=== PATIENT | male | born 1955 | race American Indian/Alaskan Native ===

== ENCOUNTER 2016-12-27 23:17 | Inpatient (IN) | payer MEDICARE, MEDICAID ==
[2016-12-27] MEDS ORDERED: Dextrose 50% SYRINGE Inj (50 ml) ONE (23:41)
[2016-12-27] MEDS ORDERED: Dextrose 50% SYRINGE Inj (50 ml) IV STA (23:47)
[2016-12-27] MEDS ORDERED: Sodium Chloride 0.9% 1,000 ML IV ONE (23:47)
[2016-12-27 23:53] LABS: BASO # 0.1 K/uL (0.0-0.2); BASO % 1.2 % (0.0-2.0); LYMPH # 0.5 K/uL (1.0-4.3); LYMPH % 5.4 % (20.0-40.0); MEAN CELL VOLUME 78.1 fL (80.0-94.0); MEAN PLATELET VOLUME 7.3 fL (7.2-11.7); MONO # 1.2 K/uL (0.0-0.8); MONO % 13.1 % (0.0-10.0); NRBC % 0.3 % (0.0-2.0); PLATELET COUNT 375 K/uL (130-400); RED CELL DISTRIBUTION WIDTH 25.1 % (11.5-14.5); WHITE BLOOD COUNT 9.4 K/uL (4.8-10.8)
[2016-12-28 00:02] LABS: POTASSIUM 5.9 mmol/L (3.6-5.2)
[2016-12-28] MEDS ORDERED: Sodium Chloride 0.9% 1,000 ML ONE (00:02)
[2016-12-28 00:04] LABS: BILIRUBIN,TOTAL 3.8 mg/dL (0.2-1.3); CALCIUM 9.9 mg/dl (8.6-10.4); TOTAL PROTEIN 8.3 g/dL (6.3-8.3)
--- NOTE | 2016-12-28 00:56 | C.PDOC ---
History Of Present Illness 61 year old male was brought to the ED by EMS after syncopal episode. Patient's blood sugar is slow and denies fever, chills, nausea, or vomiting. Chief Complaint (Nursing): Syncope History Per: Patient History/Exam Limitations: no limitations Onset/Duration Of Symptoms: Hrs Current Symptoms Are (Timing): Better Seizure Or Post-ictal Symptoms: None Fall Associated With With Symptoms: No Recent travel outside of the [place]: No Additional History Per: EMS Past Medical History Reviewed: Historical Data, Nursing Documentation, Vital Signs Vital Signs: Last Vital Signs Temp 97.6 F 12/28/16 00:40 Pulse 96 H 12/28/16 01:01 Resp 21 12/28/16 01:01 BP 156/99 H 12/28/16 01:01 Pulse Ox 97 12/28/16 02:31 - Medical History PMH: HTN, Hypercholesterolemia Family History: States: Unknown Family Hx - Social History Hx Alcohol Use: Yes Hx Substance Use: Yes - Immunization History Hx Tetanus Toxoid Vaccination: No Hx Influenza Vaccination: No Hx Pneumococcal Vaccination: No Review Of Systems Constitutional: Positive for: Other (syncopal episode ). Negative for: Fever, Chills Cardiovascular: Negative for: Chest Pain, Palpitations Respiratory: Negative for: Cough, Shortness of Breath Gastrointestinal: Negative for: Nausea, Vomiting, Abdominal Pain, Diarrhea Physical Exam - Physical Exam Appears: Non-toxic, No Acute Distress Skin: Warm, Dry Head: Atraumatic, Normacephalic Eye(s): bilateral: Normal Inspection, PERRL, EOMI Oral Mucosa: Dry Neck: Supple Chest: Symmetrical, No Deformity Cardiovascular: Rhythm Regular, No Murmur Respiratory: Normal Breath Sounds, No Rales, No Rhonchi, No Wheezing Gastrointestinal/Abdominal: Soft, No Tenderness, No Distention, No Guarding, No Rebound Extremity: Normal ROM, No Tenderness Neurological/Psych: Oriented x3 Gait: Steady ED Course And Treatment - Laboratory Results Result Diagrams: 12/27/16 23:50 12/28/16 02:04 ECG: Interpreted By Me, Viewed By Me ECG Rhythm: AV Paced ECG Interpretation: Abnormal Interpretation Of ECG: Paced rhythm with ventricular capture, abnormal tracings Rate From EC O2 Sat by Pulse Oximetry: 97 (RA) Pulse Ox Interpretation: Normal - CT Scan/US Head CT W/O Contrast Other Rad Studies (CT/US): Read By Radiologist, Radiology Report Reviewed CT/US Interpretation: Addendum created by Stas Clayton MD on 12/28/2016 1:32 AM Eastern Time ([place]). Brain: Mild atrophy. No intracranial hemorrhage. No mass. Apparent ill-defined decreased. attenuation within LEFT temporal region with apparent loss of keen-white matter differentiation versus. volume averaging. Chronic lacunar infarct within RIGHT thalamus. Addendum created by Stas Clayton MD on 12/28/2016 1:06 AM Eastern Time ([place]). THIS REPORT CONTAINS FINDINGS THAT MAY BE CRITICAL TO PATIENT CARE. The. findings were verbally communicated via telephone conference with Yusuf Conway at 1:06. AM EDT on 12/28/2016. The findings were acknowledged and understood. Initial Report created on 12/28/2016 1:00 AM Eastern Time ([place]). EXAM: CT Head Without Intravenous Contrast. CLINICAL HISTORY: 61 years old, male; Pain; Headache; Additional info: Headache. Syncope episode. TECHNIQUE: Axial computed tomography images of the head/brain without intravenous contrast. All CT scans at. this facility use one or more dose reduction techniques, viz.: automated exposure control; ma/kV. adjustment per patient size (including targeted exams where dose is matched to indication; i.e. head);. or iterative reconstruction technique. COMPARISON: No relevant prior studies available. FINDINGS: Brain: Mild atrophy. No intracranial hemorrhage. No mass. Apparent ill-defined decreased. attenuation within LEFT temporal region with apparent loss of keen-white matter differentiation versus. volume averaging. Ventricles : No hydrocephalus. Bones/joints: No acute fracture. Soft tissues: Unremarkable. Vasculature: Mild atherosclerotic disease of intracranial arteries. Sinuses: No acute sinusitis. Mastoid air cells: No mastoid effusion. Orbits: Unremarkable as visualized. IMPRESSION: 1. Apparent ill- defined decreased attenuation within LEFT temporal region. Acute infarction not. excluded. Recommend MRI. 2. Incidental/non-acute findings are described above. Progress Note: Head CT, EKG, labs, and blood work were ordered. Patient was given Dextrose 50% and IV fluids. Disposition Discussed With DrForeign: Erika Vanegas Doctor Will See Patient In The: Hospital Counseled Patient/Family Regarding: Diagnosis - Disposition Referrals: Narendra Winter MD [Staff Provider] - Disposition: HOSPITALIZED Disposition Time: 02:29 Condition: STABLE Forms: [facility] ([place]), Accompanied To ED By: - POA Present On Arrival: None - Clinical Impression Clinical Impression: Syncope, Renal insufficiency, CAD (coronary artery disease) - Scribe Statement The provider has reviewed the documentation as recorded by the Scribe Connie Garcia All medical record entries made by the Scribe were at my direction and personally dictated by me. I have reviewed the chart and agree that the record accurately reflects my personal performance of the history, physical exam, medical decision making, and the department course for this patient. I have also personally directed, reviewed, and agree with the discharge instructions and disposition.
--- NOTE | 2016-12-28 01:00 | CT ---
EXAM: CT Head Without Intravenous Contrast CLINICAL HISTORY: 61 years old, male; Pain; Headache; Additional info: Headache. Syncope episode TECHNIQUE: Axial computed tomography images of the head/brain without intravenous contrast. All CT scans at this facility use one or more dose reduction techniques, viz.: automated exposure control; ma/kV adjustment per patient size (including targeted exams where dose is matched to indication; i.e. head); or iterative reconstruction technique. COMPARISON: No relevant prior studies available. FINDINGS: Brain: Mild atrophy. No intracranial hemorrhage. No mass. Apparent ill-defined decreased attenuation within LEFT temporal region with apparent loss of keen-white matter differentiation versus volume averaging. Ventricles: No hydrocephalus. Bones/joints: No acute fracture. Soft tissues: Unremarkable. Vasculature: Mild atherosclerotic disease of intracranial arteries. Sinuses: No acute sinusitis. Mastoid air cells: No mastoid effusion. Orbits: Unremarkable as visualized. IMPRESSION: 1. Apparent ill-defined decreased attenuation within LEFT temporal region. Acute infarction not excluded. Recommend MRI. 2. Incidental/non-acute findings are described above.
[2016-12-28 01:42] LABS: NEUTROPHIL 85 % (50-75); TOTAL CELLS COUNTED 100
[2016-12-28 01:43] LABS: LARGE PLATELETS PRESENT
[2016-12-28 02:32] LABS: POTASSIUM 5.7 mmol/L (3.6-5.2)
[2016-12-28 02:35] LABS: CALCIUM 9.4 mg/dl (8.6-10.4)
[2016-12-28 02:37] LABS: TROPONIN I 0.134 ng/mL (0.00-0.120)
[2016-12-28] MEDS ORDERED: Sod Polystyrene Sulf 15 gm/60 ml Susp PO ONE (03:12)
[2016-12-28 05:17] LABS: GRANULAR CAST 8 /lpf (0-1); RBC URINE < 1 /hpf (0-3); URINE BACTERIA RARE (<OCC); URINE BILIRUBIN NEGATIVE (NEGATIVE); URINE BLOOD NEGATIVE (NEGATIVE); URINE COLOR Amber (YELLOW); URINE GLUCOSE (UA) 1+ mg/dL (Normal); URINE KETONE NEGATIVE (NEGATIVE); URINE LEUKOCYTE ESTERASE NEG Leu/uL (Negative); URINE PROTEIN 2+ mg/dL (NEGATIVE); WBC URINE 4 /hpf (0-5)
[2016-12-28] MEDS: Pantoprazole 40 mg EC Tab PO SCH (10:26)
[2016-12-28] MEDS: Enoxaparin 40 mg Syringe SC SCH (10:30)
--- NOTE | 2016-12-28 12:54 | CP.PCM.CON ---
History of Present Illness - History of Present Illness History of Present Illness: Consultation for evaluation of syncope and +ve TnI HPI: Past Patient History - Infectious Disease Hx of Infectious Diseases: None - Past Medical History & Family History Past Medical History?: Yes - Past Social History Smoking Status: Never Smoked - CARDIAC Hx Cardiac Disorders: Yes Hx Hypercholesterolemia: Yes Hx Hypertension: Yes - PULMONARY Hx Respiratory Disorders: No - NEUROLOGICAL Hx Neurological Disorder: No - HEENT Hx HEENT Problems: No - RENAL Hx Chronic Kidney Disease: No - ENDOCRINE/METABOLIC Hx Endocrine Disorders: No - HEMATOLOGICAL/ONCOLOGICAL Hx Blood Disorders: No - INTEGUMENTARY Hx Dermatological Problems: No - MUSCULOSKELETAL/RHEUMATOLOGICAL Hx Falls: No - GASTROINTESTINAL Hx Gastrointestinal Disorders: No - GENITOURINARY/GYNECOLOGICAL Hx Genitourinary Disorders: No - PSYCHIATRIC Hx Psychophysiologic Disorder: No Hx Substance Use: Yes - SURGICAL HISTORY Hx Surgeries: Yes Other/Comment: "defib place to L chest wall 2011" - ANESTHESIA Hx Anesthesia: Yes Hx Anesthesia Reactions: No Hx Malignant Hyperthermia: No Has any member of the family had a problem w/ anesthesia?: No Meds Allergies/Adverse Reactions: Allergies Allergy/AdvReac Type Severity Reaction Status Date / Time No Known Allergies Allergy Verified 12/27/16 23:43 - Medications Medications: Current Medications Aspirin (Aspirin) 325 mg PO DAILY [facility] Last Admin: 12/28/16 10:26 Dose: 325 mg Carvedilol (Coreg) 12.5 mg PO BID [facility] Last Admin: 12/28/16 10:26 Dose: 12.5 mg Enoxaparin Sodium (Lovenox) 40 mg SC DAILY [facility] Last Admin: 12/28/16 10:30 Dose: 40 mg Pantoprazole Sodium (Protonix Ec Tab) 40 mg PO DAILY [facility] Last Admin: 12/28/16 10:26 Dose: 40 mg Pneumococcal Polyvalent Vaccine (Pneumovax 23 Vaccine) 0.5 ml IM .ONCE ONE Stop: 12/30/16 10:01 Ticagrelor (Brilinta) 90 mg PO BID [facility] Last Admin: 12/28/16 10:26 Dose: 90 mg Results - Vital Signs Recent Vital Signs: Last Vital Signs Temp 97.7 F 12/28/16 08:14 Pulse 95 H 12/28/16 08:14 Resp 20 12/28/16 08:14 BP 112/71 12/28/16 10:26 Pulse Ox 98 12/28/16 08:14 - Labs Result Diagrams: 12/27/16 23:50 12/28/16 02:04 Labs: Laboratory Results - last 24 hr 12/27/16 12/27/16 12/28/16 23:50 23:50 00:05 WBC 9.4 RBC 5.25 Hgb 13.1 Hct 41.0 MCV 78.1 L MCH 25.0 L MCHC 32.0 L RDW 25.1 H Plt Count 375 MPV 7.3 Neut % (Auto) 80.3 H Lymph % (Auto) 5.4 L [place] % (Auto) 13.1 H Eos % (Auto) 0.0 Baso % (Auto) 1.2 Neut # 7.5 H Lymph # 0.5 L [place] # 1.2 H Eos # 0.0 Baso # 0.1 Neutrophils % (Manual) 85 H Lymphocytes % (Manual) 4 L Monocytes % (Manual) 11 H Platelet Estimate Normal Large Platelets Present Polychromasia Slight Anisocytosis (manual) Moderate Microcytosis (manual) Slight Macrocytosis (manual) Slight Tear Drop Cells Slight Ovalocytes Slight Sodium 139 Potassium 5.9 H Chloride 100 Carbon Dioxide 20 L Anion Gap 25 H BUN 25 H Creatinine 1.7 H Est GFR ( Amer) 50 Est GFR (Non-Af Amer) 41 POC Glucose (mg/dL) 124 H Random Glucose 56 L Calcium 9.9 Total Bilirubin 3.8 H AST 54 ALT 60 Alkaline Phosphatase 132 H Total Creatine Kinase CK-MB (Mass) Troponin I Troponin I, Quant Total Protein 8.3 Albumin 4.0 Globulin 4.2 H Albumin/Globulin Ratio 1.0 Urine Color Urine Clarity Urine pH Ur Specific [place] Urine Protein Urine Glucose (UA) Urine Ketones Urine Blood Urine Nitrate Urine Bilirubin Urine Urobilinogen Ur Leukocyte Esterase Urine WBC (Auto) Urine RBC (Auto) Ur Squamous Epith Cells Amorphous Sediment Urine Bacteria Hyaline Casts Granular Casts (Auto) Broad Casts 12/28/16 12/28/16 12/28/16 01:00 02:04 04:56 WBC RBC Hgb Hct MCV MCH MCHC RDW Plt Count MPV Neut % (Auto) Lymph % (Auto) [place] % (Auto) Eos % (Auto) Baso % (Auto) Neut # Lymph # [place] # Eos # Baso # Neutrophils % (Manual) Lymphocytes % (Manual) Monocytes % (Manual) Platelet Estimate Large Platelets Polychromasia Anisocytosis (manual) Microcytosis (manual) Macrocytosis (manual) Tear Drop Cells Ovalocytes Sodium 141 Potassium 5.7 H Chloride 100 Carbon Dioxide 20 L Anion Gap 27 H BUN 28 H Creatinine 1.7 H Est GFR ( Amer) 50 Est GFR (Non-Af Amer) 41 POC Glucose (mg/dL) 96 Random Glucose 111 H Calcium 9.4 Total Bilirubin AST ALT Alkaline Phosphatase Total Creatine Kinase CK-MB (Mass) Troponin I 0.1340 H* Troponin I, Quant Total Protein Albumin Globulin Albumin/Globulin Ratio Urine Color [place] Urine Clarity Hazy Urine pH 5.0 Ur Specific [place] 1.016 Urine Protein 2+ H Urine Glucose (UA) 1+ H Urine Ketones Negative Urine Blood Negative Urine Nitrate Negative Urine Bilirubin Negative Urine Urobilinogen 2.0 Ur Leukocyte Esterase Neg Urine WBC (Auto) 4 Urine RBC (Auto) < 1 Ur Squamous Epith Cells 1 Amorphous Sediment Rare H Urine Bacteria Rare Hyaline Casts 6-10 H Granular Casts (Auto) 8 Broad Casts 19 12/28/16 12/28/16 12/28/16 06:46 11:55 12:00 WBC RBC Hgb Hct MCV MCH MCHC RDW Plt Count MPV Neut % (Auto) Lymph % (Auto) [place] % (Auto) Eos % (Auto) Baso % (Auto) Neut # Lymph # [place] # Eos # Baso # Neutrophils % (Manual) Lymphocytes % (Manual) Monocytes % (Manual) Platelet Estimate Large Platelets Polychromasia Anisocytosis (manual) Microcytosis (manual) Macrocytosis (manual) Tear Drop Cells Ovalocytes Sodium Potassium Chloride Carbon Dioxide Anion Gap BUN Creatinine Est GFR ( Amer) Est GFR (Non-Af Amer) POC Glucose (mg/dL) 94 87 Random Glucose Calcium Total Bilirubin AST ALT Alkaline Phosphatase Total Creatine Kinase 553 H CK-MB (Mass) 8.39 H Troponin I Troponin I, Quant 0.1110 Total Protein Albumin Globulin Albumin/Globulin Ratio Urine Color Urine Clarity Urine pH Ur Specific [place] Urine Protein Urine Glucose (UA) Urine Ketones Urine Blood Urine Nitrate Urine Bilirubin Urine Urobilinogen Ur Leukocyte Esterase Urine WBC (Auto) Urine RBC (Auto) Ur Squamous Epith Cells Amorphous Sediment Urine Bacteria Hyaline Casts Granular Casts (Auto) Broad Casts Assessment & Plan (1) Troponin level elevated Status: Acute (2) Syncope Status: Acute (3) CAD (coronary artery disease) Status: Acute (4) Renal insufficiency Status: Acute (5) HTN (hypertension) Status: Acute
--- NOTE | 2016-12-28 14:30 | CP.PCM.HP ---
Past Patient History - Infectious Disease Hx of Infectious Diseases: None - Past Medical History & Family History Past Medical History?: Yes - Past Social History Smoking Status: Never Smoked - CARDIAC Hx Cardiac Disorders: Yes Hx Hypercholesterolemia: Yes Hx Hypertension: Yes - PULMONARY Hx Respiratory Disorders: No - NEUROLOGICAL Hx Neurological Disorder: No - HEENT Hx HEENT Problems: No - RENAL Hx Chronic Kidney Disease: No - ENDOCRINE/METABOLIC Hx Endocrine Disorders: No - HEMATOLOGICAL/ONCOLOGICAL Hx Blood Disorders: No - INTEGUMENTARY Hx Dermatological Problems: No - MUSCULOSKELETAL/RHEUMATOLOGICAL Hx Falls: No - GASTROINTESTINAL Hx Gastrointestinal Disorders: No - GENITOURINARY/GYNECOLOGICAL Hx Genitourinary Disorders: No - PSYCHIATRIC Hx Psychophysiologic Disorder: No Hx Substance Use: Yes - SURGICAL HISTORY Hx Surgeries: Yes Other/Comment: "defib place to L chest wall 2011" - ANESTHESIA Hx Anesthesia: Yes Hx Anesthesia Reactions: No Hx Malignant Hyperthermia: No Has any member of the family had a problem w/ anesthesia?: No Meds Allergies/Adverse Reactions: Allergies Allergy/AdvReac Type Severity Reaction Status Date / Time No Known Allergies Allergy Verified 12/27/16 23:43 Physical Exam - Constitutional Appears: Well - Head Exam Head Exam: ATRAUMATIC, NORMAL INSPECTION, NORMOCEPHALIC - Eye Exam Eye Exam: EOMI, Normal appearance, PERRL Pupil Exam: NORMAL ACCOMODATION, PERRL - ENT Exam ENT Exam: Mucous Membranes Moist, Normal Exam - Neck Exam Neck exam: Positive for: Normal Inspection - Respiratory Exam Respiratory Exam: Decreased Breath Sounds - Cardiovascular Exam Cardiovascular Exam: REGULAR RHYTHM, +S1, +S2 - GI/Abdominal Exam GI & Abdominal Exam: Diminished Bowel Sounds, Soft - Rectal Exam Rectal Exam: Deferred Results - Vital Signs Recent Vital Signs: Last Vital Signs Temp 97.7 F 12/28/16 08:14 Pulse 95 H 12/28/16 08:14 Resp 20 12/28/16 08:14 BP 112/71 12/28/16 10:26 Pulse Ox 98 12/28/16 08:14 - Labs Result Diagrams: 12/27/16 23:50 12/28/16 02:04 Labs: Laboratory Results - last 24 hr 12/27/16 12/27/16 12/28/16 23:50 23:50 00:05 WBC 9.4 RBC 5.25 Hgb 13.1 Hct 41.0 MCV 78.1 L MCH 25.0 L MCHC 32.0 L RDW 25.1 H Plt Count 375 MPV 7.3 Neut % (Auto) 80.3 H Lymph % (Auto) 5.4 L [place] % (Auto) 13.1 H Eos % (Auto) 0.0 Baso % (Auto) 1.2 Neut # 7.5 H Lymph # 0.5 L [place] # 1.2 H Eos # 0.0 Baso # 0.1 Neutrophils % (Manual) 85 H Lymphocytes % (Manual) 4 L Monocytes % (Manual) 11 H Platelet Estimate Normal Large Platelets Present Polychromasia Slight Anisocytosis (manual) Moderate Microcytosis (manual) Slight Macrocytosis (manual) Slight Tear Drop Cells Slight Ovalocytes Slight Sodium 139 Potassium 5.9 H Chloride 100 Carbon Dioxide 20 L Anion Gap 25 H BUN 25 H Creatinine 1.7 H Est GFR ( Amer) 50 Est GFR (Non-Af Amer) 41 POC Glucose (mg/dL) 124 H Random Glucose 56 L Calcium 9.9 Total Bilirubin 3.8 H AST 54 ALT 60 Alkaline Phosphatase 132 H Total Creatine Kinase CK-MB (Mass) Troponin I Troponin I, Quant Total Protein 8.3 Albumin 4.0 Globulin 4.2 H Albumin/Globulin Ratio 1.0 Urine Color Urine Clarity Urine pH Ur Specific [place] Urine Protein Urine Glucose (UA) Urine Ketones Urine Blood Urine Nitrate Urine Bilirubin Urine Urobilinogen Ur Leukocyte Esterase Urine WBC (Auto) Urine RBC (Auto) Ur Squamous Epith Cells Amorphous Sediment Urine Bacteria Hyaline Casts Granular Casts (Auto) Broad Casts 12/28/16 12/28/16 12/28/16 01:00 02:04 04:56 WBC RBC Hgb Hct MCV MCH MCHC RDW Plt Count MPV Neut % (Auto) Lymph % (Auto) [place] % (Auto) Eos % (Auto) Baso % (Auto) Neut # Lymph # [place] # Eos # Baso # Neutrophils % (Manual) Lymphocytes % (Manual) Monocytes % (Manual) Platelet Estimate Large Platelets Polychromasia Anisocytosis (manual) Microcytosis (manual) Macrocytosis (manual) Tear Drop Cells Ovalocytes Sodium 141 Potassium 5.7 H Chloride 100 Carbon Dioxide 20 L Anion Gap 27 H BUN 28 H Creatinine 1.7 H Est GFR ( Amer) 50 Est GFR (Non-Af Amer) 41 POC Glucose (mg/dL) 96 Random Glucose 111 H Calcium 9.4 Total Bilirubin AST ALT Alkaline Phosphatase Total Creatine Kinase CK-MB (Mass) Troponin I 0.1340 H* Troponin I, Quant Total Protein Albumin Globulin Albumin/Globulin Ratio Urine Color Windy Urine Clarity Hazy Urine pH 5.0 Ur Specific [place] 1.016 Urine Protein 2+ H Urine Glucose (UA) 1+ H Urine Ketones Negative Urine Blood Negative Urine Nitrate Negative Urine Bilirubin Negative Urine Urobilinogen 2.0 Ur Leukocyte Esterase Neg Urine WBC (Auto) 4 Urine RBC (Auto) < 1 Ur Squamous Epith Cells 1 Amorphous Sediment Rare H Urine Bacteria Rare Hyaline Casts 6-10 H Granular Casts (Auto) 8 Broad Casts 19 12/28/16 12/28/16 12/28/16 06:46 11:55 12:00 WBC RBC Hgb Hct MCV MCH MCHC RDW Plt Count MPV Neut % (Auto) Lymph % (Auto) [place] % (Auto) Eos % (Auto) Baso % (Auto) Neut # Lymph # [place] # Eos # Baso # Neutrophils % (Manual) Lymphocytes % (Manual) Monocytes % (Manual) Platelet Estimate Large Platelets Polychromasia Anisocytosis (manual) Microcytosis (manual) Macrocytosis (manual) Tear Drop Cells Ovalocytes Sodium Potassium Chloride Carbon Dioxide Anion Gap BUN Creatinine Est GFR ( Amer) Est GFR (Non-Af Amer) POC Glucose (mg/dL) 94 87 Random Glucose Calcium Total Bilirubin AST ALT Alkaline Phosphatase Total Creatine Kinase 553 H CK-MB (Mass) 8.39 H Troponin I Troponin I, Quant 0.1110 Total Protein Albumin Globulin Albumin/Globulin Ratio Urine Color Urine Clarity Urine pH Ur Specific [place] Urine Protein Urine Glucose (UA) Urine Ketones Urine Blood Urine Nitrate Urine Bilirubin Urine Urobilinogen Ur Leukocyte Esterase Urine WBC (Auto) Urine RBC (Auto) Ur Squamous Epith Cells Amorphous Sediment Urine Bacteria Hyaline Casts Granular Casts (Auto) Broad Casts
--- NOTE | 2016-12-28 14:35 | RAD ---
HISTORY: sob COMPARISON: Comparison chest 06/04/2016 FINDINGS: LUNGS: Vague hazy opacity seen in the right mid to lower lung zone which could represent some combination of atelectasis/ infiltrate and effusion. PLEURA: No significant pleural effusion identified, no pneumothorax apparent. CARDIOVASCULAR: No change multi lead pacemaker/defibrillator Heart remains enlarged. OSSEOUS STRUCTURES: No significant abnormalities. VISUALIZED UPPER ABDOMEN: Normal. OTHER FINDINGS: None. IMPRESSION: No marked cardiomegaly. Hazy opacity in the right mid-lower lung field could represent some combination of atelectasis/ infiltrate and effusion.
--- NOTE | 2016-12-28 20:57 | NM ---
EXAM: NM Lung Perfusion and Ventilation Scan CLINICAL HISTORY: 61 years old, male; Signs and symptoms; Shortness of breath; Patient HX: History and physical examination information sent. Chest x-ray image(s) and report sent as well. ; Additional info: D dimer high TECHNIQUE: Nuclear Medicine ventilation and perfusion images of the lungs were obtained in multiple projections following inhalation of 16.8 mCi of Xenon-133 gas and injection of 3.9 mCi of Tc99m MAA. COMPARISON: DX - CHEST PORTABLE 12/28/2016 1:54:04 PM FINDINGS: Ventilation: No moderate or large ventilation defects. Perfusion: No moderate or large perfusion defects. IMPRESSION: Low probability for pulmonary embolism.
[2016-12-29 08:51] LABS: POTASSIUM 5.2 mmol/L (3.6-5.2)
[2016-12-29 08:54] LABS: CALCIUM 9.1 mg/dl (8.6-10.4)
[2016-12-29] MEDS: Pantoprazole 40 mg EC Tab PO SCH (10:21)
[2016-12-29] MEDS: Enoxaparin 40 mg Syringe SC SCH (10:22)
--- NOTE | 2016-12-29 20:32 | CP.PCM.PN ---
Subjective - Date & Time of Evaluation Date of Evaluation: 12/29/16 Time of Evaluation: 11:20 - Subjective Subjective: clinically same Objective - Vital Signs/Intake and Output Vital Signs (last 24 hours): Temp Pulse Resp BP Pulse Ox 97.6 F 68 20 118/70 100 12/29/16 15:00 12/29/16 15:00 12/29/16 15:00 12/29/16 17:34 12/29/16 15:00 - Medications Medications: Current Medications Aspirin (Aspirin) 325 mg PO DAILY [facility] Last Admin: 12/29/16 10:21 Dose: 325 mg Carvedilol (Coreg) 12.5 mg PO BID [facility] Last Admin: 12/29/16 17:34 Dose: 12.5 mg Enoxaparin Sodium (Lovenox) 40 mg SC DAILY [facility] Last Admin: 12/29/16 10:22 Dose: 40 mg Morphine Sulfate (Morphine) 2 mg IVP Q4 PRN PRN Reason: pain Last Admin: 12/29/16 05:21 Dose: 2 mg Pantoprazole Sodium (Protonix Ec Tab) 40 mg PO DAILY [facility] Last Admin: 12/29/16 10:21 Dose: 40 mg Pneumococcal Polyvalent Vaccine (Pneumovax 23 Vaccine) 0.5 ml IM .ONCE ONE Stop: 12/30/16 10:01 Ticagrelor (Brilinta) 90 mg PO BID [facility] Last Admin: 12/29/16 17:35 Dose: 90 mg - Labs Labs: 12/27/16 23:50 12/29/16 08:27 - Constitutional Appears: Well - Head Exam Head Exam: ATRAUMATIC, NORMAL INSPECTION, NORMOCEPHALIC - Eye Exam Eye Exam: EOMI, Normal appearance, PERRL Pupil Exam: NORMAL ACCOMODATION, PERRL - ENT Exam ENT Exam: Mucous Membranes Moist, Normal Exam - Neck Exam Neck Exam: Full ROM, Normal Inspection. absent: Lymphadenopathy - Respiratory Exam Respiratory Exam: Decreased Breath Sounds - Cardiovascular Exam Cardiovascular Exam: REGULAR RHYTHM, +S1, +S2 - GI/Abdominal Exam GI & Abdominal Exam: Soft, Diminished Bowel Sounds - Rectal Exam Rectal Exam: Deferred
--- NOTE | 2016-12-29 22:47 | CP.PCM.PN ---
Subjective - Date & Time of Evaluation Date of Evaluation: 12/29/16 Time of Evaluation: 22:47 Objective - Vital Signs/Intake and Output Vital Signs (last 24 hours): Temp Pulse Resp BP Pulse Ox 97.6 F 68 20 118/70 100 12/29/16 15:00 12/29/16 15:00 12/29/16 15:00 12/29/16 17:34 12/29/16 15:00 Intake and Output: 12/29/16 12/30/16 18:59 06:59 Output Total 200 Balance -200 - Medications Medications: Current Medications Aspirin (Aspirin) 325 mg PO DAILY [facility] Last Admin: 12/29/16 10:21 Dose: 325 mg Carvedilol (Coreg) 12.5 mg PO BID [facility] Last Admin: 12/29/16 17:34 Dose: 12.5 mg Enoxaparin Sodium (Lovenox) 40 mg SC DAILY [facility] Last Admin: 12/29/16 10:22 Dose: 40 mg Morphine Sulfate (Morphine) 2 mg IVP Q4 PRN PRN Reason: pain Last Admin: 12/29/16 05:21 Dose: 2 mg Pantoprazole Sodium (Protonix Ec Tab) 40 mg PO DAILY [facility] Last Admin: 12/29/16 10:21 Dose: 40 mg Pneumococcal Polyvalent Vaccine (Pneumovax 23 Vaccine) 0.5 ml IM .ONCE ONE Stop: 12/30/16 10:01 Ticagrelor (Brilinta) 90 mg PO BID [facility] Last Admin: 12/29/16 17:35 Dose: 90 mg - Labs Labs: 12/27/16 23:50 12/29/16 08:27 Assessment and Plan (1) Troponin level elevated Status: Acute (2) Syncope Status: Acute (3) CAD (coronary artery disease) Status: Acute (4) Renal insufficiency Status: Acute (5) HTN (hypertension) Status: Acute
[2016-12-30] MEDS ORDERED: Influenza Virus Vaccine 45 mcg/0.5 ml Syr (36 months - 7 yrs) IM ONE (10:00)
[2016-12-30] MEDS ORDERED: Influenza Vaccine 60 mcg/0.5 mL SYR (4YR UP) IM ONE (10:00)
[2016-12-30] MEDS ORDERED: Pneumococcal 23-Valent Vaccine IM ONE (10:00)
[2016-12-30] MEDS: Pantoprazole 40 mg EC Tab PO SCH (10:28)
[2016-12-30] MEDS: Enoxaparin 40 mg Syringe SC SCH (10:28)
--- NOTE | 2016-12-30 10:45 | CP.PCM.PN ---
Subjective - Date & Time of Evaluation Date of Evaluation: 12/30/16 Time of Evaluation: 13:53 - Subjective Subjective: Patient seen and examined at bedside this AM; denies any complaints; states he feels slightly weak but better than before. Objective - Vital Signs/Intake and Output Vital Signs (last 24 hours): Temp Pulse Resp BP Pulse Ox 98.2 F 71 18 101/59 L 97 12/30/16 07:00 12/30/16 07:00 12/30/16 07:00 12/30/16 10:22 12/30/16 07:00 Intake and Output: 12/30/16 12/30/16 06:59 18:59 Intake Total 240 Output Total 200 200 Balance 40 -200 - Medications Medications: Current Medications Aspirin (Aspirin) 325 mg PO DAILY [facility] Last Admin: 12/30/16 10:21 Dose: 325 mg Carvedilol (Coreg) 12.5 mg PO BID [facility] Last Admin: 12/30/16 10:22 Dose: 12.5 mg Enoxaparin Sodium (Lovenox) 40 mg SC DAILY [facility] Last Admin: 12/30/16 10:28 Dose: 40 mg Morphine Sulfate (Morphine) 2 mg IVP Q4 PRN PRN Reason: pain Last Admin: 12/29/16 05:21 Dose: 2 mg Pantoprazole Sodium (Protonix Ec Tab) 40 mg PO DAILY [facility] Last Admin: 12/29/16 10:21 Dose: 40 mg Ticagrelor (Brilinta) 90 mg PO BID [facility] Last Admin: 12/30/16 10:24 Dose: 90 mg - Labs Labs: 12/27/16 23:50 12/29/16 08:27 - Constitutional Appears: Non-toxic - Head Exam Head Exam: ATRAUMATIC - Eye Exam Eye Exam: EOMI Pupil Exam: PERRL - ENT Exam ENT Exam: Mucous Membranes Moist - Neck Exam Neck Exam: Full ROM. absent: Lymphadenopathy - Respiratory Exam Respiratory Exam: Clear to Ausculation Bilateral - Cardiovascular Exam Cardiovascular Exam: REGULAR RHYTHM, Murmur - GI/Abdominal Exam GI & Abdominal Exam: Soft, Normal Bowel Sounds - Extremities Exam Extremities Exam: Pedal Edema (edema 4+ up to knees). absent: Calf Tenderness - Back Exam Back Exam: absent: CVA tenderness (L), CVA tenderness (R) - Neurological Exam Neurological Exam: Alert, Awake, Oriented x3 - Psychiatric Exam Psychiatric exam: Depressed - Skin Skin Exam: Warm Assessment and Plan - Assessment and Plan (Free Text) Assessment: (Troponin level elevated -D-DImer also markedly elevated; no subjective shortness of breath or chest pain -VQ Scan was low probability for PE; CT PE protocol unable to be ordered 2/2 to NAVEEN -Cardiology on board; Dr. Winter, appreciate recs -pending echo today; f/u results; f/u BNP ordered -patient already has pacemaker; will likely need to interrogate ICD clinically looks like CHF exacerbation Syncope; resolved Patient had low blood sugar prior to admission; was corrected and has not occurred again CAD; chronic -c/w current medical management NAVEEN; unknown if chronic or not -monitoring -making adequate urine; not retaining HTN (hypertension); chronic -c/w current medical management Polysubstance Abuse TCH and Opiods positive; patient denies drug abuse Prophylaxis Pepcid Lovenox Heart healthy diet PT/OT eval and treat All management as per Dr. Kelly Ozuna PGY2
[2016-12-30] MEDS ORDERED: Perflutren Lipid Microsphere 1.5 ML SUS IV ONE (11:45)
--- NOTE | 2016-12-30 13:37 | CP.PCM.PN ---
Subjective - Date & Time of Evaluation Date of Evaluation: 12/30/16 Time of Evaluation: 09:20 - Subjective Subjective: Benny Plummer DO PGY1 - Cardiology Progress Note for Dr. Winter Patient seen and examined at bedside. No events overnight. Patient was found seated at the side of the bed, but slumped over to the side. Appears to be tired , lethargic, but answers questions appropriately, obeys complex commands, and is oriented x3. Patient does remember coming to the hospital, but does not remember exact circumstances. He now denies any CP, SOB, F/C, N/V/D/C, abdominal pain, leg pain. Does report some leg swelling, but says that he has it all the time. Patient is complaining of low back pain, which is worse when he lies flat. He also now admits to noncompliance with his medications at home, only occasionally taking them as prescribed. Objective - Vital Signs/Intake and Output Vital Signs (last 24 hours): Temp Pulse Resp BP Pulse Ox 98.2 F 73 18 101/59 L 97 12/30/16 07:00 12/30/16 07:47 12/30/16 07:00 12/30/16 10:22 12/30/16 07:00 Intake and Output: 12/30/16 12/30/16 06:59 18:59 Intake Total 240 Output Total 200 200 Balance 40 -200 - Medications Medications: Current Medications Aspirin (Aspirin) 325 mg PO DAILY [facility] Last Admin: 12/30/16 10:21 Dose: 325 mg Carvedilol (Coreg) 12.5 mg PO BID [facility] Last Admin: 12/30/16 10:22 Dose: 12.5 mg Enoxaparin Sodium (Lovenox) 40 mg SC DAILY [facility] Last Admin: 12/30/16 10:28 Dose: 40 mg Famotidine (Pepcid) 20 mg PO DAILY [facility] Last Admin: 12/30/16 12:28 Dose: 20 mg Morphine Sulfate (Morphine) 2 mg IVP Q4 PRN PRN Reason: pain Last Admin: 12/29/16 05:21 Dose: 2 mg Pantoprazole Sodium (Protonix Ec Tab) 40 mg PO DAILY [facility] Last Admin: 12/30/16 10:28 Dose: 40 mg Ticagrelor (Brilinta) 90 mg PO BID [facility] Last Admin: 12/30/16 10:24 Dose: 90 mg - Labs Labs: 12/27/16 23:50 12/29/16 08:27 - Constitutional Appears: Non-toxic, No Acute Distress, Unkempt, Older Than Stated Age, Confused , Chronically Ill - Head Exam Head Exam: ATRAUMATIC, NORMOCEPHALIC - Eye Exam Eye Exam: EOMI, Normal appearance - ENT Exam ENT Exam: Mucous Membranes Moist, Normal Exam - Neck Exam Neck Exam: Full ROM, Normal Inspection - Respiratory Exam Respiratory Exam: Clear to Ausculation Bilateral, NORMAL BREATHING PATTERN - Cardiovascular Exam Cardiovascular Exam: RRR, +S1, +S2 - GI/Abdominal Exam GI & Abdominal Exam: Soft. absent: Tenderness - Extremities Exam Extremities Exam: Pedal Edema (4+ to mid thigh) - Neurological Exam Neurological Exam: Alert, Awake, Oriented x3 - Psychiatric Exam Psychiatric exam: Depressed, Flat Affect - Skin Skin Exam: Dry, Intact Assessment and Plan - Assessment and Plan (Free Text) Assessment: 61 yo M with known history of dilated cardiomyopathy and heart failure presented with syncope Plan: 1. Heart failure - Patient has known history of heart failure (LVEF in 05/2016 11%), dilated cardiomyopathy - Patient reportedly had cardiac catheterization with Dr. Bourgeois 4 years ago; per patient, no stents were placed, but he is reportedly supposed to be taking ASA and plavix, among other cardioprotective medications - Patient has AICD/PPM in place; will require interrogation - Echo complete, shows same severe dilation in LA and LV, with severely reduced LVEF (10-15%), now with LV thrombus - Patient is clinically fluid overloaded; Start lasix 40mg IV Q8 - Patient counselled on smoking cessation, alcohol abstinence, and medication compliance - Continue BB, Entresto 2. Left ventricle thrombus - Noted on echo, as above - Likely the cause of the elevated D-dimer - Stop ticagrelor, ASA - Start Heparin drip, Warfarin 5mg daily, plavix (start tomorrow) - Daily PT/PTT/INR - Repeat echo in 3-4 months to reassess 3. Syncope - Patient presented with syncopal/presyncopal episode - Noted to be hypoglycemic in ER, and symptoms improved after correction with D50 - Patient also had elevated D-dimer, and positive troponins - V/Q scan low probability for PE - Patient complaining of palpitations, but no chest pain and no dyspnea; with known history of severe dilated cardiomyopathy, troponin elevation may be 2/2 CHF exacerbation causing demand ischemia rather than NSTEMI - Head CT done, shows no intracranial hemorrhage; ill defined decreased attenuation in left temporal region; acute infarct vs volume averaging. 4. h/o HTN - On chart review, patient noted to have HTN, though patient currently denies such history - Patient initially presented hypertensive, which is now stable since admission - Continue Lili PRABHAKAR Patient seen, discussed, and reviewed with attending
[2016-12-30] MEDS ORDERED: Heparin25000 units/250ml 1/2NS 25,000 UNITS/250 ML BAG IV PRN ×2 (14:00→19:45)
[2016-12-30] MEDS: Sacubitril/Valsartan 24-26mg Tab PO SCH (17:46)
[2016-12-30 17:49] LABS: INR 1.3
--- NOTE | 2016-12-30 19:39 | CP.PCM.PN ---
Subjective - Date & Time of Evaluation Date of Evaluation: 12/30/16 Time of Evaluation: 11:20 - Subjective Subjective: clinically same Objective - Vital Signs/Intake and Output Vital Signs (last 24 hours): Temp Pulse Resp BP Pulse Ox 97.6 F 80 20 124/85 100 12/30/16 15:00 12/30/16 17:27 12/30/16 17:27 12/30/16 17:47 12/30/16 15:00 Intake and Output: 12/30/16 12/31/16 18:59 06:59 Intake Total 360 Output Total 500 Balance -140 - Medications Medications: Current Medications Carvedilol (Coreg) 12.5 mg PO BID [facility] Last Admin: 12/30/16 17:46 Dose: 12.5 mg Clopidogrel Bisulfate (Plavix) 75 mg PO DAILY [facility] Famotidine (Pepcid) 20 mg PO DAILY [facility] Last Admin: 12/30/16 12:28 Dose: 20 mg Furosemide (Lasix) 40 mg IVP Q8 [facility] Last Admin: 12/30/16 17:47 Dose: 40 mg Heparin Sodium/Sodium Chloride (Heparin 36228 Units/250ml 1/2 Normal Saline) 25 ,000 units in 250 mls @ 8.437 mls/hr IV .Q24H PRN; Protocol; 12 UNITS/KG/HR PRN Reason: PROTOCOL Last Admin: 12/30/16 17:48 Dose: 12 units/kg/hr, 8.437 mls/hr Morphine Sulfate (Morphine) 2 mg IVP Q4 PRN PRN Reason: pain Last Admin: 12/29/16 05:21 Dose: 2 mg Sacubitril/Valsartan (Entresto 24 Mg-26 Mg) 1 tab PO BID [facility] Last Admin: 12/30/16 17:46 Dose: 1 tab Warfarin Sodium (Coumadin) 5 mg PO 1800 [facility] Stop: 12/30/16 19:46 - Labs Labs: 12/27/16 23:50 12/29/16 08:27 PT 14.1 SECONDS (9.7-12.2) H 12/30/16 16:44 INR 1.3 12/30/16 16:44 APTT 34 SECONDS (21-34) 12/30/16 16:44 - Constitutional Appears: Well - Head Exam Head Exam: ATRAUMATIC, NORMAL INSPECTION, NORMOCEPHALIC - Eye Exam Eye Exam: EOMI, Normal appearance, PERRL Pupil Exam: NORMAL ACCOMODATION, PERRL - ENT Exam ENT Exam: Mucous Membranes Moist, Normal Exam - Neck Exam Neck Exam: Full ROM, Normal Inspection. absent: Lymphadenopathy - Respiratory Exam Respiratory Exam: Decreased Breath Sounds - Cardiovascular Exam Cardiovascular Exam: REGULAR RHYTHM, +S1, +S2 - GI/Abdominal Exam GI & Abdominal Exam: Soft, Diminished Bowel Sounds - Rectal Exam Rectal Exam: Deferred
[2016-12-31 07:27] LABS: INR 1.3
[2016-12-31 07:31] LABS: BASO % 0.5 % (0.0-2.0); EOS % 0.6 % (0.0-4.0); HEMATOCRIT 33.7 % (35.0-51.0); LYMPH % 15.3 % (20.0-40.0); MEAN CELL VOLUME 76.7 fL (80.0-94.0); MEAN CORPUSCULAR HEMOGLOBIN 25.4 pg (27.0-31.0); MEAN CORPUSCULAR HGB CONC 33.2 g/dL (33.0-37.0); MEAN PLATELET VOLUME 7.7 fL (7.2-11.7); MONO # 1.1 K/uL (0.0-0.8); MONO % 16.7 % (0.0-10.0); NRBC % 0.4 % (0.0-2.0); RED CELL DISTRIBUTION WIDTH 24.3 % (11.5-14.5); WHITE BLOOD COUNT 6.7 K/uL (4.8-10.8)
[2016-12-31 07:54] LABS: CHLORIDE 98 mmol/L (98-107)
[2016-12-31 07:55] LABS: POTASSIUM 3.9 mmol/L (3.6-5.2); SODIUM 138 mmol/L (132-148)
[2016-12-31 07:57] LABS: ALB/GLOB RATIO 0.8 (1.0-2.1); AST/SGOT 40 U/L (17-59); BILIRUBIN,TOTAL 1.3 mg/dL (0.2-1.3); BLOOD UREA NITROGEN 37 mg/dL (9-20); CARBON DIOXIDE 29 mmol/L (22-30); GFR AFRICAN-AMERICAN > 60; TOTAL PROTEIN 6.1 g/dL (6.3-8.3)
[2016-12-31 07:58] LABS: ALKALINE PHOSPHATASE 119 U/L (38-126); ALT/SGPT 54 U/L (21-72); CALCIUM 8.6 mg/dl (8.6-10.4); GLUCOSE,RANDOM 71 mg/dL (75-110)
[2016-12-31] MEDS: Sacubitril/Valsartan 24-26mg Tab PO SCH ×2 (09:48→21:59)
--- NOTE | 2016-12-31 13:31 | CP.PCM.PN ---
Subjective - Date & Time of Evaluation Date of Evaluation: 12/31/16 Time of Evaluation: 07:30 - Subjective Subjective: Benny Plummer DO PGY1 - Cardiology Progress Note for Dr. Winter Patient seen and examined at bedside. No events overnight. Patient reports significant improvement in shortness of breath and orthopnea. Appears much more awake and alert today. He denies any chest pain, SOB, F/C, N/V/D/C, abdominal pain, leg pain. Continues to have some leg swelling, but improved since yesterday. No longer complaining of low back pain. Again discusse and stressed compliance with medications Objective - Vital Signs/Intake and Output Vital Signs (last 24 hours): Temp Pulse Resp BP Pulse Ox 97.4 F L 75 20 102/61 100 12/31/16 07:00 12/31/16 07:00 12/31/16 07:00 12/31/16 09:48 12/31/16 07:00 Intake and Output: 12/31/16 12/31/16 06:59 18:59 Intake Total 392 Output Total 3050 Balance -2658 - Medications Medications: Current Medications Carvedilol (Coreg) 12.5 mg PO BID [facility] Last Admin: 12/31/16 09:48 Dose: 12.5 mg Clopidogrel Bisulfate (Plavix) 75 mg PO DAILY [facility] Last Admin: 12/31/16 09:48 Dose: 75 mg Famotidine (Pepcid) 20 mg PO DAILY [facility] Last Admin: 12/31/16 09:48 Dose: 20 mg Furosemide (Lasix) 40 mg IVP Q8 [facility] Last Admin: 12/31/16 06:43 Dose: 40 mg Heparin Sodium/Sodium Chloride (Heparin 75935 Units/250ml 1/2 Normal Saline) 25 ,000 units in 250 mls @ 8.437 mls/hr IV .Q24H PRN; Protocol; 12 UNITS/KG/HR PRN Reason: PROTOCOL Morphine Sulfate (Morphine) 2 mg IVP Q4 PRN PRN Reason: pain Last Admin: 12/29/16 05:21 Dose: 2 mg Sacubitril/Valsartan (Entresto 24 Mg-26 Mg) 1 tab PO BID [facility] Last Admin: 12/31/16 09:48 Dose: 1 tab - Labs Labs: 12/31/16 07:11 12/31/16 07:11 PT 14.5 SECONDS (9.7-12.2) H 12/31/16 07:11 INR 1.3 12/31/16 07:11 APTT 50 SECONDS (21-34) H 12/31/16 07:11 - Constitutional Appears: Non-toxic, No Acute Distress, Chronically Ill - Head Exam Head Exam: ATRAUMATIC, NORMOCEPHALIC - Eye Exam Eye Exam: EOMI, Normal appearance - ENT Exam ENT Exam: Mucous Membranes Moist - Neck Exam Neck Exam: Full ROM, Normal Inspection - Respiratory Exam Respiratory Exam: Rales (bilateral lower and middle lung looney). absent: Rhonchi, Wheezes Additional comments: Poor effort and air exchange - Cardiovascular Exam Cardiovascular Exam: RRR, +S1, +S2 - GI/Abdominal Exam GI & Abdominal Exam: Soft. absent: Tenderness - Extremities Exam Extremities Exam: absent: Calf Tenderness Additional comments: 4+ pitting edema to knees - Neurological Exam Neurological Exam: Alert, Awake, Oriented x3 - Psychiatric Exam Psychiatric exam: Normal Affect, Normal Mood - Skin Skin Exam: Dry, Intact Assessment and Plan - Assessment and Plan (Free Text) Assessment: 61 yo M with known history of dilated cardiomyopathy and heart failure presented with questionable syncope Plan: 1. Heart failure - Patient has known history of heart failure (LVEF in 05/2016 11%), dilated cardiomyopathy - Patient reportedly had cardiac catheterization with Dr. Bourgeois 4 years ago; per patient, no stents were placed, but he is supposed to be taking ASA and plavix, among other cardioprotective medications; no documentation of such was found in EMR - Patient has AICD/PPM in place; will require interrogation, patient unsure of service associate - Echo complete, shows same severe dilation in LA and LV, with severely reduced LVEF (10-15%), now with LV thrombus - Initial BNP 7220; repeat BNP today 7100 (BNP in 05/2016 was 329, when was when he had his last echo done, as above) - Patient remains clinically fluid overloaded, though significantly improved symptomatically - Continue lasix 40mg IV Q8 - Patient again counselled on smoking cessation, alcohol abstinence, and medication compliance - Continue BB, Entresto 2. Left ventricle thrombus - Noted on echo, as above - Likely the cause of the elevated D-dimer - Continue Heparin drip for bridging; Warfarin 5mg daily, plavix - Daily PT/PTT/INR - Will require repeat echo in 3-4 months to reassess 3. Syncope - Patient presented with syncopal/presyncopal episode - Noted to be hypoglycemic in ER, and symptoms improved after correction with D50 - Patient also had elevated D-dimer, and positive troponins - V/Q scan low probability for PE - Patient complaining of palpitations, but no chest pain and no dyspnea; with known history of severe dilated cardiomyopathy, troponin elevation may be 2/2 CHF exacerbation causing demand ischemia rather than NSTEMI - Head CT done, shows no intracranial hemorrhage; ill defined decreased attenuation in left temporal region; acute infarct vs volume averaging. 4. h/o HTN - On chart review, patient noted to have HTN, though patient currently denies such history - Patient initially presented hypertensive, which is now stable since admission - Continue BBIlansto 5. NAVEEN on CKD - Patient initially presented with Cr 1.7 (from baseline 1.4 on prior admission) - Now improved to 1.2 after improvement of fluid status and cardiac output - Continue to monitor with daily labs Patient seen, discussed, and reviewed with attending
[2016-12-31 15:20] LABS: MAGNESIUM 1.7 mg/dL (1.6-2.3); PHOSPHOROUS 2.4 mg/dL (2.5-4.5)
--- NOTE | 2016-12-31 16:58 | CP.PCM.PN ---
Subjective - Date & Time of Evaluation Date of Evaluation: 12/31/16 Time of Evaluation: 16:52 - Subjective Subjective: PGY-[address] Vanegas's service: Patient seen and examined at bedside. Nursing reports no acute events overnight. He is found lying comfortably in bed, alert but somnolent. He denies any chest pain, SOB, and states he can lie flat without difficulty breathing. He feels his leg swelling has improved "but his toes hurt him." He reports increased voiding overnight due to new lasix regimen, and feels less swollen. Objective - Vital Signs/Intake and Output Vital Signs (last 24 hours): Temp Pulse Resp BP Pulse Ox 97.4 F L 75 20 112/75 100 12/31/16 07:00 12/31/16 07:00 12/31/16 07:00 12/31/16 14:11 12/31/16 07:00 Intake and Output: 12/31/16 12/31/16 06:59 18:59 Intake Total 392 667.2 Output Total 3050 1999 Balance -2658 -1332.8 - Medications Medications: Current Medications Carvedilol (Coreg) 12.5 mg PO BID [facility] Last Admin: 12/31/16 09:48 Dose: 12.5 mg Clopidogrel Bisulfate (Plavix) 75 mg PO DAILY [facility] Last Admin: 12/31/16 09:48 Dose: 75 mg Famotidine (Pepcid) 20 mg PO DAILY [facility] Last Admin: 12/31/16 09:48 Dose: 20 mg Furosemide (Lasix) 40 mg IVP Q8 [facility] Last Admin: 12/31/16 14:11 Dose: 40 mg Heparin Sodium/Sodium Chloride (Heparin 52873 Units/250ml 1/2 Normal Saline) 25 ,000 units in 250 mls @ 8.437 mls/hr IV .Q24H PRN; Protocol; 12 UNITS/KG/HR PRN Reason: PROTOCOL Morphine Sulfate (Morphine) 2 mg IVP Q4 PRN PRN Reason: pain Last Admin: 12/29/16 05:21 Dose: 2 mg Sacubitril/Valsartan (Entresto 24 Mg-26 Mg) 1 tab PO BID [facility] Last Admin: 12/31/16 09:48 Dose: 1 tab Warfarin Sodium (Coumadin) 5 mg PO 1800 [facility] Stop: 12/31/16 18:01 Warfarin Sodium (Coumadin) 5 mg PO 1800 [facility] Stop: 01/01/17 18:01 - Labs Labs: 12/31/16 07:11 12/31/16 07:11 PT 14.5 SECONDS (9.7-12.2) H 12/31/16 07:11 INR 1.3 12/31/16 07:11 APTT 50 SECONDS (21-34) H 12/31/16 07:11 - Constitutional Appears: Non-toxic, No Acute Distress, Older Than Stated Age, Chronically Ill - Head Exam Head Exam: ATRAUMATIC, NORMAL INSPECTION - Eye Exam Eye Exam: EOMI. absent: Scleral icterus Pupil Exam: PERRL - ENT Exam ENT Exam: Mucous Membranes Moist - Neck Exam Neck Exam: Normal Inspection Additional comments: no jvd - Respiratory Exam Respiratory Exam: Rales, NORMAL BREATHING PATTERN. absent: Accessory Muscle Use , Clear to Ausculation Bilateral - Cardiovascular Exam Cardiovascular Exam: REGULAR RHYTHM, +S1, +S2 - GI/Abdominal Exam GI & Abdominal Exam: Soft, Normal Bowel Sounds. absent: Tenderness - Extremities Exam Extremities Exam: Pedal Edema, Tenderness. absent: Calf Tenderness, Normal Inspection Additional comments: Long toe nails; causing bleeding of other toes with growth - Neurological Exam Neurological Exam: Alert (somnolent), Awake, Oriented x3 - Psychiatric Exam Psychiatric exam: Normal Affect, Normal Mood - Skin Skin Exam: Dry, Warm Assessment and Plan - Assessment and Plan (Free Text) Plan: CHF, systolic Hx of dilated cardiomyopathy Dr. Winter, cardiology consult: ECHO (12/31/16): LVEF 10%; LV moderately dilated; systolic fxn severely impaired ; significant regional wall motion abnormalities; septal hypokinesia; apical thrombus; severe ischemic cardiomyopathy BNP admission: 7220 Lasix 40mg IV Q8H Entresto 24/26mg PO BID Coreg 12.5mg PO BID ASA 81mg PO daily Plavix 75mg PO daily Thrombus, left ventricle Heparin drip, Bridge to warfarin Daily PT/INR; INR 1.3 today - Repeat ECHO 3-4 months per cardiology to reassess - believed cause of elevated d-dimer -patient already has pacemaker; will likely need to interrogate ICD clinically looks like CHF exacerbation Syncope; resolved Patient had low blood sugar prior to admission; was corrected and has not occurred again CT head at admission CAD; chronic -c/w current medical management f/u A1C, Lipid panel NAVEEN; unknown if chronic or not -improving Cr -making adequate urine; not retaining Onchomycosis/Foot ulcer Toe nails long, dig into other toes causing bleeding Dr. Nunn, podiatry consult: help appreciated - f/u reccs HTN (hypertension); chronic Well controlled -c/w current medical management Polysubstance Abuse THC and Opiods positive; patient denies drug abuse Prophylaxis Pepcid Lovenox Heart healthy diet PT/OT eval and treat Cristopher Ferro PGY-2 All management as per Dr. Kelly Vanegas
--- NOTE | 2016-12-31 18:05 | CP.PCM.PN ---
Subjective - Date & Time of Evaluation Date of Evaluation: 12/31/16 Time of Evaluation: 12:40 - Subjective Subjective: clinically same Objective - Vital Signs/Intake and Output Vital Signs (last 24 hours): Temp Pulse Resp BP Pulse Ox 97.5 F L 70 20 109/63 100 12/31/16 16:00 12/31/16 16:00 12/31/16 16:00 12/31/16 16:00 12/31/16 07:00 Intake and Output: 12/31/16 12/31/16 06:59 18:59 Intake Total 392 667.2 Output Total 3050 1999 Balance -2868 -5592.8 - Medications Medications: Current Medications Carvedilol (Coreg) 12.5 mg PO BID [facility] Last Admin: 12/31/16 09:48 Dose: 12.5 mg Clopidogrel Bisulfate (Plavix) 75 mg PO DAILY [facility] Last Admin: 12/31/16 09:48 Dose: 75 mg Famotidine (Pepcid) 20 mg PO DAILY [facility] Last Admin: 12/31/16 09:48 Dose: 20 mg Furosemide (Lasix) 40 mg IVP Q8 [facility] Last Admin: 12/31/16 14:11 Dose: 40 mg Heparin Sodium/Sodium Chloride (Heparin 06139 Units/250ml 1/2 Normal Saline) 25 ,000 units in 250 mls @ 8.437 mls/hr IV .Q24H PRN; Protocol; 12 UNITS/KG/HR PRN Reason: PROTOCOL Morphine Sulfate (Morphine) 2 mg IVP Q4 PRN PRN Reason: pain Last Admin: 12/29/16 05:21 Dose: 2 mg Sacubitril/Valsartan (Entresto 24 Mg-26 Mg) 1 tab PO BID [facility] Last Admin: 12/31/16 09:48 Dose: 1 tab Warfarin Sodium (Coumadin) 5 mg PO 1800 [facility] Stop: 01/01/17 18:01 - Labs Labs: 12/31/16 07:11 12/31/16 07:11 PT 14.5 SECONDS (9.7-12.2) H 12/31/16 07:11 INR 1.3 12/31/16 07:11 APTT 50 SECONDS (21-34) H 12/31/16 07:11 - Constitutional Appears: Well - Head Exam Head Exam: ATRAUMATIC, NORMAL INSPECTION, NORMOCEPHALIC - Eye Exam Eye Exam: EOMI, Normal appearance, PERRL Pupil Exam: NORMAL ACCOMODATION, PERRL - ENT Exam ENT Exam: Mucous Membranes Moist, Normal Exam - Neck Exam Neck Exam: Full ROM, Normal Inspection. absent: Lymphadenopathy - Respiratory Exam Respiratory Exam: Decreased Breath Sounds - Cardiovascular Exam Cardiovascular Exam: REGULAR RHYTHM, +S1, +S2 - GI/Abdominal Exam GI & Abdominal Exam: Soft, Diminished Bowel Sounds - Rectal Exam Rectal Exam: Deferred
--- NOTE | 2016-12-31 18:42 | CARD ---
APPROVED REPORT EXAM: Two-dimensional and M-mode echocardiogram with Doppler, color Doppler with contrast. Other Information Quality : GoodRhythm : NSR INDICATION Cardiac Disease: CAD Cardiomyopathy Syncope RISK FACTORS Hypertension 2D DIMENSIONS IVSd1.0 (0.7-1.1cm)LVDd7.1 (3.9-5.9cm) PWd1.0 (0.7-1.1cm)LVDs6.7 (2.5-4.0cm) FS (%) 5.9 %LVEF (%)12.7 (>50%) M-Mode DIMENSIONS Left Atrium (MM)4.46 (2.5-4.0cm)Aortic Root3.21 (2.2-3.7cm) Aortic Cusp Exc.2.15 (1.5-2.0cm) Aortic Valve AI P 1/2 [id number] Mitral Valve MV E Knadxclc29.7cm/sMV A Vjktesnw00.4cm/sE/A ratio1.1 TDI E/Lateral E'0.0E/Medial E'0.0 Tricuspid Valve TR Peak Ddbivrbb500tt/sTR Peak Gr.[id number] LEFT VENTRICLE The Left Ventricle is moderately dilated. There is normal left ventricular wall thickness. The systolic function is severely impaired. The ejection fraction is severely impaired. Significant regional wall motion abnormalities noted. septal hypokinesia present. The left ventricular diastolic function is normal. The apical thrombus is medium. There is no ventricular septal defect visualized. RIGHT VENTRICLE The right ventricle is normal size. There is normal right ventricular wall thickness. ATRIA The left atrium is moderately dilated. The right atrium size is normal. A catheter is seen in the right atrium consistent with history. AORTIC VALVE The aortic valve is normal in structure. There is mild to moderate aortic regurgitation. There is no aortic valvular stenosis. There is no aortic valvular vegetation. MITRAL VALVE The mitral valve is normal in structure. Mitral regurgitation is moderate. TRICUSPID VALVE The tricuspid valve is normal in structure. There is mild tricuspid regurgitation. PULMONIC VALVE The pulmonary valve is normal in structure. There is mild pulmonic valvular regurgitation. GREAT VESSELS The aortic root is normal in size. The ascending aorta is normal in size. The pulmonary artery is normal. The IVC is normal in size and collapses >50% with inspiration. <Conclusion> The Left Ventricle is moderately dilated. The systolic function is severely impaired. The ejection fraction is severely impaired. Significant regional wall motion abnormalities noted. septal hypokinesia present. The apical thrombus is medium. The left atrium is moderately dilated. There is mild to moderate aortic regurgitation. Mitral regurgitation is moderate. There is mild pulmonic valvular regurgitation. lvef is 10%. severe ischemic cardiomyopathy.
--- NOTE | 2016-12-31 22:20 | CARD ---
APPROVED REPORT EKG Measurement Heart [id number] <Conclusion> Atrial-sensed ventricular-paced rhythm with occasional premature ventricular complexes Abnormal ECG
[2017-01-01] MEDS: Heparin25000 units/250ml 1/2NS 25,000 UNITS/250 ML BAG IV PRN (02:43)
--- NOTE | 2017-01-01 07:08 | CP.PCM.PN ---
Subjective - Date & Time of Evaluation Date of Evaluation: 01/01/17 Objective - Vital Signs/Intake and Output Vital Signs (last 24 hours): Temp Pulse Resp BP Pulse Ox 97.2 F L 75 20 126/74 100 01/01/17 04:32 01/01/17 04:32 01/01/17 04:32 01/01/17 06:02 01/01/17 00:32 Intake and Output: 01/01/17 01/01/17 06:59 18:59 Intake Total 547.2 Output Total 1999 Balance -1452.8 - Medications Medications: Current Medications Carvedilol (Coreg) 12.5 mg PO BID [facility] Last Admin: 12/31/16 18:39 Dose: 12.5 mg Clopidogrel Bisulfate (Plavix) 75 mg PO DAILY [facility] Last Admin: 12/31/16 09:48 Dose: 75 mg Famotidine (Pepcid) 20 mg PO DAILY [facility] Last Admin: 12/31/16 09:48 Dose: 20 mg Furosemide (Lasix) 40 mg IVP Q8 [facility] Last Admin: 01/01/17 06:02 Dose: 40 mg Heparin Sodium/Sodium Chloride (Heparin 72085 Units/250ml 1/2 Normal Saline) 25 ,000 units in 250 mls @ 8.437 mls/hr IV .Q24H PRN; Protocol; 12 UNITS/KG/HR PRN Reason: PROTOCOL Last Admin: 01/01/17 02:43 Dose: 12 units/kg/hr, 8.437 mls/hr Morphine Sulfate (Morphine) 2 mg IVP Q4 PRN PRN Reason: pain Last Admin: 12/29/16 05:21 Dose: 2 mg Sacubitril/Valsartan (Entresto 24 Mg-26 Mg) 1 tab PO BID [facility] Last Admin: 12/31/16 21:59 Dose: Not Given Warfarin Sodium (Coumadin) 5 mg PO 1800 [facility] Stop: 01/01/17 18:01 - Labs Labs: 12/31/16 07:11 12/31/16 07:11 PT 14.5 SECONDS (9.7-12.2) H 12/31/16 07:11 INR 1.3 12/31/16 07:11 APTT 50 SECONDS (21-34) H 12/31/16 07:11 Assessment and Plan - Assessment and Plan (Free Text) Assessment: 61 year old male with Plan: Pt evaluated and treated. Chart, labs, and vitals reviewed. Discussed with attending, Dr. Nunn in detail.
[2017-01-01 08:25] LABS: HEMATOCRIT 38.8 % (35.0-51.0); MEAN CELL VOLUME 76.8 fL (80.0-94.0); MEAN CORPUSCULAR HEMOGLOBIN 24.6 pg (27.0-31.0); MEAN CORPUSCULAR HGB CONC 32.1 g/dL (33.0-37.0); MEAN PLATELET VOLUME 7.5 fL (7.2-11.7); RED CELL DISTRIBUTION WIDTH 24.5 % (11.5-14.5); WHITE BLOOD COUNT 5.2 K/uL (4.8-10.8)
[2017-01-01 08:28] LABS: INR 1.3
[2017-01-01 08:42] LABS: CHLORIDE 96 mmol/L (98-107); POTASSIUM 3.7 mmol/L (3.6-5.2); SODIUM 141 mmol/L (132-148)
[2017-01-01 08:44] LABS: ALB/GLOB RATIO 0.8 (1.0-2.1); AST/SGOT 42 U/L (17-59); BILIRUBIN,TOTAL 1.1 mg/dL (0.2-1.3); CARBON DIOXIDE 36 mmol/L (22-30); CHOLESTEROL 113 mg/dL (0-199); GFR AFRICAN-AMERICAN > 60; TOTAL PROTEIN 7.8 g/dL (6.3-8.3)
[2017-01-01 08:45] LABS: ALKALINE PHOSPHATASE 117 U/L (38-126); ALT/SGPT 59 U/L (21-72); BLOOD UREA NITROGEN 33 mg/dL (9-20); CALCIUM 9.4 mg/dl (8.6-10.4); GLUCOSE,RANDOM 64 mg/dL (75-110); MAGNESIUM 1.7 mg/dL (1.6-2.3); PHOSPHOROUS 1.9 mg/dL (2.5-4.5)
[2017-01-01] MEDS: Sacubitril/Valsartan 24-26mg Tab PO SCH ×2 (09:42→18:27)
[2017-01-01 09:44] LABS: EOS # 0.1 K/uL (0.0-0.7); LYMPH # 0.9 K/uL (1.0-4.3); MONO # 0.3 K/uL (0.0-0.8)
--- NOTE | 2017-01-01 11:34 | CP.PCM.CON ---
History of Present Illness - History of Present Illness History of Present Illness: Pt seen at bedside for mycotic nails. Treatment was rendered by the resident. Pt educated on palliative care. Pt to f/u as outpatient - reconsult as needed. Thanks Past Patient History - Infectious Disease Hx of Infectious Diseases: None - Past Medical History & Family History Past Medical History?: Yes - Past Social History Smoking Status: Never Smoked - CARDIAC Hx Hypercholesterolemia: Yes Hx Hypertension: Yes - PULMONARY Hx Respiratory Disorders: No - NEUROLOGICAL Hx Neurological Disorder: No - HEENT Hx HEENT Problems: No - RENAL Hx Chronic Kidney Disease: No - ENDOCRINE/METABOLIC Hx Endocrine Disorders: No - HEMATOLOGICAL/ONCOLOGICAL Hx Blood Disorders: No - INTEGUMENTARY Hx Dermatological Problems: No - MUSCULOSKELETAL/RHEUMATOLOGICAL Hx Falls: No - GASTROINTESTINAL Hx Gastrointestinal Disorders: No - GENITOURINARY/GYNECOLOGICAL Hx Genitourinary Disorders: No - PSYCHIATRIC Hx Psychophysiologic Disorder: No Hx Substance Use: Yes - SURGICAL HISTORY Hx Surgeries: Yes Other/Comment: "defib place to chest wall 2011" - ANESTHESIA Hx Anesthesia: Yes Hx Anesthesia Reactions: No Hx Malignant Hyperthermia: No Has any member of the family had a problem w/ anesthesia?: No Meds Allergies/Adverse Reactions: Allergies Allergy/AdvReac Type Severity Reaction Status Date / Time No Known Allergies Allergy Verified 12/27/16 23:43 - Medications Medications: Current Medications Carvedilol (Coreg) 12.5 mg PO BID [facility] Last Admin: 01/01/17 09:44 Dose: 12.5 mg Clopidogrel Bisulfate (Plavix) 75 mg PO DAILY [facility] Last Admin: 01/01/17 09:42 Dose: 75 mg Famotidine (Pepcid) 20 mg PO DAILY [facility] Last Admin: 01/01/17 09:42 Dose: 20 mg Furosemide (Lasix) 40 mg IVP Q8 [facility] Last Admin: 01/01/17 06:02 Dose: 40 mg Heparin Sodium/Sodium Chloride (Heparin 41612 Units/250ml 1/2 Normal Saline) 25 ,000 units in 250 mls @ 8.437 mls/hr IV .Q24H PRN; Protocol; 12 UNITS/KG/HR PRN Reason: PROTOCOL Last Admin: 01/01/17 02:43 Dose: 12 units/kg/hr, 8.437 mls/hr Morphine Sulfate (Morphine) 2 mg IVP Q4 PRN PRN Reason: pain Last Admin: 12/29/16 05:21 Dose: 2 mg Sacubitril/Valsartan (Entresto 24 Mg-26 Mg) 1 tab PO BID [facility] Last Admin: 01/01/17 09:42 Dose: 1 tab Warfarin Sodium (Coumadin) 5 mg PO 1800 [facility] Stop: 01/01/17 18:01 Results - Vital Signs Recent Vital Signs: Last Vital Signs Temp 98.2 F 01/01/17 07:52 Pulse 65 01/01/17 07:52 Resp 21 01/01/17 07:52 BP 120/65 01/01/17 09:44 Pulse Ox 97 01/01/17 07:52 - Labs Result Diagrams: 01/01/17 08:16 01/01/17 08:16 Labs: Laboratory Results - last 24 hr 12/31/16 12/31/16 12/31/16 07:11 11:36 15:04 WBC RBC Hgb Hct MCV MCH MCHC RDW Plt Count MPV Neut % (Auto) Lymph % (Auto) Esmeralda % (Auto) Eos % (Auto) Baso % (Auto) Neut # Lymph # Esmeralda # Eos # Baso # PT INR APTT Sodium 138 Potassium 3.9 Chloride 98 Carbon Dioxide 29 Anion Gap 15 BUN 37 H Creatinine 1.2 Est GFR ( Amer) > 60 Est GFR (Non-Af Amer) > 60 POC Glucose (mg/dL) 116 H Random Glucose 71 L Hemoglobin A1c Calcium 8.6 Phosphorus 2.4 L Magnesium 1.7 Total Bilirubin 1.3 AST 40 ALT 54 Alkaline Phosphatase 119 NT-Pro-B Natriuret Pep 7100 H Total Protein 6.1 L Albumin 2.7 L D Globulin 3.3 Albumin/Globulin Ratio 0.8 L Triglycerides Cholesterol LDL Cholesterol Direct HDL Cholesterol 12/31/16 12/31/16 01/01/17 16:32 21:12 06:14 WBC RBC Hgb Hct MCV MCH MCHC RDW Plt Count MPV Neut % (Auto) Lymph % (Auto) Esmeralda % (Auto) Eos % (Auto) Baso % (Auto) Neut # Lymph # Esmeralda # Eos # Baso # PT INR APTT Sodium Potassium Chloride Carbon Dioxide Anion Gap BUN Creatinine Est GFR ( Amer) Est GFR (Non-Af Amer) POC Glucose (mg/dL) 114 H 98 94 Random Glucose Hemoglobin A1c Calcium Phosphorus Magnesium Total Bilirubin AST ALT Alkaline Phosphatase NT-Pro-B Natriuret Pep Total Protein Albumin Globulin Albumin/Globulin Ratio Triglycerides Cholesterol LDL Cholesterol Direct HDL Cholesterol 01/01/17 01/01/17 01/01/17 08:16 08:16 08:16 WBC 5.2 RBC 5.05 Hgb 12.4 Hct 38.8 MCV 76.8 L MCH 24.6 L MCHC 32.1 L RDW 24.5 H Plt Count 379 MPV 7.5 Neut % (Auto) 77.0 H Lymph % (Auto) 17.0 L Esmeralda % (Auto) 5.0 Eos % (Auto) 1.0 Baso % (Auto) 0.0 Neut # 4.0 Lymph # 0.9 L Esmeralda # 0.3 Eos # 0.1 Baso # 0.0 PT 14.1 H INR 1.3 APTT 53 H Sodium 141 Potassium 3.7 Chloride 96 L Carbon Dioxide 36 H Anion Gap 13 BUN 33 H Creatinine 1.2 Est GFR ( Amer) > 60 Est GFR (Non-Af Amer) > 60 POC Glucose (mg/dL) Random Glucose 64 L Hemoglobin A1c Calcium 9.4 Phosphorus 1.9 L Magnesium 1.7 Total Bilirubin 1.1 AST 42 ALT 59 Alkaline Phosphatase 117 NT-Pro-B Natriuret Pep Total Protein 7.8 Albumin 3.4 L D Globulin 4.4 H Albumin/Globulin Ratio 0.8 L Triglycerides 70 Cholesterol 113 LDL Cholesterol Direct 68 HDL Cholesterol 39 01/01/17 08:16 WBC RBC Hgb Hct MCV MCH MCHC RDW Plt Count MPV Neut % (Auto) Lymph % (Auto) Esmeralda % (Auto) Eos % (Auto) Baso % (Auto) Neut # Lymph # Esmeralda # Eos # Baso # PT INR APTT Sodium Potassium Chloride Carbon Dioxide Anion Gap BUN Creatinine Est GFR ( Amer) Est GFR (Non-Af Amer) POC Glucose (mg/dL) Random Glucose Hemoglobin A1c 6.2 Calcium Phosphorus Magnesium Total Bilirubin AST ALT Alkaline Phosphatase NT-Pro-B Natriuret Pep Total Protein Albumin Globulin Albumin/Globulin Ratio Triglycerides Cholesterol LDL Cholesterol Direct HDL Cholesterol
[2017-01-01 16:37] VITALS: RESP 20
[2017-01-01] MEDS: metOLazone 5 MG TAB PO SCH (18:28)
--- NOTE | 2017-01-01 18:32 | CP.PCM.PN ---
Subjective - Date & Time of Evaluation Date of Evaluation: 01/01/17 Time of Evaluation: 10:00 - Subjective Subjective: PGY3 on medicine Dr. Vanegas service: Pt seen and examined this morning. No acute events overnight. No complaints at the time. Pt said his legs continue to improve. Objective - Vital Signs/Intake and Output Vital Signs (last 24 hours): Temp Pulse Resp BP Pulse Ox 98.1 F 78 20 114/76 97 01/01/17 15:36 01/01/17 15:36 01/01/17 15:36 01/01/17 18:28 01/01/17 15:36 Intake and Output: 01/01/17 01/01/17 06:59 18:59 Intake Total 547.2 307.2 Output Total 1999 2400 Balance -1452.8 -2092.8 - Medications Medications: Current Medications Carvedilol (Coreg) 12.5 mg PO BID [facility] Last Admin: 01/01/17 18:28 Dose: 12.5 mg Clopidogrel Bisulfate (Plavix) 75 mg PO DAILY [facility] Last Admin: 01/01/17 09:42 Dose: 75 mg Famotidine (Pepcid) 20 mg PO DAILY [facility] Last Admin: 01/01/17 09:42 Dose: 20 mg Furosemide (Lasix) 40 mg IVP Q8 [facility] Last Admin: 01/01/17 13:28 Dose: 40 mg Heparin Sodium/Sodium Chloride (Heparin 16380 Units/250ml 1/2 Normal Saline) 25 ,000 units in 250 mls @ 8.437 mls/hr IV .Q24H PRN; Protocol; 12 UNITS/KG/HR PRN Reason: PROTOCOL Last Admin: 01/01/17 02:43 Dose: 12 units/kg/hr, 8.437 mls/hr Metolazone (Zaroxolyn) 5 mg PO DAILY [facility] Last Admin: 01/01/17 18:28 Dose: 5 mg Morphine Sulfate (Morphine) 2 mg IVP Q4 PRN PRN Reason: pain Last Admin: 12/29/16 05:21 Dose: 2 mg Sacubitril/Valsartan (Entresto 24 Mg-26 Mg) 1 tab PO BID [facility] Last Admin: 01/01/17 18:27 Dose: 1 tab - Labs Labs: 01/01/17 08:16 01/01/17 08:16 PT 14.1 SECONDS (9.7-12.2) H 01/01/17 08:16 INR 1.3 01/01/17 08:16 APTT 53 SECONDS (21-34) H 01/01/17 08:16 - Constitutional Appears: Non-toxic, No Acute Distress, Chronically Ill - Head Exam Head Exam: NORMOCEPHALIC - Eye Exam Eye Exam: Normal appearance Pupil Exam: NORMAL ACCOMODATION - ENT Exam ENT Exam: Mucous Membranes Moist - Respiratory Exam Respiratory Exam: Clear to Ausculation Bilateral, NORMAL BREATHING PATTERN. absent: Wheezes - Cardiovascular Exam Cardiovascular Exam: REGULAR RHYTHM, +S1, +S2. absent: Gallop, Rubs - GI/Abdominal Exam GI & Abdominal Exam: Normal Bowel Sounds - Neurological Exam Neurological Exam: Alert, Awake, Oriented x3 - Psychiatric Exam Psychiatric exam: Normal Mood - Skin Skin Exam: Intact Assessment and Plan - Assessment and Plan (Free Text) Assessment: CHF, systolic Hx of dilated cardiomyopathy Dr. Winter, cardiology consult: ECHO (12/31/16): LVEF 10%; LV moderately dilated; systolic fxn severely impaired ; significant regional wall motion abnormalities; septal hypokinesia; apical thrombus; severe ischemic cardiomyopathy BNP admission: 7220 Lasix 40mg IV Q8H Entresto 24/26mg PO BID Coreg 12.5mg PO BID ASA 81mg PO daily Plavix 75mg PO daily Thrombus, left ventricle Heparin drip, Bridge to warfarin Daily PT/INR; INR 1.3 today - Repeat ECHO 3-4 months per cardiology to reassess - believed cause of elevated d-dimer -patient already has pacemaker; will likely need to interrogate ICD clinically looks like CHF exacerbation Syncope; resolved Patient had low blood sugar prior to admission; was corrected and has not occurred again CT head at admission CAD; chronic -c/w current medical management A1C 6.2, Lipid panel WNL NAVEEN; unknown if chronic or not -improving Cr -making adequate urine; not retaining Onchomycosis/Foot ulcer Toe nails long, dig into other toes causing bleeding Dr. Nunn, podiatry consult: help appreciated - Outpatient follow up HTN (hypertension); chronic Well controlled -c/w current medical management Polysubstance Abuse THC and Opiods positive; patient denies drug abuse Prophylaxis Pepcid Lovenox Heart healthy diet PT/OT eval and treat All management as per Dr. Kelly Vanegas
--- NOTE | 2017-01-01 18:49 | CP.PCM.PN ---
Subjective - Date & Time of Evaluation Date of Evaluation: 01/01/17 Time of Evaluation: 12:00 - Subjective Subjective: Benny Plummer DO PGY1 - Cardiology Progress Note for Dr. Winter Patient seen and examined at bedside. No events overnight. Patient reports significant improvement in shortness of breath and orthopnea, as well as leg swelling. Patient inquiring about when he will be discharged. He denies any chest pain, SOB, F/C, N/V/D/C, abdominal pain, leg pain. Continues to have some leg swelling, but improved since yesterday. Objective - Vital Signs/Intake and Output Vital Signs (last 24 hours): Temp Pulse Resp BP Pulse Ox 98.1 F 78 20 114/76 97 01/01/17 15:36 01/01/17 15:36 01/01/17 15:36 01/01/17 18:28 01/01/17 15:36 Intake and Output: 01/01/17 01/01/17 06:59 18:59 Intake Total 547.2 307.2 Output Total 2000 2400 Balance -1452.8 -2092.8 - Medications Medications: Current Medications Carvedilol (Coreg) 12.5 mg PO BID [facility] Last Admin: 01/01/17 18:28 Dose: 12.5 mg Clopidogrel Bisulfate (Plavix) 75 mg PO DAILY [facility] Last Admin: 01/01/17 09:42 Dose: 75 mg Famotidine (Pepcid) 20 mg PO DAILY [facility] Last Admin: 01/01/17 09:42 Dose: 20 mg Furosemide (Lasix) 40 mg IVP Q8 [facility] Last Admin: 01/01/17 13:28 Dose: 40 mg Heparin Sodium/Sodium Chloride (Heparin 80289 Units/250ml 1/2 Normal Saline) 25 ,000 units in 250 mls @ 8.437 mls/hr IV .Q24H PRN; Protocol; 12 UNITS/KG/HR PRN Reason: PROTOCOL Last Admin: 01/01/17 02:43 Dose: 12 units/kg/hr, 8.437 mls/hr Metolazone (Zaroxolyn) 5 mg PO DAILY [facility] Last Admin: 01/01/17 18:28 Dose: 5 mg Morphine Sulfate (Morphine) 2 mg IVP Q4 PRN PRN Reason: pain Last Admin: 12/29/16 05:21 Dose: 2 mg Sacubitril/Valsartan (Entresto 24 Mg-26 Mg) 1 tab PO BID [facility] Last Admin: 01/01/17 18:27 Dose: 1 tab - Labs Labs: 01/01/17 08:16 01/01/17 08:16 PT 14.1 SECONDS (9.7-12.2) H 01/01/17 08:16 INR 1.3 01/01/17 08:16 APTT 53 SECONDS (21-34) H 01/01/17 08:16 - Constitutional Appears: Non-toxic, No Acute Distress, Chronically Ill - Head Exam Head Exam: ATRAUMATIC, NORMOCEPHALIC - Eye Exam Eye Exam: EOMI, Normal appearance - ENT Exam ENT Exam: Mucous Membranes Moist - Neck Exam Neck Exam: Full ROM, Normal Inspection - Respiratory Exam Respiratory Exam: Rales, NORMAL BREATHING PATTERN - Cardiovascular Exam Cardiovascular Exam: RRR, +S1, +S2 - GI/Abdominal Exam GI & Abdominal Exam: Soft. absent: Tenderness - Extremities Exam Additional comments: 2+ pitting edema to knees b/l - Neurological Exam Neurological Exam: Alert, Awake, Oriented x3 - Psychiatric Exam Psychiatric exam: Normal Affect, Normal Mood - Skin Skin Exam: Dry, Intact Assessment and Plan - Assessment and Plan (Free Text) Assessment: 61 yo M with known history of dilated cardiomyopathy and heart failure presented with questionable syncope Plan: 1. Heart failure - Patient has known history of heart failure (LVEF in 05/2016 11%), dilated cardiomyopathy - Patient reportedly had cardiac catheterization with Dr. Bourgeois 4 years ago; per patient, no stents were placed, but he is supposed to be taking ASA and plavix, among other cardioprotective medications; no documentation of such was found in EMR - Patient has AICD/PPM in place; will require interrogation, patient unsure of studio hand; did not bring card with him - Echo complete, shows same severe dilation in LA and LV, with severely reduced LVEF (10-15%), now with LV thrombus - Initial BNP 7220; repeat BNP yesterday 7100 (BNP in 05/2016 was 329, when was when he had his last echo done, as above) - Patient remains clinically fluid overloaded, though significantly improved symptomatically - Continue lasix 40mg IV Q8 - Added Zaroxalyn 5mg PO daily - Patient again counselled on smoking cessation, alcohol abstinence, and medication compliance - Continue BB, Entresto 2. Left ventricle thrombus - Noted on echo, as above - Likely the cause of the elevated D-dimer - Continue Heparin drip for bridging; Warfarin 5mg daily, plavix - Daily PT/PTT/INR - Will require repeat echo in 3-4 months to reassess 3. Syncope - Patient presented with syncopal/presyncopal episode - Noted to be hypoglycemic in ER, and symptoms improved after correction with D50 - Patient also had elevated D-dimer, and positive troponins - V/Q scan low probability for PE - Patient was initially complaining of palpitations, but no chest pain and no dyspnea; with known history of severe dilated cardiomyopathy, troponin elevation may be 2/2 CHF exacerbation causing demand ischemia rather than NSTEMI ; no longer complaining of palpitations - Head CT done, shows no intracranial hemorrhage; ill defined decreased attenuation in left temporal region; acute infarct vs volume averaging. 4. h/o HTN - On chart review, patient noted to have h/o HTN, though patient currently denies such history - Patient initially presented hypertensive, which is now stable since admission - Continue BB, Entresto 5. NAVEEN on CKD - resolved - Patient initially presented with Cr 1.7 (from baseline 1.4 on prior admission) - Now improved to 1.2 after improvement of fluid status and cardiac output - Continue to monitor with daily labs Patient seen, discussed, and reviewed with attending
--- NOTE | 2017-01-01 19:59 | CP.PCM.PN ---
Subjective - Date & Time of Evaluation Date of Evaluation: 01/01/17 Time of Evaluation: 11:40 - Subjective Subjective: clinically same Objective - Vital Signs/Intake and Output Vital Signs (last 24 hours): Temp Pulse Resp BP Pulse Ox 98.1 F 78 20 114/76 97 01/01/17 15:36 01/01/17 15:36 01/01/17 15:36 01/01/17 18:28 01/01/17 15:36 Intake and Output: 01/01/17 01/02/17 18:59 06:59 Intake Total 307.2 Output Total 2400 Balance -2092.8 - Medications Medications: Current Medications Carvedilol (Coreg) 12.5 mg PO BID [facility] Last Admin: 01/01/17 18:28 Dose: 12.5 mg Clopidogrel Bisulfate (Plavix) 75 mg PO DAILY [facility] Last Admin: 01/01/17 09:42 Dose: 75 mg Famotidine (Pepcid) 20 mg PO DAILY [facility] Last Admin: 01/01/17 09:42 Dose: 20 mg Furosemide (Lasix) 40 mg IVP Q8 [facility] Last Admin: 01/01/17 13:28 Dose: 40 mg Heparin Sodium/Sodium Chloride (Heparin 70752 Units/250ml 1/2 Normal Saline) 25 ,000 units in 250 mls @ 8.437 mls/hr IV .Q24H PRN; Protocol; 12 UNITS/KG/HR PRN Reason: PROTOCOL Last Admin: 01/01/17 02:43 Dose: 12 units/kg/hr, 8.437 mls/hr Metolazone (Zaroxolyn) 5 mg PO DAILY [facility] Last Admin: 01/01/17 18:28 Dose: 5 mg Morphine Sulfate (Morphine) 2 mg IVP Q4 PRN PRN Reason: pain Last Admin: 12/29/16 05:21 Dose: 2 mg Sacubitril/Valsartan (Entresto 24 Mg-26 Mg) 1 tab PO BID [facility] Last Admin: 01/01/17 18:27 Dose: 1 tab - Labs Labs: 01/01/17 08:16 01/01/17 08:16 PT 14.1 SECONDS (9.7-12.2) H 01/01/17 08:16 INR 1.3 01/01/17 08:16 APTT 53 SECONDS (21-34) H 01/01/17 08:16 - Constitutional Appears: Well - Head Exam Head Exam: ATRAUMATIC, NORMAL INSPECTION, NORMOCEPHALIC - Eye Exam Eye Exam: EOMI, Normal appearance, PERRL Pupil Exam: NORMAL ACCOMODATION, PERRL - ENT Exam ENT Exam: Mucous Membranes Moist, Normal Exam - Neck Exam Neck Exam: Full ROM, Normal Inspection. absent: Lymphadenopathy - Respiratory Exam Respiratory Exam: Decreased Breath Sounds - Cardiovascular Exam Cardiovascular Exam: REGULAR RHYTHM, +S1, +S2 - GI/Abdominal Exam GI & Abdominal Exam: Soft, Diminished Bowel Sounds - Rectal Exam Rectal Exam: Deferred
[2017-01-02 07:37] LABS: HEMATOCRIT 39.4 % (35.0-51.0); MEAN CELL VOLUME 76.3 fL (80.0-94.0); MEAN CORPUSCULAR HGB CONC 32.8 g/dL (33.0-37.0); MEAN PLATELET VOLUME 7.9 fL (7.2-11.7); RED CELL DISTRIBUTION WIDTH 24.1 % (11.5-14.5)
[2017-01-02 07:45] LABS: INR 1.6
[2017-01-02 08:26] LABS: CHLORIDE 92 mmol/L (98-107)
[2017-01-02 08:27] LABS: POTASSIUM 4.1 mmol/L (3.6-5.2); SODIUM 135 mmol/L (132-148)
[2017-01-02 08:30] LABS: ALB/GLOB RATIO 0.8 (1.0-2.1); ALKALINE PHOSPHATASE 121 U/L (38-126); ALT/SGPT 54 U/L (21-72); AST/SGOT 42 U/L (17-59); BLOOD UREA NITROGEN 30 mg/dL (9-20); CALCIUM 9.3 mg/dl (8.6-10.4); CARBON DIOXIDE 36 mmol/L (22-30); GFR AFRICAN-AMERICAN > 60; GLUCOSE,RANDOM 77 mg/dL (75-110); TOTAL PROTEIN 7.4 g/dL (6.3-8.3)
[2017-01-02 09:03] LABS: BASO # 0.1 K/uL (0.0-0.2); BASO % 1.3 % (0.0-2.0); EOS # 0.1 K/uL (0.0-0.7); EOS % 2.8 % (0.0-4.0); LYMPH # 1.8 K/uL (1.0-4.3); LYMPH % 36.1 % (20.0-40.0); MONO # 0.5 K/uL (0.0-0.8); MONO % 9.5 % (0.0-10.0); NRBC % 0.4 % (0.0-2.0)
[2017-01-02] MEDS: metOLazone 5 MG TAB PO SCH (09:38)
[2017-01-02] MEDS: Sacubitril/Valsartan 24-26mg Tab PO SCH ×2 (09:38→18:38)
--- NOTE | 2017-01-02 09:45 | CP.PCM.PN ---
Subjective - Date & Time of Evaluation Date of Evaluation: 01/02/17 Time of Evaluation: 11:40 - Subjective Subjective: clinically same Objective - Vital Signs/Intake and Output Vital Signs (last 24 hours): Temp Pulse Resp BP Pulse Ox 97.3 F L 72 20 103/54 L 98 01/02/17 08:23 01/02/17 08:23 01/02/17 08:23 01/02/17 09:38 01/02/17 08:23 Intake and Output: 01/02/17 01/02/17 06:59 18:59 Output Total 1400 Balance -1400 - Medications Medications: Current Medications Carvedilol (Coreg) 12.5 mg PO BID [facility] Last Admin: 01/02/17 09:38 Dose: 12.5 mg Clopidogrel Bisulfate (Plavix) 75 mg PO DAILY [facility] Last Admin: 01/02/17 09:38 Dose: 75 mg Famotidine (Pepcid) 20 mg PO DAILY [facility] Last Admin: 01/02/17 09:38 Dose: 20 mg Furosemide (Lasix) 40 mg IVP Q8 [facility] Last Admin: 01/02/17 06:35 Dose: 40 mg Heparin Sodium/Sodium Chloride (Heparin 69472 Units/250ml 1/2 Normal Saline) 25 ,000 units in 250 mls @ 8.437 mls/hr IV .Q24H PRN; Protocol; 12 UNITS/KG/HR PRN Reason: PROTOCOL Last Admin: 01/01/17 02:43 Dose: 12 units/kg/hr, 8.437 mls/hr Metolazone (Zaroxolyn) 5 mg PO DAILY [facility] Last Admin: 01/02/17 09:38 Dose: 5 mg Sacubitril/Valsartan (Entresto 24 Mg-26 Mg) 1 tab PO BID [facility] Last Admin: 01/02/17 09:38 Dose: 1 tab Warfarin Sodium (Coumadin) 7 mg PO 1800 [facility] Stop: 01/02/17 18:01 - Labs Labs: 01/02/17 07:25 01/02/17 07:25 PT 18.8 SECONDS (9.7-12.2) H 01/02/17 07:25 INR 1.6 01/02/17 07:25 APTT 51 SECONDS (21-34) H 01/02/17 07:25 - Constitutional Appears: Well - Head Exam Head Exam: ATRAUMATIC, NORMAL INSPECTION, NORMOCEPHALIC - Eye Exam Eye Exam: EOMI, Normal appearance, PERRL Pupil Exam: NORMAL ACCOMODATION, PERRL - ENT Exam ENT Exam: Mucous Membranes Moist, Normal Exam - Neck Exam Neck Exam: Full ROM, Normal Inspection. absent: Lymphadenopathy - Respiratory Exam Respiratory Exam: Decreased Breath Sounds - Cardiovascular Exam Cardiovascular Exam: REGULAR RHYTHM, +S1, +S2 - GI/Abdominal Exam GI & Abdominal Exam: Soft, Diminished Bowel Sounds - Rectal Exam Rectal Exam: Deferred
--- NOTE | 2017-01-02 10:26 | CP.PCM.PN ---
Subjective - Date & Time of Evaluation Date of Evaluation: 01/02/17 Time of Evaluation: 06:30 - Subjective Subjective: Benny Plummer DO PGY1 - Cardiology Progress Note for Dr. Winter Patient seen and examined at bedside. No events overnight. Today, patient reports improved shortness of breath, denies orthopnea. Reports improvement in swelling in legs, but still has some heaviness, denies pain. He denies any CP, palpitations, dizziness, headaches. Objective - Vital Signs/Intake and Output Vital Signs (last 24 hours): Temp Pulse Resp BP Pulse Ox 97.3 F L 72 20 103/54 L 98 01/02/17 08:23 01/02/17 08:23 01/02/17 08:23 01/02/17 09:38 01/02/17 08:23 Intake and Output: 01/02/17 01/02/17 06:59 18:59 Output Total 1400 Balance -1400 - Medications Medications: Current Medications Carvedilol (Coreg) 12.5 mg PO BID [facility] Last Admin: 01/02/17 09:38 Dose: 12.5 mg Clopidogrel Bisulfate (Plavix) 75 mg PO DAILY [facility] Last Admin: 01/02/17 09:38 Dose: 75 mg Famotidine (Pepcid) 20 mg PO DAILY [facility] Last Admin: 01/02/17 09:38 Dose: 20 mg Furosemide (Lasix) 40 mg IVP Q8 [facility] Last Admin: 01/02/17 06:35 Dose: 40 mg Heparin Sodium/Sodium Chloride (Heparin 22685 Units/250ml 1/2 Normal Saline) 25 ,000 units in 250 mls @ 8.437 mls/hr IV .Q24H PRN; Protocol; 12 UNITS/KG/HR PRN Reason: PROTOCOL Last Admin: 01/01/17 02:43 Dose: 12 units/kg/hr, 8.437 mls/hr Metolazone (Zaroxolyn) 5 mg PO DAILY [facility] Last Admin: 01/02/17 09:38 Dose: 5 mg Sacubitril/Valsartan (Entresto 24 Mg-26 Mg) 1 tab PO BID [facility] Last Admin: 01/02/17 09:38 Dose: 1 tab Warfarin Sodium (Coumadin) 7.5 mg PO DAILY@1800 ONE Stop: 01/02/17 18:01 - Labs Labs: 01/02/17 07:25 10/05/17 07:25 PT 18.8 SECONDS (9.7-12.2) H 01/02/17 07:25 INR 1.6 01/02/17 07:25 APTT 51 SECONDS (21-34) H 01/02/17 07:25 - Constitutional Appears: Non-toxic, No Acute Distress, Chronically Ill - Head Exam Head Exam: ATRAUMATIC, NORMOCEPHALIC - Eye Exam Eye Exam: EOMI, Normal appearance - ENT Exam ENT Exam: Mucous Membranes Moist - Neck Exam Neck Exam: Full ROM, Normal Inspection - Respiratory Exam Respiratory Exam: Clear to Ausculation Bilateral, NORMAL BREATHING PATTERN - Cardiovascular Exam Cardiovascular Exam: RRR, +S1, +S2 - GI/Abdominal Exam GI & Abdominal Exam: Soft. absent: Tenderness - Extremities Exam Extremities Exam: Pedal Edema. absent: Calf Tenderness Additional comments: 3+ to knees - Neurological Exam Neurological Exam: Alert, Awake, Oriented x3 - Psychiatric Exam Psychiatric exam: Normal Affect, Normal Mood - Skin Skin Exam: Dry, Intact Assessment and Plan - Assessment and Plan (Free Text) Assessment: 61 yo M with known history of dilated cardiomyopathy and heart failure presented with questionable syncope Plan: 1. Heart failure - Patient has known history of heart failure (LVEF in 05/2016 11%), dilated cardiomyopathy - Patient reportedly had cardiac catheterization with Dr. 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 Left ventricle thrombus - Noted on echo, as above - Likely the cause of the elevated D-dimer - Continue Heparin drip for bridging; Warfarin 5mg daily, plavix - Daily PT/PTT/INR; INR not yet therapeutic range; goal INR 2-3 - Will require repeat echo in 3-4 months to reassess 3. Syncope - Patient presented with syncopal/presyncopal episode; likely 2/2 CHF exacerbation 2/2 noncompliance vs hypoglycemia - Noted to be hypoglycemic in ER, and symptoms improved after correction with D50 - Patient also had elevated D-dimer, and positive troponins - V/Q scan low probability for PE - Patient was initially complaining of palpitations, but no chest pain and no dyspnea; with known history of severe dilated cardiomyopathy, troponin elevation may be 2/2 CHF exacerbation causing demand ischemia rather than NSTEMI ; no longer complaining of palpitations - Head CT done, shows no intracranial hemorrhage; ill defined decreased attenuation in left temporal region; acute infarct vs volume averaging. 4. h/o HTN - On chart review, patient noted to have h/o HTN, though patient currently denies such history - Patient initially presented hypertensive, which is now stable since admission - Continue BB, Entresto 5. NAVEEN on CKD - resolved - Patient initially presented with Cr 1.7 (from baseline 1.4 on prior admission) - Now improved to 1.2 after improvement of fluid status and cardiac output - Continue to monitor with daily labs Patient seen, discussed, and reviewed with attending
--- NOTE | 2017-01-02 10:29 | CP.PCM.PN ---
Subjective - Date & Time of Evaluation Date of Evaluation: 01/02/17 Time of Evaluation: 10:29 - Subjective Subjective: Patient seen and examined at bedside this AM; denies any overnight events or acute complaints; denies headaches, fevers/chills, CP, SOB, abdominal pain, N/V/ d, dysuria/freq/urg or lower extremity pain. Objective - Vital Signs/Intake and Output Vital Signs (last 24 hours): Temp Pulse Resp BP Pulse Ox 97.3 F L 72 20 103/54 L 98 01/02/17 08:23 01/02/17 08:23 01/02/17 08:23 01/02/17 09:38 01/02/17 08:23 Intake and Output: 01/02/17 01/02/17 06:59 18:59 Output Total 1400 Balance -1400 - Medications Medications: Current Medications Carvedilol (Coreg) 12.5 mg PO BID [facility] Last Admin: 01/02/17 09:38 Dose: 12.5 mg Clopidogrel Bisulfate (Plavix) 75 mg PO DAILY [facility] Last Admin: 01/02/17 09:38 Dose: 75 mg Famotidine (Pepcid) 20 mg PO DAILY [facility] Last Admin: 01/02/17 09:38 Dose: 20 mg Furosemide (Lasix) 40 mg IVP Q8 [facility] Last Admin: 01/02/17 06:35 Dose: 40 mg Heparin Sodium/Sodium Chloride (Heparin 73731 Units/250ml 1/2 Normal Saline) 25 ,000 units in 250 mls @ 8.437 mls/hr IV .Q24H PRN; Protocol; 12 UNITS/KG/HR PRN Reason: PROTOCOL Last Admin: 01/01/17 02:43 Dose: 12 units/kg/hr, 8.437 mls/hr Metolazone (Zaroxolyn) 5 mg PO DAILY [facility] Last Admin: 01/02/17 09:38 Dose: 5 mg Sacubitril/Valsartan (Entresto 24 Mg-26 Mg) 1 tab PO BID [facility] Last Admin: 01/02/17 09:38 Dose: 1 tab Warfarin Sodium (Coumadin) 7.5 mg PO DAILY@1800 ONE Stop: 01/02/17 18:01 - Labs Labs: 01/02/17 07:25 01/02/17 07:25 PT 18.8 SECONDS (9.7-12.2) H 01/02/17 07:25 INR 1.6 01/02/17 07:25 APTT 51 SECONDS (21-34) H 01/02/17 07:25 - Constitutional Appears: Well, Non-toxic - Head Exam Head Exam: ATRAUMATIC - Eye Exam Eye Exam: EOMI - ENT Exam ENT Exam: Mucous Membranes Moist - Neck Exam Neck Exam: Full ROM - Respiratory Exam Respiratory Exam: Clear to Ausculation Bilateral, NORMAL BREATHING PATTERN. absent: Rales, Rhonchi, Wheezes - Cardiovascular Exam Cardiovascular Exam: REGULAR RHYTHM, +S1, +S2 Assessment and Plan - Assessment and Plan (Free Text) Assessment: CHF, systolic; chronic with very low EF Hx of dilated cardiomyopathy Dr. Winter, cardiology consult: ECHO (12/31/16): LVEF 10%; LV moderately dilated; systolic fxn severely impaired ; significant regional wall motion abnormalities; septal hypokinesia; apical thrombus; severe ischemic cardiomyopathy BNP admission: 7220 Lasix 40mg IV Q8H Entresto 24/26mg PO BID Coreg 12.5mg PO BID ASA 81mg PO daily Plavix 75mg PO daily Thrombus, left ventricle Heparin drip, Bridge to warfarin; 7.5mg ordered for 01/02 Daily PT/INR; INR 1.6 today; goal 2-3 - Repeat ECHO 3-4 months per cardiology to reassess - believed cause of elevated d-dimer -patient already has pacemaker; will likely need to interrogate ICD -will check blood cultures to r/o possible endocarditis; patient is positive for opiates Syncope; resolved Patient had low blood sugar prior to admission; was corrected and has not occurred again CT head at admission CAD; chronic -c/w current medical management A1C 6.2, Lipid panel WNL NAVEEN; unknown if chronic or not -improving Cr -making adequate urine; not retaining Onchomycosis/Foot ulcer Toe nails long, dig into other toes causing bleeding Dr. Nunn, podiatry consult: help appreciated - Outpatient follow up HTN (hypertension); chronic Well controlled -c/w current medical management Polysubstance Abuse THC and Opiods positive; patient denies drug abuse Prophylaxis Pepcid Lovenox Heart healthy diet PT/OT eval and treat All management as per Dr. Kelly Vanegas
[2017-01-02] MEDS: Heparin25000 units/250ml 1/2NS 25,000 UNITS/250 ML BAG IV PRN (11:54)
[2017-01-02] MEDS ORDERED: Heparin25000 units/250ml 1/2NS 25,000 UNITS/250 ML BAG IV PRN (23:52)
[2017-01-03 06:23] VITALS: O2SAT 100
[2017-01-03 07:32] LABS: HEMATOCRIT 37.8 % (35.0-51.0); MEAN CELL VOLUME 76.2 fL (80.0-94.0); MEAN CORPUSCULAR HEMOGLOBIN 24.8 pg (27.0-31.0); MEAN CORPUSCULAR HGB CONC 32.6 g/dL (33.0-37.0); MEAN PLATELET VOLUME 7.7 fL (7.2-11.7); PLATELET COUNT 383 K/uL (130-400); RED CELL DISTRIBUTION WIDTH 24.4 % (11.5-14.5); WHITE BLOOD COUNT 4.6 K/uL (4.8-10.8)
[2017-01-03 07:40] LABS: CHLORIDE 91 mmol/L (98-107); POTASSIUM 3.7 mmol/L (3.6-5.2); SODIUM 133 mmol/L (132-148)
[2017-01-03 07:42] LABS: AST/SGOT 43 U/L (17-59); BILIRUBIN,TOTAL 0.7 mg/dL (0.2-1.3); CARBON DIOXIDE 36 mmol/L (22-30); GFR AFRICAN-AMERICAN > 60
[2017-01-03 07:43] LABS: ALB/GLOB RATIO 0.8 (1.0-2.1); ALKALINE PHOSPHATASE 110 U/L (38-126); ALT/SGPT 55 U/L (21-72); BLOOD UREA NITROGEN 25 mg/dL (9-20); CALCIUM 9.3 mg/dl (8.6-10.4); GLUCOSE,RANDOM 71 mg/dL (75-110); TOTAL PROTEIN 6.9 g/dL (6.3-8.3)
[2017-01-03 07:47] LABS: INR 2.7
[2017-01-03 08:21] VITALS: TEMP 97.7
--- NOTE | 2017-01-03 09:44 | CP.PCM.PN ---
Subjective - Date & Time of Evaluation Date of Evaluation: 01/03/17 Time of Evaluation: 09:44 - Subjective Subjective: The patient was examined in his room; walking around without problem or SOB; patient states he really wants to get out of the hospital. the patient is stable for d/c as per Dr. Kelly Vanegas. He has no complaints today. Objective - Vital Signs/Intake and Output Vital Signs (last 24 hours): Temp Pulse Resp BP Pulse Ox 97.7 F 98 H 20 113/73 100 01/03/17 08:20 01/03/17 08:20 01/03/17 08:20 01/03/17 08:20 01/03/17 08:20 Intake and Output: 01/03/17 01/03/17 06:59 18:59 Intake Total 387.2 Output Total 2600 Balance -2212.8 - Medications Medications: Current Medications Carvedilol (Coreg) 12.5 mg PO BID [facility] Last Admin: 01/02/17 18:38 Dose: Not Given Clopidogrel Bisulfate (Plavix) 75 mg PO DAILY [facility] Last Admin: 01/02/17 09:38 Dose: 75 mg Famotidine (Pepcid) 20 mg PO DAILY [facility] Last Admin: 01/02/17 09:38 Dose: 20 mg Furosemide (Lasix) 40 mg IVP Q8 [facility] Last Admin: 01/03/17 06:23 Dose: 40 mg Heparin Sodium/Sodium Chloride (Heparin 84886 Units/250ml 1/2 Normal Saline) 25 ,000 units in 250 mls @ 8.165 mls/hr IV .Q24H PRN; Protocol; 12 UNITS/KG/HR PRN Reason: PROTOCOL Last Admin: 01/03/17 00:21 Dose: 12 units/kg/hr, 8.165 mls/hr Metolazone (Zaroxolyn) 5 mg PO DAILY [facility] Last Admin: 01/02/17 09:38 Dose: 5 mg Sacubitril/Valsartan (Entresto 24 Mg-26 Mg) 1 tab PO BID [facility] Last Admin: 01/02/17 18:38 Dose: Not Given - Labs Labs: 01/03/17 07:20 01/03/17 07:20 PT 32.5 SECONDS (9.7-12.2) H* D 01/03/17 07:20 INR 2.7 D 01/03/17 07:20 APTT 84 SECONDS (21-34) H D 01/03/17 07:20 - Constitutional Appears: Well, Non-toxic - Head Exam Head Exam: ATRAUMATIC - Eye Exam Eye Exam: EOMI Pupil Exam: PERRL - ENT Exam ENT Exam: Mucous Membranes Moist - Neck Exam Neck Exam: Full ROM - Respiratory Exam Respiratory Exam: Clear to Ausculation Bilateral - Cardiovascular Exam Cardiovascular Exam: REGULAR RHYTHM - GI/Abdominal Exam GI & Abdominal Exam: Soft, Normal Bowel Sounds - Extremities Exam Extremities Exam: absent: Calf Tenderness - Back Exam Back Exam: NORMAL INSPECTION. absent: CVA tenderness (L), CVA tenderness (R) - Neurological Exam Neurological Exam: Alert, Awake, Normal Gait, Oriented x3 - Psychiatric Exam Psychiatric exam: Normal Affect, Normal Mood - Skin Skin Exam: Warm Assessment and Plan - Assessment and Plan (Free Text) Assessment: CHF, systolic; chronic with very low EF Hx of dilated cardiomyopathy Dr. Winter, cardiology consult: ECHO (12/31/16): LVEF 10%; LV moderately dilated; systolic fxn severely impaired ; significant regional wall motion abnormalities; septal hypokinesia; apical thrombus; severe ischemic cardiomyopathy BNP admission: 7220 As Outpatient: Lasix 40mg IV Q8H Entresto 24/26mg PO BID Coreg 12.5mg PO BID ASA 81mg PO daily Plavix 75mg PO daily Thrombus, left ventricle Heparin drip, Bridge to warfarin; 10mg ordered for 10/5 Daily PT/INR; INR 1.6 today; goal 2-3 - Repeat ECHO 3-4 months per cardiology to reassess - believed cause of elevated d-dimer -patient already has pacemaker; will likely need to interrogate ICD -will check blood cultures to r/o possible endocarditis; patient is positive for opiates Patient will be d/c on 5mg daily of warfarin; will need INR checks Syncope; resolved Patient had low blood sugar prior to admission; was corrected and has not occurred again CT head at admission CAD; chronic -c/w current medical management A1C 6.2, Lipid panel WNL NAVEEN; unknown if chronic or not -improving Cr -making adequate urine; not retaining Onchomycosis/Foot ulcer Toe nails long, dig into other toes causing bleeding Dr. Nunn, podiatry consult: help appreciated - Outpatient follow up HTN (hypertension); chronic Well controlled -c/w current medical management Polysubstance Abuse THC and Opiods positive; patient denies drug abuse Prophylaxis while in hospital Pepcid Lovenox Heart healthy diet PT/OT eval and treat All management as per Dr. Kelly Vanegas The patient is stable for discharge. All prescriptions are in patients chart.
[2017-01-03] MEDS: Sacubitril/Valsartan 24-26mg Tab PO SCH (09:45)
[2017-01-03] MEDS: metOLazone 5 MG TAB PO SCH (09:45)
[2017-01-03 10:16] LABS: BASO # 0.1 K/uL (0.0-0.2); EOS # 0.3 K/uL (0.0-0.7); MONO # 0.6 K/uL (0.0-0.8)
[2017-01-03] MEDS ORDERED: Influenza Vaccine 60 mcg/0.5 mL SYR (4YR UP) IM ONE (12:30)
--- NOTE | 2017-01-03 15:41 | CP.PCM.PN ---
Subjective - Date & Time of Evaluation Date of Evaluation: 01/03/17 Time of Evaluation: 07:30 - Subjective Subjective: Benny Plummer DO PGY1 - Cardiology Progress Note for Dr. Winter Patient seen and examined at bedside. Borderline hypotensive yesterday, nurses held doses of antihypertensives. Today, patient reports further improved shortness of breath, denies orthopnea. Reports improvement in swelling in legs, but still has some heaviness, denies pain. He denies any CP or palpitations. Objective - Vital Signs/Intake and Output Vital Signs (last 24 hours): Temp Pulse Resp BP Pulse Ox 97.7 F 98 H 20 105/67 100 01/03/17 08:20 01/03/17 08:20 01/03/17 08:20 01/03/17 13:23 01/03/17 08:20 Intake and Output: 01/03/17 01/03/17 06:59 18:59 Intake Total 387.2 Output Total 2600 Balance -2212.8 - Medications Medications: Current Medications Carvedilol (Coreg) 12.5 mg PO BID [facility] Last Admin: 01/03/17 09:45 Dose: 12.5 mg Clopidogrel Bisulfate (Plavix) 75 mg PO DAILY [facility] Last Admin: 01/03/17 09:45 Dose: 75 mg Famotidine (Pepcid) 20 mg PO DAILY [facility] Last Admin: 01/03/17 09:45 Dose: 20 mg Furosemide (Lasix) 40 mg IVP Q8 [facility] Last Admin: 01/03/17 13:23 Dose: 40 mg Metolazone (Zaroxolyn) 5 mg PO DAILY [facility] Last Admin: 01/03/17 09:45 Dose: 5 mg Sacubitril/Valsartan (Entresto 24 Mg-26 Mg) 1 tab PO BID [facility] Last Admin: 01/03/17 09:45 Dose: 1 tab - Labs Labs: 01/03/17 07:20 01/03/17 07:20 PT 32.5 SECONDS (9.7-12.2) H* D 01/03/17 07:20 INR 2.7 D 01/03/17 07:20 APTT 84 SECONDS (21-34) H D 01/03/17 07:20 - Constitutional Appears: Non-toxic, No Acute Distress - Head Exam Head Exam: ATRAUMATIC, NORMOCEPHALIC - Eye Exam Eye Exam: EOMI, Normal appearance - ENT Exam ENT Exam: Mucous Membranes Moist - Neck Exam Neck Exam: Normal Inspection - Respiratory Exam Respiratory Exam: Clear to Ausculation Bilateral, NORMAL BREATHING PATTERN - Cardiovascular Exam Cardiovascular Exam: RRR, +S1, +S2 - GI/Abdominal Exam GI & Abdominal Exam: Soft. absent: Tenderness - Extremities Exam Extremities Exam: Pedal Edema. absent: Calf Tenderness - Neurological Exam Neurological Exam: Alert, Awake, Oriented x3 - Psychiatric Exam Psychiatric exam: Normal Affect, Normal Mood - Skin Skin Exam: Dry, Intact Assessment and Plan - Assessment and Plan (Free Text) Assessment: 61 yo M with known history of dilated cardiomyopathy and heart failure presented with questionable syncope Plan: 1. Heart failure - Patient has known history of heart failure (LVEF in 05/2016 11%), dilated cardiomyopathy - Patient reportedly had cardiac catheterization with Dr. 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; again orgot to tell sister to bring card - Echo complete, shows same severe dilation in LA and LV, with severely reduced LVEF (10-15%), now with LV thrombus - Initial BNP 7220; repeat BNP 12/31/16 7100 (BNP in 05/2016 was 329, when was when he had his last echo done, as above) - Patient remains somewhat clinically fluid overloaded, though significantly improved symptomatically - Continue lasix 40mg PO BID, will require this outpatient - Continue Zaroxalyn 5mg PO daily, does not require this outpatient - Patient again counselled on smoking cessation, alcohol abstinence, and medication compliance - Continue BB, Entresto 2. Left ventricle thrombus - Noted on echo, as above - Likely the cause of the elevated D-dimer - Daily PT/PTT/INR; Patient now therapeutic on coumadin; goal INR 2-3 - Continue coumadin 5mg PO daily, will require this outpatient - Discontinue heparin drip - Continue Plavix 75mg PO daily, will require this outpatient - Will require repeat echo in 3-4 months to reassess 3. Syncope - Patient presented with syncopal/presyncopal episode; likely 2/2 CHF exacerbation 2/2 noncompliance vs hypoglycemia - Noted to be hypoglycemic in ER, and symptoms improved after correction with D50 - Patient also had elevated D-dimer, and positive troponins - V/Q scan low probability for PE - Patient was initially complaining of palpitations, but no chest pain and no dyspnea; with known history of severe dilated cardiomyopathy, troponin elevation may be 2/2 CHF exacerbation causing demand ischemia rather than NSTEMI ; no longer complaining of palpitations - Head CT done, shows no intracranial hemorrhage; ill defined decreased attenuation in left temporal region; acute infarct vs volume averaging. 4. h/o HTN - On chart review, patient noted to have h/o HTN, though patient currently denies such history - Patient initially presented hypertensive, which is now stable since admission - Borderline hypotensive yesterday - Patient should be discharged on Toprol XL 25mg PO daily, instead of coreg; add Aldactone 25mg PO daily; add Lasix 40mg PO daily - Continue BB, Entresto 5. NAVEEN on CKD - resolved - Patient initially presented with Cr 1.7 (from baseline 1.4 on prior admission) - Now improved to 1.2 after improvement of fluid status and cardiac output - Continue to monitor with daily labs Patient seen, discussed, and reviewed with attending
[2017-01-03 16:46] VITALS: BP 90/64; PULSE 80
== END 2017-01-03 15:50 | disposition home or self-care (01) | DRG 280 ==
LOC: C.ER 23:17 → C.6T 12-28 03:35
PROVIDERS: ADMIT Internal Medicine Nephrology; ATTEND Internal Medicine Nephrology
DX: I13.0 Hypertensive heart and chronic kidney disease with heart failure and stage 1 through stage 4 chronic kidney disease, or unspecified chronic kidney disease (principal); I50.23 Acute on chronic systolic (congestive) heart failure; I21.9 Acute myocardial infarction, unspecified; N17.9 Acute kidney failure, unspecified; L97.509 Non-pressure chronic ulcer of other part of unspecified foot with unspecified severity; B35.1 Tinea unguium; F11.10 Opioid abuse, uncomplicated; R55 Syncope and collapse; I25.10 Atherosclerotic heart disease of native coronary artery without angina pectoris; E78.00 Pure hypercholesterolemia, unspecified; Z95.0 Presence of cardiac pacemaker; F12.10 Cannabis abuse, uncomplicated; F17.210 Nicotine dependence, cigarettes, uncomplicated; N18.9 Chronic kidney disease, unspecified; E16.2 Hypoglycemia, unspecified; Z91.14 Patient's other noncompliance with medication regimen; I25.5 Ischemic cardiomyopathy

== ENCOUNTER 2017-03-16 14:08 | Inpatient (IN) | payer MEDICARE, MEDICAID ==
[2017-03-16 15:08] LABS: BASO # 0.1 K/uL (0.0-0.2); BASO % 1.5 % (0.0-2.0); EOS # 0.1 K/uL (0.0-0.7); EOS % 0.8 % (0.0-4.0); HEMATOCRIT 32.6 % (35.0-51.0); LYMPH # 2.3 K/uL (1.0-4.3); LYMPH % 31.9 % (20.0-40.0); MEAN CORPUSCULAR HEMOGLOBIN 24.4 pg (27.0-31.0); MEAN CORPUSCULAR HGB CONC 31.3 g/dL (33.0-37.0); MEAN PLATELET VOLUME 7.8 fL (7.2-11.7); MONO % 14.8 % (0.0-10.0); NRBC % 1.3 % (0.0-2.0); RED CELL DISTRIBUTION WIDTH 21.9 % (11.5-14.5); WHITE BLOOD COUNT 7.1 K/uL (4.8-10.8)
[2017-03-16 15:16] LABS: INR 1.3
[2017-03-16 15:18] LABS: ALKALINE PHOSPHATASE 146 U/L (38-126); ALT/SGPT 48 U/L (21-72); AST/SGOT 33 U/L (17-59); BILIRUBIN,TOTAL 0.9 mg/dL (0.2-1.3); BLOOD UREA NITROGEN 29 mg/dL (9-20); CALCIUM 8.6 mg/dl (8.6-10.4); CARBON DIOXIDE 28 mmol/L (22-30); CHLORIDE 105 mmol/L (98-107); GFR AFRICAN-AMERICAN > 60; GLUCOSE,RANDOM 78 mg/dL (75-110); POTASSIUM 5.2 mmol/L (3.6-5.2); SODIUM 138 mmol/L (132-148); TOTAL PROTEIN 8.7 g/dL (6.3-8.3)
--- NOTE | 2017-03-16 15:19 | RAD ---
Chest x-ray single frontal view History: Shortness of breath. Comparison: 12/28/2016 Findings: Moderate venous congestion. Worsening bibasilar airspace opacities and effusions. Cardiomegaly. Left-sided pacemaker. Degenerative changes in the spine and shoulders. Impression: Worsening venous congestion, bibasilar airspace opacities, and effusions.
[2017-03-16 15:21] LABS: ALB/GLOB RATIO 0.7 (1.0-2.1)
--- NOTE | 2017-03-16 16:43 | C.PDOC ---
History Of Present Illness 61-year-old male BIBA for evaluation of shortness of breath for the last 2-3 days with worsening leg swelling. Patient admits to a non-productive cough, but denies fever, abdominal pain, nausea/vomiting, or diarrhea. All other Hx limited because patient is a poor historian. Time Seen by Provider: 03/16/17 14:25 Chief Complaint (Nursing): Lower Extremity Problem/Injury History Per: Patient, EMS History/Exam Limitations: other (poor historian) Current Symptoms Are (Timing): Still Present Severity: Moderate Past Medical History Reviewed: Historical Data, Nursing Documentation, Vital Signs Vital Signs: Last Vital Signs Temp 98.2 F 03/19/17 07:00 Pulse 80 03/19/17 12:01 Resp 20 03/19/17 07:00 BP 97/67 L 03/19/17 10:33 Pulse Ox 100 03/19/17 09:36 - Medical History PMH: CHF, HTN, Hypercholesterolemia Surgical History: Pacemaker Family History: States: No Known Family Hx - Social History Hx Alcohol Use: No Hx Substance Use: No - Immunization History Hx Tetanus Toxoid Vaccination: Yes Hx Influenza Vaccination: Yes Hx Pneumococcal Vaccination: Yes Review Of Systems Except As Marked, All Systems Reviewed And Found Negative. Constitutional: Negative for: Fever, Chills Cardiovascular: Negative for: Chest Pain, Palpitations Respiratory: Positive for: Cough, Shortness of Breath. Negative for: Sputum Gastrointestinal: Negative for: Nausea, Vomiting, Abdominal Pain, Diarrhea Genitourinary: Negative for: Dysuria, Hematuria Skin: Negative for: Rash Physical Exam - Physical Exam Appears: Well, Non-toxic, No Acute Distress, Other (conversational dyspnea) Skin: Warm, Dry, No Rash Head: Normacephalic Eye(s): bilateral: Normal Inspection Nose: Normal Oral Mucosa: Moist Lips: Normal Appearing Throat: Normal, No Erythema, No Exudate Neck: Normal, Supple Chest: Symmetrical, Other (pacemaker left upper chest) Cardiovascular: Rhythm Regular Respiratory: Accessory Muscle Use (Mild), Rales (B/L bases), No Rhonchi, No Wheezing Gastrointestinal/Abdominal: Normal Exam, Bowel Sounds, Soft, No Tenderness Extremity: Pedal Edema (+3 pitting of LE with chronic skin changes, dry scaly skin.) Pulses: Left Dorsalis Pedis: Normal, Right Dorsalis Pedis: Normal Neurological/Psych: Oriented x3 ED Course And Treatment - Laboratory Results Result Diagrams: 03/19/17 07:44 03/19/17 07:44 ECG: Interpreted By Me, Viewed By Me ECG Rhythm: Sinus Rhythm, V Paced ECG Interpretation: No Changes From Prior, Abnormal Interpretation Of ECG: T wave inversions II-III and AVF, V1-V6. Unchanged from EKG on 12/27/16 Rate From EC O2 Sat by Pulse Oximetry: 100 (on RA) Pulse Ox Interpretation: Normal - Radiology CXR: Interpreted by Me, Viewed By Me ((+) pulmonary vascular congestion., no infiltrates) Progress Note: Bloodwork, EKG and CXR ordered reviewed. Patient treated with IV Lasix. Reevaluation Time: 16:00 Reassessment Condition: Improved (Patient resting more comfortably, no current accessory muscle use, vitals improved.) - Physician Consult Information Physician Contacted: Erika Vanegas Outcome Of Conversation: Discussed patient with Dr. Kelly Vanegas, agrees with admission for CHF, fluid overload, dyspnea. Disposition - Disposition Disposition: HOSPITALIZED Disposition Time: 16:20 Condition: STABLE - Clinical Impression Clinical Impression: CHF exacerbation, Fluid overload, Dyspnea - Scribe Statement The provider has reviewed the documentation as recorded by the Scribe (Chasity Hernandez) All medical record entries made by the Scribe were at my direction and personally dictated by me. I have reviewed the chart and agree that the record accurately reflects my personal performance of the history, physical exam, medical decision making, and the department course for this patient. I have also personally directed, reviewed, and agree with the discharge instructions and disposition. Decision To Admit - Pt Status Changed To: Hospital Disposition Of: Inpatient - Admit Certification Admit to Inpatient:: After my assessment, the patient will require hospitalization for at least two midnights. This is because of the severity of symptoms shown, intensity of services needed, and/or the medical risk in this patient being treated as an outpatient. - InPatient: Physician Admission Certification: I certify that this patient requires 2 or more midnights of care for the following reason:: see notes - . Bed Request Type: Telemetry Admitting Physician: Erika Vanegas Patient Diagnosis: CHF exacerbation, Dyspnea, Fluid overload
[2017-03-16] MEDS: Albuterol-Ipratrop 3 mg / 0.5 (3 ml) UD INH SCH (21:29)
[2017-03-17 01:18] VITALS: RESP 20
[2017-03-17] MEDS: Albuterol-Ipratrop 3 mg / 0.5 (3 ml) UD INH SCH ×4 (01:44→20:00)
[2017-03-17 07:01] LABS: INR 1.4
[2017-03-17 08:37] LABS: HEMATOCRIT 34.4 % (35.0-51.0); MEAN CELL VOLUME 77.3 fL (80.0-94.0); MEAN CORPUSCULAR HEMOGLOBIN 24.5 pg (27.0-31.0); MEAN CORPUSCULAR HGB CONC 31.7 g/dL (33.0-37.0); MEAN PLATELET VOLUME 7.6 fL (7.2-11.7); RED CELL DISTRIBUTION WIDTH 21.4 % (11.5-14.5); WHITE BLOOD COUNT 6.4 K/uL (4.8-10.8)
[2017-03-17 08:58] LABS: ALB/GLOB RATIO 0.8 (1.0-2.1); ALKALINE PHOSPHATASE 158 U/L (38-126); ALT/SGPT 50 U/L (21-72); AST/SGOT 35 U/L (17-59); BILIRUBIN,TOTAL 1.6 mg/dL (0.2-1.3); BLOOD UREA NITROGEN 31 mg/dL (9-20); CALCIUM 8.7 mg/dl (8.6-10.4); CARBON DIOXIDE 31 mmol/L (22-30); CHLORIDE 103 mmol/L (98-107); CHOLESTEROL 108 mg/dL (0-199); GFR AFRICAN-AMERICAN > 60; GLUCOSE,RANDOM 78 mg/dL (75-110); POTASSIUM 5.6 mmol/L (3.6-5.2); SODIUM 139 mmol/L (132-148)
[2017-03-17] MEDS: Sacubitril/Valsartan 24-26mg Tab PO SCH ×2 (09:29→17:59)
[2017-03-17] MEDS: metOLazone 5 MG TAB PO SCH (09:30)
[2017-03-17] MEDS: Pantoprazole 40 mg EC Tab PO SCH (09:30)
[2017-03-17 09:48] LABS: MONO # 0.5 K/uL (0.0-0.8)
[2017-03-17] MEDS: Enoxaparin 40 mg Syringe SC SCH (09:54)
--- NOTE | 2017-03-17 11:12 | CP.PCM.CON ---
<Bonita Diop - Last Filed: 03/17/17 11:20> History of Present Illness - History of Present Illness History of Present Illness: PGY2 consult note for cardiology, Dr. Winter 61 year old male with past medical history of CHF with EF of 12.7% noted on echo from 12/28/16, CAD started on dual anti-platelet therapy, HTN, HLD and with cardiac pacemaker was admitted to hospital for CHF exacerbation. Patient initially presented to hospital yesterday after experiencing LE swelling and shortness of breath for about 3 days. In the ED patient [place] [address] (previous on 12/31/16 was 7,100). Patient states that he has not been taking any of his medications for about 10 days because he ran out. After reviewing the chart it is noted that patient had cardiac cath procedure about 4 years ago without any stent placements. He was started on DAPT though which he is not complaint with. Patient also had AICD device placed which he has not had interrogated per the patient's sister. Patient does not know the name of the device. Patient is seen by blueprint tracer, Dr. Bourgeois outpatient but has not followed up with him since May 2016. On last echo done on 12/28/16, patient is noted to have Ef of 12.7% with severe ischemic cardiomyopathy and an apical thrombus. Patient was started on coumadin for the thrombus but is non- compliant with his medication. Currently, patient complains of slight shortness of breath and LE swelling. Denies having any CP, abd pain, N/V/D/C. 12 point ROS are negative except for the above mentioned. PMHx: stated above Sx: AICD device placement Allergies: NKDA Social: lives with sister who is specialized language instructor Meds: See MAR Cardiology: Dr. Bourgeois Review of Systems - Constitutional Constitutional: absent: Chills, Fever - EENT Eyes: absent: Blurred Vision, Change in Vision Nose/Mouth/Throat: absent: Nasal Congestion, Nasal Discharge - Cardiovascular Cardiovascular: Dyspnea, Pedal Edema. absent: Chest Pain, Irregular Heart Rhythm - Respiratory Respiratory: Dyspnea, Dyspnea on Exertion. absent: Cough, Wheezing - Gastrointestinal Gastrointestinal: absent: Abdominal Pain, Constipation, Diarrhea, Nausea, Vomiting - Genitourinary Genitourinary: absent: Dysuria, Urinary Frequency - Musculoskeletal Musculoskeletal: absent: Atrophy, Muscle Cramps, Muscle Weakness, Myalgias - Integumentary Integumentary: absent: Rash, Skin Pain - Neurological Neurological: absent: Abnormal Gait, Headaches - Psychiatric Psychiatric: absent: Anxiety, Confusion, Depression Past Patient History - Infectious Disease Hx of Infectious Diseases: None - Past Medical History & Family History Past Medical History?: Yes - Past Social History Smoking Status: Light Smoker < 10 Cigarettes Daily Home Situation {Lives}: With Family - CARDIAC Hx Congestive Heart Failure: Yes Hx Hypercholesterolemia: Yes Hx Hypertension: Yes Hx Pacemaker: Yes - PULMONARY Hx Respiratory Disorders: No - NEUROLOGICAL Hx Neurological Disorder: No - HEENT Hx HEENT Problems: No - RENAL Hx Chronic Kidney Disease: No - ENDOCRINE/METABOLIC Hx Endocrine Disorders: Yes Hx Diabetes Mellitus Type 2: Yes - HEMATOLOGICAL/ONCOLOGICAL Hx Blood Disorders: No - INTEGUMENTARY Hx Dermatological Problems: No - MUSCULOSKELETAL/RHEUMATOLOGICAL Hx Musculoskeletal Disorders: No Hx Falls: No - GASTROINTESTINAL Hx Gastrointestinal Disorders: No - GENITOURINARY/GYNECOLOGICAL Hx Genitourinary Disorders: No - PSYCHIATRIC Hx Substance Use: No - SURGICAL HISTORY Hx Surgeries: Yes Other/Comment: "defib place to L chest wall 2011" - ANESTHESIA Hx Anesthesia: Yes Hx Anesthesia Reactions: No Hx Malignant Hyperthermia: No Meds Allergies/Adverse Reactions: Allergies Allergy/AdvReac Type Severity Reaction Status Date / Time No Known Allergies Allergy Verified 03/16/17 14:28 - Medications Medications: Current Medications Albuterol/Ipratropium (Duoneb 3 Mg/0.5 Mg (3 Ml) Ud) [address] [facility] Last Admin: 03/17/17 07:46 Dose: Not Given Aspirin (Aspirin) [address] [facility] Last Admin: 03/17/17 09:30 Dose: 325 mg Carvedilol (Coreg) 12.[address] [facility] Last Admin: 03/17/17 09:30 Dose: 12.5 mg Clopidogrel Bisulfate (Plavix) [address] [facility] Last Admin: 03/17/17 09:29 Dose: 75 mg Enoxaparin Sodium (Lovenox) [address] [facility] Last Admin: 03/17/17 09:54 Dose: 40 mg Furosemide (Lasix) [address] [facility] Last Admin: 03/17/17 09:30 Dose: 40 mg Metolazone (Zaroxolyn) [address] [facility] Last Admin: 03/17/17 09:30 Dose: 5 mg Pantoprazole Sodium (Protonix Ec Tab) [address] [facility] Last Admin: 03/17/17 09:30 Dose: 40 mg Sacubitril/Valsartan (Entresto 24 Mg-26 Mg) [address] [facility] Last Admin: 03/17/17 09:29 Dose: 1 tab Warfarin Sodium (Coumadin) [address] [facility] Stop: 03/17/17 18:01 Physical Exam - Constitutional Appears: Non-toxic, No Acute Distress - Head Exam Head Exam: ATRAUMATIC - ENT Exam ENT Exam: Mucous Membranes Moist - Respiratory Exam Respiratory Exam: Accessory Muscle Use, Rales. absent: Rhonchi, Wheezes, Respiratory Distress - Cardiovascular Exam Cardiovascular Exam: REGULAR RHYTHM, +S1, +S2. absent: Diastolic murmur, Systolic Murmur - GI/Abdominal Exam GI & Abdominal Exam: Normal Bowel Sounds, Soft. absent: Distended, Firm, Guarding, Rigid, Tenderness - Extremities Exam Extremities exam: Positive for: pedal edema - Neurological Exam Neurological exam: Alert, Oriented x3 - Psychiatric Exam Psychiatric exam: Normal Affect, Normal Mood - Skin Skin Exam: Dry, Intact, Normal Color, Warm Results - Vital Signs Recent Vital Signs: Last Vital Signs Temp 97.4 F L 03/17/17 07:45 Pulse 82 03/17/17 07:45 Resp 20 03/17/17 07:45 BP 141/83 03/17/17 09:30 Pulse Ox 100 03/17/17 07:45 - Labs Result Diagrams: 03/17/17 08:34 03/17/17 08:34 Labs: Laboratory Results - last 24 hr 03/16/17 03/16/17 03/16/17 14:22 15:02 15:02 WBC 7.1 D RBC 4.17 L Hgb 10.2 L D Hct 32.6 L MCV 78.0 L MCH 24.4 L MCHC 31.3 L RDW 21.9 H Plt Count 415 H MPV 7.8 Neut % (Auto) 51.0 Lymph % (Auto) 31.9 [place] % (Auto) 14.8 H Eos % (Auto) 0.8 Baso % (Auto) 1.5 Neut # 3.6 Lymph # 2.3 Brewster # 1.0 H Eos # 0.1 Baso # 0.1 PT INR APTT Sodium 138 Potassium 5.2 Chloride 105 Carbon Dioxide 28 Anion Gap 10 BUN 29 H Creatinine 1.1 Est GFR ( Amer) > 60 Est GFR (Non-Af Amer) > 60 POC Glucose (mg/dL) 81 Random Glucose 78 Calcium 8.6 Total Bilirubin 0.9 AST 33 ALT 48 Alkaline Phosphatase 146 H D Total Creatine Kinase 110 CK-MB (Mass) 3.39 H Troponin I 0.0270 NT-Pro-B Natriuret Pep 78048 H Total Protein 8.7 H Albumin 3.5 Globulin 5.2 H Albumin/Globulin Ratio 0.7 L Triglycerides Cholesterol LDL Cholesterol Direct HDL Cholesterol 03/16/17 03/16/17 03/16/17 15:02 15:18 21:35 WBC RBC Hgb Hct MCV MCH MCHC RDW Plt Count MPV Neut % (Auto) Lymph % (Auto) [place] % (Auto) Eos % (Auto) Baso % (Auto) Neut # Lymph # Brewster # Eos # Baso # PT 14.3 H INR 1.3 APTT 32 Sodium Potassium Chloride Carbon Dioxide Anion Gap BUN Creatinine Est GFR ( Amer) Est GFR (Non-Af Amer) POC Glucose (mg/dL) 76 97 Random Glucose Calcium Total Bilirubin AST ALT Alkaline Phosphatase Total Creatine Kinase CK-MB (Mass) Troponin I NT-Pro-B Natriuret Pep Total Protein Albumin Globulin Albumin/Globulin Ratio Triglycerides Cholesterol LDL Cholesterol Direct HDL Cholesterol 03/17/17 03/17/17 03/17/17 06:46 08:34 08:34 WBC 6.4 RBC 4.46 Hgb 10.9 L Hct 34.4 L MCV 77.3 L MCH 24.5 L MCHC 31.7 L RDW 21.4 H Plt Count 463 H MPV 7.6 Neut % (Auto) 62.0 Lymph % (Auto) 31.0 [place] % (Auto) 7.0 Eos % (Auto) 0.0 Baso % (Auto) 0.0 Neut # 4.0 Lymph # 2.0 Brewster # 0.5 Eos # 0.0 Baso # 0.0 PT 15.3 H INR 1.4 APTT Sodium 139 Potassium 5.6 H Chloride 103 Carbon Dioxide 31 H Anion Gap 11 BUN 31 H Creatinine 1.2 Est GFR ( Amer) > 60 Est GFR (Non-Af Amer) > 60 POC Glucose (mg/dL) Random Glucose 78 Calcium 8.7 Total Bilirubin 1.6 H AST 35 ALT 50 Alkaline Phosphatase 158 H Total Creatine Kinase CK-MB (Mass) Troponin I 0.0400 NT-Pro-B Natriuret Pep Total Protein 8.0 Albumin 3.6 Globulin 4.4 H Albumin/Globulin Ratio 0.8 L Triglycerides 79 Cholesterol 108 LDL Cholesterol Direct 47 HDL Cholesterol 36 Assessment & Plan - Assessment and Plan (Free Text) Assessment: 61 year old male with past medical history of CHF exacerbation s/p pacemaker placement, CAD, HTN, HLD is being seen by cardiology for CHF excerbation. 1. CHF exacerbation [place] [address] - Previous Echo from 12/28 showed EF of 12.7%, LV mod dilated, septal hypokenesis , apical thrombus, severe ischemic cardiomyopathy, LA mod dilated , mild AR, MR and SC. - Continue Lasixs 40 mg IV BID and Mitolazone 5 mg po qd. - Continue Entresto, and Coreg - measure daily Is and Os and daily weights - Have reached out to patient's blueprint tracer, Dr. Bourgeois for more cardiac history. Waiting to hear back. - Patient's sister is asked to bring in more info about patient's pacemaker today 2. CAD - Continue DAPT with Aspirin and Plavix - Reached out to Dr. Bourgeois for patient's cardiac cath report - Patient is stared on Crestor 2.5 mg po HS 3. Left ventricular thrombus - Will continue coumadin 5 mg - Will monitor daily PT and INR. Currently noted to be subtherapeutic 4. HTN - Will continue to monitor VS 5. Hyperkalemia - Likely 2/2 to diuresis - will continue to monitor - Consider nephrology consult if worsening All recs and orders per Dr. Winter - Date & Time Date: 03/17/17 Time: 11:16 <Narendra Winter - Last Filed: 03/17/17 15:46> Meds - Medications Medications: Current Medications Albuterol/Ipratropium (Duoneb 3 Mg/0.5 Mg (3 Ml) Ud) [address] [facility] Last Admin: 03/17/17 13:39 Dose: Not Given Aspirin (Aspirin) [address] [facility] Last Admin: 03/17/17 09:30 Dose: 325 mg Carvedilol (Coreg) 12.[address] [facility] Last Admin: 03/17/17 09:30 Dose: 12.5 mg Clopidogrel Bisulfate (Plavix) [address] [facility] Last Admin: 03/17/17 09:29 Dose: 75 mg Enoxaparin Sodium (Lovenox) [address] [facility] Last Admin: 03/17/17 09:54 Dose: 40 mg Furosemide (Lasix) [address] [facility] Last Admin: 03/17/17 09:30 Dose: 40 mg Metolazone (Zaroxolyn) [address] [facility] Last Admin: 03/17/17 09:30 Dose: 5 mg Pantoprazole Sodium (Protonix Ec Tab) [address] [facility] Last Admin: 03/17/17 09:30 Dose: 40 mg Rosuvastatin Calcium (Crestor) 2.5 mg PO [facility] Sacubitril/Valsartan (Entresto 24 Mg-26 Mg) [address] [facility] Last Admin: 03/17/17 09:29 Dose: 1 tab Warfarin Sodium (Coumadin) [address] [facility] Stop: 03/17/17 18:01 Results - Vital Signs Recent Vital Signs: Last Vital Signs Temp 97.4 F L 03/17/17 07:45 Pulse 68 03/17/17 11:44 Resp 20 03/17/17 07:45 BP 141/83 03/17/17 09:30 Pulse Ox 100 03/17/17 07:45 - Labs Result Diagrams: 03/17/17 08:34 03/17/17 08:34 Labs: Laboratory Results - last 24 hr 03/16/17 03/16/17 03/17/17 15:02 21:35 06:46 WBC RBC Hgb Hct MCV MCH MCHC RDW Plt Count MPV Neut % (Auto) Lymph % (Auto) [place] % (Auto) Eos % (Auto) Baso % (Auto) Neut # Lymph # [place] # Eos # Baso # PT 15.3 H INR 1.4 Sodium Potassium Chloride Carbon Dioxide Anion Gap BUN Creatinine Est GFR ( Amer) Est GFR (Non-Af Amer) POC Glucose (mg/dL) 97 Random Glucose Calcium Total Bilirubin AST ALT Alkaline Phosphatase Troponin I NT-Pro-B Natriuret Pep 91724 H Total Protein Albumin Globulin Albumin/Globulin Ratio Triglycerides Cholesterol LDL Cholesterol Direct HDL Cholesterol 03/17/17 03/17/17 08:34 08:34 WBC 6.4 RBC 4.46 Hgb 10.9 L Hct 34.4 L MCV 77.3 L MCH 24.5 L MCHC 31.7 L RDW 21.4 H Plt Count 463 H MPV 7.6 Neut % (Auto) 62.0 Lymph % (Auto) 31.0 [place] % (Auto) 7.0 Eos % (Auto) 0.0 Baso % (Auto) 0.0 Neut # 4.0 Lymph # 2.0 Brewster # 0.5 Eos # 0.0 Baso # 0.0 PT INR Sodium 139 Potassium 5.6 H Chloride 103 Carbon Dioxide 31 H Anion Gap 11 BUN 31 H Creatinine 1.2 Est GFR ( Amer) > 60 Est GFR (Non-Af Amer) > 60 POC Glucose (mg/dL) Random Glucose 78 Calcium 8.7 Total Bilirubin 1.6 H AST 35 ALT 50 Alkaline Phosphatase 158 H Troponin I 0.0400 NT-Pro-B Natriuret Pep Total Protein 8.0 Albumin 3.6 Globulin 4.4 H Albumin/Globulin Ratio 0.8 L Triglycerides 79 Cholesterol 108 LDL Cholesterol Direct 47 HDL Cholesterol 36 Attending/Attestation - Attestation I have personally seen and examined this patient.: Yes I have fully participated in the care of the patient.: Yes I have reviewed all pertinent clinical information: Yes Notes (Text): 03/17/17 15:45 CHF exaceration 2' to non-compliance cont GDMT for CAD etiology unclear cath done 4 years ago - results being obtained device interrogation
[2017-03-17] MEDS ORDERED: Sod Polystyrene Sulf 15 gm/60 ml Susp PO ONE (11:45)
--- NOTE | 2017-03-17 12:11 | CP.PCM.PN ---
Subjective - Date & Time of Evaluation Date of Evaluation: 03/17/17 Time of Evaluation: 11:55 - Subjective Subjective: Progress note for Dr. Vanegas's Service 61 y/o M w/ pmhx of CHF (EF noted at 12.7% from Echo in november 2016), CAD, HTN, HLD, CKD and with cardiac pacemaker. Patient was admitted to hospital for CHF exacerbation with dyspnea and pedal edema being the predominant complaints. He presented to the ED 03/16/17 experiencing LE swelling and shortness of breath for about 3 days. He admitted to non-compliance with his medications for the previous 1-2 [place] [address] noted in the ED. Although stents were never placed, he did have a cardiac cath done 4 years ago and he was supposed to be on dual anti-platelet therapy which he was not taking. He was also unable to provide details about his AICD device and had not seen his data analytics analyst, Dr Bourgeois since May of this year. His last echo was done on 12/28/16: Ef of 12.7% with severe ischemic cardiomyopathy and an apical thrombus. Patient was started on coumadin for the thrombus but reports non-compliance. Today the patient states that his shortness of breath has improve to some degree. He does have pedal swelling and explains that they have been this way for several weeks. He denies having any F/C/N/V/CP/abd pain/D/C. PMHx: CHF, CAD, HTN, CKD, HLD Sx: cardiac cath and AICD device placement Allergies: NKDA Social: lives with sister who is air antisubmarine officer Meds: See MAR Cardiology: Dr. Bourgeois Objective - Vital Signs/Intake and Output Vital Signs (last 24 hours): Temp Pulse Resp BP Pulse Ox 97.4 F L 68 20 141/83 100 03/17/17 07:45 03/17/17 11:44 03/17/17 07:45 03/17/17 09:30 03/17/17 07:45 - Medications Medications: Current Medications Albuterol/Ipratropium (Duoneb 3 Mg/0.5 Mg (3 Ml) Ud) 3 ml INH RQ6 [facility] Last Admin: 03/17/17 07:46 Dose: Not Given Aspirin (Aspirin) 325 mg PO DAILY [facility] Last Admin: 03/17/17 09:30 Dose: 325 mg Carvedilol (Coreg) 12.5 mg PO BID [facility] Last Admin: 03/17/17 09:30 Dose: 12.5 mg Clopidogrel Bisulfate (Plavix) 75 mg PO DAILY [facility] Last Admin: 03/17/17 09:29 Dose: 75 mg Enoxaparin Sodium (Lovenox) 40 mg SC DAILY [facility] Last Admin: 03/17/17 09:54 Dose: 40 mg Furosemide (Lasix) 40 mg IVP BID [facility] Last Admin: 03/17/17 09:30 Dose: 40 mg Metolazone (Zaroxolyn) 5 mg PO DAILY [facility] Last Admin: 03/17/17 09:30 Dose: 5 mg Pantoprazole Sodium (Protonix Ec Tab) 40 mg PO DAILY [facility] Last Admin: 03/17/17 09:30 Dose: 40 mg Rosuvastatin Calcium (Crestor) 2.5 mg PO HS [facility] Sacubitril/Valsartan (Entresto 24 Mg-26 Mg) 1 tab PO BID [facility] Last Admin: 03/17/17 09:29 Dose: 1 tab Warfarin Sodium (Coumadin) 5 mg PO 1800 [facility] Stop: 03/17/17 18:01 - Labs Labs: 03/17/17 08:34 03/17/17 08:34 PT 15.3 SECONDS (9.7-12.2) H 03/17/17 06:46 INR 1.4 03/17/17 06:46 APTT 32 SECONDS (21-34) 03/16/17 15:02 - Constitutional Appears: No Acute Distress - Head Exam Head Exam: ATRAUMATIC, NORMAL INSPECTION - Eye Exam Eye Exam: EOMI - ENT Exam ENT Exam: Mucous Membranes Moist - Respiratory Exam Respiratory Exam: Clear to Ausculation Bilateral. absent: Rales, Rhonchi, Wheezes, Respiratory Distress - Cardiovascular Exam Cardiovascular Exam: REGULAR RHYTHM, +S1, +S2 - GI/Abdominal Exam GI & Abdominal Exam: Soft. absent: Tenderness - Neurological Exam Neurological Exam: Alert, Awake, Oriented x3 - Skin Skin Exam: Dry, Intact Assessment and Plan - Assessment and Plan (Free Text) Plan: 1. CHF exacerbation - ProBNP 22499 on admission - Previous Echo from 12/28 showed EF of 12.7%, LV mod dilated, septal hypokenesis , apical thrombus, severe ischemic cardiomyopathy, LA mod dilated , mild AR, MR and RI. - Cardiology consulted- Dr. Winter- recommendations appreciated - Lasix 40 mg IV BID - Mitolazone 5 mg po qd. - Entresto 24mg PO daily - Coreg 12.5mg PO BID - measure daily Is and Os and daily weights - Have reached out to patient's data analytics analyst, Dr. Bourgeois for more cardiac history. Waiting to hear back. - Patient's sister is asked to bring in more info about patient's pacemaker today CAD - Aspirin 325mg PO daily - Plavix 75mg PO daily - Dr. Bourgeois contacted by cardiology team for cardiac cath report - Start Crestor 2.5 mg po qHS Left ventricular thrombus - Coumadin 5 mg - Daily PT and INR HTN - controlled - continue to monitor - Coreg 12.5mg PO BID - Lasix 40mg PO daily - Metolzone 5mg PO daily Hyperkalemia - Likely 2/2 to diuresis - Kayexelate 30mg PO once today - follow up AM labs for resolution Anemia - hgb 10.9- similar to previous admissions - monitor daily cbc CKD - stable- bun/cr 29/.1 - monitor bun/cr HLD - started on crestor 2.5 PO qhs Prophylaxis - Lovenox 40mg SC daily - Protonix 40mg PO daily Case discussed with Dr. Vanegas All management as per Dr. Vanegas
--- NOTE | 2017-03-17 19:15 | CP.PCM.CON ---
Past Patient History - Infectious Disease Hx of Infectious Diseases: None - Past Medical History & Family History Past Medical History?: Yes - Past Social History Smoking Status: Light Smoker < 10 Cigarettes Daily Home Situation {Lives}: With Family - CARDIAC Hx Congestive Heart Failure: Yes Hx Hypercholesterolemia: Yes Hx Hypertension: Yes Hx Pacemaker: Yes - PULMONARY Hx Respiratory Disorders: No - NEUROLOGICAL Hx Neurological Disorder: No - HEENT Hx HEENT Problems: No - RENAL Hx Chronic Kidney Disease: No - ENDOCRINE/METABOLIC Hx Endocrine Disorders: Yes Hx Diabetes Mellitus Type 2: Yes - HEMATOLOGICAL/ONCOLOGICAL Hx Blood Disorders: No - INTEGUMENTARY Hx Dermatological Problems: No - MUSCULOSKELETAL/RHEUMATOLOGICAL Hx Musculoskeletal Disorders: No Hx Falls: No - GASTROINTESTINAL Hx Gastrointestinal Disorders: No - GENITOURINARY/GYNECOLOGICAL Hx Genitourinary Disorders: No - PSYCHIATRIC Hx Substance Use: No - SURGICAL HISTORY Hx Surgeries: Yes Other/Comment: "defib place to L chest wall 2011" - ANESTHESIA Hx Anesthesia: Yes Hx Anesthesia Reactions: No Hx Malignant Hyperthermia: No Meds Allergies/Adverse Reactions: Allergies Allergy/AdvReac Type Severity Reaction Status Date / Time No Known Allergies Allergy Verified 03/16/17 14:28 - Medications Medications: Current Medications Albuterol/Ipratropium (Duoneb 3 Mg/0.5 Mg (3 Ml) Ud) 3 ml INH RQ6 [facility] Last Admin: 03/17/17 13:39 Dose: Not Given Aspirin (Aspirin) 325 mg PO DAILY [facility] Last Admin: 03/17/17 09:30 Dose: 325 mg Carvedilol (Coreg) 12.5 mg PO BID [facility] Last Admin: 03/17/17 17:58 Dose: 12.5 mg Clopidogrel Bisulfate (Plavix) 75 mg PO DAILY [facility] Last Admin: 03/17/17 09:29 Dose: 75 mg Enoxaparin Sodium (Lovenox) 40 mg SC DAILY [facility] Last Admin: 03/17/17 09:54 Dose: 40 mg Furosemide (Lasix) 40 mg IVP BID [facility] Last Admin: 03/17/17 17:59 Dose: 40 mg Metolazone (Zaroxolyn) 5 mg PO DAILY [facility] Last Admin: 03/17/17 09:30 Dose: 5 mg Pantoprazole Sodium (Protonix Ec Tab) 40 mg PO DAILY [facility] Last Admin: 03/17/17 09:30 Dose: 40 mg Rosuvastatin Calcium (Crestor) 2.5 mg PO HS [facility] Sacubitril/Valsartan (Entresto 24 Mg-26 Mg) 1 tab PO BID [facility] Last Admin: 03/17/17 17:59 Dose: 1 tab Results - Vital Signs Recent Vital Signs: Last Vital Signs Temp 98.2 F 03/17/17 15:00 Pulse 71 03/17/17 16:00 Resp 20 03/17/17 15:00 BP 127/74 03/17/17 17:59 Pulse Ox 100 03/17/17 15:00 - Labs Result Diagrams: 03/17/17 08:34 03/17/17 08:34 Labs: Laboratory Results - last 24 hr 03/16/17 03/17/17 03/17/17 21:35 06:46 08:34 WBC RBC Hgb Hct MCV MCH MCHC RDW Plt Count MPV Neut % (Auto) Lymph % (Auto) [place] % (Auto) Eos % (Auto) Baso % (Auto) Neut # Lymph # [place] # Eos # Baso # PT 15.3 H INR 1.4 Sodium 139 Potassium 5.6 H Chloride 103 Carbon Dioxide 31 H Anion Gap 11 BUN 31 H Creatinine 1.2 Est GFR ( Amer) > 60 Est GFR (Non-Af Amer) > 60 POC Glucose (mg/dL) 97 Random Glucose 78 Calcium 8.7 Total Bilirubin 1.6 H AST 35 ALT 50 Alkaline Phosphatase 158 H Troponin I 0.0400 Total Protein 8.0 Albumin 3.6 Globulin 4.4 H Albumin/Globulin Ratio 0.8 L Triglycerides 79 Cholesterol 108 LDL Cholesterol Direct 47 HDL Cholesterol 36 03/17/17 03/17/17 08:34 17:26 WBC 6.4 RBC 4.46 Hgb 10.9 L Hct 34.4 L MCV 77.3 L MCH 24.5 L MCHC 31.7 L RDW 21.4 H Plt Count 463 H MPV 7.6 Neut % (Auto) 62.0 Lymph % (Auto) 31.0 [place] % (Auto) 7.0 Eos % (Auto) 0.0 Baso % (Auto) 0.0 Neut # 4.0 Lymph # 2.0 [place] # 0.5 Eos # 0.0 Baso # 0.0 PT INR Sodium Potassium Chloride Carbon Dioxide Anion Gap BUN Creatinine Est GFR ( Amer) Est GFR (Non-Af Amer) POC Glucose (mg/dL) Random Glucose Calcium Total Bilirubin AST ALT Alkaline Phosphatase Troponin I 0.0370 Total Protein Albumin Globulin Albumin/Globulin Ratio Triglycerides Cholesterol LDL Cholesterol Direct HDL Cholesterol
--- NOTE | 2017-03-17 19:24 | CP.PCM.HP ---
Past Patient History - Infectious Disease Hx of Infectious Diseases: None - Past Medical History & Family History Past Medical History?: Yes - Past Social History Smoking Status: Light Smoker < 10 Cigarettes Daily Home Situation {Lives}: With Family - CARDIAC Hx Congestive Heart Failure: Yes Hx Hypercholesterolemia: Yes Hx Hypertension: Yes Hx Pacemaker: Yes - PULMONARY Hx Respiratory Disorders: No - NEUROLOGICAL Hx Neurological Disorder: No - HEENT Hx HEENT Problems: No - RENAL Hx Chronic Kidney Disease: No - ENDOCRINE/METABOLIC Hx Endocrine Disorders: Yes Hx Diabetes Mellitus Type 2: Yes - HEMATOLOGICAL/ONCOLOGICAL Hx Blood Disorders: No - INTEGUMENTARY Hx Dermatological Problems: No - MUSCULOSKELETAL/RHEUMATOLOGICAL Hx Musculoskeletal Disorders: No Hx Falls: No - GASTROINTESTINAL Hx Gastrointestinal Disorders: No - GENITOURINARY/GYNECOLOGICAL Hx Genitourinary Disorders: No - PSYCHIATRIC Hx Substance Use: No - SURGICAL HISTORY Hx Surgeries: Yes Other/Comment: "defib place to L chest wall 2011" - ANESTHESIA Hx Anesthesia: Yes Hx Anesthesia Reactions: No Hx Malignant Hyperthermia: No Meds Allergies/Adverse Reactions: Allergies Allergy/AdvReac Type Severity Reaction Status Date / Time No Known Allergies Allergy Verified 03/16/17 14:28 Physical Exam - Constitutional Appears: Well - Head Exam Head Exam: ATRAUMATIC, NORMAL INSPECTION, NORMOCEPHALIC - Eye Exam Eye Exam: EOMI, Normal appearance, PERRL Pupil Exam: NORMAL ACCOMODATION, PERRL - ENT Exam ENT Exam: Mucous Membranes Moist, Normal Exam - Neck Exam Neck exam: Positive for: Normal Inspection - Respiratory Exam Respiratory Exam: Decreased Breath Sounds - Cardiovascular Exam Cardiovascular Exam: REGULAR RHYTHM, +S1, +S2 - GI/Abdominal Exam GI & Abdominal Exam: Diminished Bowel Sounds, Soft - Rectal Exam Rectal Exam: Deferred Results - Vital Signs Recent Vital Signs: Last Vital Signs Temp 98.2 F 03/17/17 15:00 Pulse 71 03/17/17 16:00 Resp 20 03/17/17 15:00 BP 127/74 03/17/17 17:59 Pulse Ox 100 03/17/17 15:00 - Labs Result Diagrams: 03/17/17 08:34 03/17/17 08:34 Labs: Laboratory Results - last 24 hr 03/16/17 03/17/17 03/17/17 21:35 06:46 08:34 WBC RBC Hgb Hct MCV MCH MCHC RDW Plt Count MPV Neut % (Auto) Lymph % (Auto) Mitchell % (Auto) Eos % (Auto) Baso % (Auto) Neut # Lymph # Mitchell # Eos # Baso # PT 15.3 H INR 1.4 Sodium 139 Potassium 5.6 H Chloride 103 Carbon Dioxide 31 H Anion Gap 11 BUN 31 H Creatinine 1.2 Est GFR ( Amer) > 60 Est GFR (Non-Af Amer) > 60 POC Glucose (mg/dL) 97 Random Glucose 78 Calcium 8.7 Total Bilirubin 1.6 H AST 35 ALT 50 Alkaline Phosphatase 158 H Troponin I 0.0400 Total Protein 8.0 Albumin 3.6 Globulin 4.4 H Albumin/Globulin Ratio 0.8 L Triglycerides 79 Cholesterol 108 LDL Cholesterol Direct 47 HDL Cholesterol 36 03/17/17 03/17/17 08:34 17:26 WBC 6.4 RBC 4.46 Hgb 10.9 L Hct 34.4 L MCV 77.3 L MCH 24.5 L MCHC 31.7 L RDW 21.4 H Plt Count 463 H MPV 7.6 Neut % (Auto) 62.0 Lymph % (Auto) 31.0 Mitchell % (Auto) 7.0 Eos % (Auto) 0.0 Baso % (Auto) 0.0 Neut # 4.0 Lymph # 2.0 Mitchell # 0.5 Eos # 0.0 Baso # 0.0 PT INR Sodium Potassium Chloride Carbon Dioxide Anion Gap BUN Creatinine Est GFR ( Amer) Est GFR (Non-Af Amer) POC Glucose (mg/dL) Random Glucose Calcium Total Bilirubin AST ALT Alkaline Phosphatase Troponin I 0.0370 Total Protein Albumin Globulin Albumin/Globulin Ratio Triglycerides Cholesterol LDL Cholesterol Direct HDL Cholesterol
[2017-03-17] MEDS ORDERED: Rosuvastatin Calcium 2.5 mg Tab PO SCH (22:00)
--- NOTE | 2017-03-17 22:16 | CARD ---
APPROVED REPORT EKG Measurement Heart [id number] [place] [id number] [id number] <Conclusion> Atrial-sensed ventricular-paced rhythm Abnormal ECG
[2017-03-18] MEDS: Albuterol-Ipratrop 3 mg / 0.5 (3 ml) UD INH SCH ×4 (01:54→22:01)
--- NOTE | 2017-03-18 07:00 | CP.PCM.PN ---
Subjective - Date & Time of Evaluation Date of Evaluation: 03/18/17 Time of Evaluation: 06:53 - Subjective Subjective: PGY2 progress note for cardiology, Dr. Bourgeois (patient's O/P credit control manager) Pt is seen and examined at bedside. No acute events overnight. Pt states SOB has improved. Pt denies having any CP, abd pain, N/V/D/c, LE pain. 12 point ROS are negative except for the above mentioned. Objective - Vital Signs/Intake and Output Vital Signs (last 24 hours): Temp Pulse Resp BP Pulse Ox 98.1 F 61 20 101/60 98 03/18/17 04:32 03/18/17 04:32 03/18/17 04:32 03/18/17 04:32 03/18/17 04:32 Intake and Output: 03/17/17 03/18/17 18:59 06:59 Intake Total 604 Output Total 500 1100 Balance 104 -1100 - Medications Medications: Current Medications Albuterol/Ipratropium (Duoneb 3 Mg/0.5 Mg (3 Ml) Ud) 3 ml INH RQ6 [facility] Last Admin: 03/18/17 01:54 Dose: Not Given Aspirin (Aspirin) 325 mg PO DAILY [facility] Last Admin: 03/17/17 09:30 Dose: 325 mg Carvedilol (Coreg) 12.5 mg PO BID [facility] Last Admin: 03/17/17 17:58 Dose: 12.5 mg Clopidogrel Bisulfate (Plavix) 75 mg PO DAILY [facility] Last Admin: 03/17/17 09:29 Dose: 75 mg Enoxaparin Sodium (Lovenox) 40 mg SC DAILY [facility] Last Admin: 03/17/17 09:54 Dose: 40 mg Furosemide (Lasix) 40 mg IVP BID [facility] Last Admin: 03/17/17 17:59 Dose: 40 mg Metolazone (Zaroxolyn) 5 mg PO DAILY [facility] Last Admin: 03/17/17 09:30 Dose: 5 mg Pantoprazole Sodium (Protonix Ec Tab) 40 mg PO DAILY [facility] Last Admin: 03/17/17 09:30 Dose: 40 mg Rosuvastatin Calcium (Crestor) 2.5 mg PO [facility] Sacubitril/Valsartan (Entresto 24 Mg-26 Mg) 1 tab PO BID [facility] Last Admin: 03/17/17 17:59 Dose: 1 tab - Labs Labs: 03/17/17 08:34 03/17/17 08:34 PT 15.3 SECONDS (9.7-12.2) H 03/17/17 06:46 INR 1.4 03/17/17 06:46 APTT 32 SECONDS (21-34) 03/16/17 15:02 - Constitutional Appears: Non-toxic, No Acute Distress - Head Exam Head Exam: ATRAUMATIC - Eye Exam Eye Exam: EOMI - ENT Exam ENT Exam: Mucous Membranes Moist - Respiratory Exam Respiratory Exam: Rales, NORMAL BREATHING PATTERN. absent: Accessory Muscle Use , Rhonchi, Wheezes, Respiratory Distress - Cardiovascular Exam Cardiovascular Exam: REGULAR RHYTHM, +S1, +S2 - Extremities Exam Extremities Exam: Pedal Edema (trace pitting edema) - Neurological Exam Neurological Exam: Alert, Awake, Oriented x3 - Psychiatric Exam Psychiatric exam: Normal Affect, Normal Mood - Skin Skin Exam: Dry, Intact, Normal Color, Warm Assessment and Plan - Assessment and Plan (Free Text) Assessment: 61 year old male with past medical history of CHF exacerbation s/p pacemaker placement, CAD, HTN, HLD is being seen by cardiology for CHF excerbation. 1. CHF exacerbation [place] [address] - Previous Echo from 12/28 showed EF of 12.7%, LV mod dilated, septal hypokenesis , apical thrombus, severe ischemic cardiomyopathy, LA mod dilated , mild AR, MR and UT. - Continue Lasixs 40 mg IV BID and Mitolazone 5 mg po qd. - Continue Entresto, and Coreg - measure daily Is and Os and daily weights - Have reached out to patient's credit control manager, Dr. Bourgeois for more cardiac history. Waiting to hear back. - Patient's pacemaker device information obtained: Device is [employer]. 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 Implant DT: Feb 07, 2010 - Patient will need device interrogated 2. CAD - Continue DAPT with Aspirin and Plavix - Reached out to Dr. Bourgeois for patient's cardiac cath report - Patient is stared on Crestor 2.5 mg po HS 3. Left ventricular thrombus - Will continue coumadin 5 mg - Will monitor daily PT and INR. Currently noted to be subtherapeutic 4. HTN - Will continue to monitor VS 5. Hyperkalemia - Pending labs today - Likely 2/2 to diuresis. Will continue diruesising cautiously. - will continue to monitor - Consider nephrology consult if worsening
--- NOTE | 2017-03-18 07:21 | CP.PCM.PCO ---
Physician Communication Note - Physician Communication Note Physician Communication Note: Patient followed by as outpt, he will assume care of the pt Assessment/Plan - Assessment and Plan (Free Text) Assessment: Care of patient to be assumed by who was following patient as outpt Discussed patient with him this am.
[2017-03-18 08:31] LABS: BASO # 0.1 K/uL (0.0-0.2); BASO % 0.8 % (0.0-2.0); EOS # 0.1 K/uL (0.0-0.7); EOS % 1.3 % (0.0-4.0); HEMATOCRIT 30.2 % (35.0-51.0); LYMPH # 1.2 K/uL (1.0-4.3); LYMPH % 19.2 % (20.0-40.0); MEAN CELL VOLUME 77.5 fL (80.0-94.0); MEAN CORPUSCULAR HEMOGLOBIN 24.8 pg (27.0-31.0); MEAN PLATELET VOLUME 7.4 fL (7.2-11.7); MONO # 0.8 K/uL (0.0-0.8); MONO % 12.5 % (0.0-10.0); NRBC % 0.7 % (0.0-2.0); RED CELL DISTRIBUTION WIDTH 21.1 % (11.5-14.5); WHITE BLOOD COUNT 6.3 K/uL (4.8-10.8)
[2017-03-18 08:35] LABS: INR 1.4
[2017-03-18 09:04] LABS: ALB/GLOB RATIO 0.6 (1.0-2.1); ALKALINE PHOSPHATASE 110 U/L (38-126); ALT/SGPT 41 U/L (21-72); AST/SGOT 23 U/L (17-59); BILIRUBIN,TOTAL 0.6 mg/dL (0.2-1.3); BLOOD UREA NITROGEN 27 mg/dL (9-20); CALCIUM 7.8 mg/dl (8.6-10.4); CARBON DIOXIDE 31 mmol/L (22-30); CHLORIDE 99 mmol/L (98-107); GFR AFRICAN-AMERICAN > 60; GLUCOSE,RANDOM 77 mg/dL (75-110); SODIUM 133 mmol/L (132-148); TOTAL PROTEIN 6.9 g/dL (6.3-8.3)
[2017-03-18] MEDS: metOLazone 5 MG TAB PO SCH (10:29)
[2017-03-18] MEDS: Sacubitril/Valsartan 24-26mg Tab PO SCH ×2 (10:34→18:17)
[2017-03-18] MEDS: Enoxaparin 40 mg Syringe SC SCH (10:48)
[2017-03-18] MEDS: Pantoprazole 40 mg EC Tab PO SCH (10:48)
--- NOTE | 2017-03-18 14:41 | CP.PCM.PN ---
Subjective - Date & Time of Evaluation Date of Evaluation: 03/18/17 Time of Evaluation: 14:39 - Subjective Subjective: Progress Note for Dr. Vanegas's Service Pt seen and examined at bedside. He denies any chest discomfort. He states that his shortness of breath have significantly improved and is only mild today. No acute events overnight. He reports his pedal edema is also improving. No F/C/N/V /D/C/CP. Objective - Vital Signs/Intake and Output Vital Signs (last 24 hours): Temp Pulse Resp BP Pulse Ox 97.9 F 72 20 99/60 L 97 03/18/17 07:00 03/18/17 11:44 03/18/17 07:00 03/18/17 10:29 03/18/17 07:00 Intake and Output: 03/18/17 03/18/17 06:59 18:59 Output Total 1100 Balance -1100 - Medications Medications: Current Medications Albuterol/Ipratropium (Duoneb 3 Mg/0.5 Mg (3 Ml) Ud) 3 ml INH RQ6 [facility] Last Admin: 03/18/17 13:21 Dose: Not Given Aspirin (Aspirin) 325 mg PO DAILY [facility] Last Admin: 03/18/17 10:48 Dose: 325 mg Carvedilol (Coreg) 12.5 mg PO BID [facility] Last Admin: 03/18/17 10:34 Dose: Not Given Clopidogrel Bisulfate (Plavix) 75 mg PO DAILY [facility] Last Admin: 03/18/17 10:48 Dose: 75 mg Enoxaparin Sodium (Lovenox) 40 mg SC DAILY [facility] Last Admin: 03/18/17 10:48 Dose: 40 mg Furosemide (Lasix) 40 mg IVP BID [facility] Last Admin: 03/18/17 10:29 Dose: Not Given Metolazone (Zaroxolyn) 5 mg PO DAILY [facility] Last Admin: 03/18/17 10:29 Dose: Not Given Pantoprazole Sodium (Protonix Ec Tab) 40 mg PO DAILY [facility] Last Admin: 03/18/17 10:48 Dose: 40 mg Rosuvastatin Calcium (Crestor) 2.5 mg PO [facility] Sacubitril/Valsartan (Entresto 24 Mg-26 Mg) 1 tab PO BID [facility] Last Admin: 03/18/17 10:34 Dose: Not Given - Labs Labs: 03/18/17 08:17 03/18/17 08:17 PT 15.6 SECONDS (9.7-12.2) H 03/18/17 08:17 INR 1.4 03/18/17 08:17 APTT 32 SECONDS (21-34) 03/18/17 08:17 - Constitutional Appears: No Acute Distress - Head Exam Head Exam: ATRAUMATIC, NORMAL INSPECTION - Eye Exam Eye Exam: EOMI - ENT Exam ENT Exam: Mucous Membranes Moist - Respiratory Exam Respiratory Exam: Clear to Ausculation Bilateral, NORMAL BREATHING PATTERN. absent: Rales, Rhonchi, Wheezes - Cardiovascular Exam Cardiovascular Exam: REGULAR RHYTHM - GI/Abdominal Exam GI & Abdominal Exam: Soft. absent: Distended, Tenderness - Neurological Exam Neurological Exam: Alert, Awake, Oriented x3 - Psychiatric Exam Psychiatric exam: Normal Affect, Normal Mood - Skin Skin Exam: Dry, Intact Assessment and Plan - Assessment and Plan (Free Text) Plan: 1. CHF exacerbation - ProBNP 86069 on admission - Previous Echo from 12/28 showed EF of 12.7%, LV mod dilated, septal hypokenesis , apical thrombus, severe ischemic cardiomyopathy, LA mod dilated , mild AR, MR and [place]. - Cardiology consulted- Dr. Winter- recommendations appreciated - Lasix 40 mg IV BID - Mitolazone 5 mg po qd. - Entresto 24mg PO daily - Coreg 12.5mg PO BID - measure daily Is and Os and daily weights - Cardio team has reached out to patient's office sweeper, Dr. Bourgeois for more cardiac history- Waiting to hear back. - Pacemaker model has been identified- patient will need device interrogated - started on crestor 2.5 PO qhs - Lipid Profile: Total cholesterol 108; HDL 36; LDL 47; Triglycerides 79 CAD - Aspirin 325mg PO daily - Plavix 75mg PO daily - Dr. Bourgeois contacted by cardiology team for cardiac cath report - Started on Crestor 2.5 mg po qHS Left ventricular thrombus - Coumadin 5 mg - Daily PT and INR- currently sub therapeutic HTN - controlled - continue to monitor - Coreg 12.5mg PO BID - Lasix 40mg PO daily - Metolzone 5mg PO daily Hyperkalemia- resolved - Likely 2/2 to diuresis - Kayexelate 30mg PO once given 03/17 - K=4.0 03/18/17 Anemia - hgb 10.9->9.7- similar to previous admissions - monitor daily cbc CKD - stable- bun/cr 28/04.1-> 26/04.3 - monitor bun/cr Prophylaxis - Lovenox 40mg SC daily - Protonix 40mg PO daily Case discussed with Dr. Vanegas All management as per Dr. Vanegas
--- NOTE | 2017-03-18 15:54 | CP.PCM.PN ---
Subjective - Date & Time of Evaluation Date of Evaluation: 03/18/17 Time of Evaluation: 15:54 Objective - Vital Signs/Intake and Output Vital Signs (last 24 hours): Temp Pulse Resp BP Pulse Ox 98.1 F 70 20 102/61 100 03/18/17 15:10 03/18/17 15:10 03/18/17 15:10 03/18/17 15:10 03/18/17 15:10 Intake and Output: 03/18/17 03/18/17 06:59 18:59 Output Total 1100 Balance -1100 - Medications Medications: Current Medications Albuterol/Ipratropium (Duoneb 3 Mg/0.5 Mg (3 Ml) Ud) 3 ml INH RQ6 [facility] Last Admin: 03/18/17 13:21 Dose: Not Given Aspirin (Aspirin) 325 mg PO DAILY [facility] Last Admin: 03/18/17 10:48 Dose: 325 mg Carvedilol (Coreg) 12.5 mg PO BID [facility] Last Admin: 03/18/17 10:34 Dose: Not Given Clopidogrel Bisulfate (Plavix) 75 mg PO DAILY [facility] Last Admin: 03/18/17 10:48 Dose: 75 mg Enoxaparin Sodium (Lovenox) 40 mg SC DAILY [facility] Last Admin: 03/18/17 10:48 Dose: 40 mg Furosemide (Lasix) 40 mg IVP BID [facility] Last Admin: 03/18/17 10:29 Dose: Not Given Metolazone (Zaroxolyn) 5 mg PO DAILY [facility] Last Admin: 03/18/17 10:29 Dose: Not Given Pantoprazole Sodium (Protonix Ec Tab) 40 mg PO DAILY [facility] Last Admin: 03/18/17 10:48 Dose: 40 mg Rosuvastatin Calcium (Crestor) 2.5 mg PO HS [facility] Sacubitril/Valsartan (Entresto 24 Mg-26 Mg) 1 tab PO BID [facility] Last Admin: 03/18/17 10:34 Dose: Not Given Warfarin Sodium (Coumadin) 5 mg PO 1800 [facility] Stop: 03/18/17 18:01 - Labs Labs: 03/18/17 08:17 03/18/17 08:17 PT 15.6 SECONDS (9.7-12.2) H 03/18/17 08:17 INR 1.4 03/18/17 08:17 APTT 32 SECONDS (21-34) 12/19/17 08:17
--- NOTE | 2017-03-18 18:33 | CARD ---
APPROVED REPORT EKG Measurement Heart [id number] [place] 126P86 [id number] <Conclusion> Atrial-sensed ventricular-paced rhythm Abnormal ECG
--- NOTE | 2017-03-18 19:20 | CP.PCM.PN ---
Subjective - Date & Time of Evaluation Date of Evaluation: 03/18/17 Time of Evaluation: 11:20 - Subjective Subjective: clinically same Objective - Vital Signs/Intake and Output Vital Signs (last 24 hours): Temp Pulse Resp BP Pulse Ox 98.1 F 70 20 119/65 100 03/18/17 15:10 03/18/17 15:10 03/18/17 15:10 03/18/17 18:18 03/18/17 15:10 - Medications Medications: Current Medications Albuterol/Ipratropium (Duoneb 3 Mg/0.5 Mg (3 Ml) Ud) 3 ml INH RQ6 [facility] Last Admin: 03/18/17 13:21 Dose: Not Given Aspirin (Aspirin) 325 mg PO DAILY [facility] Last Admin: 03/18/17 10:48 Dose: 325 mg Carvedilol (Coreg) 12.5 mg PO BID [facility] Last Admin: 03/18/17 10:34 Dose: Not Given Clopidogrel Bisulfate (Plavix) 75 mg PO DAILY [facility] Last Admin: 03/18/17 10:48 Dose: 75 mg Enoxaparin Sodium (Lovenox) 40 mg SC DAILY [facility] Last Admin: 03/18/17 10:48 Dose: 40 mg Furosemide (Lasix) 40 mg IVP BID [facility] Last Admin: 03/18/17 18:18 Dose: 40 mg Metolazone (Zaroxolyn) 5 mg PO DAILY [facility] Last Admin: 03/18/17 10:29 Dose: Not Given Pantoprazole Sodium (Protonix Ec Tab) 40 mg PO DAILY [facility] Last Admin: 03/18/17 10:48 Dose: 40 mg Rosuvastatin Calcium (Crestor) 2.5 mg PO [facility] Sacubitril/Valsartan (Entresto 24 Mg-26 Mg) 1 tab PO BID [facility] Last Admin: 03/18/17 18:17 Dose: 1 tab - Labs Labs: 03/18/17 08:17 03/18/17 08:17 PT 15.6 SECONDS (9.7-12.2) H 03/18/17 08:17 INR 1.4 03/18/17 08:17 APTT 32 SECONDS (21-34) 03/18/17 08:17 - Constitutional Appears: Well - Head Exam Head Exam: ATRAUMATIC, NORMAL INSPECTION, NORMOCEPHALIC - Eye Exam Eye Exam: EOMI, Normal appearance, PERRL Pupil Exam: NORMAL ACCOMODATION, PERRL - ENT Exam ENT Exam: Mucous Membranes Moist, Normal Exam - Neck Exam Neck Exam: Full ROM, Normal Inspection. absent: Lymphadenopathy - Respiratory Exam Respiratory Exam: Decreased Breath Sounds - Cardiovascular Exam Cardiovascular Exam: REGULAR RHYTHM, +S1, +S2 - GI/Abdominal Exam GI & Abdominal Exam: Soft, Diminished Bowel Sounds - Rectal Exam Rectal Exam: Deferred
[2017-03-19] MEDS: Albuterol-Ipratrop 3 mg / 0.5 (3 ml) UD INH SCH ×3 (02:54→13:10)
[2017-03-19 04:46] VITALS: TEMP 98.2
[2017-03-19 07:57] LABS: BASO % 0.7 % (0.0-2.0); EOS # 0.1 K/uL (0.0-0.7); EOS % 1.3 % (0.0-4.0); HEMATOCRIT 30.2 % (35.0-51.0); LYMPH # 1.5 K/uL (1.0-4.3); LYMPH % 24.3 % (20.0-40.0); MEAN CELL VOLUME 75.8 fL (80.0-94.0); MEAN PLATELET VOLUME 7.5 fL (7.2-11.7); MONO # 0.8 K/uL (0.0-0.8); MONO % 13.6 % (0.0-10.0); NRBC % 0.4 % (0.0-2.0); RED CELL DISTRIBUTION WIDTH 21.2 % (11.5-14.5)
[2017-03-19 07:59] LABS: INR 1.5
[2017-03-19 08:06] LABS: ALB/GLOB RATIO 0.8 (1.0-2.1); ALKALINE PHOSPHATASE 100 U/L (38-126); ALT/SGPT 22 U/L (21-72); AST/SGOT 20 U/L (17-59); BLOOD UREA NITROGEN 24 mg/dL (9-20); CALCIUM 8.1 mg/dl (8.6-10.4); CARBON DIOXIDE 36 mmol/L (22-30); CHLORIDE 96 mmol/L (98-107); GFR AFRICAN-AMERICAN > 60; GLUCOSE,RANDOM 68 mg/dL (75-110); SODIUM 132 mmol/L (132-148); TOTAL PROTEIN 5.7 g/dL (6.3-8.3)
[2017-03-19] MEDS: Enoxaparin 40 mg Syringe SC SCH (09:28)
[2017-03-19] MEDS: Pantoprazole 40 mg EC Tab PO SCH (09:28)
[2017-03-19 09:37] VITALS: PULSE 80; O2SAT 100
[2017-03-19] MEDS: metOLazone 5 MG TAB PO SCH (10:32)
[2017-03-19 10:33] VITALS: BP 97/67
[2017-03-19] MEDS: Sacubitril/Valsartan 24-26mg Tab PO SCH (10:33)
--- NOTE | 2017-03-19 12:45 | CP.PCM.PN ---
Subjective - Date & Time of Evaluation Date of Evaluation: 03/19/17 Time of Evaluation: 09:00 - Subjective Subjective: Progress Note for Dr. Vanegas's Service Pt seen and examined at bedside. He denies any chest discomfort. He states that his shortness of breath have significantly improved and is only mild today. No acute events overnight. He reports his pedal edema is also improving. No F/C/N/V /D/C/CP. Per ID will need 10 more days of ABX at rehab. Objective - Vital Signs/Intake and Output Vital Signs (last 24 hours): Temp Pulse Resp BP Pulse Ox 98.2 F 80 20 97/67 L 100 03/19/17 07:00 03/19/17 09:36 03/19/17 07:00 03/19/17 10:33 03/19/17 09:36 Intake and Output: 03/19/17 03/19/17 06:59 18:59 Output Total 400 Balance -400 - Medications Medications: Current Medications Albuterol/Ipratropium (Duoneb 3 Mg/0.5 Mg (3 Ml) Ud) 3 ml INH RQ6 [facility] Last Admin: 03/19/17 07:22 Dose: Not Given Aspirin (Aspirin) 325 mg PO DAILY [facility] Last Admin: 03/19/17 09:28 Dose: 325 mg Carvedilol (Coreg) 12.5 mg PO BID [facility] Last Admin: 03/19/17 10:33 Dose: Not Given Clopidogrel Bisulfate (Plavix) 75 mg PO DAILY [facility] Last Admin: 03/19/17 09:28 Dose: 75 mg Enoxaparin Sodium (Lovenox) 40 mg SC DAILY [facility] Last Admin: 03/19/17 09:28 Dose: 40 mg Furosemide (Lasix) 40 mg IVP BID [facility] Last Admin: 03/19/17 10:32 Dose: Not Given Metolazone (Zaroxolyn) 5 mg PO DAILY [facility] Last Admin: 03/19/17 10:32 Dose: Not Given Pantoprazole Sodium (Protonix Ec Tab) 40 mg PO DAILY [facility] Last Admin: 03/19/17 09:28 Dose: 40 mg Rosuvastatin Calcium (Crestor) 2.5 mg PO HS [facility] Last Admin: 03/18/17 21:09 Dose: 2.5 mg Sacubitril/Valsartan (Entresto 24 Mg-26 Mg) 1 tab PO BID [facility] Last Admin: 03/19/17 10:33 Dose: Not Given - Labs Labs: 03/19/17 07:44 03/19/17 07:44 PT 16.7 SECONDS (9.7-12.2) H 03/19/17 07:44 INR 1.5 03/19/17 07:44 APTT 33 SECONDS (21-34) 03/19/17 07:44 - Constitutional Appears: No Acute Distress - Head Exam Head Exam: ATRAUMATIC, NORMAL INSPECTION - Eye Exam Eye Exam: Normal appearance - ENT Exam ENT Exam: Mucous Membranes Moist - Respiratory Exam Respiratory Exam: Clear to Ausculation Bilateral, NORMAL BREATHING PATTERN. absent: Respiratory Distress - Cardiovascular Exam Cardiovascular Exam: REGULAR RHYTHM, +S1, +S2 - GI/Abdominal Exam GI & Abdominal Exam: Soft, Normal Bowel Sounds. absent: Distended, Firm, Tenderness - Extremities Exam Extremities Exam: Normal Inspection - Back Exam Back Exam: NORMAL INSPECTION - Neurological Exam Neurological Exam: Alert, Awake, Oriented x3 - Psychiatric Exam Psychiatric exam: Normal Affect, Normal Mood Assessment and Plan - Assessment and Plan (Free Text) Assessment: Patient is stable for DC home today with home care services for CHF managment and home PT services by [facility] home PT. 1. CHF (systolic dysfunction) exacerbation - ProBNP 07001 on admission - Previous Echo from 12/28 showed EF of 12.7%, LV mod dilated, septal hypokenesis , apical thrombus, severe ischemic cardiomyopathy, LA mod dilated , mild AR, MR and [place]. - Cardiology consulted- Dr. Winter- recommendations appreciated - Lasix 40 mg IV BID - Mitolazone 5 mg po qd. - Entresto 24mg PO daily - Coreg 12.5mg PO BID - measure daily Is and Os and daily weights - Cardio team has reached out to patient's night clerk auditor, Dr. Bourgeois for more cardiac history- Waiting to hear back. - Pacemaker model has been identified- patient will need device interrogated - started on crestor 2.5 PO qhs - Lipid Profile: Total cholesterol 108; HDL 36; LDL 47; Triglycerides 79 CAD - Aspirin 325mg PO daily - Plavix 75mg PO daily - Dr. Bourgeois contacted by cardiology team for cardiac cath report - Started on Crestor 2.5 mg po qHS Left ventricular thrombus - Coumadin 5 mg - Daily PT and INR- currently sub therapeutic HTN - controlled - continue to monitor - Coreg 12.5mg PO BID - Lasix 40mg PO daily - Metolzone 5mg PO daily Hyperkalemia- resolved - Likely 2/2 to diuresis - Kayexelate 30mg PO once given 03/17 - K=4.0 03/18/17 Anemia - hgb 10.9->9.7- similar to previous admissions - monitor daily cbc CKD - stable- bun/cr 29/1.1-> 27/1.3 - monitor bun/cr Prophylaxis - Lovenox 40mg SC daily - Protonix 40mg PO daily Case discussed with Dr. Vanegas All management as per Dr. Vanegas
--- NOTE | 2017-03-19 15:13 | CP.PCM.PN ---
Subjective - Date & Time of Evaluation Date of Evaluation: 03/19/17 Time of Evaluation: 15:13 Objective - Vital Signs/Intake and Output Vital Signs (last 24 hours): Temp Pulse Resp BP Pulse Ox 98.2 F 80 20 97/67 L 100 03/19/17 07:00 03/19/17 12:01 03/19/17 07:00 03/19/17 10:33 03/19/17 09:36 Intake and Output: 03/19/17 03/19/17 06:59 18:59 Intake Total 600 Output Total 400 Balance -400 600 - Medications Medications: Current Medications Albuterol/Ipratropium (Duoneb 3 Mg/0.5 Mg (3 Ml) Ud) 3 ml INH RQ6 [facility] Last Admin: 03/19/17 13:10 Dose: Not Given Aspirin (Aspirin) 325 mg PO DAILY [facility] Last Admin: 03/19/17 09:28 Dose: 325 mg Carvedilol (Coreg) 12.5 mg PO BID [facility] Last Admin: 03/19/17 10:33 Dose: Not Given Clopidogrel Bisulfate (Plavix) 75 mg PO DAILY [facility] Last Admin: 03/19/17 09:28 Dose: 75 mg Enoxaparin Sodium (Lovenox) 40 mg SC DAILY [facility] Last Admin: 03/19/17 09:28 Dose: 40 mg Furosemide (Lasix) 40 mg IVP BID [facility] Last Admin: 03/19/17 10:32 Dose: Not Given Metolazone (Zaroxolyn) 5 mg PO DAILY [facility] Last Admin: 03/19/17 10:32 Dose: Not Given Pantoprazole Sodium (Protonix Ec Tab) 40 mg PO DAILY [facility] Last Admin: 03/19/17 09:28 Dose: 40 mg Rosuvastatin Calcium (Crestor) 2.5 mg PO HS [facility] Last Admin: 03/18/17 21:09 Dose: 2.5 mg Sacubitril/Valsartan (Entresto 24 Mg-26 Mg) 1 tab PO BID [facility] Last Admin: 03/19/17 10:33 Dose: Not Given - Labs Labs: 03/19/17 07:44 03/19/17 07:44 PT 16.7 SECONDS (9.7-12.2) H 03/19/17 07:44 INR 1.5 03/19/17 07:44 APTT 33 SECONDS (21-34) 03/19/17 07:44
--- NOTE | 2017-03-19 23:44 | CARD ---
APPROVED REPORT EKG Measurement Heart [id number] [place] [id number] <Conclusion> Atrial-sensed ventricular-paced rhythm Abnormal ECG
== END 2017-03-19 15:30 | disposition home or self-care (01) | DRG 291 ==
LOC: C.ER 14:08 → C.9E 16:20 → C.6T 17:32
PROVIDERS: ADMIT Internal Medicine Nephrology; ATTEND Internal Medicine Nephrology
DX: I13.0 Hypertensive heart and chronic kidney disease with heart failure and stage 1 through stage 4 chronic kidney disease, or unspecified chronic kidney disease (principal); I50.23 Acute on chronic systolic (congestive) heart failure; E11.22 Type 2 diabetes mellitus with diabetic chronic kidney disease; Z79.01 Long term (current) use of anticoagulants; N18.9 Chronic kidney disease, unspecified; D64.9 Anemia, unspecified; E78.00 Pure hypercholesterolemia, unspecified; I51.3 Intracardiac thrombosis, not elsewhere classified; E87.5 Hyperkalemia; F17.210 Nicotine dependence, cigarettes, uncomplicated; I25.10 Atherosclerotic heart disease of native coronary artery without angina pectoris; I25.5 Ischemic cardiomyopathy; Z79.82 Long term (current) use of aspirin; Z91.14 Patient's other noncompliance with medication regimen; Z95.0 Presence of cardiac pacemaker

== ENCOUNTER 2017-03-28 13:18 | Inpatient (IN) | payer MEDICARE, MEDICAID ==
--- NOTE | 2017-03-28 13:35 | C.PDOC ---
History Of Present Illness 61 y/o M c PMHx CHF, s/p AICD, HTN, HLD p/w shortness of breath x 2 days. States shortness of breath is similar to previous CHF exacerbations. Reports cough yesterday, none today. Of note, run of V tach on telemetry en route via EMS. Denies fever, chest pain, nausea, vomiting. PMD [place] Time Seen by Provider: 03/28/17 13:23 Chief Complaint (Nursing): Shortness Of Breath Past Medical History Vital Signs: Last Vital Signs Temp 98.7 F 03/28/17 13:30 Pulse 94 H 03/28/17 14:03 Resp 22 03/28/17 14:03 BP 129/79 03/28/17 14:03 Pulse Ox 100 03/28/17 14:03 - Medical History PMH: CHF, HTN, Hypercholesterolemia Denies: Chronic Kidney Disease Surgical History: Pacemaker Family History: States: Unknown Family Hx - Social History Hx Alcohol Use: No Hx Substance Use: Yes - Immunization History Hx Tetanus Toxoid Vaccination: No Hx Influenza Vaccination: No Hx Pneumococcal Vaccination: No Review Of Systems Except As Marked, All Systems Reviewed And Found Negative. Constitutional: Negative for: Fever Cardiovascular: Negative for: Chest Pain Physical Exam - Physical Exam Additional Physical Exam Comments: Constitutional: No acute distress, conversational dyspnea. Head: Normocephalic. Atraumatic. Eyes: PERRL. ENT: Moist mucous membranes. Neck: Supple. Cardiovascular: Regular rate. Radial pulse 2+ bilaterally. +JVD Chest: L sided defibrillator. Respiratory: Crackles bilaterally. Mild accessory muscle use. GI: Soft. Nontender. Nondistended. Back: No CVA tenderness. Musculoskeletal: No tenderness to extremities. Pitting edema of lower extremities. Skin: Lower extremities with dry skin/chronic skin changes. Neurologic: Alert, no focal deficit. ED Course And Treatment - Laboratory Results Result Diagrams: 03/28/17 13:44 03/28/17 13:44 Medical Decision Making Medical Decision Making: EKG Ventricularly paced rhythm, 90 bpm, no ST elevations. CXR HISTORY: dyspnea COMPARISON: 03/16/2017 FINDINGS: LUNGS: No infiltrate. PLEURA: Probable small bilateral pleural effusion. No pneumothorax. CARDIOVASCULAR: Mild cardiomegaly. AICD. No congestive change. OSSEOUS STRUCTURES: No significant abnormalities. VISUALIZED UPPER ABDOMEN: Normal. OTHER FINDINGS: None. IMPRESSION: Probable small bilateral pleural effusion. No infiltrate. Patient feels mildly improved after Lasix administered. Dr. Vanegas accepts patient to his service on telemetry observation for further CHF exacerbation management. Disposition Discussed With : Erika Vanegas - Disposition Disposition: HOSPITALIZED Disposition Time: 14:24 Condition: FAIR Forms: [facility] ([place] Citizen) - Clinical Impression Clinical Impression: CHF exacerbation
[2017-03-28 13:48] LABS: HEMOGLOBIN 10.4 g/dL (12.0-18.0); MEAN CELL VOLUME 75.6 fL (80.0-94.0); MEAN CORPUSCULAR HEMOGLOBIN 24.4 pg (27.0-31.0); MEAN CORPUSCULAR HGB CONC 32.3 g/dL (33.0-37.0); MEAN PLATELET VOLUME 7.4 fL (7.2-11.7); RBC 4.24 Mil/uL (4.40-5.90); RED CELL DISTRIBUTION WIDTH 22.1 % (11.5-14.5); WHITE BLOOD COUNT 6.6 K/uL (4.8-10.8)
[2017-03-28 13:55] LABS: INR 6.1
[2017-03-28 13:57] LABS: PROTHROMBIN TIME 74.2 SECONDS (9.7-12.2)
[2017-03-28 14:08] LABS: ALB/GLOB RATIO 0.9 (1.0-2.1); ALBUMIN 3.9 g/dL (3.5-5.0); ALT/SGPT 29 U/L (21-72); AST/SGOT 29 U/L (17-59); BLOOD UREA NITROGEN 29 mg/dL (9-20); CALCIUM 8.6 mg/dl (8.6-10.4); GFR AFRICAN-AMERICAN > 60; GFR NON-AFRICAN AMERICAN 56
--- NOTE | 2017-03-28 14:12 | RAD ---
HISTORY: dyspnea COMPARISON: 03/16/2017 FINDINGS: LUNGS: No infiltrate. PLEURA: Probable small bilateral pleural effusion. No pneumothorax. CARDIOVASCULAR: Mild cardiomegaly. AICD. No congestive change. OSSEOUS STRUCTURES: No significant abnormalities. VISUALIZED UPPER ABDOMEN: Normal. OTHER FINDINGS: None. IMPRESSION: Probable small bilateral pleural effusion. No infiltrate.
[2017-03-28 14:19] LABS: B-TYPE NATRIURETIC PEPTIDE 13500 pg/mL (0-900); CK-MB 2.76 ng/mL (0.0-3.38)
[2017-03-28 14:24] LABS: EOS # 0.1 K/uL (0.0-0.7); LYMPH # 1.3 K/uL (1.0-4.3); MONO # 0.6 K/uL (0.0-0.8); NEUT # 4.6 K/uL (1.8-7.0)
--- NOTE | 2017-03-28 19:09 | CP.PCM.HP ---
Past Patient History - Infectious Disease Hx of Infectious Diseases: None - Past Medical History & Family History Past Medical History?: Yes - Past Social History Smoking Status: Never Smoked - CARDIAC Hx Congestive Heart Failure: Yes Hx Hypercholesterolemia: Yes Hx Hypertension: Yes Hx Pacemaker: Yes - PULMONARY Hx Respiratory Disorders: No - NEUROLOGICAL Hx Neurological Disorder: No - HEENT Hx HEENT Problems: No - RENAL Hx Chronic Kidney Disease: No - ENDOCRINE/METABOLIC Hx Endocrine Disorders: Yes Hx Diabetes Mellitus Type 2: Yes - HEMATOLOGICAL/ONCOLOGICAL Hx Blood Disorders: No - INTEGUMENTARY Hx Dermatological Problems: No - MUSCULOSKELETAL/RHEUMATOLOGICAL Hx Musculoskeletal Disorders: No Hx Falls: No - GASTROINTESTINAL Hx Gastrointestinal Disorders: No - GENITOURINARY/GYNECOLOGICAL Hx Genitourinary Disorders: No - PSYCHIATRIC Hx Substance Use: Yes - SURGICAL HISTORY Hx Surgeries: Yes Other/Comment: AICD to Left Chest Wall - ANESTHESIA Hx Anesthesia: Yes Hx Anesthesia Reactions: No Hx Malignant Hyperthermia: No Meds Allergies/Adverse Reactions: Allergies Allergy/AdvReac Type Severity Reaction Status Date / Time No Known Allergies Allergy Verified 03/16/17 14:28 Results - Vital Signs Recent Vital Signs: Last Vital Signs Temp 98.6 F 03/28/17 17:36 Pulse 90 03/28/17 17:36 Resp 20 03/28/17 17:36 BP 112/73 03/28/17 17:36 Pulse Ox 99 03/28/17 17:36 - Labs Result Diagrams: 03/28/17 13:44 03/28/17 13:44 Labs: Laboratory Results - last 24 hr 03/28/17 03/28/17 03/28/17 13:44 13:44 13:44 WBC 6.6 RBC 4.24 L Hgb 10.4 L Hct 32.1 L MCV 75.6 L MCH 24.4 L MCHC 32.3 L RDW 22.1 H Plt Count 389 MPV 7.4 Neut % (Auto) 70.0 Lymph % (Auto) 19.0 L [place] % (Auto) 10.0 Eos % (Auto) 1.0 Baso % (Auto) 0.0 Neut # 4.6 Lymph # 1.3 [place] # 0.6 Eos # 0.1 Baso # 0.0 PT 74.2 H* INR 6.1 APTT 47 H Sodium 132 Potassium 3.7 Chloride 93 L Carbon Dioxide 29 Anion Gap 14 BUN 29 H Creatinine 1.3 Est GFR ( Amer) > 60 Est GFR (Non-Af Amer) 56 Random Glucose 110 Calcium 8.6 Total Bilirubin 1.7 H AST 29 ALT 29 Alkaline Phosphatase 124 Total Creatine Kinase 72 CK-MB (Mass) 2.76 Troponin I 0.0430 NT-Pro-B Natriuret Pep 01522 H Total Protein 8.5 H Albumin 3.9 Globulin 4.6 H Albumin/Globulin Ratio 0.9 L
[2017-03-28] MEDS: Albuterol-Ipratrop 3 mg / 0.5 (3 ml) UD INH SCH (20:39)
[2017-03-28] MEDS: Azithromycin 500 MG in Sodium Chloride 0.9% 250 ML IVPB SCH (21:48)
[2017-03-29] MEDS: Albuterol-Ipratrop 3 mg / 0.5 (3 ml) UD INH SCH ×4 (02:08→19:39)
[2017-03-29] MEDS: metOLazone 5 MG TAB PO SCH (09:18)
[2017-03-29] MEDS: Pantoprazole 40 mg EC Tab PO SCH (09:18)
[2017-03-29] MEDS: Sacubitril/Valsartan 24-26mg Tab PO SCH ×2 (09:18→17:27)
[2017-03-29] MEDS: Enoxaparin 40 mg Syringe SC SCH (09:21)
--- NOTE | 2017-03-29 13:34 | CP.PCM.CON ---
History of Present Illness - History of Present Illness History of Present Illness: reason for consultation: shortness of breath 61-year-old male with history of dilated cardiomyopathy with ejection fraction of 12% , status post AICD, history of hypertension hyperlipidemia admitted with increasing shortness of breath and cough for the past 2 days. Denies fever or chills, denies chest pain. Patient also admits to smoking. Chest x-ray consistent with bilateral pleural effusion. Patient on Coumadin for apical thrombus PMHx: stated above Sx: AICD device placement Allergies: NKDA Social: lives with sister who is electrical systems drafter Meds: See MAR Cardiology: Dr. Bourgeois Review of Systems - Review of Systems All systems: reviewed and no additional remarkable complaints except (shortness of breath and cough) Past Patient History - Infectious Disease Hx of Infectious Diseases: None - Past Medical History & Family History Past Medical History?: Yes - Past Social History Smoking Status: Light Smoker < 10 Cigarettes Daily - CARDIAC Hx Congestive Heart Failure: Yes Hx Hypercholesterolemia: Yes Hx Hypertension: Yes Hx Pacemaker: Yes - PULMONARY Hx Respiratory Disorders: No - NEUROLOGICAL Hx Neurological Disorder: No - HEENT Hx HEENT Problems: No - RENAL Hx Chronic Kidney Disease: No - ENDOCRINE/METABOLIC Hx Endocrine Disorders: Yes Hx Diabetes Mellitus Type 2: Yes - HEMATOLOGICAL/ONCOLOGICAL Hx Blood Disorders: No - INTEGUMENTARY Hx Dermatological Problems: No - MUSCULOSKELETAL/RHEUMATOLOGICAL Hx Musculoskeletal Disorders: No Hx Falls: No - GASTROINTESTINAL Hx Gastrointestinal Disorders: No - GENITOURINARY/GYNECOLOGICAL Hx Genitourinary Disorders: No - PSYCHIATRIC Hx Substance Use: Yes - SURGICAL HISTORY Hx Surgeries: Yes Other/Comment: AICD to Left Chest Wall - ANESTHESIA Hx Anesthesia: Yes Hx Anesthesia Reactions: No Hx Malignant Hyperthermia: No Meds Allergies/Adverse Reactions: Allergies Allergy/AdvReac Type Severity Reaction Status Date / Time No Known Allergies Allergy Verified 03/16/17 14:28 - Medications Medications: Current Medications Albuterol/Ipratropium (Duoneb 3 Mg/0.5 Mg (3 Ml) Ud) 3 ml INH RQ6 [facility] Last Admin: 03/29/17 13:04 Dose: 3 ml Aspirin (Aspirin) 325 mg PO DAILY [facility] Last Admin: 03/29/17 09:18 Dose: 325 mg Carvedilol (Coreg) 12.5 mg PO BID [facility] Last Admin: 03/29/17 09:19 Dose: Not Given Clopidogrel Bisulfate (Plavix) 75 mg PO DAILY [facility] Last Admin: 03/29/17 09:18 Dose: 75 mg Enoxaparin Sodium (Lovenox) 40 mg SC DAILY [facility] Last Admin: 03/29/17 09:21 Dose: 40 mg Furosemide (Lasix) 40 mg PO DAILY [facility] Azithromycin 500 mg/ Sodium (Chloride) 250 mls @ 250 mls/hr IVPB Q24H [facility] Last Admin: 03/28/17 21:48 Dose: 250 mls/hr Ceftriaxone Sodium 1 gm/ (Sodium Chloride) 100 mls @ 100 mls/hr IVPB Q24H [facility] Metolazone (Zaroxolyn) 5 mg PO DAILY [facility] Last Admin: 03/29/17 09:18 Dose: 5 mg Pantoprazole Sodium (Protonix Ec Tab) 40 mg PO DAILY [facility] Last Admin: 03/29/17 09:18 Dose: 40 mg Sacubitril/Valsartan (Entresto 24 Mg-26 Mg) 1 tab PO BID [facility] Last Admin: 03/29/17 09:18 Dose: 1 tab Physical Exam - Head Exam Head Exam: ATRAUMATIC, NORMOCEPHALIC - Eye Exam Eye Exam: Normal appearance - ENT Exam ENT Exam: Mucous Membranes Moist - Neck Exam Neck exam: Positive for: Normal Inspection - Respiratory Exam Respiratory Exam: Decreased Breath Sounds - Cardiovascular Exam Cardiovascular Exam: REGULAR RHYTHM - GI/Abdominal Exam GI & Abdominal Exam: Normal Bowel Sounds, Soft - Extremities Exam Extremities exam: Positive for: pedal edema - Neurological Exam Neurological exam: Alert, Oriented x3 Results - Vital Signs Recent Vital Signs: Last Vital Signs Temp 97.5 F L 03/29/17 07:00 Pulse 84 03/29/17 08:00 Resp 20 03/29/17 07:00 BP 93/60 L 03/29/17 09:21 Pulse Ox 100 03/29/17 08:38 - Labs Result Diagrams: 03/28/17 13:44 03/28/17 13:44 Labs: Laboratory Results - last 24 hr 03/28/17 03/28/17 03/28/17 13:44 13:44 13:44 WBC 6.6 RBC 4.24 L Hgb 10.4 L Hct 32.1 L MCV 75.6 L MCH 24.4 L MCHC 32.3 L RDW 22.1 H Plt Count 389 MPV 7.4 Neut % (Auto) 70.0 Lymph % (Auto) 19.0 L [place] % (Auto) 10.0 Eos % (Auto) 1.0 Baso % (Auto) 0.0 Neut # 4.6 Lymph # 1.3 [place] # 0.6 Eos # 0.1 Baso # 0.0 PT 74.2 H* INR 6.1 APTT 47 H Sodium 132 Potassium 3.7 Chloride 93 L Carbon Dioxide 29 Anion Gap 14 BUN 29 H Creatinine 1.3 Est GFR ( Amer) > 60 Est GFR (Non-Af Amer) 56 Random Glucose 110 Calcium 8.6 Total Bilirubin 1.7 H AST 29 ALT 29 Alkaline Phosphatase 124 Total Creatine Kinase 72 CK-MB (Mass) 2.76 Troponin I 0.0430 NT-Pro-B Natriuret Pep 65610 H Total Protein 8.5 H Albumin 3.9 Globulin 4.6 H Albumin/Globulin Ratio 0.9 L Assessment & Plan (1) COPD (chronic obstructive pulmonary disease) Status: Acute Comment: patient with long history of smoking, underlying COPD cannot be ruled out. Agree with nebulizer treatment. Add Spiriva. Continue present treatment (2) CHF exacerbation Status: Acute (3) Dilated cardiomyopathy Status: Acute
--- NOTE | 2017-03-29 15:13 | CP.PCM.PN ---
Subjective - Date & Time of Evaluation Date of Evaluation: 03/29/17 Time of Evaluation: 12:00 - Subjective Subjective: clinically same Objective - Vital Signs/Intake and Output Vital Signs (last 24 hours): Temp Pulse Resp BP Pulse Ox 97.5 F L 84 20 93/60 L 100 03/29/17 07:00 03/29/17 08:00 03/29/17 07:00 03/29/17 09:21 03/29/17 12:00 Intake and Output: 03/29/17 03/29/17 06:59 18:59 Intake Total 120 Balance 120 - Medications Medications: Current Medications Albuterol/Ipratropium (Duoneb 3 Mg/0.5 Mg (3 Ml) Ud) 3 ml INH RQ6 [facility] Last Admin: 03/29/17 13:04 Dose: 3 ml Aspirin (Aspirin) 325 mg PO DAILY [facility] Last Admin: 03/29/17 09:18 Dose: 325 mg Carvedilol (Coreg) 12.5 mg PO BID [facility] Last Admin: 03/29/17 09:19 Dose: Not Given Clopidogrel Bisulfate (Plavix) 75 mg PO DAILY [facility] Last Admin: 03/29/17 09:18 Dose: 75 mg Enoxaparin Sodium (Lovenox) 40 mg SC DAILY [facility] Last Admin: 03/29/17 09:21 Dose: 40 mg Furosemide (Lasix) 40 mg PO DAILY [facility] Azithromycin 500 mg/ Sodium (Chloride) 250 mls @ 250 mls/hr IVPB Q24H [facility] Last Admin: 03/28/17 21:48 Dose: 250 mls/hr Ceftriaxone Sodium 1 gm/ (Sodium Chloride) 100 mls @ 100 mls/hr IVPB Q24H [facility] Metolazone (Zaroxolyn) 5 mg PO DAILY [facility] Last Admin: 03/29/17 09:18 Dose: 5 mg Pantoprazole Sodium (Protonix Ec Tab) 40 mg PO DAILY [facility] Last Admin: 03/29/17 09:18 Dose: 40 mg Sacubitril/Valsartan (Entresto 24 Mg-26 Mg) 1 tab PO BID [facility] Last Admin: 03/29/17 09:18 Dose: 1 tab Tiotropium [place] (Spiriva) 18 mcg INH RQ24 [facility] Tiotropium [place] (Spiriva Inhalation Handihaler Device) 1 inhaler INH ONCE ONE Stop: 03/30/17 08:01 - Labs Labs: 03/28/17 13:44 03/28/17 13:44 PT 74.2 SECONDS (9.7-12.2) H* 03/28/17 13:44 INR 6.1 03/28/17 13:44 APTT 47 SECONDS (21-34) H 03/28/17 13:44
[2017-03-29] MEDS: Azithromycin 500 MG in Sodium Chloride 0.9% 250 ML IVPB SCH (20:05)
--- NOTE | 2017-03-29 22:15 | CP.PCM.CON ---
History of Present Illness - History of Present Illness History of Present Illness: Patient seen and evaluated 61 M with hx of CAD, Isch CMP s/p AICD admitted for acute on Chronic systolic CHF and coagulopathy Past Patient History - Infectious Disease Hx of Infectious Diseases: None - Past Medical History & Family History Past Medical History?: Yes - Past Social History Smoking Status: Light Smoker < 10 Cigarettes Daily - CARDIAC Hx Congestive Heart Failure: Yes Hx Hypercholesterolemia: Yes Hx Hypertension: Yes Hx Pacemaker: Yes - PULMONARY Hx Respiratory Disorders: No - NEUROLOGICAL Hx Neurological Disorder: No - HEENT Hx HEENT Problems: No - RENAL Hx Chronic Kidney Disease: No - ENDOCRINE/METABOLIC Hx Endocrine Disorders: Yes Hx Diabetes Mellitus Type 2: Yes - HEMATOLOGICAL/ONCOLOGICAL Hx Blood Disorders: No - INTEGUMENTARY Hx Dermatological Problems: No - MUSCULOSKELETAL/RHEUMATOLOGICAL Hx Musculoskeletal Disorders: No Hx Falls: No - GASTROINTESTINAL Hx Gastrointestinal Disorders: No - GENITOURINARY/GYNECOLOGICAL Hx Genitourinary Disorders: No - PSYCHIATRIC Hx Substance Use: Yes - SURGICAL HISTORY Hx Surgeries: Yes Other/Comment: AICD to Left Chest Wall - ANESTHESIA Hx Anesthesia: Yes Hx Anesthesia Reactions: No Hx Malignant Hyperthermia: No Meds Allergies/Adverse Reactions: Allergies Allergy/AdvReac Type Severity Reaction Status Date / Time No Known Allergies Allergy Verified 03/16/17 14:28 - Medications Medications: Current Medications Albuterol/Ipratropium (Duoneb 3 Mg/0.5 Mg (3 Ml) Ud) 3 ml INH RQ6 [facility] Last Admin: 03/29/17 19:39 Dose: Not Given Aspirin (Aspirin) 325 mg PO DAILY [facility] Last Admin: 03/29/17 09:18 Dose: 325 mg Carvedilol (Coreg) 12.5 mg PO BID [facility] Last Admin: 03/29/17 17:27 Dose: 12.5 mg Clopidogrel Bisulfate (Plavix) 75 mg PO DAILY [facility] Last Admin: 03/29/17 09:18 Dose: 75 mg Enoxaparin Sodium (Lovenox) 40 mg SC DAILY [facility] Last Admin: 03/29/17 09:21 Dose: 40 mg Furosemide (Lasix) 40 mg PO DAILY [facility] Azithromycin 500 mg/ Sodium (Chloride) 250 mls @ 250 mls/hr IVPB Q24H [facility] Last Admin: 03/29/17 20:05 Dose: 250 mls/hr Ceftriaxone Sodium 1 gm/ (Sodium Chloride) 100 mls @ 100 mls/hr IVPB Q24H [facility] Last Admin: 03/29/17 20:05 Dose: 100 mls/hr Metolazone (Zaroxolyn) 5 mg PO DAILY [facility] Last Admin: 03/29/17 09:18 Dose: 5 mg Pantoprazole Sodium (Protonix Ec Tab) 40 mg PO DAILY [facility] Last Admin: 03/29/17 09:18 Dose: 40 mg Sacubitril/Valsartan (Entresto 24 Mg-26 Mg) 1 tab PO BID [facility] Last Admin: 03/29/17 17:27 Dose: 1 tab Tiotropium [place] (Spiriva) 18 mcg INH RQ24 [facility] Tiotropium [place] (Spiriva Inhalation Handihaler Device) 1 inhaler INH ONCE ONE Stop: 03/30/17 08:01 Results - Vital Signs Recent Vital Signs: Last Vital Signs Temp 97.3 F L 03/29/17 16:00 Pulse 93 H 03/29/17 16:00 Resp 20 03/29/17 16:00 BP 128/87 03/29/17 17:27 Pulse Ox 95 03/29/17 16:00 - Labs Result Diagrams: 03/28/17 13:44 03/28/17 13:44
[2017-03-30] MEDS: Albuterol-Ipratrop 3 mg / 0.5 (3 ml) UD INH SCH ×4 (01:09→19:55)
[2017-03-30] MEDS: Enoxaparin 40 mg Syringe SC SCH (09:54)
[2017-03-30] MEDS: metOLazone 5 MG TAB PO SCH (09:55)
[2017-03-30] MEDS: Pantoprazole 40 mg EC Tab PO SCH (09:55)
[2017-03-30] MEDS: Sacubitril/Valsartan 24-26mg Tab PO SCH ×3 (09:55→20:41)
--- NOTE | 2017-03-30 18:37 | CP.PCM.PN ---
Subjective - Date & Time of Evaluation Date of Evaluation: 03/30/17 Time of Evaluation: 12:00 Objective - Vital Signs/Intake and Output Vital Signs (last 24 hours): Temp Pulse Resp BP Pulse Ox 97.0 F L 68 20 110/70 99 03/30/17 15:10 03/30/17 16:00 03/30/17 15:10 03/30/17 17:50 03/30/17 08:35 Intake and Output: 03/30/17 03/30/17 06:59 18:59 Intake Total 120 Output Total 250 Balance -130 - Medications Medications: Current Medications Albuterol/Ipratropium (Duoneb 3 Mg/0.5 Mg (3 Ml) Ud) 3 ml INH RQ6 [facility] Last Admin: 03/30/17 01:09 Dose: Not Given Aspirin (Aspirin) 325 mg PO DAILY [facility] Last Admin: 03/30/17 09:55 Dose: 325 mg Carvedilol (Coreg) 12.5 mg PO BID [facility] Last Admin: 03/30/17 17:50 Dose: 12.5 mg Clopidogrel Bisulfate (Plavix) 75 mg PO DAILY [facility] Last Admin: 03/30/17 09:55 Dose: 75 mg Enoxaparin Sodium (Lovenox) 40 mg SC DAILY [facility] Last Admin: 03/30/17 09:54 Dose: 40 mg Furosemide (Lasix) 40 mg PO DAILY [facility] Last Admin: 03/30/17 09:56 Dose: 40 mg Azithromycin 500 mg/ Sodium (Chloride) 250 mls @ 250 mls/hr IVPB Q24H [facility] Last Admin: 03/29/17 20:05 Dose: 250 mls/hr Ceftriaxone Sodium 1 gm/ (Sodium Chloride) 100 mls @ 100 mls/hr IVPB Q24H [facility] Last Admin: 03/29/17 20:05 Dose: 100 mls/hr Metolazone (Zaroxolyn) 5 mg PO DAILY [facility] Last Admin: 03/30/17 09:55 Dose: 5 mg Pantoprazole Sodium (Protonix Ec Tab) 40 mg PO DAILY [facility] Last Admin: 03/30/17 09:55 Dose: 40 mg Sacubitril/Valsartan (Entresto 24 Mg-26 Mg) 1 tab PO BID [facility] Last Admin: 03/30/17 09:55 Dose: 1 tab Tiotropium [place] (Spiriva) 18 mcg INH RQ24 [facility] - Labs Labs: 03/28/17 13:44 03/28/17 13:44 PT 74.2 SECONDS (9.7-12.2) H* 03/28/17 13:44 INR 6.1 03/28/17 13:44 APTT 47 SECONDS (21-34) H 03/28/17 13:44
--- NOTE | 2017-03-30 18:38 | CP.PCM.PN ---
Subjective - Date & Time of Evaluation Date of Evaluation: 03/30/17 Time of Evaluation: 07:40 - Subjective Subjective: Patient seen and evaluated No cardiac events Acute on Chronic systolic CHF s/p AICD Objective - Vital Signs/Intake and Output Vital Signs (last 24 hours): Temp Pulse Resp BP Pulse Ox 97.0 F L 68 20 110/70 99 03/30/17 15:10 03/30/17 16:00 03/30/17 15:10 03/30/17 17:50 03/30/17 08:35 Intake and Output: 03/30/17 03/30/17 06:59 18:59 Intake Total 120 Output Total 250 Balance -130 - Medications Medications: Current Medications Albuterol/Ipratropium (Duoneb 3 Mg/0.5 Mg (3 Ml) Ud) 3 ml INH RQ6 [facility] Last Admin: 03/30/17 01:09 Dose: Not Given Aspirin (Aspirin) 325 mg PO DAILY [facility] Last Admin: 03/30/17 09:55 Dose: 325 mg Carvedilol (Coreg) 12.5 mg PO BID [facility] Last Admin: 03/30/17 17:50 Dose: 12.5 mg Clopidogrel Bisulfate (Plavix) 75 mg PO DAILY [facility] Last Admin: 03/30/17 09:55 Dose: 75 mg Enoxaparin Sodium (Lovenox) 40 mg SC DAILY [facility] Last Admin: 03/30/17 09:54 Dose: 40 mg Furosemide (Lasix) 40 mg PO DAILY [facility] Last Admin: 03/30/17 09:56 Dose: 40 mg Azithromycin 500 mg/ Sodium (Chloride) 250 mls @ 250 mls/hr IVPB Q24H [facility] Last Admin: 03/29/17 20:05 Dose: 250 mls/hr Ceftriaxone Sodium 1 gm/ (Sodium Chloride) 100 mls @ 100 mls/hr IVPB Q24H [facility] Last Admin: 03/29/17 20:05 Dose: 100 mls/hr Metolazone (Zaroxolyn) 5 mg PO DAILY [facility] Last Admin: 03/30/17 09:55 Dose: 5 mg Pantoprazole Sodium (Protonix Ec Tab) 40 mg PO DAILY [facility] Last Admin: 03/30/17 09:55 Dose: 40 mg Sacubitril/Valsartan (Entresto 24 Mg-26 Mg) 1 tab PO BID [facility] Last Admin: 03/30/17 09:55 Dose: 1 tab Tiotropium [place] (Spiriva) 18 mcg INH RQ24 [facility] - Labs Labs: 03/28/17 13:44 03/28/17 13:44 PT 74.2 SECONDS (9.7-12.2) H* 03/28/17 13:44 INR 6.1 03/28/17 13:44 APTT 47 SECONDS (21-34) H 03/28/17 13:44
[2017-03-30] MEDS: Azithromycin 500 MG in Sodium Chloride 0.9% 250 ML IVPB SCH (20:39)
[2017-03-31] MEDS: Albuterol-Ipratrop 3 mg / 0.5 (3 ml) UD INH SCH ×4 (01:13→19:49)
[2017-03-31] MEDS: Pantoprazole 40 mg EC Tab PO SCH (09:34)
[2017-03-31] MEDS: Enoxaparin 40 mg Syringe SC SCH (09:34)
[2017-03-31] MEDS: Sacubitril/Valsartan 24-26mg Tab PO SCH ×2 (09:35→17:48)
[2017-03-31] MEDS: metOLazone 5 MG TAB PO SCH (09:35)
[2017-03-31] MEDS: Tiotropium 18 mcg Cap For Inhalation INH SCH (13:41)
--- NOTE | 2017-03-31 15:30 | CP.PCM.PN ---
Subjective - Date & Time of Evaluation Date of Evaluation: 03/31/17 Time of Evaluation: 14:00 - Subjective Subjective: The patient seen and examined Breathing much improved Sitting comfortably Being treated for CHF and COPD Continue nebulizer treatment Pulmonary function test Objective - Vital Signs/Intake and Output Vital Signs (last 24 hours): Temp Pulse Resp BP Pulse Ox 97.4 F L 74 18 116/84 98 03/31/17 08:20 03/31/17 13:35 03/31/17 08:20 03/31/17 09:34 03/31/17 08:20 Intake and Output: 03/31/17 03/31/17 06:59 18:59 Intake Total 590 400 Output Total 450 Balance 140 400 - Medications Medications: Current Medications Albuterol/Ipratropium (Duoneb 3 Mg/0.5 Mg (3 Ml) Ud) 3 ml INH RQ6 [facility] Last Admin: 03/31/17 13:41 Dose: 3 ml Aspirin (Aspirin) 325 mg PO DAILY [facility] Last Admin: 03/31/17 09:33 Dose: 325 mg Carvedilol (Coreg) 12.5 mg PO BID [facility] Last Admin: 03/31/17 09:34 Dose: 12.5 mg Clopidogrel Bisulfate (Plavix) 75 mg PO DAILY [facility] Last Admin: 03/31/17 09:35 Dose: 75 mg Enoxaparin Sodium (Lovenox) 40 mg SC DAILY [facility] Last Admin: 03/31/17 09:34 Dose: 40 mg Furosemide (Lasix) 40 mg PO DAILY [facility] Last Admin: 03/31/17 09:33 Dose: 40 mg Azithromycin 500 mg/ Sodium (Chloride) 250 mls @ 250 mls/hr IVPB Q24H [facility] Last Admin: 03/30/17 20:39 Dose: 250 mls/hr Ceftriaxone Sodium 1 gm/ (Sodium Chloride) 100 mls @ 100 mls/hr IVPB Q24H [facility] Last Admin: 03/30/17 20:38 Dose: 100 mls/hr Metolazone (Zaroxolyn) 5 mg PO DAILY [facility] Last Admin: 03/31/17 09:35 Dose: 5 mg Pantoprazole [place]odium (Protonix Ec Tab) 40 mg PO DAILY [facility] Last Admin: 03/31/17 09:34 Dose: 40 mg Sacubitril/Valsartan (Entresto 24 Mg-26 Mg) 1 tab PO BID [facility] Last Admin: 03/31/17 09:35 Dose: 1 tab Tiotropium [place] (Spiriva) 18 mcg INH RQ24 [facility] Last Admin: 03/31/17 13:41 Dose: 18 mcg - Labs Labs: 03/28/17 13:44 03/28/17 13:44 PT 74.2 SECONDS (9.7-12.2) H* 03/28/17 13:44 INR 6.1 03/28/17 13:44 APTT 47 SECONDS (21-34) H 03/28/17 13:44 Assessment and Plan (1) COPD (chronic obstructive pulmonary disease) Status: Acute (2) CHF exacerbation Status: Acute (3) Dilated cardiomyopathy Status: Acute
--- NOTE | 2017-03-31 15:36 | CP.PCM.PN ---
Subjective - Date & Time of Evaluation Date of Evaluation: 03/31/17 Time of Evaluation: 12:30 - Subjective Subjective: clinically same Objective - Vital Signs/Intake and Output Vital Signs (last 24 hours): Temp Pulse Resp BP Pulse Ox 97.4 F L 74 18 116/84 98 03/31/17 08:20 03/31/17 13:35 03/31/17 08:20 03/31/17 09:34 03/31/17 08:20 Intake and Output: 03/31/17 03/31/17 06:59 18:59 Intake Total 590 400 Output Total 450 Balance 140 400 - Medications Medications: Current Medications Albuterol/Ipratropium (Duoneb 3 Mg/0.5 Mg (3 Ml) Ud) 3 ml INH RQ6 [facility] Last Admin: 03/31/17 13:41 Dose: 3 ml Aspirin (Aspirin) 325 mg PO DAILY [facility] Last Admin: 03/31/17 09:33 Dose: 325 mg Carvedilol (Coreg) 12.5 mg PO BID [facility] Last Admin: 03/31/17 09:34 Dose: 12.5 mg Clopidogrel Bisulfate (Plavix) 75 mg PO DAILY [facility] Last Admin: 03/31/17 09:35 Dose: 75 mg Enoxaparin Sodium (Lovenox) 40 mg SC DAILY [facility] Last Admin: 03/31/17 09:34 Dose: 40 mg Furosemide (Lasix) 40 mg PO DAILY [facility] Last Admin: 03/31/17 09:33 Dose: 40 mg Azithromycin 500 mg/ Sodium (Chloride) 250 mls @ 250 mls/hr IVPB Q24H [facility] Last Admin: 03/30/17 20:39 Dose: 250 mls/hr Ceftriaxone Sodium 1 gm/ (Sodium Chloride) 100 mls @ 100 mls/hr IVPB Q24H [facility] Last Admin: 03/30/17 20:38 Dose: 100 mls/hr Metolazone (Zaroxolyn) 5 mg PO DAILY [facility] Last Admin: 03/31/17 09:35 Dose: 5 mg Pantoprazole Sodium (Protonix Ec Tab) 40 mg PO DAILY [facility] Last Admin: 03/31/17 09:34 Dose: 40 mg Sacubitril/Valsartan (Entresto 24 Mg-26 Mg) 1 tab PO BID [facility] Last Admin: 03/31/17 09:35 Dose: 1 tab Tiotropium [place] (Spiriva) 18 mcg INH RQ24 [facility] Last Admin: 03/31/17 13:41 Dose: 18 mcg - Labs Labs: 03/28/17 13:44 03/28/17 13:44 PT 74.2 SECONDS (9.7-12.2) H* 03/28/17 13:44 INR 6.1 03/28/17 13:44 APTT 47 SECONDS (21-34) H 03/28/17 13:44 - Constitutional Appears: Well - Head Exam Head Exam: ATRAUMATIC, NORMAL INSPECTION, NORMOCEPHALIC - Eye Exam Eye Exam: EOMI, Normal appearance, PERRL Pupil Exam: NORMAL ACCOMODATION, PERRL - ENT Exam ENT Exam: Mucous Membranes Moist, Normal Exam - Neck Exam Neck Exam: Full ROM, Normal Inspection. absent: Lymphadenopathy - Respiratory Exam Respiratory Exam: Decreased Breath Sounds - Cardiovascular Exam Cardiovascular Exam: REGULAR RHYTHM, +S1, +S2 - GI/Abdominal Exam GI & Abdominal Exam: Soft, Diminished Bowel Sounds - Rectal Exam Rectal Exam: Deferred
[2017-03-31 15:54] VITALS: RESP 20
[2017-03-31] MEDS: Azithromycin 500 MG in Sodium Chloride 0.9% 250 ML IVPB SCH (20:08)
--- NOTE | 2017-03-31 20:20 | CP.PCM.PN ---
Subjective - Date & Time of Evaluation Date of Evaluation: 03/31/17 Time of Evaluation: 13:05 - Subjective Subjective: Patient seen and evaluated Feels better Denies chest pain and dyspnea Acute on Chronic systolic CHF s/p AICD Objective - Vital Signs/Intake and Output Vital Signs (last 24 hours): Temp Pulse Resp BP Pulse Ox 98.1 F 67 20 113/75 97 03/31/17 15:30 03/31/17 16:00 03/31/17 15:30 03/31/17 17:48 03/31/17 15:30 Intake and Output: 03/31/17 04/01/17 18:59 06:59 Intake Total 400 Balance 400 - Medications Medications: Current Medications Albuterol/Ipratropium (Duoneb 3 Mg/0.5 Mg (3 Ml) Ud) 3 ml INH RQ6 [facility] Last Admin: 03/31/17 19:49 Dose: 3 ml Aspirin (Aspirin) 325 mg PO DAILY [facility] Last Admin: 03/31/17 09:33 Dose: 325 mg Carvedilol (Coreg) 12.5 mg PO BID [facility] Last Admin: 03/31/17 17:48 Dose: 12.5 mg Clopidogrel Bisulfate (Plavix) 75 mg PO DAILY [facility] Last Admin: 03/31/17 09:35 Dose: 75 mg Enoxaparin Sodium (Lovenox) 40 mg SC DAILY [facility] Last Admin: 03/31/17 09:34 Dose: 40 mg Furosemide (Lasix) 40 mg PO DAILY [facility] Last Admin: 03/31/17 09:33 Dose: 40 mg Azithromycin 500 mg/ Sodium (Chloride) 250 mls @ 250 mls/hr IVPB Q24H [facility] Last Admin: 03/31/17 20:08 Dose: 250 mls/hr Ceftriaxone Sodium 1 gm/ (Sodium Chloride) 100 mls @ 100 mls/hr IVPB Q24H [facility] Last Admin: 03/31/17 20:08 Dose: 100 mls/hr Metolazone (Zaroxolyn) 5 mg PO DAILY [facility] Last Admin: 03/31/17 09:35 Dose: 5 mg Pantoprazole Sodium (Protonix Ec Tab) 40 mg PO DAILY [facility] Last Admin: 03/31/17 09:34 Dose: 40 mg Sacubitril/Valsartan (Entresto 24 Mg-26 Mg) 1 tab PO BID [facility] Last Admin: 03/31/17 17:48 Dose: 1 tab Tiotropium [place] (Spiriva) 18 mcg INH RQ24 [facility] Last Admin: 03/31/17 13:41 Dose: 18 mcg - Labs Labs: 03/28/17 13:44 03/28/17 13:44 PT 74.2 SECONDS (9.7-12.2) H* 03/28/17 13:44 INR 6.1 03/28/17 13:44 APTT 47 SECONDS (21-34) H 03/28/17 13:44
[2017-04-01] MEDS: Albuterol-Ipratrop 3 mg / 0.5 (3 ml) UD INH SCH ×4 (01:39→20:17)
[2017-04-01] MEDS: Tiotropium 18 mcg Cap For Inhalation INH SCH (06:50)
[2017-04-01] MEDS: Enoxaparin 40 mg Syringe SC SCH (09:28)
[2017-04-01] MEDS: Pantoprazole 40 mg EC Tab PO SCH (09:29)
[2017-04-01] MEDS: Sacubitril/Valsartan 24-26mg Tab PO SCH ×2 (09:30→17:52)
[2017-04-01] MEDS: metOLazone 5 MG TAB PO SCH (09:32)
--- NOTE | 2017-04-01 10:57 | CP.PCM.PN ---
Subjective - Date & Time of Evaluation Date of Evaluation: 04/01/17 Time of Evaluation: 12:00 - Subjective Subjective: clinically same Objective - Vital Signs/Intake and Output Vital Signs (last 24 hours): Temp Pulse Resp BP Pulse Ox 98.2 F 80 20 108/69 97 04/01/17 08:27 04/01/17 08:27 04/01/17 08:27 04/01/17 09:33 04/01/17 08:27 Intake and Output: 04/01/17 04/01/17 06:59 18:59 Intake Total 770 Output Total 400 Balance 370 - Medications Medications: Current Medications Albuterol/Ipratropium (Duoneb 3 Mg/0.5 Mg (3 Ml) Ud) 3 ml INH RQ6 [facility] Last Admin: 04/01/17 06:50 Dose: 3 ml Aspirin (Aspirin) 325 mg PO DAILY [facility] Last Admin: 04/01/17 09:30 Dose: 325 mg Carvedilol (Coreg) 12.5 mg PO BID [facility] Last Admin: 04/01/17 09:33 Dose: 12.5 mg Clopidogrel Bisulfate (Plavix) 75 mg PO DAILY [facility] Last Admin: 04/01/17 09:30 Dose: 75 mg Enoxaparin Sodium (Lovenox) 40 mg SC DAILY [facility] Last Admin: 04/01/17 09:28 Dose: 40 mg Furosemide (Lasix) 40 mg PO DAILY [facility] Last Admin: 04/01/17 09:31 Dose: 40 mg Azithromycin 500 mg/ Sodium (Chloride) 250 mls @ 250 mls/hr IVPB Q24H [facility] Last Admin: 03/31/17 20:08 Dose: 250 mls/hr Ceftriaxone Sodium 1 gm/ (Sodium Chloride) 100 mls @ 100 mls/hr IVPB Q24H [facility] Last Admin: 03/31/17 20:08 Dose: 100 mls/hr Metolazone (Zaroxolyn) 5 mg PO DAILY [facility] Last Admin: 04/01/17 09:32 Dose: 5 mg Pantoprazole Sodium (Protonix Ec Tab) 40 mg PO DAILY [facility] Last Admin: 04/01/17 09:29 Dose: 40 mg Sacubitril/Valsartan (Entresto 24 Mg-26 Mg) 1 tab PO BID [facility] Last Admin: 04/01/17 09:30 Dose: 1 tab Tiotropium [place] (Spiriva) 18 mcg INH RQ24 [facility] Last Admin: 04/01/17 06:50 Dose: 18 mcg - Labs Labs: 03/28/17 13:44 03/28/17 13:44 PT 74.2 SECONDS (9.7-12.2) H* 03/28/17 13:44 INR 6.1 03/28/17 13:44 APTT 47 SECONDS (21-34) H 03/28/17 13:44 - Constitutional Appears: Well - Head Exam Head Exam: ATRAUMATIC, NORMAL INSPECTION, NORMOCEPHALIC - Eye Exam Eye Exam: EOMI, Normal appearance, PERRL Pupil Exam: NORMAL ACCOMODATION, PERRL - ENT Exam ENT Exam: Mucous Membranes Moist, Normal Exam - Neck Exam Neck Exam: Full ROM, Normal Inspection. absent: Lymphadenopathy - Respiratory Exam Respiratory Exam: Decreased Breath Sounds - Cardiovascular Exam Cardiovascular Exam: REGULAR RHYTHM, +S1, +S2 - GI/Abdominal Exam GI & Abdominal Exam: Soft, Diminished Bowel Sounds - Rectal Exam Rectal Exam: Deferred
--- NOTE | 2017-04-01 14:25 | CP.PCM.PN ---
Objective - Vital Signs/Intake and Output Vital Signs (last 24 hours): Temp Pulse Resp BP Pulse Ox 98.2 F 80 20 108/69 97 04/01/17 08:27 04/01/17 08:27 04/01/17 08:27 04/01/17 09:33 04/01/17 08:27 Intake and Output: 04/01/17 04/01/17 06:59 18:59 Intake Total 770 Output Total 400 Balance 370 - Medications Medications: Current Medications Albuterol/Ipratropium (Duoneb 3 Mg/0.5 Mg (3 Ml) Ud) 3 ml INH RQ6 [facility] Last Admin: 04/01/17 13:06 Dose: 3 ml Aspirin (Aspirin) 325 mg PO DAILY [facility] Last Admin: 04/01/17 09:30 Dose: 325 mg Carvedilol (Coreg) 12.5 mg PO BID [facility] Last Admin: 04/01/17 09:33 Dose: 12.5 mg Clopidogrel Bisulfate (Plavix) 75 mg PO DAILY [facility] Last Admin: 04/01/17 09:30 Dose: 75 mg Enoxaparin Sodium (Lovenox) 40 mg SC DAILY [facility] Last Admin: 04/01/17 09:28 Dose: 40 mg Furosemide (Lasix) 40 mg PO DAILY [facility] Last Admin: 04/01/17 09:31 Dose: 40 mg Azithromycin 500 mg/ Sodium (Chloride) 250 mls @ 250 mls/hr IVPB Q24H [facility] Last Admin: 03/31/17 20:08 Dose: 250 mls/hr Ceftriaxone Sodium 1 gm/ (Sodium Chloride) 100 mls @ 100 mls/hr IVPB Q24H [facility] Last Admin: 03/31/17 20:08 Dose: 100 mls/hr Metolazone (Zaroxolyn) 5 mg PO DAILY [facility] Last Admin: 04/01/17 09:32 Dose: 5 mg Pantoprazole Sodium (Protonix Ec Tab) 40 mg PO DAILY [facility] Last Admin: 04/01/17 09:29 Dose: 40 mg Sacubitril/Valsartan (Entresto 24 Mg-26 Mg) 1 tab PO BID [facility] Last Admin: 04/01/17 09:30 Dose: 1 tab Tiotropium [place] (Spiriva) 18 mcg INH RQ24 [facility] Last Admin: 04/01/17 06:50 Dose: 18 mcg - Labs Labs: 03/28/17 13:44 03/28/17 13:44 PT 74.2 SECONDS (9.7-12.2) H* 03/28/17 13:44 INR 6.1 03/28/17 13:44 APTT 47 SECONDS (21-34) H 03/28/17 13:44 Assessment and Plan (1) COPD (chronic obstructive pulmonary disease) Status: Acute (2) CHF exacerbation Status: Acute (3) Dilated cardiomyopathy Status: Acute
--- NOTE | 2017-04-01 14:29 | CARD ---
APPROVED REPORT EKG Measurement Heart [id number] <Conclusion> Ventricular-paced rhythm Abnormal ECG
[2017-04-01 17:27] LABS: HEMOGLOBIN 10.3 g/dL (12.0-18.0); MEAN CELL VOLUME 76.1 fL (80.0-94.0)
[2017-04-01 17:34] LABS: INR 3.2
[2017-04-01 17:38] LABS: MEAN CORPUSCULAR HEMOGLOBIN 23.5 pg (27.0-31.0); MEAN CORPUSCULAR HGB CONC 30.9 g/dL (33.0-37.0); MEAN PLATELET VOLUME 7.6 fL (7.2-11.7); RBC 4.39 Mil/uL (4.40-5.90); RED CELL DISTRIBUTION WIDTH 22.4 % (11.5-14.5)
[2017-04-01 17:41] LABS: PROTHROMBIN TIME 37.9 SECONDS (9.7-12.2)
[2017-04-01 17:43] LABS: ALB/GLOB RATIO 0.9 (1.0-2.1); ALBUMIN 3.5 g/dL (3.5-5.0); CALCIUM 7.8 mg/dl (8.6-10.4)
[2017-04-01 18:27] LABS: EOS # 0.1 K/uL (0.0-0.7); LYMPH # 1.8 K/uL (1.0-4.3); MONO # 0.3 K/uL (0.0-0.8); NEUT # 1.8 K/uL (1.8-7.0)
[2017-04-01] MEDS: Azithromycin 500 MG in Sodium Chloride 0.9% 250 ML IVPB SCH (20:06)
--- NOTE | 2017-04-01 20:44 | CP.PCM.PN ---
Subjective - Date & Time of Evaluation Date of Evaluation: 04/01/17 Time of Evaluation: 08:20 - Subjective Subjective: Patient seen and evaluated Comfortable Denies chest pain and dyspnea Objective - Vital Signs/Intake and Output Vital Signs (last 24 hours): Temp Pulse Resp BP Pulse Ox 97 F L 81 20 104/73 98 04/01/17 16:00 04/01/17 16:00 04/01/17 16:00 04/01/17 17:51 04/01/17 16:00 Intake and Output: 04/01/17 04/02/17 18:59 06:59 Intake Total 600 Output Total 0 Balance 600 - Medications Medications: Current Medications Albuterol/Ipratropium (Duoneb 3 Mg/0.5 Mg (3 Ml) Ud) 3 ml INH RQ6 [facility] Last Admin: 04/01/17 20:17 Dose: 3 ml Aspirin (Aspirin) 325 mg PO DAILY [facility] Last Admin: 04/01/17 09:30 Dose: 325 mg Carvedilol (Coreg) 12.5 mg PO BID [facility] Last Admin: 04/01/17 17:51 Dose: 12.5 mg Clopidogrel Bisulfate (Plavix) 75 mg PO DAILY [facility] Last Admin: 04/01/17 09:30 Dose: 75 mg Enoxaparin Sodium (Lovenox) 40 mg SC DAILY [facility] Last Admin: 04/01/17 09:28 Dose: 40 mg Furosemide (Lasix) 40 mg PO DAILY [facility] Last Admin: 04/01/17 09:31 Dose: 40 mg Azithromycin 500 mg/ Sodium (Chloride) 250 mls @ 250 mls/hr IVPB Q24H [facility] Last Admin: 04/01/17 20:06 Dose: 250 mls/hr Ceftriaxone Sodium 1 gm/ (Sodium Chloride) 100 mls @ 100 mls/hr IVPB Q24H [facility] Last Admin: 04/01/17 20:06 Dose: 100 mls/hr Metolazone (Zaroxolyn) 5 mg PO DAILY [facility] Last Admin: 04/01/17 09:32 Dose: 5 mg Pantoprazole Sodium (Protonix Ec Tab) 40 mg PO DAILY [facility] Last Admin: 04/01/17 09:29 Dose: 40 mg Sacubitril/Valsartan (Entresto 24 Mg-26 Mg) 1 tab PO BID [facility] Last Admin: 04/01/17 17:52 Dose: 1 tab Tiotropium [place] (Spiriva) 18 mcg INH RQ24 [facility] Last Admin: 04/01/17 06:50 Dose: 18 mcg - Labs Labs: 04/01/17 17:19 04/01/17 17:19 PT 37.9 SECONDS (9.7-12.2) H* 04/01/17 17:19 INR 3.2 04/01/17 17:19 APTT 50 SECONDS (21-34) H 04/01/17 17:19
[2017-04-02] MEDS: Albuterol-Ipratrop 3 mg / 0.5 (3 ml) UD INH SCH ×3 (02:18→13:58)
[2017-04-02 07:34] LABS: BASO % 1.3 % (0.0-2.0); EOS # 0.1 K/uL (0.0-0.7); EOS % 2.8 % (0.0-4.0); HEMOGLOBIN 9.8 g/dL (12.0-18.0); LYMPH # 1.3 K/uL (1.0-4.3); LYMPH % 34.1 % (20.0-40.0); MEAN CELL VOLUME 75.8 fL (80.0-94.0); MEAN CORPUSCULAR HEMOGLOBIN 24.4 pg (27.0-31.0); MEAN CORPUSCULAR HGB CONC 32.1 g/dL (33.0-37.0); MEAN PLATELET VOLUME 7.5 fL (7.2-11.7); MONO # 0.5 K/uL (0.0-0.8); MONO % 13.3 % (0.0-10.0); NEUT # 1.9 K/uL (1.8-7.0); NEUT % 48.5 % (50.0-75.0); NRBC % 0.7 % (0.0-2.0); RBC 4.01 Mil/uL (4.40-5.90); RED CELL DISTRIBUTION WIDTH 21.5 % (11.5-14.5); WHITE BLOOD COUNT 3.9 K/uL (4.8-10.8)
[2017-04-02 07:41] LABS: INR 3.1
[2017-04-02 08:00] LABS: PROTHROMBIN TIME 36.6 SECONDS (9.7-12.2)
[2017-04-02 08:06] LABS: ALB/GLOB RATIO 0.8 (1.0-2.1); ALBUMIN 3.6 g/dL (3.5-5.0); CALCIUM 8.7 mg/dl (8.6-10.4)
[2017-04-02] MEDS: Tiotropium 18 mcg Cap For Inhalation INH SCH (08:08)
[2017-04-02 08:18] VITALS: PULSE 62; TEMP 98.4; O2SAT 98
[2017-04-02] MEDS: Sacubitril/Valsartan 24-26mg Tab PO SCH (09:24)
[2017-04-02 09:25] VITALS: BP 107/72
[2017-04-02] MEDS: Pantoprazole 40 mg EC Tab PO SCH (09:25)
[2017-04-02] MEDS: metOLazone 5 MG TAB PO SCH (09:25)
--- NOTE | 2017-04-02 15:40 | PCM.HF ---
Heart Failure Core Measure - Heart Failure Ejection Fraction: Less Than 40 % ESTHER Inhibitor Prescribed: No Contraindication/Reason for not providing: ON ARB Beta-Armando Prescribed: None Contraindication/Reason for not providing: COPD Angiotensin II Receptor Armando Prescribed: Yes Contraindication/Reason for not providing: ARB AnticoagulationTherapy for Atrial Fibrillation/Atrialflutter: Yes Aldosterone Antagonist Prescribed: Yes Hydralazine Nitrate Prescribed: No Contraindication/Reason for not providing: BP IN 90'S Implantable Cardioverter Defibrillator Therapy: Yes Cardiac Resynchronization Therapy Prescribed: No Contraindication/Reason for not providing: HAS AICD
--- NOTE | 2017-04-02 17:51 | CP.PCM.PN ---
Subjective - Date & Time of Evaluation Date of Evaluation: 04/02/17 Time of Evaluation: 09:25 - Subjective Subjective: Patient seen and examined at bedside. Patient states he does not feel short of breath anymore and is eager to go home. Occasional dry cough noted although he states that it does not bother him anymore. Denies chest pain, shortness of breath, palpitations, fever. ? Objective - Vital Signs/Intake and Output Vital Signs (last 24 hours): Temp Pulse Resp BP Pulse Ox 98.4 F 62 20 107/72 98 04/02/17 08:17 04/02/17 08:17 04/02/17 08:17 04/02/17 09:25 04/02/17 08:17 Intake and Output: 04/02/17 04/02/17 06:59 18:59 Intake Total 150 500 Balance 150 500 - Labs Labs: 04/02/17 07:24 04/02/17 07:24 PT 36.6 SECONDS (9.7-12.2) H* 04/02/17 07:24 INR 3.1 04/02/17 07:24 APTT 46 SECONDS (21-34) H 04/02/17 07:24 - Head Exam Head Exam: ATRAUMATIC, NORMOCEPHALIC - ENT Exam ENT Exam: Mucous Membranes Moist - Neck Exam Neck Exam: Normal Inspection - Respiratory Exam Respiratory Exam: Rhonchi - Cardiovascular Exam Cardiovascular Exam: REGULAR RHYTHM Assessment and Plan (1) COPD (chronic obstructive pulmonary disease) Assessment & Plan: 61 year old male with history of CHF, HTN, HLD, dilated cardiomyopathy s/p AICD with EF of 12% who was admitted on 03/28/17 for dyspnea and cough. Pulmonary was consulted on 03/28/17 for shortness of breath. Plan COPD likely since patient has history of smoking. Continue Spiriva, Duoneb Consider PFTs as outpatient Consider D/C IV abx Afebrile WBC 3.9, consider repeat CBC Stable for discharge if cleared from cardiology Status: Acute (2) CHF exacerbation Status: Acute (3) Dilated cardiomyopathy Status: Acute
== END 2017-04-02 17:49 | disposition home or self-care (01) | DRG 292 ==
LOC: C.ER 13:18 → C.9E 14:22 → C.6T 16:17 → OBSVTOIN 03-30 13:48
PROVIDERS: ADMIT Internal Medicine Nephrology; ATTEND Internal Medicine Nephrology
DX: I11.0 Hypertensive heart disease with heart failure (principal); I50.23 Acute on chronic systolic (congestive) heart failure; D68.9 Coagulation defect, unspecified; I47.2 Ventricular tachycardia; I42.0 Dilated cardiomyopathy; I51.3 Intracardiac thrombosis, not elsewhere classified; J44.9 Chronic obstructive pulmonary disease, unspecified; E11.9 Type 2 diabetes mellitus without complications; E78.00 Pure hypercholesterolemia, unspecified; E78.5 Hyperlipidemia, unspecified; I25.10 Atherosclerotic heart disease of native coronary artery without angina pectoris; F17.210 Nicotine dependence, cigarettes, uncomplicated; Z79.01 Long term (current) use of anticoagulants; Z95.810 Presence of automatic (implantable) cardiac defibrillator

== ENCOUNTER 2017-04-21 09:47 | Inpatient (IN) | payer MEDICARE, MEDICAID ==
[2017-04-21 11:16] LABS: HEMOGLOBIN 8.3 g/dL (12.0-18.0); MEAN CORPUSCULAR HEMOGLOBIN 23.6 pg (27.0-31.0); RBC 3.51 Mil/uL (4.40-5.90)
[2017-04-21 11:31] LABS: MEAN CELL VOLUME 74.9 fL (80.0-94.0); MEAN CORPUSCULAR HGB CONC 31.5 g/dL (33.0-37.0); MEAN PLATELET VOLUME 7.8 fL (7.2-11.7); RED CELL DISTRIBUTION WIDTH 21.6 % (11.5-14.5); WHITE BLOOD COUNT 5.4 K/uL (4.8-10.8)
--- NOTE | 2017-04-21 11:32 | C.PDOC ---
History Of Present Illness 62 y/o male, with history of pacemaker,HTN, hyperlipidemia,and CHF, brought by BLS to the ER after having cp and sob. as per triage and field observer, pt has some epistaxis, which resolve.d. Patient denies vomiting blood. Patient has chest pain and shortness of breath. Patient reports he fell but he is not clear on how he fell. Of note, HPI is limited because patient is a poor historian. Time Seen by Provider: 04/21/17 10:50 Chief Complaint (Nursing): Chest Pain History Per: Patient History/Exam Limitations: other (poor historian) Onset/Duration Of Symptoms: Hrs Severity: Moderate Past Medical History Reviewed: Historical Data, Nursing Documentation, Vital Signs Vital Signs: Last Vital Signs Temp 99.7 F H 04/25/17 08:00 Pulse 72 04/25/17 08:42 Resp 20 04/25/17 08:00 BP 132/83 04/25/17 10:39 Pulse Ox 100 04/25/17 13:06 - Medical History PMH: CHF, HTN, Hypercholesterolemia Denies: Chronic Kidney Disease Surgical History: Pacemaker Family History: States: No Known Family Hx - Social History Hx Alcohol Use: No Hx Substance Use: Yes (marijuana) - Immunization History Hx Tetanus Toxoid Vaccination: No Hx Influenza Vaccination: No Hx Pneumococcal Vaccination: No Review Of Systems Except As Marked, All Systems Reviewed And Found Negative. Constitutional: Negative for: Fever, Chills Cardiovascular: Positive for: Chest Pain Respiratory: Positive for: Shortness of Breath Neurological: Negative for: Weakness, Numbness Physical Exam - Physical Exam Appears: Non-toxic, No Acute Distress, Other (resting comfortably) Skin: Normal Color, Warm Head: Atraumatic, Normacephalic Eye(s): bilateral: Normal Inspection, PERRL Nose: Normal Oral Mucosa: Moist Lips: Swelling (left upper lip swelling) Neck: Supple Chest: Symmetrical Cardiovascular: Rhythm Regular Respiratory: Normal Breath Sounds, No Accessory Muscle Use, No Rales, No Rhonchi , No Wheezing Extremity: Normal ROM Neurological/Psych: Oriented x3, Normal Speech, Normal Cognition, Normal Motor, Normal Sensation ED Course And Treatment - Laboratory Results Result Diagrams: 04/25/17 06:25 04/24/17 06:30 O2 Sat by Pulse Oximetry: 100 (RA) Pulse Ox Interpretation: Normal - Radiology CXR: Interpreted by Me, Viewed By Me CXR Interpretation: Yes: No Acute Disease - Physician Consult Information Time Consulting Physician Contacted: 12:34 Physician Contacted: Outcome Of Conversation: Dr. Rocio Vanegas reccommended an FFP for the patient. Medical Decision Making Medical Decision Making: ro anemia, chf, infectious etiology- labs pending Plan: --Labs --Urinalysis --ECG --CXR --CT-Head Hemoglobin of patient dropped slightly. supratherpeutic inr, guic pos. vit k ffp ordered. lasix dosed. pt b/p stable for tele. Disposition - Disposition Disposition: HOSPITALIZED Disposition Time: 07:00 Condition: SERIOUS - Clinical Impression Clinical Impression: CHF exacerbation, GI bleed, Supratherapeutic INR - Scribe Statement The provider has reviewed the documentation as recorded by the Scribe Riley Perdomo Provider Attestation: All medical record entries made by the Scribe were at my direction and personally dictated by me. I have reviewed the chart and agree that the record accurately reflects my personal performance of the history, physical exam, medical decision making, and the department course for this patient. I have also personally directed, reviewed, and agree with the discharge instructions and disposition. Decision To Admit - InPatient: Physician Admission Certification: I certify that this patient requires 2 or more midnights of care for the following reason:: gi bleed elevated inr. chf - . Bed Request Type: Telemetry Admitting Physician: Erika Vanegas Patient Diagnosis: CHF exacerbation, GI bleed, Supratherapeutic INR
[2017-04-21 11:40] LABS: SQUAMOUS EPITHIAL < 1 /hpf (0-5); URINE BILIRUBIN NEGATIVE (NEGATIVE); URINE BLOOD NEGATIVE (NEGATIVE); URINE CLARITY Clear (Clear); URINE COLOR Yellow (YELLOW); URINE GLUCOSE (UA) NORMAL (Normal); URINE LEUKOCYTE ESTERASE NEG Leu/uL (Negative); URINE NITRATE NEGATIVE (NEGATIVE); URINE PROTEIN NEGATIVE (NEGATIVE); URINE UROBILINOGEN NORMAL mg/dL (0.2-1.0)
[2017-04-21 11:49] LABS: B-TYPE NATRIURETIC PEPTIDE 8770 pg/mL (0-900)
[2017-04-21 11:52] LABS: ALB/GLOB RATIO 0.8 (1.0-2.1); ALBUMIN 3.1 g/dL (3.5-5.0); ALT/SGPT 29 U/L (21-72); AST/SGOT 30 U/L (17-59); BLOOD UREA NITROGEN 53 mg/dL (9-20); CALCIUM 8.6 mg/dl (8.6-10.4); GFR AFRICAN-AMERICAN > 60; GFR NON-AFRICAN AMERICAN 51
[2017-04-21 11:57] LABS: EOS # 0.1 K/uL (0.0-0.7); LYMPH # 1.4 K/uL (1.0-4.3); MONO # 0.5 K/uL (0.0-0.8); NEUT # 3.4 K/uL (1.8-7.0)
--- NOTE | 2017-04-21 12:17 | CT ---
PROCEDURE: CT HEAD WITHOUT CONTRAST. HISTORY: trauma COMPARISON: None available. TECHNIQUE: Axial computed tomography images were obtained through the head/brain without intravenous contrast. Radiation dose: Total exam DLP = 2023.05 mGy-cm. This CT exam was performed using one or more of the following dose reduction techniques: Automated exposure control, adjustment of the mA and/or kV according to patient size, and/or use of iterative reconstruction technique. FINDINGS: HEMORRHAGE: No intracranial hemorrhage. BRAIN: No mass effect or edema. Minimal atrophy. Mild periventricular white matter lucency consistent with chronic microvascular ischemic change. Old right thalamic lacunar infarct. VENTRICLES: Unremarkable. No hydrocephalus. CALVARIUM: Unremarkable. PARANASAL SINUSES: Tiny left maxillary retention cyst/ polyp. No evidence of sinusitis. MASTOID AIR CELLS: Unremarkable as visualized. No inflammatory changes. OTHER FINDINGS: None. IMPRESSION: No evidence of intracranial hemorrhage. No intracranial mass or evidence of acute infarct. Old right thalamic lacunar infarct. Mild chronic white matter ischemic change.
--- NOTE | 2017-04-21 12:24 | RAD ---
HISTORY: chest pain COMPARISON: Chest x-ray performed 03/28/17 TECHNIQUE: Chest, one view. FINDINGS: Examination limited by habitus and hypoinflation. LUNGS: Moderate pulmonary venous congestion. Please note that chest x-ray has limited sensitivity for the detection of pulmonary masses. PLEURA: Small bilateral pleural effusions. No definite pneumothorax . CARDIOVASCULAR: Left-sided pacemaker. Cardiomegaly. OSSEOUS STRUCTURES: No acute osseous abnormality identified. VISUALIZED UPPER ABDOMEN: Unremarkable. OTHER FINDINGS: None. IMPRESSION: Moderate pulmonary venous congestion. Small bilateral pleural effusions. Left-sided pacemaker. Cardiomegaly.
[2017-04-21 12:26] LABS: INR > 10.0; PROTHROMBIN TIME > 320.0 SECONDS (9.7-12.2)
[2017-04-21 12:27] LABS: PARTIAL THROMBOPLASTIN TIME 125 SECONDS (21-34)
[2017-04-21] MEDS ORDERED: Phytonadione 10 mg/ml Inj (Adult) IV STA (12:29)
[2017-04-21] MEDS ORDERED: Albuterol-Ipratrop 3 mg / 0.5 (3 ml) UD INH STA (12:36)
[2017-04-21] MEDS ORDERED: Phytonadione 10 mg/ml Inj (Adult) ONE (12:43)
[2017-04-21] MEDS ORDERED: Albuterol-Ipratrop 3 mg / 0.5 (3 ml) UD ONE (12:43)
[2017-04-21] MEDS: Pantoprazole 80 MG in Sodium Chloride 0.9% 100 ML IVP SCH (16:17)
--- NOTE | 2017-04-21 19:17 | CP.PCM.HP ---
Past Patient History - Infectious Disease Hx of Infectious Diseases: None - Past Medical History & Family History Past Medical History?: Yes - Past Social History Smoking Status: Light Smoker < 10 Cigarettes Daily - CARDIAC Hx Congestive Heart Failure: Yes Hx Hypercholesterolemia: Yes Hx Hypertension: Yes Hx Pacemaker: Yes - PULMONARY Hx Respiratory Disorders: No - NEUROLOGICAL Hx Neurological Disorder: No - HEENT Hx HEENT Problems: No - RENAL Hx Chronic Kidney Disease: No - ENDOCRINE/METABOLIC Hx Endocrine Disorders: Yes Hx Diabetes Mellitus Type 2: Yes - HEMATOLOGICAL/ONCOLOGICAL Hx Blood Disorders: No - INTEGUMENTARY Hx Dermatological Problems: No - MUSCULOSKELETAL/RHEUMATOLOGICAL Hx Falls: No - GASTROINTESTINAL Hx Gastrointestinal Disorders: No - GENITOURINARY/GYNECOLOGICAL Hx Genitourinary Disorders: No - PSYCHIATRIC Hx Substance Use: Yes (marijuana) - SURGICAL HISTORY Hx Surgeries: Yes Other/Comment: AICD to Left Chest Wall - ANESTHESIA Hx Anesthesia: Yes Hx Anesthesia Reactions: No Hx Malignant Hyperthermia: No Meds Allergies/Adverse Reactions: Allergies Allergy/AdvReac Type Severity Reaction Status Date / Time No Known Allergies Allergy Verified 03/16/17 14:28 Physical Exam - Constitutional Appears: Well - Head Exam Head Exam: ATRAUMATIC, NORMAL INSPECTION, NORMOCEPHALIC - Eye Exam Eye Exam: EOMI, Normal appearance, PERRL Pupil Exam: NORMAL ACCOMODATION, PERRL - ENT Exam ENT Exam: Mucous Membranes Moist, Normal Exam - Neck Exam Neck exam: Positive for: Normal Inspection - Respiratory Exam Respiratory Exam: Decreased Breath Sounds - Cardiovascular Exam Cardiovascular Exam: REGULAR RHYTHM, +S1, +S2 - GI/Abdominal Exam GI & Abdominal Exam: Diminished Bowel Sounds, Soft - Rectal Exam Rectal Exam: Deferred Results - Vital Signs Recent Vital Signs: Last Vital Signs Temp 97.6 F 04/21/17 16:23 Pulse 69 04/21/17 16:23 Resp 18 04/21/17 16:23 BP 106/55 L 04/21/17 16:23 Pulse Ox 95 04/21/17 16:23 - Labs Result Diagrams: 04/21/17 11:09 04/21/17 11:09 Labs: Laboratory Results - last 24 hr 04/21/17 04/21/17 04/21/17 09:54 11:09 11:09 WBC 5.4 RBC 3.51 L Hgb 8.3 L Hct 26.3 L MCV 74.9 L MCH 23.6 L MCHC 31.5 L RDW 21.6 H Plt Count 309 MPV 7.8 Neut % (Auto) 62.0 Lymph % (Auto) 25.0 [place] % (Auto) 11.0 H Eos % (Auto) 2.0 Baso % (Auto) 0.0 Neut # 3.4 Lymph # 1.4 [place] # 0.5 Eos # 0.1 Baso # 0.0 PT INR APTT Sodium 136 Potassium 4.0 Chloride 102 Carbon Dioxide 27 Anion Gap 11 BUN 53 H Creatinine 1.4 Est GFR ( Amer) > 60 Est GFR (Non-Af Amer) 51 POC Glucose (mg/dL) 121 H Random Glucose 104 Calcium 8.6 Total Bilirubin 1.4 H AST 30 ALT 29 Alkaline Phosphatase 112 Troponin I 0.0490 NT-Pro-B Natriuret Pep 8770 H Total Protein 7.1 Albumin 3.1 L Globulin 4.0 H Albumin/Globulin Ratio 0.8 L Urine Color Urine Clarity Urine pH Ur Specific [place] Urine Protein Urine Glucose (UA) Urine Ketones Urine Blood Urine Nitrate Urine Bilirubin Urine Urobilinogen Ur Leukocyte Esterase Urine WBC (Auto) Urine RBC (Auto) Ur Squamous Epith Cells Hyaline Casts Stool Occult Blood Blood Type Blood Type Confirm Antibody Screen 04/21/17 04/21/17 04/21/17 11:28 11:54 12:35 WBC RBC Hgb Hct MCV MCH MCHC RDW Plt Count MPV Neut % (Auto) Lymph % (Auto) [place] % (Auto) Eos % (Auto) Baso % (Auto) Neut # Lymph # [place] # Eos # Baso # PT > 320.0 H* INR > 10.0 APTT 125 H* Sodium Potassium Chloride Carbon Dioxide Anion Gap BUN Creatinine Est GFR ( Amer) Est GFR (Non-Af Amer) POC Glucose (mg/dL) Random Glucose Calcium Total Bilirubin AST ALT Alkaline Phosphatase Troponin I NT-Pro-B Natriuret Pep Total Protein Albumin Globulin Albumin/Globulin Ratio Urine Color Yellow Urine Clarity Clear Urine pH 5.0 Ur Specific [place] 1.015 Urine Protein Negative Urine Glucose (UA) Normal Urine Ketones Negative Urine Blood Negative Urine Nitrate Negative Urine Bilirubin Negative Urine Urobilinogen Normal Ur Leukocyte Esterase Neg Urine WBC (Auto) < 1 Urine RBC (Auto) < 1 Ur Squamous Epith Cells < 1 Hyaline Casts 3-5 H Stool Occult Blood Positive H Blood Type Blood Type Confirm Antibody Screen 04/21/17 13:12 WBC RBC Hgb Hct MCV MCH MCHC RDW Plt Count MPV Neut % (Auto) Lymph % (Auto) [place] % (Auto) Eos % (Auto) Baso % (Auto) Neut # Lymph # [place] # Eos # Baso # PT INR APTT Sodium Potassium Chloride Carbon Dioxide Anion Gap BUN Creatinine Est GFR ( Amer) Est GFR (Non-Af Amer) POC Glucose (mg/dL) Random Glucose Calcium Total Bilirubin AST ALT Alkaline Phosphatase Troponin I NT-Pro-B Natriuret Pep Total Protein Albumin Globulin Albumin/Globulin Ratio Urine Color Urine Clarity Urine pH Ur Specific [place] Urine Protein Urine Glucose (UA) Urine Ketones Urine Blood Urine Nitrate Urine Bilirubin Urine Urobilinogen Ur Leukocyte Esterase Urine WBC (Auto) Urine RBC (Auto) Ur Squamous Epith Cells Hyaline Casts Stool Occult Blood Blood Type O POSITIVE Blood Type Confirm O POSITIVE Antibody Screen Negative
--- NOTE | 2017-04-21 19:52 | CP.PCM.CON ---
Past Patient History - Infectious Disease Hx of Infectious Diseases: None - Past Medical History & Family History Past Medical History?: Yes - Past Social History Smoking Status: Light Smoker < 10 Cigarettes Daily - CARDIAC Hx Congestive Heart Failure: Yes Hx Hypercholesterolemia: Yes Hx Hypertension: Yes Hx Pacemaker: Yes - PULMONARY Hx Respiratory Disorders: No - NEUROLOGICAL Hx Neurological Disorder: No - HEENT Hx HEENT Problems: No - RENAL Hx Chronic Kidney Disease: No - ENDOCRINE/METABOLIC Hx Endocrine Disorders: Yes Hx Diabetes Mellitus Type 2: Yes - HEMATOLOGICAL/ONCOLOGICAL Hx Blood Disorders: No - INTEGUMENTARY Hx Dermatological Problems: No - MUSCULOSKELETAL/RHEUMATOLOGICAL Hx Falls: No - GASTROINTESTINAL Hx Gastrointestinal Disorders: No - GENITOURINARY/GYNECOLOGICAL Hx Genitourinary Disorders: No - PSYCHIATRIC Hx Substance Use: Yes (marijuana) - SURGICAL HISTORY Hx Surgeries: Yes Other/Comment: AICD to Left Chest Wall - ANESTHESIA Hx Anesthesia: Yes Hx Anesthesia Reactions: No Hx Malignant Hyperthermia: No Meds Allergies/Adverse Reactions: Allergies Allergy/AdvReac Type Severity Reaction Status Date / Time No Known Allergies Allergy Verified 03/16/17 14:28 - Medications Medications: Current Medications Albuterol/Ipratropium (Duoneb 3 Mg/0.5 Mg (3 Ml) Ud) 3 ml INH RQ6 [facility] Carvedilol (Coreg) 12.5 mg PO BID [facility] Clopidogrel Bisulfate (Plavix) 75 mg PO DAILY [facility] Furosemide (Lasix) 40 mg IVP DAILY [facility] Pantoprazole Sodium 80 mg/ (Sodium Chloride) 100 mls @ 10 mls/hr IVP .Q10H [facility] PRN Reason: 8 MG/HR Last Admin: 04/21/17 16:17 Dose: 10 mls/hr Metolazone (Zaroxolyn) 5 mg PO DAILY [facility] Pantoprazole Sodium (Protonix Inj) 40 mg IVP DAILY [facility] Sacubitril/Valsartan (Entresto 24 Mg-26 Mg) 1 tab PO BID [facility] Tiotropium [place] (Spiriva) 18 mcg INH RQ24 [facility] Results - Vital Signs Recent Vital Signs: Last Vital Signs Temp 97.4 F L 04/21/17 19:49 Pulse 77 04/21/17 19:49 Resp 18 04/21/17 19:49 BP 110/59 L 04/21/17 19:49 Pulse Ox 96 04/21/17 19:49 - Labs Result Diagrams: 04/21/17 11:09 04/21/17 11:09 Labs: Laboratory Results - last 24 hr 04/21/17 04/21/17 04/21/17 09:54 11:09 11:09 WBC 5.4 RBC 3.51 L Hgb 8.3 L Hct 26.3 L MCV 74.9 L MCH 23.6 L MCHC 31.5 L RDW 21.6 H Plt Count 309 MPV 7.8 Neut % (Auto) 62.0 Lymph % (Auto) 25.0 [place] % (Auto) 11.0 H Eos % (Auto) 2.0 Baso % (Auto) 0.0 Neut # 3.4 Lymph # 1.4 [place] # 0.5 Eos # 0.1 Baso # 0.0 PT INR APTT Sodium 136 Potassium 4.0 Chloride 102 Carbon Dioxide 27 Anion Gap 11 BUN 53 H Creatinine 1.4 Est GFR ( Amer) > 60 Est GFR (Non-Af Amer) 51 POC Glucose (mg/dL) 121 H Random Glucose 104 Calcium 8.6 Total Bilirubin 1.4 H AST 30 ALT 29 Alkaline Phosphatase 112 Troponin I 0.0490 NT-Pro-B Natriuret Pep 8770 H Total Protein 7.1 Albumin 3.1 L Globulin 4.0 H Albumin/Globulin Ratio 0.8 L Urine Color Urine Clarity Urine pH Ur Specific [place] Urine Protein Urine Glucose (UA) Urine Ketones Urine Blood Urine Nitrate Urine Bilirubin Urine Urobilinogen Ur Leukocyte Esterase Urine WBC (Auto) Urine RBC (Auto) Ur Squamous Epith Cells Hyaline Casts Stool Occult Blood Blood Type Blood Type Confirm Antibody Screen 04/21/17 04/21/17 04/21/17 11:28 11:54 12:35 WBC RBC Hgb Hct MCV MCH MCHC RDW Plt Count MPV Neut % (Auto) Lymph % (Auto) [place] % (Auto) Eos % (Auto) Baso % (Auto) Neut # Lymph # [place] # Eos # Baso # PT > 320.0 H* INR > 10.0 APTT 125 H* Sodium Potassium Chloride Carbon Dioxide Anion Gap BUN Creatinine Est GFR ( Amer) Est GFR (Non-Af Amer) POC Glucose (mg/dL) Random Glucose Calcium Total Bilirubin AST ALT Alkaline Phosphatase Troponin I NT-Pro-B Natriuret Pep Total Protein Albumin Globulin Albumin/Globulin Ratio Urine Color Yellow Urine Clarity Clear Urine pH 5.0 Ur Specific [place] 1.015 Urine Protein Negative Urine Glucose (UA) Normal Urine Ketones Negative Urine Blood Negative Urine Nitrate Negative Urine Bilirubin Negative Urine Urobilinogen Normal Ur Leukocyte Esterase Neg Urine WBC (Auto) < 1 Urine RBC (Auto) < 1 Ur Squamous Epith Cells < 1 Hyaline Casts 3-5 H Stool Occult Blood Positive H Blood Type Blood Type Confirm Antibody Screen 04/21/17 13:12 WBC RBC Hgb Hct MCV MCH MCHC RDW Plt Count MPV Neut % (Auto) Lymph % (Auto) [place] % (Auto) Eos % (Auto) Baso % (Auto) Neut # Lymph # [place] # Eos # Baso # PT INR APTT Sodium Potassium Chloride Carbon Dioxide Anion Gap BUN Creatinine Est GFR ( Amer) Est GFR (Non-Af Amer) POC Glucose (mg/dL) Random Glucose Calcium Total Bilirubin AST ALT Alkaline Phosphatase Troponin I NT-Pro-B Natriuret Pep Total Protein Albumin Globulin Albumin/Globulin Ratio Urine Color Urine Clarity Urine pH Ur Specific [place] Urine Protein Urine Glucose (UA) Urine Ketones Urine Blood Urine Nitrate Urine Bilirubin Urine Urobilinogen Ur Leukocyte Esterase Urine WBC (Auto) Urine RBC (Auto) Ur Squamous Epith Cells Hyaline Casts Stool Occult Blood Blood Type O POSITIVE Blood Type Confirm O POSITIVE Antibody Screen Negative
[2017-04-21] MEDS: Sacubitril/Valsartan 24-26mg Tab PO SCH (22:04)
[2017-04-22] MEDS: Pantoprazole 80 MG in Sodium Chloride 0.9% 100 ML IVP SCH ×2 (00:38→12:00)
[2017-04-22] MEDS: Albuterol-Ipratrop 3 mg / 0.5 (3 ml) UD INH SCH ×4 (01:40→19:09)
[2017-04-22] MEDS: Tiotropium 18 mcg Cap For Inhalation INH SCH (08:03)
[2017-04-22] MEDS: Sacubitril/Valsartan 24-26mg Tab PO SCH ×2 (09:29→17:43)
[2017-04-22] MEDS: metOLazone 5 MG TAB PO SCH (09:30)
--- NOTE | 2017-04-22 10:43 | CP.PCM.CON ---
History of Present Illness - History of Present Illness History of Present Illness: I was asked to see patoient by Dr Kelly Vanegas. Patient is a 62 year old male with PMH HTN, dilated cardiomyopathy s/p AICD, atrial fibrillation who presents with shortness of breath. Patient is a poor historian. He was found to be coagulopathic, and therfore it was recommended that patient have FFP. He denies current dyspnea. Review of Systems - Constitutional Constitutional: absent: As Per HPI, Anorexia, Chills, Daytime Sleepiness, Excessive Sweating, Fatigue, Fever, Frequent Falls, Headache, Increased Appetite , Lethargy, Malaise, Night Sweats, Snoring, Sleep Apnea, Weight Gain, Weight Loss, Weakness, Other - EENT Eyes: absent: As Per HPI, Blind Spots, Blurred Vision, Change in Vision, Decreased Night Vision, Diplopia, Discharge, Dry Eye, Exophthalmos, Floaters, Irritation, Itchy Eyes, Loss of Peripheral Vision, Pain, Photophobia, Requires Corrective Lenses, Sees Flashes, Spots in Vision, Tunnel Vision, Other Visual Disturbances, Loss of Vision, Other Ears: absent: As Per HPI, Decreased Hearing, Ear Discharge, Ear Pain, Tinnitus, Abnormal Hearing, Disequilibrium, Dizziness, Other Nose/Mouth/Throat: absent: As Per HPI, Epistaxis, Nasal Congestion, Nasal Discharge, Nasal Obstruction, Nasal Trauma, Nose Pain, Post Nasal Drip, Sinus Pain, Sinus Pressure, Bleeding Gums, Change in Voice, Dental Pain, Dry Mouth, Dysphagia, Halitosis, Hoarsness, Lip Swelling, Mouth Lesions, Mouth Pain, Odynophagia, Sore Throat, Throat Swelling, Tongue Swelling, Facial Pain, Neck Pain, Neck Mass, Other - Cardiovascular Cardiovascular: absent: As Per HPI, Acrocyanosis, Chest Pain, Chest Pain at Rest , Chest Pain with Activity, Claudication, Diaphoresis, Dyspnea, Dyspnea on Exertion, Edema, Irregular Heart Rhythm, Pain Radiating to Arm/Neck/Jaw, Leg Edema, Leg Ulcers, Lightheadedness, Orthopnea, Palpitations, Paroxysmal Nocturnal Dyspnea, Pedal Edema, Radiating Pain, Rapid Heart Rate, Slow Heart Rate, Syncope, Other - Respiratory Respiratory: absent: As Per HPI, Cough, Dyspnea, Hemoptysis, Dyspnea on Exertion , Wheezing, Snoring, Stridor, Pain on Inspiration, Chest Congestion, Excessive Mucous Production, Change in Mucous Color, Pain with Coughing, Other - Gastrointestinal Gastrointestinal: absent: As Per HPI, Abdominal Pain, Belching, Bloating, Change in Bowel Habits, Change in Stool Character, Coffee Ground Emesis, Constipation, Cramping, Diarrhea, Dyspepsia, Dysphagia, Early Satiety, Excessive Flatus, Fecal Incontinence, Heartburn, Hematemesis, Hematochezia, Loose Stools, Melena, Nausea, Odynophagia, Temesmus, Vomiting, Other - Genitourinary Genitourinary: absent: As Per HPI, Change in Urinary Stream, Difficulty Urinating, Dysuria, Flank Pain, Hematuria, Pyuria, Nocturia, Urinary Incontinence, Urinary Frequency, Urinary Hesitance, Urinary Urgency, Voiding Freq/Small Amts, Freq UTI, Hx Renal/Bladder Calculi, Hx /Renal Surgery, Bladder Distension, Other - Musculoskeletal Musculoskeletal: absent: As Per HPI, Abnormal Gait, Arthralgias, Atrophy, Back Pain, Deformity, Joint Swelling, Limited Range of Motion, Loss of Height, Muscle Cramps, Muscle Weakness, Myalgias, Neck Pain, Numbness, Radiating Pain into Limb, Stiffness, Tingling, Other - Integumentary Integumentary: absent: As Per HPI, Acne, Alopecia, Bleeding Lesions, Change in Hair, Change in Nails, Change in Pigmentation, Changing Lesions, Dry Skin, Erythema, Furuncle, Hirsutism, Lesions, New Lesions, Non-Healing Lesions, Photosensitivity, Pruritus, Rash, Skin Pain, Skin Ulcer, Sores, Striae, Swelling , Unusual Bruising, Wounds, Jaundice, Other - Neurological Neurological: absent: As Per HPI, Abnormal Gait, Abnormal Hearing, Abnormal Movements, Abnormal Speech, Behavioral Changes, Burning Sensations, Confusion, Convulsions, Disequilibrium, Dizziness, Numbness, Focal Weakness, Frequent Falls , Headaches, Lack of Coordination, Loss of Vision, Memory Loss, Paresthesias, Radicular Pain, Restless Legs, Sensory Deficit, Syncope, Tingling, Tremor, Vertigo, Weakness, Other Visual Disturbances, Other - Psychiatric Psychiatric: absent: As Per HPI, Abnormal Sleep Pattern, Anhedonia, Anxiety, Auditory Hallucinations, Behavioral Changes, Change in Appetite, Change in Libido, Confusion, Depression, Difficulty Concentrating, Hallucinations, Homicidal Ideation, Hopelessness, Irritability, Memory Loss, Mood Swings, Panic Attacks, Paranoia, Suicidal Ideation, Visual Hallucinations, Tactile Hallucinations, Other - Endocrine Endocrine: absent: As Per HPI, Change in Body Appearance, Change in Libido, Cold Intolorance, Deepening of Voice, Excessive Sweating, Fatigue, Flushing, Heat Intolorance, Increase in Ring/Shoe/Hat Size, Palpitations, Polydipsia, Polyphagia, Polyuria, Other - Hematologic/Lymphatic Hematologic: absent: As Per HPI, Easy Bleeding, Easy Bruising, Lymphadenopathy, Other Past Patient History - Infectious Disease Hx of Infectious Diseases: None - Past Medical History & Family History Past Medical History?: Yes - Past Social History Smoking Status: Light Smoker < 10 Cigarettes Daily - CARDIAC Hx Cardiac Disorders: Yes Hx Congestive Heart Failure: Yes Hx Hypercholesterolemia: Yes Hx Hypertension: Yes Hx Pacemaker: Yes - PULMONARY Hx Respiratory Disorders: No - NEUROLOGICAL Hx Neurological Disorder: No - HEENT Hx HEENT Problems: Yes Hx Epistaxis: Yes - RENAL Hx Chronic Kidney Disease: No - ENDOCRINE/METABOLIC Hx Endocrine Disorders: Yes Hx Diabetes Mellitus Type 2: Yes - HEMATOLOGICAL/ONCOLOGICAL Hx Blood Disorders: No - INTEGUMENTARY Hx Dermatological Problems: No - MUSCULOSKELETAL/RHEUMATOLOGICAL Hx Musculoskeletal Disorders: Yes Hx Falls: Yes - GASTROINTESTINAL Hx Gastrointestinal Disorders: No - GENITOURINARY/GYNECOLOGICAL Hx Genitourinary Disorders: No - PSYCHIATRIC Hx Substance Use: Yes (Marijuana) - SURGICAL HISTORY Hx Surgeries: Yes Other/Comment: AICD to Left Chest Wall - ANESTHESIA Hx Anesthesia: Yes Hx Anesthesia Reactions: No Hx Malignant Hyperthermia: No Meds Allergies/Adverse Reactions: Allergies Allergy/AdvReac Type Severity Reaction Status Date / Time No Known Allergies Allergy Verified 03/16/17 14:28 - Medications Medications: Current Medications Albuterol/Ipratropium (Duoneb 3 Mg/0.5 Mg (3 Ml) Ud) 3 ml INH RQ6 [facility] Last Admin: 04/22/17 08:03 Dose: Not Given Carvedilol (Coreg) 12.5 mg PO BID [facility] Last Admin: 04/22/17 09:29 Dose: Not Given Clopidogrel Bisulfate (Plavix) 75 mg PO DAILY [facility] Last Admin: 04/22/17 09:30 Dose: Not Given Famotidine (Pepcid) 20 mg IVP BID [facility] Last Admin: 04/22/17 09:31 Dose: 20 mg Furosemide (Lasix) 40 mg IVP DAILY [facility] Last Admin: 04/22/17 09:30 Dose: Not Given Pantoprazole Sodium 80 mg/ (Sodium Chloride) 100 mls @ 10 mls/hr IVP .Q10H [facility] PRN Reason: 8 MG/HR Last Admin: 04/22/17 00:38 Dose: 10 mls/hr Metolazone (Zaroxolyn) 5 mg PO DAILY [facility] Last Admin: 04/22/17 09:30 Dose: Not Given Sacubitril/Valsartan (Entresto 24 Mg-26 Mg) 1 tab PO BID [facility] Last Admin: 04/22/17 09:29 Dose: Not Given Tiotropium [place] (Spiriva) 18 mcg INH RQ24 [facility] Last Admin: 04/22/17 08:03 Dose: Not Given Physical Exam - Constitutional Appears: Non-toxic - Head Exam Head Exam: NORMAL INSPECTION - Eye Exam Eye Exam: Normal appearance Pupil Exam: NORMAL ACCOMODATION - ENT Exam ENT Exam: Mucous Membranes Moist - Neck Exam Neck exam: Positive for: Full Rom - Respiratory Exam Respiratory Exam: Decreased Breath Sounds - Cardiovascular Exam Cardiovascular Exam: Irregular Rhythm - GI/Abdominal Exam GI & Abdominal Exam: Normal Bowel Sounds - Rectal Exam Rectal Exam: Deferred - Extremities Exam Extremities exam: Positive for: tenderness - Back Exam Back exam: NORMAL INSPECTION - Neurological Exam Neurological exam: Alert, Oriented x3 - Psychiatric Exam Psychiatric exam: Normal Affect - Skin Skin Exam: Dry Results - Vital Signs Recent Vital Signs: Last Vital Signs Temp 97.2 F L 04/22/17 08:00 Pulse 68 04/22/17 08:00 Resp 20 04/22/17 08:00 BP 86/44 L 04/22/17 09:29 Pulse Ox 97 04/22/17 08:00 - Labs Result Diagrams: 04/24/17 06:30 04/24/17 06:30 Labs: Laboratory Results - last 24 hr 04/21/17 04/21/17 04/21/17 09:54 11:09 11:09 WBC 5.4 RBC 3.51 L Hgb 8.3 L Hct 26.3 L MCV 74.9 L MCH 23.6 L MCHC 31.5 L RDW 21.6 H Plt Count 309 MPV 7.8 Neut % (Auto) 62.0 Lymph % (Auto) 25.0 [place] % (Auto) 11.0 H Eos % (Auto) 2.0 Baso % (Auto) 0.0 Neut # 3.4 Lymph # 1.4 [place] # 0.5 Eos # 0.1 Baso # 0.0 PT INR APTT Sodium 136 Potassium 4.0 Chloride 102 Carbon Dioxide 27 Anion Gap 11 BUN 53 H Creatinine 1.4 Est GFR ( Amer) > 60 Est GFR (Non-Af Amer) 51 POC Glucose (mg/dL) 121 H Random Glucose 104 Calcium 8.6 Total Bilirubin 1.4 H AST 30 ALT 29 Alkaline Phosphatase 112 Troponin I 0.0490 NT-Pro-B Natriuret Pep 8770 H Total Protein 7.1 Albumin 3.1 L Globulin 4.0 H Albumin/Globulin Ratio 0.8 L Urine Color Urine Clarity Urine pH Ur Specific [place] Urine Protein Urine Glucose (UA) Urine Ketones Urine Blood Urine Nitrate Urine Bilirubin Urine Urobilinogen Ur Leukocyte Esterase Urine WBC (Auto) Urine RBC (Auto) Ur Squamous Epith Cells Hyaline Casts Stool Occult Blood Blood Type Blood Type Confirm Antibody Screen 04/21/17 04/21/17 04/21/17 11:28 11:54 12:35 WBC RBC Hgb Hct MCV MCH MCHC RDW Plt Count MPV Neut % (Auto) Lymph % (Auto) [place] % (Auto) Eos % (Auto) Baso % (Auto) Neut # Lymph # [place] # Eos # Baso # PT > 320.0 H* INR > 10.0 APTT 125 H* Sodium Potassium Chloride Carbon Dioxide Anion Gap BUN Creatinine Est GFR ( Amer) Est GFR (Non-Af Amer) POC Glucose (mg/dL) Random Glucose Calcium Total Bilirubin AST ALT Alkaline Phosphatase Troponin I NT-Pro-B Natriuret Pep Total Protein Albumin Globulin Albumin/Globulin Ratio Urine Color Yellow Urine Clarity Clear Urine pH 5.0 Ur Specific [place] 1.015 Urine Protein Negative Urine Glucose (UA) Normal Urine Ketones Negative Urine Blood Negative Urine Nitrate Negative Urine Bilirubin Negative Urine Urobilinogen Normal Ur Leukocyte Esterase Neg Urine WBC (Auto) < 1 Urine RBC (Auto) < 1 Ur Squamous Epith Cells < 1 Hyaline Casts 3-5 H Stool Occult Blood Positive H Blood Type Blood Type Confirm Antibody Screen 04/21/17 04/22/17 13:12 06:23 WBC RBC Hgb Hct MCV MCH MCHC RDW Plt Count MPV Neut % (Auto) Lymph % (Auto) [place] % (Auto) Eos % (Auto) Baso % (Auto) Neut # Lymph # [place] # Eos # Baso # PT INR APTT Sodium Potassium Chloride Carbon Dioxide Anion Gap BUN Creatinine Est GFR ( Amer) Est GFR (Non-Af Amer) POC Glucose (mg/dL) 76 Random Glucose Calcium Total Bilirubin AST ALT Alkaline Phosphatase Troponin I NT-Pro-B Natriuret Pep Total Protein Albumin Globulin Albumin/Globulin Ratio Urine Color Urine Clarity Urine pH Ur Specific [place] Urine Protein Urine Glucose (UA) Urine Ketones Urine Blood Urine Nitrate Urine Bilirubin Urine Urobilinogen Ur Leukocyte Esterase Urine WBC (Auto) Urine RBC (Auto) Ur Squamous Epith Cells Hyaline Casts Stool Occult Blood Blood Type O POSITIVE Blood Type Confirm O POSITIVE Antibody Screen Negative - EKG Data EKG Interpreted by: Myself EKG shows normal: Sinus rhythm Assessment & Plan (1) Dilated cardiomyopathy Assessment and Plan: elia is s/p AICD. He is currently euvolemic. I will conitnue medical therapy. He will tolerate FFP, but will need to watch volume status. Status: Acute (2) HTN (hypertension) Assessment and Plan: beta armin therapy Status: Acute
--- NOTE | 2017-04-22 10:43 | CP.PCM.CON ---
History of Present Illness - History of Present Illness History of Present Illness: patient seen/examined. full consult to follow. severe LV dysfunction, s/p AICD on coumadin for afib, with a suprattherapeutic INR. currently not in CHF. agree with FFP. recommend careful monitoring of volume status. lasix after FFP. Past Patient History - Infectious Disease Hx of Infectious Diseases: None - Past Medical History & Family History Past Medical History?: Yes - Past Social History Smoking Status: Light Smoker < 10 Cigarettes Daily - CARDIAC Hx Cardiac Disorders: Yes Hx Congestive Heart Failure: Yes Hx Hypercholesterolemia: Yes Hx Hypertension: Yes Hx Pacemaker: Yes - PULMONARY Hx Respiratory Disorders: No - NEUROLOGICAL Hx Neurological Disorder: No - HEENT Hx HEENT Problems: Yes Hx Epistaxis: Yes - RENAL Hx Chronic Kidney Disease: No - ENDOCRINE/METABOLIC Hx Endocrine Disorders: Yes Hx Diabetes Mellitus Type 2: Yes - HEMATOLOGICAL/ONCOLOGICAL Hx Blood Disorders: No - INTEGUMENTARY Hx Dermatological Problems: No - MUSCULOSKELETAL/RHEUMATOLOGICAL Hx Musculoskeletal Disorders: Yes Hx Falls: Yes - GASTROINTESTINAL Hx Gastrointestinal Disorders: No - GENITOURINARY/GYNECOLOGICAL Hx Genitourinary Disorders: No - PSYCHIATRIC Hx Substance Use: Yes (Marijuana) - SURGICAL HISTORY Hx Surgeries: Yes Other/Comment: AICD to Left Chest Wall - ANESTHESIA Hx Anesthesia: Yes Hx Anesthesia Reactions: No Hx Malignant Hyperthermia: No Meds Allergies/Adverse Reactions: Allergies Allergy/AdvReac Type Severity Reaction Status Date / Time No Known Allergies Allergy Verified 03/16/17 14:28 - Medications Medications: Current Medications Albuterol/Ipratropium (Duoneb 3 Mg/0.5 Mg (3 Ml) Ud) 3 ml INH RQ6 [facility] Last Admin: 04/22/17 08:03 Dose: Not Given Carvedilol (Coreg) 12.5 mg PO BID [facility] Last Admin: 04/22/17 09:29 Dose: Not Given Clopidogrel Bisulfate (Plavix) 75 mg PO DAILY [facility] Last Admin: 04/22/17 09:30 Dose: Not Given Famotidine (Pepcid) 20 mg IVP BID [facility] Last Admin: 04/22/17 09:31 Dose: 20 mg Furosemide (Lasix) 40 mg IVP DAILY [facility] Last Admin: 04/22/17 09:30 Dose: Not Given Pantoprazole Sodium 80 mg/ (Sodium Chloride) 100 mls @ 10 mls/hr IVP .Q10H [facility] PRN Reason: 8 MG/HR Last Admin: 04/22/17 00:38 Dose: 10 mls/hr Metolazone (Zaroxolyn) 5 mg PO DAILY [facility] Last Admin: 04/22/17 09:30 Dose: Not Given Sacubitril/Valsartan (Entresto 24 Mg-26 Mg) 1 tab PO BID [facility] Last Admin: 04/22/17 09:29 Dose: Not Given Tiotropium [place] (Spiriva) 18 mcg INH RQ24 [facility] Last Admin: 04/22/17 08:03 Dose: Not Given Results - Vital Signs Recent Vital Signs: Last Vital Signs Temp 97.2 F L 04/22/17 08:00 Pulse 68 04/22/17 08:00 Resp 20 04/22/17 08:00 BP 86/44 L 04/22/17 09:29 Pulse Ox 97 04/22/17 08:00 - Labs Result Diagrams: 04/21/17 11:09 04/21/17 11:09 Labs: Laboratory Results - last 24 hr 04/21/17 04/21/17 04/21/17 09:54 11:09 11:09 WBC 5.4 RBC 3.51 L Hgb 8.3 L Hct 26.3 L MCV 74.9 L MCH 23.6 L MCHC 31.5 L RDW 21.6 H Plt Count 309 MPV 7.8 Neut % (Auto) 62.0 Lymph % (Auto) 25.0 [place] % (Auto) 11.0 H Eos % (Auto) 2.0 Baso % (Auto) 0.0 Neut # 3.4 Lymph # 1.4 [place] # 0.5 Eos # 0.1 Baso # 0.0 PT INR APTT Sodium 136 Potassium 4.0 Chloride 102 Carbon Dioxide 27 Anion Gap 11 BUN 53 H Creatinine 1.4 Est GFR ( Amer) > 60 Est GFR (Non-Af Amer) 51 POC Glucose (mg/dL) 121 H Random Glucose 104 Calcium 8.6 Total Bilirubin 1.4 H AST 30 ALT 29 Alkaline Phosphatase 112 Troponin I 0.0490 NT-Pro-B Natriuret Pep 8770 H Total Protein 7.1 Albumin 3.1 L Globulin 4.0 H Albumin/Globulin Ratio 0.8 L Urine Color Urine Clarity Urine pH Ur Specific [place] Urine Protein Urine Glucose (UA) Urine Ketones Urine Blood Urine Nitrate Urine Bilirubin Urine Urobilinogen Ur Leukocyte Esterase Urine WBC (Auto) Urine RBC (Auto) Ur Squamous Epith Cells Hyaline Casts Stool Occult Blood Blood Type Blood Type Confirm Antibody Screen 04/21/17 04/21/17 04/21/17 11:28 11:54 12:35 WBC RBC Hgb Hct MCV MCH MCHC RDW Plt Count MPV Neut % (Auto) Lymph % (Auto) [place] % (Auto) Eos % (Auto) Baso % (Auto) Neut # Lymph # [place] # Eos # Baso # PT > 320.0 H* INR > 10.0 APTT 125 H* Sodium Potassium Chloride Carbon Dioxide Anion Gap BUN Creatinine Est GFR ( Amer) Est GFR (Non-Af Amer) POC Glucose (mg/dL) Random Glucose Calcium Total Bilirubin AST ALT Alkaline Phosphatase Troponin I NT-Pro-B Natriuret Pep Total Protein Albumin Globulin Albumin/Globulin Ratio Urine Color Yellow Urine Clarity Clear Urine pH 5.0 Ur Specific [place] 1.015 Urine Protein Negative Urine Glucose (UA) Normal Urine Ketones Negative Urine Blood Negative Urine Nitrate Negative Urine Bilirubin Negative Urine Urobilinogen Normal Ur Leukocyte Esterase Neg Urine WBC (Auto) < 1 Urine RBC (Auto) < 1 Ur Squamous Epith Cells < 1 Hyaline Casts 3-5 H Stool Occult Blood Positive H Blood Type Blood Type Confirm Antibody Screen 04/21/17 04/22/17 13:12 06:23 WBC RBC Hgb Hct MCV MCH MCHC RDW Plt Count MPV Neut % (Auto) Lymph % (Auto) [place] % (Auto) Eos % (Auto) Baso % (Auto) Neut # Lymph # [place] # Eos # Baso # PT INR APTT Sodium Potassium Chloride Carbon Dioxide Anion Gap BUN Creatinine Est GFR ( Amer) Est GFR (Non-Af Amer) POC Glucose (mg/dL) 76 Random Glucose Calcium Total Bilirubin AST ALT Alkaline Phosphatase Troponin I NT-Pro-B Natriuret Pep Total Protein Albumin Globulin Albumin/Globulin Ratio Urine Color Urine Clarity Urine pH Ur Specific [place] Urine Protein Urine Glucose (UA) Urine Ketones Urine Blood Urine Nitrate Urine Bilirubin Urine Urobilinogen Ur Leukocyte Esterase Urine WBC (Auto) Urine RBC (Auto) Ur Squamous Epith Cells Hyaline Casts Stool Occult Blood Blood Type O POSITIVE Blood Type Confirm O POSITIVE Antibody Screen Negative
[2017-04-22 11:33] LABS: BASO # 0.1 K/uL (0.0-0.2); BASO % 1.1 % (0.0-2.0); EOS % 0.9 % (0.0-4.0); HEMOGLOBIN 7.6 g/dL (12.0-18.0); LYMPH # 2.3 K/uL (1.0-4.3); LYMPH % 42.6 % (20.0-40.0); MEAN CORPUSCULAR HEMOGLOBIN 23.3 pg (27.0-31.0); MEAN CORPUSCULAR HGB CONC 31.1 g/dL (33.0-37.0); MEAN PLATELET VOLUME 7.8 fL (7.2-11.7); MONO # 0.5 K/uL (0.0-0.8); MONO % 9.9 % (0.0-10.0); NEUT # 2.4 K/uL (1.8-7.0); NEUT % 45.5 % (50.0-75.0); NRBC % 3.2 % (0.0-2.0); RBC 3.24 Mil/uL (4.40-5.90); WHITE BLOOD COUNT 5.3 K/uL (4.8-10.8)
--- NOTE | 2017-04-22 11:39 | CP.PCM.PN ---
Subjective - Date & Time of Evaluation Date of Evaluation: 04/22/17 Time of Evaluation: 10:00 - Subjective Subjective: [employer] ENGINE[employer] NOTES patient seen today , awake alert, oriented , denies any sob, chest pain, abdominal pain , no bleeding reported lab repeated today hgb dropped from 8.3- 7.6 PTT - INR - stable today - 40/2.4 occult blood positive Objective - Vital Signs/Intake and Output Vital Signs (last 24 hours): Temp Pulse Resp BP Pulse Ox 97.2 F L 68 20 86/44 L 97 04/22/17 08:00 04/22/17 08:00 04/22/17 08:00 04/22/17 09:29 04/22/17 08:00 Intake and Output: 04/22/17 04/22/17 06:59 18:59 Intake Total 200 Output Total 250 Balance -50 - Medications Medications: Current Medications Albuterol/Ipratropium (Duoneb 3 Mg/0.5 Mg (3 Ml) Ud) 3 ml INH RQ6 [facility] Last Admin: 04/22/17 08:03 Dose: Not Given Carvedilol (Coreg) 12.5 mg PO BID [facility] Last Admin: 04/22/17 09:29 Dose: Not Given Clopidogrel Bisulfate (Plavix) 75 mg PO DAILY [facility] Last Admin: 04/22/17 09:30 Dose: Not Given Famotidine (Pepcid) 20 mg IVP BID [facility] Last Admin: 04/22/17 09:31 Dose: 20 mg Furosemide (Lasix) 40 mg IVP DAILY [facility] Last Admin: 04/22/17 09:30 Dose: Not Given Pantoprazole Sodium 80 mg/ (Sodium Chloride) 100 mls @ 10 mls/hr IVP .Q10H [facility] PRN Reason: 8 MG/HR Last Admin: 04/22/17 00:38 Dose: 10 mls/hr Metolazone (Zaroxolyn) 5 mg PO DAILY [facility] Last Admin: 04/22/17 09:30 Dose: Not Given Sacubitril/Valsartan (Entresto 24 Mg-26 Mg) 1 tab PO BID [facility] Last Admin: 04/22/17 09:29 Dose: Not Given Tiotropium [place] (Spiriva) 18 mcg INH RQ24 [facility] Last Admin: 04/22/17 08:03 Dose: Not Given - Labs Labs: 04/22/17 11:27 04/21/17 11:09 PT > 320.0 SECONDS (9.7-12.2) H* 04/21/17 11:54 INR > 10.0 04/21/17 11:54 APTT 125 SECONDS (21-34) H* 04/21/17 11:54 Assessment and Plan - Assessment and Plan (Free Text) Assessment: A/P 62 yr old male with past medical history of pacemaker,HTN, hyperlipidemia,and CHF admitted with sob/ chest pain/ supratherapeutic INR - 10> and PT->320 s/p 2 unit of FFP no further epitaxis PT/INR- stable OB+ and Dr. sosa on consult hgb drops from 8.3- 7.6 will transfuse 1 unit of PRBC The above plan discussed with Dr. Kelly ross, and agrees with plan will repeat labs in am
[2017-04-22 11:42] LABS: PROTHROMBIN TIME 27.4 SECONDS (9.7-12.2)
[2017-04-22 11:43] LABS: INR 2.4
--- NOTE | 2017-04-22 12:10 | CP.PCM.CON ---
<Mansi Bo - Last Filed: 04/22/17 15:13> History of Present Illness - History of Present Illness History of Present Illness: PGY-2 IM resident consult note for Gi service- Dr Martinez Reason for consult: Gi bleed, INR >10 Patient is a 62 y/o with PMHx of Ischemic cardiomyopathy ( LVEF of 10) s/p AICD , htn, hld, afib ( on coumadin) whom presented with chest pain and shortness of breath along with epistaxis, and was found to have INR of >10 with Hemoglobin of 8 in the ED (baseline 9-10), with positive fobt. Gi is consulted to evaluate for possible gi bleeding. Patient states he had one episode of epistaxis. Denies nausea, vomiting or diarrhea. Patient denies Gi bleeding, states he has bowel movement once a day, with brown color, no bleed, no pain with defecations. No changes in stool caliber, and no weight loss. Denies abdominal pain. Denies histories of cancer, denies prior EGT and colonoscopy. PMHx: Ischemic cardiomyopathy s/p AICD, htn, hld, afib ( on Coumadin) PSHx:AICD placement FMHx: denies history of cancers. Social: denies alcohol and illicit drug use. Admits to 1-2 cigarettes per day, for 40 years. Lives with his siter. Home meds: asa, plavix, Coumadin, entresto, Lasix, coreg, spiriva. Allergy: NKDA Review of Systems - Review of Systems All systems: reviewed and no additional remarkable complaints except Review of Systems: All 12 point ROS reviewed, all negative except as per HPI. Past Patient History - Infectious Disease Hx of Infectious Diseases: None - Past Medical History & Family History Past Medical History?: Yes - Past Social History Smoking Status: Light Smoker < 10 Cigarettes Daily Alcohol: None Drugs: Denies Home Situation {Lives}: With Family - CARDIAC Hx Cardiac Disorders: Yes Hx Congestive Heart Failure: Yes Hx Hypercholesterolemia: Yes Hx Hypertension: Yes Hx Pacemaker: Yes - PULMONARY Hx Respiratory Disorders: No - NEUROLOGICAL Hx Neurological Disorder: No - HEENT Hx HEENT Problems: Yes Hx Epistaxis: Yes - RENAL Hx Chronic Kidney Disease: No - ENDOCRINE/METABOLIC Hx Endocrine Disorders: Yes Hx Diabetes Mellitus Type 2: Yes - HEMATOLOGICAL/ONCOLOGICAL Hx Blood Disorders: No - INTEGUMENTARY Hx Dermatological Problems: No - MUSCULOSKELETAL/RHEUMATOLOGICAL Hx Musculoskeletal Disorders: Yes Hx Falls: Yes - GASTROINTESTINAL Hx Gastrointestinal Disorders: No - GENITOURINARY/GYNECOLOGICAL Hx Genitourinary Disorders: No - PSYCHIATRIC Hx Substance Use: Yes (Marijuana) - SURGICAL HISTORY Hx Surgeries: Yes Other/Comment: AICD to Left Chest Wall - ANESTHESIA Hx Anesthesia: Yes Hx Anesthesia Reactions: No Hx Malignant Hyperthermia: No Meds Allergies/Adverse Reactions: Allergies Allergy/AdvReac Type Severity Reaction Status Date / Time No Known Allergies Allergy Verified 03/16/17 14:28 - Medications Medications: Current Medications Albuterol/Ipratropium (Duoneb 3 Mg/0.5 Mg (3 Ml) Ud) 3 ml INH RQ6 [facility] Last Admin: 04/22/17 08:03 Dose: Not Given Carvedilol (Coreg) 12.5 mg PO BID [facility] Last Admin: 04/22/17 09:29 Dose: Not Given Clopidogrel Bisulfate (Plavix) 75 mg PO DAILY [facility] Last Admin: 04/22/17 09:30 Dose: Not Given Famotidine (Pepcid) 20 mg IVP BID [facility] Last Admin: 04/22/17 09:31 Dose: 20 mg Furosemide (Lasix) 40 mg IVP DAILY [facility] Last Admin: 04/22/17 09:30 Dose: Not Given Pantoprazole Sodium 80 mg/ (Sodium Chloride) 100 mls @ 10 mls/hr IVP .Q10H [facility] PRN Reason: 8 MG/HR Last Admin: 04/22/17 00:38 Dose: 10 mls/hr Metolazone (Zaroxolyn) 5 mg PO DAILY [facility] Last Admin: 04/22/17 09:30 Dose: Not Given Sacubitril/Valsartan (Entresto 24 Mg-26 Mg) 1 tab PO BID [facility] Last Admin: 04/22/17 09:29 Dose: Not Given Tiotropium [place] (Spiriva) 18 mcg INH RQ24 [facility] Last Admin: 04/22/17 08:03 Dose: Not Given Physical Exam - Constitutional Appears: No Acute Distress, Older Than Stated Age, Chronically Ill - Head Exam Head Exam: ATRAUMATIC, NORMAL INSPECTION, NORMOCEPHALIC - Eye Exam Eye Exam: EOMI, Normal appearance, PERRL. absent: Scleral icterus Pupil Exam: NORMAL ACCOMODATION - ENT Exam ENT Exam: Mucous Membranes Moist - Neck Exam Neck exam: Positive for: Normal Inspection - Respiratory Exam Respiratory Exam: Rales, NORMAL BREATHING PATTERN. absent: Decreased Breath Sounds, Rhonchi, Wheezes, Respiratory Distress, Stridor - Cardiovascular Exam Cardiovascular Exam: REGULAR RHYTHM, +S1, +S2. absent: Bradycardia, Tachycardia , Systolic Murmur - GI/Abdominal Exam GI & Abdominal Exam: Normal Bowel Sounds, Soft. absent: Diminished Bowel Sounds , Distended, Firm, Guarding, Rebound, Rigid, Tenderness - Rectal Exam Rectal Exam: absent: Black Stool, Bloody Stool, Hemorrhoids, Fecal Impaction Additional comments: + Stool incontinent, + mustard colored stool, no blood, no black tarry stool. - Extremities Exam Extremities exam: Positive for: pedal edema (+2), tenderness - Back Exam Back exam: NORMAL INSPECTION - Neurological Exam Neurological exam: Alert, Oriented x3 - Psychiatric Exam Psychiatric exam: Depressed - Skin Skin Exam: Dry, Normal Color, Warm Results - Vital Signs Recent Vital Signs: Last Vital Signs Temp 97.2 F L 04/22/17 08:00 Pulse 68 04/22/17 08:00 Resp 20 04/22/17 08:00 BP 86/44 L 04/22/17 09:29 Pulse Ox 97 04/22/17 08:00 - Labs Result Diagrams: 04/22/17 11:27 04/21/17 11:09 Labs: Laboratory Results - last 24 hr 04/21/17 04/21/17 04/21/17 11:54 12:35 13:12 WBC RBC Hgb Hct MCV MCH MCHC RDW Plt Count MPV Neut % (Auto) Lymph % (Auto) [place] % (Auto) Eos % (Auto) Baso % (Auto) Neut # Lymph # [place] # Eos # Baso # PT > 320.0 H* INR > 10.0 APTT 125 H* POC Glucose (mg/dL) Stool Occult Blood Positive H Blood Type O POSITIVE Blood Type Confirm O POSITIVE Antibody Screen Negative 04/22/17 04/22/17 04/22/17 06:23 11:27 11:27 WBC 5.3 RBC 3.24 L Hgb 7.6 L Hct 24.3 L MCV 75.0 L MCH 23.3 L MCHC 31.1 L RDW 22.0 H Plt Count 298 MPV 7.8 Neut % (Auto) 45.5 L Lymph % (Auto) 42.6 H [place] % (Auto) 9.9 Eos % (Auto) 0.9 Baso % (Auto) 1.1 Neut # 2.4 Lymph # 2.3 [place] # 0.5 Eos # 0.0 Baso # 0.1 PT 27.4 H D INR 2.4 D APTT 40 H D POC Glucose (mg/dL) 76 Stool Occult Blood Blood Type Blood Type Confirm Antibody Screen Assessment & Plan - Assessment and Plan (Free Text) Assessment: Patient is a 62 y/o with PMHx of Ischemic cardiomyopathy ( LVEF of 10) s/p AICD , htn, hld, afib ( on coumadin) whom presented with chest pain and shortness of breath along with epistaxis, and was found to have INR of >10 with Hemoglobin of 8 in the ED (baseline 9-10). S/p 2 units of ffp and vitamin with improvement of INR to 2.4. HGB this Am dropped to 7.6. 1) Supratherapeutic INR due to Coumadin 2) Acute on chronic anemia 3) Epistaxis- resolved, likely due to supratherapeutic INR, on Coumadin, also on ASA and plavix. 4) cardiomyopathy s/p AICD 5) Afib 6) htn 7) hld 8) Currently hypotensive likely due BP meds Plan: - s/p 2 units ffp and vitamin K with improvement in INR. - Currently no active GI bleeding, no blood on rectal exam, no tarry black stool. - + fobt likely due to epistaxis. - Will send anemia work up. - Continue with medical and cardiac management - Monitor h/h and transfuse as necessary based on cardiology recommendations. - Colonoscopy as outpatient for colorectal cancer screening. Patient seen, examined and case discussed with Gi fellow and Dr Martinez. - Date & Time Date: 04/22/17 Time: 12:25 <Shantanu Martinez Y - Last Filed: 04/22/17 15:27> Meds - Medications Medications: Current Medications Albuterol/Ipratropium (Duoneb 3 Mg/0.5 Mg (3 Ml) Ud) 3 ml INH RQ6 [facility] Last Admin: 04/22/17 13:13 Dose: Not Given Carvedilol (Coreg) 12.5 mg PO BID [facility] Last Admin: 04/22/17 09:29 Dose: Not Given Clopidogrel Bisulfate (Plavix) 75 mg PO DAILY [facility] Last Admin: 04/22/17 09:30 Dose: Not Given Furosemide (Lasix) 40 mg IVP DAILY [facility] Last Admin: 04/22/17 09:30 Dose: Not Given Furosemide (Lasix) 40 mg IVP ONCE ONE Stop: 04/23/17 20:01 Metolazone (Zaroxolyn) 5 mg PO DAILY [facility] Last Admin: 04/22/17 09:30 Dose: Not Given Sacubitril/Valsartan (Entresto 24 Mg-26 Mg) 1 tab PO BID [facility] Last Admin: 04/22/17 09:29 Dose: Not Given Tiotropium [place] (Spiriva) 18 mcg INH RQ24 [facility] Last Admin: 04/22/17 08:03 Dose: Not Given Results - Vital Signs Recent Vital Signs: Last Vital Signs Temp 97.2 F L 04/22/17 08:00 Pulse 68 04/22/17 08:00 Resp 20 04/22/17 08:00 BP 86/44 L 04/22/17 09:29 Pulse Ox 97 04/22/17 08:00 - Labs Result Diagrams: 04/22/17 11:27 04/21/17 11:09 Labs: Laboratory Results - last 24 hr 04/22/17 04/22/17 04/22/17 06:23 11:27 11:27 WBC 5.3 RBC 3.24 L Hgb 7.6 L Hct 24.3 L MCV 75.0 L MCH 23.3 L MCHC 31.1 L RDW 22.0 H Plt Count 298 MPV 7.8 Neut % (Auto) 45.5 L Lymph % (Auto) 42.6 H [place] % (Auto) 9.9 Eos % (Auto) 0.9 Baso % (Auto) 1.1 Neut # 2.4 Lymph # 2.3 [place] # 0.5 Eos # 0.0 Baso # 0.1 PT 27.4 H D INR 2.4 D APTT 40 H D POC Glucose (mg/dL) 76 Attending/Attestation - Attestation I have personally seen and examined this patient.: Yes I have fully participated in the care of the patient.: Yes I have reviewed all pertinent clinical information: Yes Notes (Text): 04/22/17 15:21 I have seen and examined patient with GI fellow and medical biller/coder. Agree with above documentation with the following additions. In brief, this is a 62 year old male with history of ischemic cardiomyopathy, CHF s/p ICD, atrial fibrillation on coumadin, HTN, hyperlipidemia who initially presented to hospital with complaint of progressive dyspnea and substernal chest discomfort. On arrival to hospital he was found to have supratherapeutic INR along with epistaxis, GI called for evaluation of heme occult positive stool. He is seen resting in bed comfortably and denies abdominal pain, nausea, vomiting, fever/ chills, weight loss, rectal bleeding, or change in bowel habits. No prior endoscopic evaluation. Additional physical exam: Abdomen: no palpable hepato/splenomegaly Ischemic cardiomyopathy CHF s/p ICD Atrial fibrillation on coumadin HTN Supratherapeutic INR/epistaxis Fecal occult blood positive - Low sodium diet as tolerated - Epistaxis resolved, s/p FFP with now therapeutic INR. Rectal exam performed today shows soft yellow colored stool without palpable lesions. - Continue to monitor H/H, transfuse as clinically indicated, no overt bleeding noted - Obtain iron studies - Follow up cardiology recommendations - Patient would benefit from elective colonoscopy given anemia with fecal occult blood positive testing, particularly since he has not had procedure before. This should be performed as outpatient following resolution of acute symptoms. Will continue to monitor patient clinical course.
--- NOTE | 2017-04-22 13:09 | CP.PCM.PN ---
Subjective - Date & Time of Evaluation Date of Evaluation: 04/22/17 Time of Evaluation: 13:09 Objective - Vital Signs/Intake and Output Vital Signs (last 24 hours): Temp Pulse Resp BP Pulse Ox 97.2 F L 68 20 86/44 L 97 04/22/17 08:00 04/22/17 08:00 04/22/17 08:00 04/22/17 09:29 04/22/17 08:00 Intake and Output: 04/22/17 04/22/17 06:59 18:59 Intake Total 200 Output Total 250 Balance -50 - Medications Medications: Current Medications Albuterol/Ipratropium (Duoneb 3 Mg/0.5 Mg (3 Ml) Ud) 3 ml INH RQ6 [facility] Last Admin: 04/22/17 08:03 Dose: Not Given Carvedilol (Coreg) 12.5 mg PO BID [facility] Last Admin: 04/22/17 09:29 Dose: Not Given Clopidogrel Bisulfate (Plavix) 75 mg PO DAILY [facility] Last Admin: 04/22/17 09:30 Dose: Not Given Famotidine (Pepcid) 20 mg IVP BID [facility] Last Admin: 04/22/17 09:31 Dose: 20 mg Furosemide (Lasix) 40 mg IVP DAILY [facility] Last Admin: 04/22/17 09:30 Dose: Not Given Pantoprazole Sodium 80 mg/ (Sodium Chloride) 100 mls @ 10 mls/hr IVP .Q10H [facility] PRN Reason: 8 MG/HR Last Admin: 04/22/17 00:38 Dose: 10 mls/hr Metolazone (Zaroxolyn) 5 mg PO DAILY [facility] Last Admin: 04/22/17 09:30 Dose: Not Given Sacubitril/Valsartan (Entresto 24 Mg-26 Mg) 1 tab PO BID [facility] Last Admin: 04/22/17 09:29 Dose: Not Given Tiotropium [place] (Spiriva) 18 mcg INH RQ24 [facility] Last Admin: 04/22/17 08:03 Dose: Not Given - Labs Labs: 04/22/17 11:27 04/21/17 11:09 PT 27.4 SECONDS (9.7-12.2) H D 04/22/17 11:27 INR 2.4 D 04/22/17 11:27 APTT 40 SECONDS (21-34) H D 04/22/17 11:27
[2017-04-22] MEDS ORDERED: Pantoprazole 80 MG in Sodium Chloride 0.9% 100 ML IVPB SCH (13:30)
--- NOTE | 2017-04-22 18:19 | CP.PCM.PN ---
Subjective - Date & Time of Evaluation Date of Evaluation: 04/22/17 Time of Evaluation: 12:40 - Subjective Subjective: clinically same Objective - Vital Signs/Intake and Output Vital Signs (last 24 hours): Temp Pulse Resp BP Pulse Ox 98 F 63 20 101/65 96 04/22/17 15:55 04/22/17 16:55 04/22/17 15:55 04/22/17 15:55 04/22/17 15:55 Intake and Output: 04/22/17 04/22/17 06:59 18:59 Intake Total 200 Output Total 250 Balance -50 - Medications Medications: Current Medications Albuterol/Ipratropium (Duoneb 3 Mg/0.5 Mg (3 Ml) Ud) 3 ml INH RQ6 [facility] Last Admin: 04/22/17 13:13 Dose: Not Given Carvedilol (Coreg) 12.5 mg PO BID [facility] Last Admin: 04/22/17 09:29 Dose: Not Given Clopidogrel Bisulfate (Plavix) 75 mg PO DAILY [facility] Last Admin: 04/22/17 09:30 Dose: Not Given Furosemide (Lasix) 40 mg IVP DAILY [facility] Last Admin: 04/22/17 09:30 Dose: Not Given Furosemide (Lasix) 40 mg IVP ONCE ONE Stop: 04/22/17 20:01 Metolazone (Zaroxolyn) 5 mg PO DAILY [facility] Last Admin: 04/22/17 09:30 Dose: Not Given Sacubitril/Valsartan (Entresto 24 Mg-26 Mg) 1 tab PO BID [facility] Last Admin: 04/22/17 17:43 Dose: 1 tab Tiotropium [place] (Spiriva) 18 mcg INH RQ24 [facility] Last Admin: 04/22/17 08:03 Dose: Not Given - Labs Labs: 04/22/17 11:27 04/21/17 11:09 PT 27.4 SECONDS (9.7-12.2) H D 04/22/17 11:27 INR 2.4 D 04/22/17 11:27 APTT 40 SECONDS (21-34) H D 04/22/17 11:27 - Constitutional Appears: Well - Head Exam Head Exam: ATRAUMATIC, NORMAL INSPECTION, NORMOCEPHALIC - Eye Exam Eye Exam: EOMI, Normal appearance, PERRL Pupil Exam: NORMAL ACCOMODATION, PERRL - ENT Exam ENT Exam: Mucous Membranes Moist, Normal Exam - Neck Exam Neck Exam: Full ROM, Normal Inspection. absent: Lymphadenopathy - Respiratory Exam Respiratory Exam: Decreased Breath Sounds - Cardiovascular Exam Cardiovascular Exam: REGULAR RHYTHM, +S1, +S2 - GI/Abdominal Exam GI & Abdominal Exam: Soft, Diminished Bowel Sounds - Rectal Exam Rectal Exam: Deferred
--- NOTE | 2017-04-22 23:14 | CARD ---
APPROVED REPORT EKG Measurement Heart [id number] <Conclusion> Atrial-sensed ventricular-paced rhythm with frequent premature ventricular complexes Abnormal ECG
[2017-04-23] MEDS: Albuterol-Ipratrop 3 mg / 0.5 (3 ml) UD INH SCH ×4 (01:29→19:04)
[2017-04-23 06:50] LABS: IRON 17 ug/dL (49-181)
[2017-04-23 06:55] LABS: INR 4.2
--- NOTE | 2017-04-23 06:57 | CP.PCM.PN ---
<Mansi Bo - Last Filed: 04/23/17 14:29> Subjective - Date & Time of Evaluation Date of Evaluation: 04/23/17 Time of Evaluation: 07:15 - Subjective Subjective: Gi consult note for Dr Cline's service Patient with no acute events overnight. Patient denies nose bleed. Denies Gi bleed, and dark stools. No fever, chills. No nausea, vomiting or diarrhea. No pain, no abdominal pain. States the sob has improved, but has not gotten out of bed since admission. Objective - Vital Signs/Intake and Output Vital Signs (last 24 hours): Temp Pulse Resp BP Pulse Ox 98.8 F 68 20 99/63 L 97 04/22/17 23:00 04/23/17 04:35 04/22/17 23:00 04/22/17 23:00 04/22/17 23:00 Intake and Output: 04/22/17 04/23/17 18:59 06:59 Intake Total 0 325 Output Total 1150 Balance 0 -825 - Medications Medications: Current Medications Albuterol/Ipratropium (Duoneb 3 Mg/0.5 Mg (3 Ml) Ud) 3 ml INH RQ6 [facility] Last Admin: 04/23/17 01:29 Dose: 3 ml Carvedilol (Coreg) 12.5 mg PO BID [facility] Last Admin: 04/22/17 19:28 Dose: Not Given Clopidogrel Bisulfate (Plavix) 75 mg PO DAILY [facility] Last Admin: 04/22/17 09:30 Dose: Not Given Furosemide (Lasix) 40 mg IVP DAILY [facility] Last Admin: 04/22/17 09:30 Dose: Not Given Metolazone (Zaroxolyn) 5 mg PO DAILY [facility] Last Admin: 04/22/17 09:30 Dose: Not Given Sacubitril/Valsartan (Entresto 24 Mg-26 Mg) 1 tab PO BID [facility] Last Admin: 04/22/17 17:43 Dose: 1 tab Tiotropium [place] (Spiriva) 18 mcg INH RQ24 [facility] Last Admin: 04/22/17 08:03 Dose: Not Given - Labs Labs: 04/22/17 11:27 04/21/17 11:09 PT 27.4 SECONDS (9.7-12.2) H D 01/23/18 11:27 INR 2.4 D 04/22/17 11:27 APTT 40 SECONDS (21-34) H D 04/22/17 11:27 - Constitutional Appears: No Acute Distress, Chronically Ill - Head Exam Head Exam: ATRAUMATIC, NORMAL INSPECTION, NORMOCEPHALIC - Eye Exam Eye Exam: EOMI, Normal appearance, PERRL. absent: Scleral icterus Pupil Exam: NORMAL ACCOMODATION - ENT Exam ENT Exam: Mucous Membranes Dry - Neck Exam Neck Exam: Normal Inspection - Respiratory Exam Respiratory Exam: Clear to Ausculation Bilateral, NORMAL BREATHING PATTERN. absent: Rales, Rhonchi, Wheezes, Respiratory Distress, Stridor - Cardiovascular Exam Cardiovascular Exam: Irregular Rhythm, +S1, +S2. absent: Murmur - GI/Abdominal Exam GI & Abdominal Exam: Soft, Normal Bowel Sounds. absent: Distended, Firm, Guarding, Rigid, Tenderness, Rebound - Extremities Exam Extremities Exam: Pedal Edema (+2) - Back Exam Back Exam: NORMAL INSPECTION - Neurological Exam Neurological Exam: Awake, Oriented x3 - Psychiatric Exam Psychiatric exam: Flat Affect - Skin Skin Exam: Abrasion, Dry, Warm Assessment and Plan - Assessment and Plan (Free Text) Assessment: Patient is a 62 y/o with PMHx of Ischemic cardiomyopathy ( LVEF of 10) s/p AICD , htn, hld, afib ( on coumadin) whom presented with chest pain and shortness of breath along with epistaxis, and was found to have INR of >10 with Hemoglobin of 8 in the ED (baseline 9-10). S/p 2 units of ffp and vitamin k 2 days ago, INR fluctuating, today's 4.2. HGB improved to 8.5. 1) Supratherapeutic INR due to Coumadin 2) Acute on chronic iron deficiency anemia 3) Epistaxis- resolved, likely due to supratherapeutic INR, on Coumadin, also on ASA and plavix. 4) cardiomyopathy s/p AICD 5) Afib 6) htn 7) hld Plan: - HGB improved - continue to monitor - po iron supplementation - No active gi bleeding - No urgent GI intervention at this time - outpatient follow up for colonoscopy Patient seen, examined and case discussed with Dr Cline. <Vlad Cline - Last Filed: 04/23/17 15:42> Objective - Vital Signs/Intake and Output Vital Signs (last 24 hours): Temp Pulse Resp BP Pulse Ox 98.1 F 75 18 89/52 L 95 04/23/17 08:02 04/23/17 12:39 04/23/17 08:02 04/23/17 09:44 04/23/17 12:39 Intake and Output: 04/23/17 04/23/17 06:59 18:59 Intake Total 565 Output Total 1150 400 Balance -585 -400 - Medications Medications: Current Medications Albuterol/Ipratropium (Duoneb 3 Mg/0.5 Mg (3 Ml) Ud) 3 ml INH RQ6 [facility] Last Admin: 04/23/17 13:21 Dose: Not Given Carvedilol (Coreg) 12.5 mg PO BID [facility] Last Admin: 04/23/17 09:44 Dose: Not Given Clopidogrel Bisulfate (Plavix) 75 mg PO DAILY [facility] Last Admin: 04/23/17 09:45 Dose: Not Given Furosemide (Lasix) 40 mg IVP DAILY [facility] Last Admin: 04/23/17 09:44 Dose: Not Given Metolazone (Zaroxolyn) 5 mg PO DAILY [facility] Last Admin: 04/23/17 09:46 Dose: Not Given Sacubitril/Valsartan (Entresto 24 Mg-26 Mg) 1 tab PO BID [facility] Last Admin: 04/23/17 09:47 Dose: Not Given Tiotropium [place] (Spiriva) 18 mcg INH RQ24 [facility] Last Admin: 04/23/17 08:04 Dose: Not Given - Labs Labs: 04/23/17 06:33 04/21/17 11:09 PT 50.1 SECONDS (9.7-12.2) H* D 04/23/17 06:33 INR 4.2 D 04/23/17 06:33 APTT 40 SECONDS (21-34) H D 04/22/17 11:27 Attending/Attestation - Attestation I have personally seen and examined this patient.: Yes I have fully participated in the care of the patient.: Yes I have reviewed all pertinent clinical information, including history, physical exam and plan: Yes Notes (Text): 04/23/17 15:41 62 year old male with h/o multiple medical problems including CHF, on anticoagulation, with iron deficiency anemia. 1. Iron deficiency anemia 2. Occult blood positive Plan: -no overt bleeding noted, brown stool -recommend EGD/colonoscopy as outpatient after acute issues resolve and medically optimized from cardiac standpoint
[2017-04-23 06:59] LABS: PROTHROMBIN TIME 50.1 SECONDS (9.7-12.2)
[2017-04-23 07:00] LABS: TOTAL IRON BINDING CAPACITY 334 ug/dL (250-450)
[2017-04-23 07:01] LABS: % IRON SATURATION 5 (20-55)
[2017-04-23 07:07] LABS: HEMOGLOBIN 8.5 g/dL (12.0-18.0); MEAN CELL VOLUME 74.2 fL (80.0-94.0); MEAN CORPUSCULAR HEMOGLOBIN 23.6 pg (27.0-31.0); MEAN CORPUSCULAR HGB CONC 31.9 g/dL (33.0-37.0); MEAN PLATELET VOLUME 7.8 fL (7.2-11.7); RBC 3.6 Mil/uL (4.40-5.90); WHITE BLOOD COUNT 5.3 K/uL (4.8-10.8)
[2017-04-23] MEDS: Tiotropium 18 mcg Cap For Inhalation INH SCH (08:04)
[2017-04-23 08:25] LABS: FOLATE 8.9 ng/mL
--- NOTE | 2017-04-23 08:31 | CP.PCM.PN ---
Subjective - Date & Time of Evaluation Date of Evaluation: 04/23/17 Time of Evaluation: 08:10 - Subjective Subjective: patient denies chest pain or dyspnea. no evidence of bleeding Objective - Vital Signs/Intake and Output Vital Signs (last 24 hours): Temp Pulse Resp BP Pulse Ox 98.1 F 67 18 95/58 L 98 04/23/17 08:02 04/23/17 08:02 04/23/17 08:02 04/23/17 08:02 04/23/17 08:02 Intake and Output: 04/23/17 04/23/17 06:59 18:59 Intake Total 565 Output Total 1150 Balance -585 - Medications Medications: Current Medications Albuterol/Ipratropium (Duoneb 3 Mg/0.5 Mg (3 Ml) Ud) 3 ml INH RQ6 [facility] Last Admin: 04/23/17 08:04 Dose: Not Given Carvedilol (Coreg) 12.5 mg PO BID [facility] Last Admin: 04/22/17 19:28 Dose: Not Given Clopidogrel Bisulfate (Plavix) 75 mg PO DAILY [facility] Last Admin: 04/22/17 09:30 Dose: Not Given Furosemide (Lasix) 40 mg IVP DAILY [facility] Last Admin: 04/22/17 09:30 Dose: Not Given Metolazone (Zaroxolyn) 5 mg PO DAILY [facility] Last Admin: 04/22/17 09:30 Dose: Not Given Sacubitril/Valsartan (Entresto 24 Mg-26 Mg) 1 tab PO BID [facility] Last Admin: 04/22/17 17:43 Dose: 1 tab Tiotropium [place] (Spiriva) 18 mcg INH RQ24 [facility] Last Admin: 04/23/17 08:04 Dose: Not Given - Labs Labs: 04/23/17 06:33 04/21/17 11:09 PT 50.1 SECONDS (9.7-12.2) H* D 04/23/17 06:33 INR 4.2 D 04/23/17 06:33 APTT 40 SECONDS (21-34) H D 04/22/17 11:27 - Constitutional Appears: Non-toxic - Head Exam Head Exam: NORMAL INSPECTION - Eye Exam Eye Exam: Normal appearance - ENT Exam ENT Exam: Mucous Membranes Moist - Neck Exam Neck Exam: Full ROM - Respiratory Exam Respiratory Exam: Decreased Breath Sounds - Cardiovascular Exam Cardiovascular Exam: REGULAR RHYTHM - GI/Abdominal Exam GI & Abdominal Exam: Normal Bowel Sounds - Rectal Exam Rectal Exam: Deferred - Extremities Exam Extremities Exam: absent: Pedal Edema - Back Exam Back Exam: NORMAL INSPECTION - Neurological Exam Neurological Exam: Alert - Psychiatric Exam Psychiatric exam: Normal Affect - Skin Skin Exam: Normal Color Assessment and Plan (1) Dilated cardiomyopathy Assessment & Plan: s/p AICD. medical management. tolerated correction of coagulaopathy. Status: Acute
[2017-04-23 08:56] LABS: EOS # 0.2 K/uL (0.0-0.7); LYMPH # 1.9 K/uL (1.0-4.3); MONO # 0.5 K/uL (0.0-0.8); NEUT # 2.7 K/uL (1.8-7.0)
[2017-04-23] MEDS: Sacubitril/Valsartan 24-26mg Tab PO SCH ×3 (09:43→17:32)
[2017-04-23] MEDS: metOLazone 5 MG TAB PO SCH (09:46)
--- NOTE | 2017-04-23 14:25 | CP.PCM.PN ---
Subjective - Date & Time of Evaluation Date of Evaluation: 04/23/17 Time of Evaluation: 14:25 Objective - Vital Signs/Intake and Output Vital Signs (last 24 hours): Temp Pulse Resp BP Pulse Ox 98.1 F 75 18 89/52 L 95 04/23/17 08:02 04/23/17 12:39 04/23/17 08:02 04/23/17 09:44 04/23/17 12:39 Intake and Output: 04/23/17 04/23/17 06:59 18:59 Intake Total 565 Output Total 1150 400 Balance -585 -400 - Medications Medications: Current Medications Albuterol/Ipratropium (Duoneb 3 Mg/0.5 Mg (3 Ml) Ud) 3 ml INH RQ6 [facility] Last Admin: 04/23/17 13:21 Dose: Not Given Carvedilol (Coreg) 12.5 mg PO BID [facility] Last Admin: 04/23/17 09:44 Dose: Not Given Clopidogrel Bisulfate (Plavix) 75 mg PO DAILY [facility] Last Admin: 04/23/17 09:45 Dose: Not Given Furosemide (Lasix) 40 mg IVP DAILY [facility] Last Admin: 04/23/17 09:44 Dose: Not Given Metolazone (Zaroxolyn) 5 mg PO DAILY [facility] Last Admin: 04/23/17 09:46 Dose: Not Given Sacubitril/Valsartan (Entresto 24 Mg-26 Mg) 1 tab PO BID [facility] Last Admin: 04/23/17 09:47 Dose: Not Given Tiotropium [place] (Spiriva) 18 mcg INH RQ24 [facility] Last Admin: 04/23/17 08:04 Dose: Not Given - Labs Labs: 04/23/17 06:33 04/21/17 11:09 PT 50.1 SECONDS (9.7-12.2) H* D 04/23/17 06:33 INR 4.2 D 04/23/17 06:33 APTT 40 SECONDS (21-34) H D 04/22/17 11:27
--- NOTE | 2017-04-23 19:26 | CP.PCM.PN ---
Subjective - Date & Time of Evaluation Date of Evaluation: 04/23/17 Time of Evaluation: 10:40 - Subjective Subjective: clinically same Objective - Vital Signs/Intake and Output Vital Signs (last 24 hours): Temp Pulse Resp BP Pulse Ox 98.2 F 74 18 107/67 98 04/23/17 15:47 04/23/17 17:38 04/23/17 15:47 04/23/17 19:00 04/23/17 15:47 Intake and Output: 04/23/17 04/24/17 18:59 06:59 Output Total 400 Balance -400 - Medications Medications: Current Medications Albuterol/Ipratropium (Duoneb 3 Mg/0.5 Mg (3 Ml) Ud) 3 ml INH RQ6 [facility] Last Admin: 04/23/17 19:04 Dose: Not Given Carvedilol (Coreg) 12.5 mg PO BID [facility] Last Admin: 04/23/17 19:00 Dose: 12.5 mg Clopidogrel Bisulfate (Plavix) 75 mg PO DAILY [facility] Last Admin: 04/23/17 09:45 Dose: Not Given Furosemide (Lasix) 40 mg IVP DAILY [facility] Last Admin: 04/23/17 09:44 Dose: Not Given Metolazone (Zaroxolyn) 5 mg PO DAILY [facility] Last Admin: 04/23/17 09:46 Dose: Not Given Sacubitril/Valsartan (Entresto 24 Mg-26 Mg) 1 tab PO BID [facility] Last Admin: 04/23/17 17:32 Dose: 1 tab Tiotropium [place] (Spiriva) 18 mcg INH RQ24 [facility] Last Admin: 04/23/17 08:04 Dose: Not Given - Labs Labs: 04/23/17 06:33 04/21/17 11:09 PT 50.1 SECONDS (9.7-12.2) H* D 04/23/17 06:33 INR 4.2 D 04/23/17 06:33 APTT 40 SECONDS (21-34) H D 04/22/17 11:27
[2017-04-24] MEDS: Albuterol-Ipratrop 3 mg / 0.5 (3 ml) UD INH SCH ×2 (01:37→19:08)
[2017-04-24 06:58] LABS: ALB/GLOB RATIO 0.7 (1.0-2.1); ALBUMIN 2.7 g/dL (3.5-5.0); ALT/SGPT 20 U/L (21-72); AST/SGOT 28 U/L (17-59); BLOOD UREA NITROGEN 35 mg/dL (9-20); CALCIUM 8.3 mg/dl (8.6-10.4); GFR AFRICAN-AMERICAN > 60; GFR NON-AFRICAN AMERICAN > 60
[2017-04-24 07:21] LABS: BASO # 0.1 K/uL (0.0-0.2); BASO % 1.3 % (0.0-2.0); EOS # 0.1 K/uL (0.0-0.7); EOS % 2.5 % (0.0-4.0); HEMOGLOBIN 8.3 g/dL (12.0-18.0); LYMPH # 1.7 K/uL (1.0-4.3); LYMPH % 28.7 % (20.0-40.0); MEAN CELL VOLUME 74.4 fL (80.0-94.0); MEAN CORPUSCULAR HEMOGLOBIN 24.5 pg (27.0-31.0); MEAN CORPUSCULAR HGB CONC 32.9 g/dL (33.0-37.0); MEAN PLATELET VOLUME 7.8 fL (7.2-11.7); MONO # 0.7 K/uL (0.0-0.8); MONO % 12.5 % (0.0-10.0); NEUT # 3.2 K/uL (1.8-7.0); NRBC % 1.1 % (0.0-2.0); RBC 3.4 Mil/uL (4.40-5.90); RED CELL DISTRIBUTION WIDTH 20.8 % (11.5-14.5); WHITE BLOOD COUNT 5.8 K/uL (4.8-10.8)
[2017-04-24 07:45] LABS: INR 8.7
[2017-04-24] MEDS: Sacubitril/Valsartan 24-26mg Tab PO SCH ×2 (09:26→17:32)
[2017-04-24] MEDS: Ferric Sodium Gluconat Complex 125 MG in Sodium Chloride 0.9% 100 ML IVPB SCH (09:26)
[2017-04-24] MEDS: metOLazone 5 MG TAB PO SCH (09:26)
[2017-04-24] MEDS ORDERED: Ferric Sodium Gluconat Complex 62.5 mg/5 ml Vial IVPB SCH (10:00)
--- NOTE | 2017-04-24 12:11 | CP.PCM.PN ---
Subjective - Date & Time of Evaluation Date of Evaluation: 04/24/17 Time of Evaluation: 12:40 - Subjective Subjective: clinically same Objective - Vital Signs/Intake and Output Vital Signs (last 24 hours): Temp Pulse Resp BP Pulse Ox 97.8 F 70 20 80/55 L 99 04/24/17 08:23 04/24/17 08:43 04/24/17 08:23 04/24/17 09:31 04/24/17 08:23 Intake and Output: 04/24/17 04/24/17 06:59 18:59 Intake Total 580 Output Total 275 Balance 305 - Medications Medications: Current Medications Albuterol/Ipratropium (Duoneb 3 Mg/0.5 Mg (3 Ml) Ud) 3 ml INH RQ6 [facility] Last Admin: 04/24/17 01:37 Dose: Not Given Carvedilol (Coreg) 12.5 mg PO BID [facility] Last Admin: 04/24/17 09:31 Dose: Not Given Clopidogrel Bisulfate (Plavix) 75 mg PO DAILY [facility] Last Admin: 04/24/17 09:26 Dose: 75 mg Furosemide (Lasix) 40 mg IVP DAILY [facility] Last Admin: 04/24/17 09:29 Dose: Not Given Ferric Sodium Gluconate Complex 125 mg/ Sodium Chloride 110 mls @ 110 mls/hr IVPB DAILY [facility] Stop: 04/29/17 10:01 Last Admin: 04/24/17 09:26 Dose: 110 mls/hr Metolazone (Zaroxolyn) 5 mg PO DAILY [facility] Last Admin: 04/24/17 09:26 Dose: 5 mg Sacubitril/Valsartan (Entresto 24 Mg-26 Mg) 1 tab PO BID [facility] Last Admin: 04/24/17 09:26 Dose: 1 tab Tiotropium [place] (Spiriva) 18 mcg INH RQ24 [facility] Last Admin: 04/23/17 08:04 Dose: Not Given - Labs Labs: 04/24/17 06:30 04/24/17 06:30 PT 106.0 SECONDS (9.7-12.2) H* D 04/24/17 06:30 INR 8.7 D 04/24/17 06:30 APTT 53 SECONDS (21-34) H D 04/24/17 06:30 - Constitutional Appears: Well - Head Exam Head Exam: ATRAUMATIC, NORMAL INSPECTION, NORMOCEPHALIC - Eye Exam Eye Exam: EOMI, Normal appearance, PERRL Pupil Exam: NORMAL ACCOMODATION, PERRL - ENT Exam ENT Exam: Mucous Membranes Moist, Normal Exam - Neck Exam Neck Exam: Full ROM, Normal Inspection. absent: Lymphadenopathy - Respiratory Exam Respiratory Exam: Decreased Breath Sounds - Cardiovascular Exam Cardiovascular Exam: REGULAR RHYTHM, +S1, +S2 - GI/Abdominal Exam GI & Abdominal Exam: Soft, Diminished Bowel Sounds - Rectal Exam Rectal Exam: Deferred
--- NOTE | 2017-04-24 18:44 | CP.PCM.PN ---
Subjective - Date & Time of Evaluation Date of Evaluation: 04/24/17 Time of Evaluation: 18:44 Objective - Vital Signs/Intake and Output Vital Signs (last 24 hours): Temp Pulse Resp BP Pulse Ox 97.5 F L 77 20 117/68 95 04/24/17 15:53 04/24/17 15:53 04/24/17 15:53 04/24/17 17:32 04/24/17 15:53 Intake and Output: 04/24/17 04/24/17 06:59 18:59 Intake Total 580 Output Total 275 200 Balance 305 -200 - Medications Medications: Current Medications Albuterol/Ipratropium (Duoneb 3 Mg/0.5 Mg (3 Ml) Ud) 3 ml INH RQ6 [facility] Last Admin: 04/24/17 01:37 Dose: Not Given Carvedilol (Coreg) 12.5 mg PO BID [facility] Last Admin: 04/24/17 17:32 Dose: 12.5 mg Clopidogrel Bisulfate (Plavix) 75 mg PO DAILY [facility] Last Admin: 04/24/17 09:26 Dose: 75 mg Furosemide (Lasix) 40 mg IVP DAILY [facility] Last Admin: 04/24/17 09:29 Dose: Not Given Ferric Sodium Gluconate Complex 125 mg/ Sodium Chloride 110 mls @ 110 mls/hr IVPB DAILY [facility] Stop: 04/29/17 10:01 Last Admin: 04/24/17 09:26 Dose: 110 mls/hr Metolazone (Zaroxolyn) 5 mg PO DAILY [facility] Last Admin: 04/24/17 09:26 Dose: 5 mg Sacubitril/Valsartan (Entresto 24 Mg-26 Mg) 1 tab PO BID [facility] Last Admin: 04/24/17 17:32 Dose: 1 tab Tiotropium [place] (Spiriva) 18 mcg INH RQ24 [facility] Last Admin: 04/23/17 08:04 Dose: Not Given - Labs Labs: 04/24/17 06:30 04/24/17 06:30 PT 106.0 SECONDS (9.7-12.2) H* D 04/24/17 06:30 INR 8.7 D 04/24/17 06:30 APTT 53 SECONDS (21-34) H D 04/24/17 06:30
[2017-04-25] MEDS: Albuterol-Ipratrop 3 mg / 0.5 (3 ml) UD INH SCH ×4 (02:15→20:30)
[2017-04-25 06:57] LABS: PROTHROMBIN TIME 83.8 SECONDS (9.7-12.2)
[2017-04-25 06:58] LABS: INR 6.9
[2017-04-25 07:12] LABS: HEMOGLOBIN 8.7 g/dL (12.0-18.0); MEAN CORPUSCULAR HEMOGLOBIN 24.8 pg (27.0-31.0); MEAN PLATELET VOLUME 7.7 fL (7.2-11.7); RBC 3.51 Mil/uL (4.40-5.90); RED CELL DISTRIBUTION WIDTH 21.2 % (11.5-14.5); WHITE BLOOD COUNT 4.7 K/uL (4.8-10.8)
[2017-04-25] MEDS: Tiotropium 18 mcg Cap For Inhalation INH SCH (07:21)
[2017-04-25] MEDS: Ferric Sodium Gluconat Complex 125 MG in Sodium Chloride 0.9% 100 ML IVPB SCH (10:36)
[2017-04-25] MEDS: Sacubitril/Valsartan 24-26mg Tab PO SCH ×2 (10:37→17:39)
[2017-04-25] MEDS: metOLazone 5 MG TAB PO SCH (10:37)
--- NOTE | 2017-04-25 13:14 | CP.PCM.CON ---
<Sanjana Zeng - Last Filed: 04/25/17 14:11> History of Present Illness - History of Present Illness History of Present Illness: PGY 3 Heme/Onc Consult for Dr. Rosita Oro Reason: coagulopathy 62 year old male with PMHx of CHF with EF of 10% s/p AICD, atrial fibrillation on coumadin, HTN, DM whom presented with chest pain and shortness of breath along with epistaxis, and was found to have INR of >10 with Hemoglobin of 8 in the ED (baseline 9-10), with positive stool occult blood. Patient was given FFP with some improvement in INR. However, INR continues to fluctuate. There is history of non compliance. PMHx: CHF, CAD, HTN, CKD, HLD Sx: cardiac cath and AICD device placement Allergies: NKDA Social: lives with sister who is recruiter manager. Smokes 2 cigarets a day for past 50 years. Denies alcohol use and drugs. Review of systems: All remaining review of systems including HEENT, cardiovascular, respiratory, gastrointestinal, genitourinary, musculoskeletal, dermatologic, neurologic, and psychiatric are negative unless mentioned in the HPI. Review of Systems - Constitutional Constitutional: absent: Chills, Fever - EENT Nose/Mouth/Throat: Epistaxis - Cardiovascular Cardiovascular: absent: Chest Pain, Dyspnea - Respiratory Respiratory: absent: Cough, Dyspnea, Hemoptysis - Gastrointestinal Gastrointestinal: absent: Abdominal Pain, Constipation, Diarrhea, Nausea, Vomiting - Genitourinary Genitourinary: absent: Change in Urinary Stream - Musculoskeletal Musculoskeletal: absent: Numbness, Tingling - Integumentary Integumentary: absent: Lesions - Neurological Neurological: absent: Dizziness, Numbness, Tingling, Weakness - Endocrine Endocrine: absent: Polyuria - Hematologic/Lymphatic Hematologic: Easy Bleeding Past Patient History - Infectious Disease Hx of Infectious Diseases: None - Past Medical History & Family History Past Medical History?: Yes - Past Social History Smoking Status: Light Smoker < 10 Cigarettes Daily - CARDIAC Hx Congestive Heart Failure: Yes Hx Hypercholesterolemia: Yes Hx Hypertension: Yes Hx Pacemaker: Yes - PULMONARY Hx Respiratory Disorders: No - NEUROLOGICAL Hx Neurological Disorder: No - HEENT Hx HEENT Problems: Yes Hx Epistaxis: Yes - RENAL Hx Chronic Kidney Disease: No - ENDOCRINE/METABOLIC Hx Endocrine Disorders: Yes Hx Diabetes Mellitus Type 2: Yes - HEMATOLOGICAL/ONCOLOGICAL Hx Blood Disorders: No - INTEGUMENTARY Hx Dermatological Problems: No - MUSCULOSKELETAL/RHEUMATOLOGICAL Hx Musculoskeletal Disorders: Yes Hx Falls: Yes - GASTROINTESTINAL Hx Gastrointestinal Disorders: No - GENITOURINARY/GYNECOLOGICAL Hx Genitourinary Disorders: No - PSYCHIATRIC Hx Substance Use: Yes (marijuana) - SURGICAL HISTORY Hx Surgeries: Yes Other/Comment: AICD to Left Chest Wall - ANESTHESIA Hx Anesthesia: Yes Hx Anesthesia Reactions: No Hx Malignant Hyperthermia: No Meds Allergies/Adverse Reactions: Allergies Allergy/AdvReac Type Severity Reaction Status Date / Time No Known Allergies Allergy Verified 03/16/17 14:28 - Medications Medications: Current Medications Albuterol/Ipratropium (Duoneb 3 Mg/0.5 Mg (3 Ml) Ud) 3 ml INH RQ6 [facility] Last Admin: 04/25/17 07:21 Dose: Not Given Carvedilol (Coreg) 12.5 mg PO BID [facility] Last Admin: 04/25/17 10:37 Dose: 12.5 mg Clopidogrel Bisulfate (Plavix) 75 mg PO DAILY [facility] Last Admin: 04/25/17 10:37 Dose: 75 mg Furosemide (Lasix) 40 mg IVP DAILY [facility] Last Admin: 04/25/17 10:39 Dose: 40 mg Ferric Sodium Gluconate Complex 125 mg/ Sodium Chloride 110 mls @ 110 mls/hr IVPB DAILY [facility] Stop: 04/29/17 10:01 Last Admin: 04/25/17 10:36 Dose: 110 mls/hr Metolazone (Zaroxolyn) 5 mg PO DAILY [facility] Last Admin: 04/25/17 10:37 Dose: 5 mg Sacubitril/Valsartan (Entresto 24 Mg-26 Mg) 1 tab PO BID [facility] Last Admin: 04/25/17 10:37 Dose: 1 tab Tiotropium [place] (Spiriva) 18 mcg INH RQ24 [facility] Last Admin: 04/25/17 07:21 Dose: Not Given Physical Exam - Constitutional Appears: Chronically Ill - Head Exam Head Exam: NORMAL INSPECTION, NORMOCEPHALIC - Eye Exam Eye Exam: EOMI, Normal appearance - ENT Exam ENT Exam: Mucous Membranes Moist - Respiratory Exam Respiratory Exam: Clear to Auscultation Bilateral - Cardiovascular Exam Cardiovascular Exam: REGULAR RHYTHM, +S1, +S2 - GI/Abdominal Exam GI & Abdominal Exam: Soft. absent: Distended, Tenderness - Extremities Exam Extremities exam: Positive for: full ROM - Back Exam Back exam: NORMAL INSPECTION - Neurological Exam Neurological exam: Alert, Oriented x3 - Psychiatric Exam Psychiatric exam: Normal Mood - Skin Skin Exam: Dry, Warm Results - Vital Signs Recent Vital Signs: Last Vital Signs Temp 99.7 F H 04/25/17 08:00 Pulse 72 04/25/17 08:42 Resp 20 04/25/17 08:00 BP 132/83 04/25/17 10:39 Pulse Ox 100 04/25/17 13:07 - Labs Result Diagrams: 04/25/17 06:25 04/24/17 06:30 Labs: Laboratory Results - last 24 hr 04/25/17 04/25/17 06:25 06:25 WBC 4.7 L RBC 3.51 L Hgb 8.7 L Hct 26.3 L MCV 75.0 L MCH 24.8 L MCHC 33.0 RDW 21.2 H Plt Count 328 MPV 7.7 PT 83.8 H* D INR 6.9 D Assessment & Plan (1) Coagulopathy Assessment and Plan: INR on admission>10. Went down to 2.4 after FFP, then up again. Today at 6.9. Patient with Coumadin toxicity, which was reversed. However, patient's INR continues to fluctuate likely secondary to nutritional coagulopathy. Patient encouraged to eat. Vitamin K 5 mg dose given this AM. Continue to monitor coags Status: Acute (2) Anemia Assessment and Plan: patient with borderline iron studies with positive stool OB. Continue on IV iron supplement Colonoscopy as outpatient Status: Acute - Assessment and Plan (Free Text) Assessment: Patient seen and examined during rounds with Dr. Oro. Recommendations above as per attending. Rebecca Zeng, PGY 3 <Ayush Oro - Last Filed: 04/25/17 22:36> Meds - Medications Medications: Current Medications Albuterol/Ipratropium (Duoneb 3 Mg/0.5 Mg (3 Ml) Ud) 3 ml INH RQ6 [facility] Last Admin: 04/25/17 20:30 Dose: Not Given Carvedilol (Coreg) 12.5 mg PO BID [facility] Last Admin: 04/25/17 19:00 Dose: Not Given Clopidogrel Bisulfate (Plavix) 75 mg PO DAILY [facility] Last Admin: 04/25/17 10:37 Dose: 75 mg Furosemide (Lasix) 40 mg IVP DAILY [facility] Last Admin: 04/25/17 10:39 Dose: 40 mg Ferric Sodium Gluconate Complex 125 mg/ Sodium Chloride 110 mls @ 110 mls/hr IVPB DAILY [facility] Stop: 04/29/17 10:01 Last Admin: 04/25/17 10:36 Dose: 110 mls/hr Metolazone (Zaroxolyn) 5 mg PO DAILY [facility] Last Admin: 04/25/17 10:37 Dose: 5 mg Sacubitril/Valsartan (Entresto 24 Mg-26 Mg) 1 tab PO BID [facility] Last Admin: 04/25/17 17:39 Dose: 1 tab Tiotropium [place] (Spiriva) 18 mcg INH RQ24 [facility] Last Admin: 04/25/17 07:21 Dose: Not Given Results - Vital Signs Recent Vital Signs: Last Vital Signs Temp 97.5 F L 04/25/17 16:46 Pulse 80 04/25/17 22:01 Resp 20 04/25/17 22:01 BP 99/61 L 04/25/17 22:01 Pulse Ox 98 04/25/17 16:46 - Labs Result Diagrams: 04/25/17 06:25 04/24/17 06:30 Labs: Laboratory Results - last 24 hr 04/25/17 04/25/17 06:25 06:25 WBC 4.7 L RBC 3.51 L Hgb 8.7 L Hct 26.3 L MCV 75.0 L MCH 24.8 L MCHC 33.0 RDW 21.2 H Plt Count 328 MPV 7.7 Neut % (Auto) 59.0 Lymph % (Auto) 28.0 [place] % (Auto) 11.0 H Eos % (Auto) 2.0 Baso % (Auto) 0.0 Neut # 2.8 Lymph # 1.3 [place] # 0.5 Eos # 0.1 Baso # 0.0 PT 83.8 H* D INR 6.9 D Assessment & Plan - Assessment and Plan (Free Text) Assessment: Pt seen and examined, agree with Dr. Zeng's consult. 62 year old male with multiple medical problems including cardiomyopathy s/p AICD on coumadin, admitted coumadin toxicity, anemia, with continued coagulopathy despite vit k and FFP. Coagulopathy is nutritional and will redose vit K 5mg PO today. Will consider IV vit K if coags do not stabilize. +FOBT and iron deficiency anemia of iron supplementation. Thank you for this interesting consult.
[2017-04-25 13:31] LABS: EOS # 0.1 K/uL (0.0-0.7); LYMPH # 1.3 K/uL (1.0-4.3); MONO # 0.5 K/uL (0.0-0.8); NEUT # 2.8 K/uL (1.8-7.0)
--- NOTE | 2017-04-25 15:19 | CP.PCM.PN ---
Subjective - Date & Time of Evaluation Date of Evaluation: 04/25/17 Time of Evaluation: 15:19 Objective - Vital Signs/Intake and Output Vital Signs (last 24 hours): Temp Pulse Resp BP Pulse Ox 99.7 F H 72 20 132/83 100 04/25/17 08:00 04/25/17 08:42 04/25/17 08:00 04/25/17 10:39 04/25/17 13:07 Intake and Output: 04/25/17 04/25/17 06:59 18:59 Intake Total 320 Output Total 400 Balance -80 - Medications Medications: Current Medications Albuterol/Ipratropium (Duoneb 3 Mg/0.5 Mg (3 Ml) Ud) 3 ml INH RQ6 [facility] Last Admin: 04/25/17 07:21 Dose: Not Given Carvedilol (Coreg) 12.5 mg PO BID [facility] Last Admin: 04/25/17 10:37 Dose: 12.5 mg Clopidogrel Bisulfate (Plavix) 75 mg PO DAILY [facility] Last Admin: 04/25/17 10:37 Dose: 75 mg Furosemide (Lasix) 40 mg IVP DAILY [facility] Last Admin: 04/25/17 10:39 Dose: 40 mg Ferric Sodium Gluconate Complex 125 mg/ Sodium Chloride 110 mls @ 110 mls/hr IVPB DAILY [facility] Stop: 04/29/17 10:01 Last Admin: 04/25/17 10:36 Dose: 110 mls/hr Metolazone (Zaroxolyn) 5 mg PO DAILY [facility] Last Admin: 04/25/17 10:37 Dose: 5 mg Sacubitril/Valsartan (Entresto 24 Mg-26 Mg) 1 tab PO BID [facility] Last Admin: 04/25/17 10:37 Dose: 1 tab Tiotropium [place] (Spiriva) 18 mcg INH RQ24 [facility] Last Admin: 04/25/17 07:21 Dose: Not Given - Labs Labs: 04/25/17 06:25 04/24/17 06:30 PT 83.8 SECONDS (9.7-12.2) H* D 04/25/17 06:25 INR 6.9 D 04/25/17 06:25 APTT 53 SECONDS (21-34) H D 04/24/17 06:30
--- NOTE | 2017-04-25 21:59 | CP.PCM.PN ---
Subjective - Date & Time of Evaluation Date of Evaluation: 04/25/17 Time of Evaluation: 09:40 - Subjective Subjective: clinically same Objective - Vital Signs/Intake and Output Vital Signs (last 24 hours): Temp Pulse Resp BP Pulse Ox 97.5 F L 69 20 92/60 L 98 04/25/17 16:46 04/25/17 16:46 04/25/17 16:46 04/25/17 16:46 04/25/17 16:46 - Medications Medications: Current Medications Albuterol/Ipratropium (Duoneb 3 Mg/0.5 Mg (3 Ml) Ud) 3 ml INH RQ6 [facility] Last Admin: 04/25/17 20:30 Dose: Not Given Carvedilol (Coreg) 12.5 mg PO BID [facility] Last Admin: 04/25/17 10:37 Dose: 12.5 mg Clopidogrel Bisulfate (Plavix) 75 mg PO DAILY [facility] Last Admin: 04/25/17 10:37 Dose: 75 mg Furosemide (Lasix) 40 mg IVP DAILY [facility] Last Admin: 04/25/17 10:39 Dose: 40 mg Ferric Sodium Gluconate Complex 125 mg/ Sodium Chloride 110 mls @ 110 mls/hr IVPB DAILY [facility] Stop: 04/29/17 10:01 Last Admin: 04/25/17 10:36 Dose: 110 mls/hr Metolazone (Zaroxolyn) 5 mg PO DAILY [facility] Last Admin: 04/25/17 10:37 Dose: 5 mg Sacubitril/Valsartan (Entresto 24 Mg-26 Mg) 1 tab PO BID [facility] Last Admin: 04/25/17 17:39 Dose: 1 tab Tiotropium [place] (Spiriva) 18 mcg INH RQ24 [facility] Last Admin: 04/25/17 07:21 Dose: Not Given - Labs Labs: 04/25/17 06:25 04/24/17 06:30 PT 83.8 SECONDS (9.7-12.2) H* D 04/25/17 06:25 INR 6.9 D 04/25/17 06:25 APTT 53 SECONDS (21-34) H D 04/24/17 06:30
[2017-04-26] MEDS: Albuterol-Ipratrop 3 mg / 0.5 (3 ml) UD INH SCH ×4 (01:54→19:18)
[2017-04-26 06:37] LABS: INR 3.8
[2017-04-26 06:43] LABS: PROTHROMBIN TIME 44.6 SECONDS (9.7-12.2)
[2017-04-26] MEDS: Tiotropium 18 mcg Cap For Inhalation INH SCH (07:37)
[2017-04-26] MEDS: metOLazone 5 MG TAB PO SCH (09:18)
[2017-04-26] MEDS: Sacubitril/Valsartan 24-26mg Tab PO SCH ×2 (09:18→18:13)
[2017-04-26] MEDS: Ferric Sodium Gluconat Complex 125 MG in Sodium Chloride 0.9% 100 ML IVPB SCH (10:25)
--- NOTE | 2017-04-26 12:21 | CP.PCM.PN ---
Subjective - Date & Time of Evaluation Date of Evaluation: 04/26/17 Time of Evaluation: 12:21 Objective - Vital Signs/Intake and Output Vital Signs (last 24 hours): Temp Pulse Resp BP Pulse Ox 97.7 F 77 20 158/85 H 97 04/26/17 07:00 04/26/17 07:00 04/26/17 07:00 04/26/17 09:19 04/26/17 07:00 Intake and Output: 04/26/17 04/26/17 06:59 18:59 Intake Total 600 Output Total 650 Balance -50 - Medications Medications: Current Medications Albuterol/Ipratropium (Duoneb 3 Mg/0.5 Mg (3 Ml) Ud) 3 ml INH RQ6 [facility] Last Admin: 04/26/17 07:37 Dose: Not Given Carvedilol (Coreg) 12.5 mg PO BID [facility] Last Admin: 04/26/17 09:17 Dose: 12.5 mg Clopidogrel Bisulfate (Plavix) 75 mg PO DAILY [facility] Last Admin: 04/26/17 09:18 Dose: 75 mg Furosemide (Lasix) 40 mg IVP DAILY [facility] Last Admin: 04/26/17 09:19 Dose: 40 mg Ferric Sodium Gluconate Complex 125 mg/ Sodium Chloride 110 mls @ 110 mls/hr IVPB DAILY [facility] Stop: 04/29/17 10:01 Last Admin: 04/26/17 10:25 Dose: 110 mls/hr Metolazone (Zaroxolyn) 5 mg PO DAILY [facility] Last Admin: 04/26/17 09:18 Dose: 5 mg Sacubitril/Valsartan (Entresto 24 Mg-26 Mg) 1 tab PO BID [facility] Last Admin: 04/26/17 09:18 Dose: 1 tab Tiotropium [place] (Spiriva) 18 mcg INH RQ24 [facility] Last Admin: 04/26/17 07:37 Dose: Not Given - Labs Labs: 04/25/17 06:25 04/24/17 06:30 PT 44.6 SECONDS (9.7-12.2) H* D 04/26/17 06:21 INR 3.8 D 04/26/17 06:21 APTT 54 SECONDS (21-34) H 04/26/17 06:21
--- NOTE | 2017-04-26 15:02 | CP.PCM.PN ---
Subjective - Date & Time of Evaluation Date of Evaluation: 04/26/17 Time of Evaluation: 10:20 - Subjective Subjective: clinically same Objective - Vital Signs/Intake and Output Vital Signs (last 24 hours): Temp Pulse Resp BP Pulse Ox 97.7 F 77 20 158/85 H 97 04/26/17 07:00 04/26/17 07:00 04/26/17 07:00 04/26/17 09:19 04/26/17 07:00 Intake and Output: 04/26/17 04/26/17 06:59 18:59 Intake Total 600 Output Total 650 Balance -50 - Medications Medications: Current Medications Albuterol/Ipratropium (Duoneb 3 Mg/0.5 Mg (3 Ml) Ud) 3 ml INH RQ6 [facility] Last Admin: 04/26/17 13:30 Dose: Not Given Carvedilol (Coreg) 12.5 mg PO BID [facility] Last Admin: 04/26/17 09:17 Dose: 12.5 mg Clopidogrel Bisulfate (Plavix) 75 mg PO DAILY [facility] Last Admin: 04/26/17 09:18 Dose: 75 mg Furosemide (Lasix) 40 mg IVP DAILY [facility] Last Admin: 04/26/17 09:19 Dose: 40 mg Ferric Sodium Gluconate Complex 125 mg/ Sodium Chloride 110 mls @ 110 mls/hr IVPB DAILY [facility] Stop: 04/29/17 10:01 Last Admin: 04/26/17 10:25 Dose: 110 mls/hr Metolazone (Zaroxolyn) 5 mg PO DAILY [facility] Last Admin: 04/26/17 09:18 Dose: 5 mg Sacubitril/Valsartan (Entresto 24 Mg-26 Mg) 1 tab PO BID [facility] Last Admin: 04/26/17 09:18 Dose: 1 tab Tiotropium [place] (Spiriva) 18 mcg INH RQ24 [facility] Last Admin: 04/26/17 07:37 Dose: Not Given - Labs Labs: 04/25/17 06:25 04/24/17 06:30 PT 44.6 SECONDS (9.7-12.2) H* D 04/26/17 06:21 INR 3.8 D 04/26/17 06:21 APTT 54 SECONDS (21-34) H 04/26/17 06:21 - Constitutional Appears: Well - Head Exam Head Exam: ATRAUMATIC, NORMAL INSPECTION, NORMOCEPHALIC - Eye Exam Eye Exam: EOMI, Normal appearance, PERRL Pupil Exam: NORMAL ACCOMODATION, PERRL - ENT Exam ENT Exam: Mucous Membranes Moist, Normal Exam - Neck Exam Neck Exam: Full ROM, Normal Inspection. absent: Lymphadenopathy - Respiratory Exam Respiratory Exam: Decreased Breath Sounds - Cardiovascular Exam Cardiovascular Exam: REGULAR RHYTHM, +S1, +S2 - GI/Abdominal Exam GI & Abdominal Exam: Soft, Diminished Bowel Sounds - Rectal Exam Rectal Exam: Deferred
[2017-04-27 07:52] LABS: HEMOGLOBIN 8.8 g/dL (12.0-18.0); MEAN CELL VOLUME 75.8 fL (80.0-94.0); MEAN CORPUSCULAR HGB CONC 31.7 g/dL (33.0-37.0); MEAN PLATELET VOLUME 7.9 fL (7.2-11.7); RBC 3.66 Mil/uL (4.40-5.90); WHITE BLOOD COUNT 5.2 K/uL (4.8-10.8)
[2017-04-27 07:57] LABS: INR 4.6
[2017-04-27] MEDS: Tiotropium 18 mcg Cap For Inhalation INH SCH (08:10)
[2017-04-27 08:26] LABS: PROTHROMBIN TIME 54.3 SECONDS (9.7-12.2)
[2017-04-27 08:28] LABS: ALB/GLOB RATIO 0.8 (1.0-2.1); ALBUMIN 2.8 g/dL (3.5-5.0); ALT/SGPT 22 U/L (21-72); AST/SGOT 35 U/L (17-59); BLOOD UREA NITROGEN 21 mg/dL (9-20); CALCIUM 8.4 mg/dl (8.6-10.4); GFR AFRICAN-AMERICAN > 60; GFR NON-AFRICAN AMERICAN > 60
[2017-04-27] MEDS: Ferric Sodium Gluconat Complex 125 MG in Sodium Chloride 0.9% 100 ML IVPB SCH (10:00)
[2017-04-27] MEDS: metOLazone 5 MG TAB PO SCH (10:04)
[2017-04-27] MEDS: Sacubitril/Valsartan 24-26mg Tab PO SCH ×2 (10:06→17:12)
[2017-04-27 11:49] LABS: LYMPH # 1.6 K/uL (1.0-4.3); NEUT # 2.7 K/uL (1.8-7.0)
[2017-04-27 11:50] LABS: EOS # 0.1 K/uL (0.0-0.7); MONO # 0.8 K/uL (0.0-0.8)
--- NOTE | 2017-04-27 18:01 | CP.PCM.PN ---
Subjective - Date & Time of Evaluation Date of Evaluation: 04/27/17 Time of Evaluation: 11:00 - Subjective Subjective: clinically same Objective - Vital Signs/Intake and Output Vital Signs (last 24 hours): Temp Pulse Resp BP Pulse Ox 98.6 F 78 20 122/74 98 04/27/17 15:00 04/27/17 15:00 04/27/17 15:00 04/27/17 17:12 04/27/17 15:00 Intake and Output: 04/27/17 04/27/17 06:59 18:59 Intake Total 370 Output Total 200 Balance 170 - Medications Medications: Current Medications Carvedilol (Coreg) 12.5 mg PO BID [facility] Last Admin: 04/27/17 17:12 Dose: 12.5 mg Clopidogrel Bisulfate (Plavix) 75 mg PO DAILY [facility] Last Admin: 04/27/17 10:04 Dose: 75 mg Furosemide (Lasix) 40 mg IVP DAILY [facility] Last Admin: 04/27/17 10:04 Dose: 40 mg Ferric Sodium Gluconate Complex 125 mg/ Sodium Chloride 110 mls @ 110 mls/hr IVPB DAILY [facility] Stop: 04/29/17 10:01 Last Admin: 04/27/17 10:00 Dose: 110 mls/hr Metolazone (Zaroxolyn) 5 mg PO DAILY [facility] Last Admin: 04/27/17 10:04 Dose: 5 mg Sacubitril/Valsartan (Entresto 24 Mg-26 Mg) 1 tab PO BID [facility] Last Admin: 04/27/17 17:12 Dose: 1 tab Tiotropium [place] (Spiriva) 18 mcg INH RQ24 [facility] Last Admin: 04/27/17 08:10 Dose: Not Given - Labs Labs: 04/27/17 07:45 04/27/17 07:45 PT 54.3 SECONDS (9.7-12.2) H* D 04/27/17 07:45 INR 4.6 04/27/17 07:45 APTT 54 SECONDS (21-34) H 04/26/17 06:21 - Constitutional Appears: Well - Head Exam Head Exam: ATRAUMATIC, NORMAL INSPECTION, NORMOCEPHALIC - Eye Exam Eye Exam: EOMI, Normal appearance, PERRL Pupil Exam: NORMAL ACCOMODATION, PERRL - ENT Exam ENT Exam: Mucous Membranes Moist, Normal Exam - Neck Exam Neck Exam: Full ROM, Normal Inspection. absent: Lymphadenopathy - Respiratory Exam Respiratory Exam: Decreased Breath Sounds - Cardiovascular Exam Cardiovascular Exam: REGULAR RHYTHM, +S1, +S2 - GI/Abdominal Exam GI & Abdominal Exam: Soft, Diminished Bowel Sounds - Rectal Exam Rectal Exam: Deferred
--- NOTE | 2017-04-27 19:00 | CP.PCM.PN ---
Subjective - Date & Time of Evaluation Date of Evaluation: 04/27/17 Time of Evaluation: 18:59 Objective - Vital Signs/Intake and Output Vital Signs (last 24 hours): Temp Pulse Resp BP Pulse Ox 98.6 F 78 20 122/74 98 04/27/17 15:00 04/27/17 15:00 04/27/17 15:00 04/27/17 17:12 04/27/17 15:00 Intake and Output: 04/27/17 04/27/17 06:59 18:59 Intake Total 370 Output Total 200 Balance 170 - Medications Medications: Current Medications Carvedilol (Coreg) 12.5 mg PO BID [facility] Last Admin: 04/27/17 17:12 Dose: 12.5 mg Clopidogrel Bisulfate (Plavix) 75 mg PO DAILY [facility] Last Admin: 04/27/17 10:04 Dose: 75 mg Furosemide (Lasix) 40 mg IVP DAILY [facility] Last Admin: 04/27/17 10:04 Dose: 40 mg Ferric Sodium Gluconate Complex 125 mg/ Sodium Chloride 110 mls @ 110 mls/hr IVPB DAILY [facility] Stop: 04/29/17 10:01 Last Admin: 04/27/17 10:00 Dose: 110 mls/hr Metolazone (Zaroxolyn) 5 mg PO DAILY [facility] Last Admin: 04/27/17 10:04 Dose: 5 mg Sacubitril/Valsartan (Entresto 24 Mg-26 Mg) 1 tab PO BID [facility] Last Admin: 04/27/17 17:12 Dose: 1 tab Tiotropium [place] (Spiriva) 18 mcg INH RQ24 [facility] Last Admin: 04/27/17 08:10 Dose: Not Given - Labs Labs: 04/27/17 07:45 04/27/17 07:45 PT 54.3 SECONDS (9.7-12.2) H* D 04/27/17 07:45 INR 4.6 04/27/17 07:45 APTT 54 SECONDS (21-34) H 04/26/17 06:21
[2017-04-28 06:39] LABS: INR 6.7
[2017-04-28 06:44] LABS: PROTHROMBIN TIME 80.7 SECONDS (9.7-12.2)
[2017-04-28 07:01] LABS: MEAN CELL VOLUME 76.9 fL (80.0-94.0); MEAN CORPUSCULAR HEMOGLOBIN 24.5 pg (27.0-31.0); MEAN CORPUSCULAR HGB CONC 31.8 g/dL (33.0-37.0); MEAN PLATELET VOLUME 7.8 fL (7.2-11.7); RBC 3.69 Mil/uL (4.40-5.90); RED CELL DISTRIBUTION WIDTH 21.3 % (11.5-14.5); WHITE BLOOD COUNT 5.8 K/uL (4.8-10.8)
[2017-04-28 07:59] LABS: ALB/GLOB RATIO 0.8 (1.0-2.1); ALBUMIN 3.2 g/dL (3.5-5.0); ALT/SGPT 18 U/L (21-72); AST/SGOT 26 U/L (17-59); BLOOD UREA NITROGEN 22 mg/dL (9-20); CALCIUM 8.7 mg/dl (8.6-10.4); GFR AFRICAN-AMERICAN > 60; GFR NON-AFRICAN AMERICAN 51
[2017-04-28] MEDS: Tiotropium 18 mcg Cap For Inhalation INH SCH (08:03)
[2017-04-28 09:32] LABS: BASO # 0.1 K/uL (0.0-0.2); EOS # 0.2 K/uL (0.0-0.7); LYMPH # 2.2 K/uL (1.0-4.3); MONO # 0.6 K/uL (0.0-0.8); NEUT # 2.7 K/uL (1.8-7.0)
--- NOTE | 2017-04-28 10:54 | CP.PCM.PN ---
Subjective - Date & Time of Evaluation Date of Evaluation: 04/28/17 Time of Evaluation: 11:31 - Subjective Subjective: PGY 2 - Medicine Progress Note- Dr. Vanegas's service Patient seen and examined in no apparent distress. Patient has no acute complaints at this time. No apparent signs of lightheadedness, hematemesis, hematuria or hematochezia at this time. Objective - Vital Signs/Intake and Output Vital Signs (last 24 hours): Temp Pulse Resp BP Pulse Ox 98.1 F 73 18 108/73 96 04/28/17 07:00 04/28/17 07:00 04/28/17 07:00 04/28/17 07:00 04/28/17 07:00 Intake and Output: 04/28/17 04/28/17 06:59 18:59 Intake Total 100 Balance 100 - Medications Medications: Current Medications Carvedilol (Coreg) 12.5 mg PO BID [facility] Last Admin: 04/27/17 17:12 Dose: 12.5 mg Clopidogrel Bisulfate (Plavix) 75 mg PO DAILY [facility] Last Admin: 04/27/17 10:04 Dose: 75 mg Furosemide (Lasix) 40 mg IVP DAILY [facility] Last Admin: 04/27/17 10:04 Dose: 40 mg Ferric Sodium Gluconate Complex 125 mg/ Sodium Chloride 110 mls @ 110 mls/hr IVPB DAILY [facility] Stop: 04/29/17 10:01 Last Admin: 04/27/17 10:00 Dose: 110 mls/hr Metolazone (Zaroxolyn) 5 mg PO DAILY [facility] Last Admin: 04/27/17 10:04 Dose: 5 mg Sacubitril/Valsartan (Entresto 24 Mg-26 Mg) 1 tab PO BID [facility] Last Admin: 04/27/17 17:12 Dose: 1 tab Tiotropium [place] (Spiriva) 18 mcg INH RQ24 [facility] Last Admin: 04/28/17 08:03 Dose: Not Given - Labs Labs: 04/28/17 06:27 04/28/17 06:27 PT 80.7 SECONDS (9.7-12.2) H* D 04/28/17 06:27 INR 6.7 D 04/28/17 06:27 APTT 54 SECONDS (21-34) H 04/26/17 06:21 - Constitutional Appears: Non-toxic, No Acute Distress - Head Exam Head Exam: ATRAUMATIC - Eye Exam Eye Exam: EOMI, Normal appearance, PERRL Pupil Exam: NORMAL ACCOMODATION - ENT Exam ENT Exam: Mucous Membranes Moist - Neck Exam Neck Exam: Full ROM - Respiratory Exam Respiratory Exam: NORMAL BREATHING PATTERN. absent: Wheezes - Cardiovascular Exam Cardiovascular Exam: +S1, +S2 - Extremities Exam Extremities Exam: Full ROM, Normal Capillary Refill - Neurological Exam Neurological Exam: Alert, Awake - Psychiatric Exam Psychiatric exam: Normal Affect, Normal Mood - Skin Skin Exam: Dry, Intact, Normal Color, Warm Assessment and Plan - Assessment and Plan (Free Text) Assessment: Dilated Cardiomyopathy s/p AICD. On Coreg, Lasix, Metolazone, Entresto at this time Echo in 11/2016: EF ~ 10%. Severe ischemic cardiomyopathy. Mild pulmonic valvular regurgitation Dr. Salazar on the case. F/U recommendations Continue to monitor Elevated INR Labile Today it is elevated at 6.7. Vitamin K administered. F/U INR in the AM Hold Coumadin. F/U recommendations per Dr. Oro Anemia Continue on IV iron supplement Colonoscopy as outpatient per GI recommendations Prophylactic measure Contraindications for chemical DVT prophylaxis at this time No GI prophylaxis indicated at this time Discussed with attending. All management and planning per Dr. Vanegas.
[2017-04-28] MEDS: metOLazone 5 MG TAB PO SCH (10:55)
[2017-04-28] MEDS: Sacubitril/Valsartan 24-26mg Tab PO SCH ×2 (10:56→17:59)
[2017-04-28] MEDS: Ferric Sodium Gluconat Complex 125 MG in Sodium Chloride 0.9% 100 ML IVPB SCH (11:22)
[2017-04-28 16:00] VITALS: RESP 20
--- NOTE | 2017-04-28 18:44 | CP.PCM.PN ---
Subjective - Date & Time of Evaluation Date of Evaluation: 04/28/17 Time of Evaluation: 18:44 Objective - Vital Signs/Intake and Output Vital Signs (last 24 hours): Temp Pulse Resp BP Pulse Ox 98 F 67 20 101/63 99 04/28/17 16:00 04/28/17 16:00 04/28/17 16:00 04/28/17 16:00 04/28/17 16:00 Intake and Output: 04/28/17 04/28/17 06:59 18:59 Intake Total 100 Balance 100 - Medications Medications: Current Medications Carvedilol (Coreg) 12.5 mg PO BID [facility] Last Admin: 04/28/17 10:55 Dose: 12.5 mg Clopidogrel Bisulfate (Plavix) 75 mg PO DAILY [facility] Last Admin: 04/28/17 10:55 Dose: 75 mg Furosemide (Lasix) 40 mg IVP DAILY [facility] Last Admin: 04/28/17 10:55 Dose: 40 mg Ferric Sodium Gluconate Complex 125 mg/ Sodium Chloride 110 mls @ 110 mls/hr IVPB DAILY [facility] Stop: 04/29/17 10:01 Last Admin: 04/28/17 11:22 Dose: 110 mls/hr Metolazone (Zaroxolyn) 5 mg PO DAILY [facility] Last Admin: 04/28/17 10:55 Dose: 5 mg Sacubitril/Valsartan (Entresto 24 Mg-26 Mg) 1 tab PO BID [facility] Last Admin: 04/28/17 17:59 Dose: 1 tab Tiotropium [place] (Spiriva) 18 mcg INH RQ24 [facility] Last Admin: 04/28/17 08:03 Dose: Not Given - Labs Labs: 04/28/17 06:27 04/28/17 06:27 PT 80.7 SECONDS (9.7-12.2) H* D 04/28/17 06:27 INR 6.7 D 04/28/17 06:27 APTT 54 SECONDS (21-34) H 04/26/17 06:21
--- NOTE | 2017-04-28 19:50 | CP.PCM.PN ---
Subjective - Date & Time of Evaluation Date of Evaluation: 04/28/17 Time of Evaluation: 10:00 - Subjective Subjective: clinically same Objective - Vital Signs/Intake and Output Vital Signs (last 24 hours): Temp Pulse Resp BP Pulse Ox 98 F 67 20 101/63 99 04/28/17 16:00 04/28/17 16:00 04/28/17 16:00 04/28/17 16:00 04/28/17 16:00 - Medications Medications: Current Medications Carvedilol (Coreg) 12.5 mg PO BID [facility] Last Admin: 04/28/17 10:55 Dose: 12.5 mg Clopidogrel Bisulfate (Plavix) 75 mg PO DAILY [facility] Last Admin: 04/28/17 10:55 Dose: 75 mg Furosemide (Lasix) 40 mg IVP DAILY [facility] Last Admin: 04/28/17 10:55 Dose: 40 mg Ferric Sodium Gluconate Complex 125 mg/ Sodium Chloride 110 mls @ 110 mls/hr IVPB DAILY [facility] Stop: 04/29/17 10:01 Last Admin: 04/28/17 11:22 Dose: 110 mls/hr Metolazone (Zaroxolyn) 5 mg PO DAILY [facility] Last Admin: 04/28/17 10:55 Dose: 5 mg Sacubitril/Valsartan (Entresto 24 Mg-26 Mg) 1 tab PO BID [facility] Last Admin: 04/28/17 17:59 Dose: 1 tab Tiotropium [place] (Spiriva) 18 mcg INH RQ24 [facility] Last Admin: 04/28/17 08:03 Dose: Not Given - Labs Labs: 04/28/17 06:27 04/28/17 06:27 PT 80.7 SECONDS (9.7-12.2) H* D 04/28/17 06:27 INR 6.7 D 04/28/17 06:27 APTT 54 SECONDS (21-34) H 04/26/17 06:21 - Constitutional Appears: Well - Head Exam Head Exam: ATRAUMATIC, NORMAL INSPECTION, NORMOCEPHALIC - Eye Exam Eye Exam: EOMI, Normal appearance, PERRL Pupil Exam: NORMAL ACCOMODATION, PERRL - ENT Exam ENT Exam: Mucous Membranes Moist, Normal Exam - Neck Exam Neck Exam: Full ROM, Normal Inspection. absent: Lymphadenopathy - Respiratory Exam Respiratory Exam: Decreased Breath Sounds - Cardiovascular Exam Cardiovascular Exam: REGULAR RHYTHM, +S1, +S2 - GI/Abdominal Exam GI & Abdominal Exam: Soft, Diminished Bowel Sounds - Rectal Exam Rectal Exam: Deferred
--- NOTE | 2017-04-28 22:04 | CP.PCM.PN ---
Subjective - Date & Time of Evaluation Date of Evaluation: 04/26/17 Time of Evaluation: 16:30 - Subjective Subjective: No complaints. Objective - Vital Signs/Intake and Output Vital Signs (last 24 hours): Temp Pulse Resp BP Pulse Ox 98 F 67 20 101/63 99 04/28/17 16:00 04/28/17 16:00 04/28/17 16:00 04/28/17 16:00 04/28/17 16:00 - Medications Medications: Current Medications Carvedilol (Coreg) 12.5 mg PO BID [facility] Last Admin: 04/28/17 10:55 Dose: 12.5 mg Clopidogrel Bisulfate (Plavix) 75 mg PO DAILY [facility] Last Admin: 04/28/17 10:55 Dose: 75 mg Furosemide (Lasix) 40 mg IVP DAILY [facility] Last Admin: 04/28/17 10:55 Dose: 40 mg Ferric Sodium Gluconate Complex 125 mg/ Sodium Chloride 110 mls @ 110 mls/hr IVPB DAILY [facility] Stop: 04/29/17 10:01 Last Admin: 04/28/17 11:22 Dose: 110 mls/hr Metolazone (Zaroxolyn) 5 mg PO DAILY [facility] Last Admin: 04/28/17 10:55 Dose: 5 mg Sacubitril/Valsartan (Entresto 24 Mg-26 Mg) 1 tab PO BID [facility] Last Admin: 04/28/17 17:59 Dose: 1 tab Tiotropium [place] (Spiriva) 18 mcg INH RQ24 [facility] Last Admin: 04/28/17 08:03 Dose: Not Given - Labs Labs: 04/28/17 06:27 04/28/17 06:27 PT 80.7 SECONDS (9.7-12.2) H* D 04/28/17 06:27 INR 6.7 D 04/28/17 06:27 APTT 54 SECONDS (21-34) H 04/26/17 06:21 - Head Exam Head Exam: ATRAUMATIC - Eye Exam Eye Exam: Normal appearance - ENT Exam ENT Exam: Mucous Membranes Dry - Respiratory Exam Respiratory Exam: NORMAL BREATHING PATTERN - Cardiovascular Exam Cardiovascular Exam: +S1, +S2 - GI/Abdominal Exam GI & Abdominal Exam: Normal Bowel Sounds Assessment and Plan (1) Coagulopathy Assessment & Plan: nutritional pt unlikely eating nutrition consult improved after vit k supplementation Status: Acute (2) Anemia Assessment & Plan: FOBT positive iron deficiency on PO supplementation Status: Acute
--- NOTE | 2017-04-28 22:15 | CP.PCM.PN ---
Subjective - Date & Time of Evaluation Date of Evaluation: 04/26/17 Time of Evaluation: 21:00 - Subjective Subjective: No complaints Objective - Vital Signs/Intake and Output Vital Signs (last 24 hours): Temp Pulse Resp BP Pulse Ox 98 F 67 20 101/63 99 04/28/17 16:00 04/28/17 16:00 04/28/17 16:00 04/28/17 16:00 04/28/17 16:00 - Medications Medications: Current Medications Carvedilol (Coreg) 12.5 mg PO BID [facility] Last Admin: 04/28/17 10:55 Dose: 12.5 mg Clopidogrel Bisulfate (Plavix) 75 mg PO DAILY [facility] Last Admin: 04/28/17 10:55 Dose: 75 mg Furosemide (Lasix) 40 mg IVP DAILY [facility] Last Admin: 04/28/17 10:55 Dose: 40 mg Ferric Sodium Gluconate Complex 125 mg/ Sodium Chloride 110 mls @ 110 mls/hr IVPB DAILY [facility] Stop: 04/29/17 10:01 Last Admin: 04/28/17 11:22 Dose: 110 mls/hr Metolazone (Zaroxolyn) 5 mg PO DAILY [facility] Last Admin: 04/28/17 10:55 Dose: 5 mg Sacubitril/Valsartan (Entresto 24 Mg-26 Mg) 1 tab PO BID [facility] Last Admin: 04/28/17 17:59 Dose: 1 tab Tiotropium [place] (Spiriva) 18 mcg INH RQ24 [facility] Last Admin: 04/28/17 08:03 Dose: Not Given - Labs Labs: 04/28/17 06:27 04/28/17 06:27 PT 80.7 SECONDS (9.7-12.2) H* D 04/28/17 06:27 INR 6.7 D 04/28/17 06:27 APTT 54 SECONDS (21-34) H 04/26/17 06:21 - Head Exam Head Exam: ATRAUMATIC - Eye Exam Eye Exam: Normal appearance - ENT Exam ENT Exam: Mucous Membranes Dry - Respiratory Exam Respiratory Exam: NORMAL BREATHING PATTERN - Cardiovascular Exam Cardiovascular Exam: +S1, +S2 - GI/Abdominal Exam GI & Abdominal Exam: Normal Bowel Sounds Assessment and Plan (1) Coagulopathy Assessment & Plan: nutritional s/p vit k Status: Acute (2) Anemia Assessment & Plan: chronic disease iron deficiency on supplementation Status: Acute
[2017-04-29 06:56] LABS: INR 2.9
[2017-04-29 06:58] LABS: ALB/GLOB RATIO 0.8 (1.0-2.1); ALT/SGPT 16 U/L (21-72); AST/SGOT 25 U/L (17-59); BLOOD UREA NITROGEN 24 mg/dL (9-20); CALCIUM 8.6 mg/dl (8.6-10.4); GFR AFRICAN-AMERICAN > 60; GFR NON-AFRICAN AMERICAN 51; MAGNESIUM 1.7 mg/dL (1.6-2.3)
[2017-04-29 07:02] LABS: HEMOGLOBIN 8.8 g/dL (12.0-18.0); MEAN CELL VOLUME 76.6 fL (80.0-94.0); MEAN CORPUSCULAR HEMOGLOBIN 24.9 pg (27.0-31.0); MEAN CORPUSCULAR HGB CONC 32.5 g/dL (33.0-37.0); PLATELET COUNT 314 K/uL (130-400); RBC 3.54 Mil/uL (4.40-5.90); RED CELL DISTRIBUTION WIDTH 21.5 % (11.5-14.5); WHITE BLOOD COUNT 5.2 K/uL (4.8-10.8)
[2017-04-29 07:09] LABS: PROTHROMBIN TIME 34.1 SECONDS (9.7-12.2)
[2017-04-29] MEDS: Tiotropium 18 mcg Cap For Inhalation INH SCH (08:18)
[2017-04-29] MEDS: Sacubitril/Valsartan 24-26mg Tab PO SCH ×2 (10:33→18:24)
[2017-04-29] MEDS: metOLazone 5 MG TAB PO SCH (10:33)
[2017-04-29 10:56] LABS: LYMPH # 1.7 K/uL (1.0-4.3); NEUT # 2.4 K/uL (1.8-7.0)
[2017-04-29 10:57] LABS: EOS # 0.1 K/uL (0.0-0.7); MONO # 1.1 K/uL (0.0-0.8)
[2017-04-29 10:58] LABS: EOSINOPHIL 1 % (0-4); LYMPHOCYTE 30 % (20-40); MONOCYTE 23 % (0-10); NEUTROPHIL 46 % (50-75); TOTAL CELLS COUNTED 100
[2017-04-29 10:59] LABS: ANISOCYTOSIS SLIGHT; HYPOCHROMIC SLIGHT; MICROCYTOSIS SLIGHT; PLATELET ESTIMATE NORMAL (NORMAL); POLYCHROMIC SLIGHT
[2017-04-29 11:00] LABS: TARGET CELLS MODERATE; TEARDROP CELLS SLIGHT
[2017-04-29] MEDS: Ferric Sodium Gluconat Complex 125 MG in Sodium Chloride 0.9% 100 ML IVPB SCH (11:22)
--- NOTE | 2017-04-29 15:07 | PCM.HF ---
Heart Failure Core Measure - Heart Failure Ejection Fraction: Less Than 40 % ESTHER Inhibitor Prescribed: Yes Beta-Armando Prescribed: Carvedilol Angiotensin II Receptor Armando Prescribed: Yes AnticoagulationTherapy for Atrial Fibrillation/Atrialflutter: Yes Aldosterone Antagonist Prescribed: No Contraindication/Reason for not providing: pt on lasix and zeroxylyn Hydralazine Nitrate Prescribed: No Contraindication/Reason for not providing: bp running low Implantable Cardioverter Defibrillator Therapy: No Contraindication/Reason for not providing: pt has AICD Cardiac Resynchronization Therapy Prescribed: No Contraindication/Reason for not providing: pt has aicd - Follow up Will be discharged to: [facility] ([facility]) Follow Up Date (must be within 7 days from discharge): 05/02/17 Follow Up Time: 09:00
--- NOTE | 2017-04-29 17:11 | CP.PCM.PN ---
Subjective - Date & Time of Evaluation Date of Evaluation: 04/29/17 Time of Evaluation: 11:40 - Subjective Subjective: clinically same Objective - Vital Signs/Intake and Output Vital Signs (last 24 hours): Temp Pulse Resp BP Pulse Ox 97.3 F L 72 20 106/74 96 04/29/17 15:57 04/29/17 15:57 04/29/17 15:57 04/29/17 15:57 04/29/17 15:57 Intake and Output: 04/29/17 04/29/17 06:59 18:59 Intake Total 540 Output Total 675 Balance -135 - Medications Medications: Current Medications Carvedilol (Coreg) 12.5 mg PO BID [facility] Last Admin: 04/29/17 10:33 Dose: 12.5 mg Clopidogrel Bisulfate (Plavix) 75 mg PO DAILY [facility] Last Admin: 04/29/17 10:33 Dose: 75 mg Furosemide (Lasix) 40 mg IVP DAILY [facility] Last Admin: 04/29/17 10:33 Dose: 40 mg Metolazone (Zaroxolyn) 5 mg PO DAILY [facility] Last Admin: 04/29/17 10:33 Dose: 5 mg Sacubitril/Valsartan (Entresto 24 Mg-26 Mg) 1 tab PO BID [facility] Last Admin: 04/29/17 10:33 Dose: 1 tab Tiotropium [place] (Spiriva) 18 mcg INH RQ24 [facility] Last Admin: 04/29/17 08:18 Dose: Not Given - Labs Labs: 04/29/17 06:40 04/29/17 06:40 PT 34.1 SECONDS (9.7-12.2) H* D 04/29/17 06:40 INR 2.9 D 04/29/17 06:40 APTT 54 SECONDS (21-34) H 04/26/17 06:21 - Constitutional Appears: Well - Head Exam Head Exam: ATRAUMATIC, NORMAL INSPECTION, NORMOCEPHALIC - Eye Exam Eye Exam: EOMI, Normal appearance, PERRL Pupil Exam: NORMAL ACCOMODATION, PERRL - ENT Exam ENT Exam: Mucous Membranes Moist, Normal Exam - Neck Exam Neck Exam: Full ROM, Normal Inspection. absent: Lymphadenopathy - Respiratory Exam Respiratory Exam: Decreased Breath Sounds - Cardiovascular Exam Cardiovascular Exam: REGULAR RHYTHM, +S1, +S2 - GI/Abdominal Exam GI & Abdominal Exam: Soft, Diminished Bowel Sounds - Rectal Exam Rectal Exam: Deferred
--- NOTE | 2017-04-29 17:17 | CP.PCM.PN ---
Subjective - Date & Time of Evaluation Date of Evaluation: 04/29/17 Time of Evaluation: 17:17 Objective - Vital Signs/Intake and Output Vital Signs (last 24 hours): Temp Pulse Resp BP Pulse Ox 97.3 F L 72 20 106/74 96 04/29/17 15:57 04/29/17 15:57 04/29/17 15:57 04/29/17 15:57 04/29/17 15:57 Intake and Output: 04/29/17 04/29/17 06:59 18:59 Intake Total 540 Output Total 675 Balance -135 - Medications Medications: Current Medications Carvedilol (Coreg) 12.5 mg PO BID [facility] Last Admin: 04/29/17 10:33 Dose: 12.5 mg Clopidogrel Bisulfate (Plavix) 75 mg PO DAILY [facility] Last Admin: 04/29/17 10:33 Dose: 75 mg Furosemide (Lasix) 40 mg IVP DAILY [facility] Last Admin: 04/29/17 10:33 Dose: 40 mg Metolazone (Zaroxolyn) 5 mg PO DAILY [facility] Last Admin: 04/29/17 10:33 Dose: 5 mg Sacubitril/Valsartan (Entresto 24 Mg-26 Mg) 1 tab PO BID [facility] Last Admin: 04/29/17 10:33 Dose: 1 tab Tiotropium [place] (Spiriva) 18 mcg INH RQ24 [facility] Last Admin: 04/29/17 08:18 Dose: Not Given - Labs Labs: 04/29/17 06:40 04/29/17 06:40 PT 34.1 SECONDS (9.7-12.2) H* D 04/29/17 06:40 INR 2.9 D 04/29/17 06:40 APTT 54 SECONDS (21-34) H 04/26/17 06:21
--- NOTE | 2017-04-29 22:20 | CP.PCM.PN ---
Subjective - Date & Time of Evaluation Date of Evaluation: 04/29/17 Time of Evaluation: 17:00 - Subjective Subjective: No complaints. Objective - Vital Signs/Intake and Output Vital Signs (last 24 hours): Temp Pulse Resp BP Pulse Ox 97.3 F L 72 20 111/70 96 04/29/17 15:57 04/29/17 15:57 04/29/17 15:57 04/29/17 18:24 04/29/17 15:57 - Medications Medications: Current Medications Carvedilol (Coreg) 12.5 mg PO BID [facility] Last Admin: 04/29/17 18:24 Dose: 12.5 mg Clopidogrel Bisulfate (Plavix) 75 mg PO DAILY [facility] Last Admin: 04/29/17 10:33 Dose: 75 mg Furosemide (Lasix) 40 mg IVP DAILY [facility] Last Admin: 04/29/17 10:33 Dose: 40 mg Metolazone (Zaroxolyn) 5 mg PO DAILY [facility] Last Admin: 04/29/17 10:33 Dose: 5 mg Sacubitril/Valsartan (Entresto 24 Mg-26 Mg) 1 tab PO BID [facility] Last Admin: 04/29/17 18:24 Dose: 1 tab Tiotropium [place] (Spiriva) 18 mcg INH RQ24 [facility] Last Admin: 04/29/17 08:18 Dose: Not Given - Labs Labs: 04/29/17 06:40 04/29/17 06:40 PT 34.1 SECONDS (9.7-12.2) H* D 04/29/17 06:40 INR 2.9 D 04/29/17 06:40 APTT 54 SECONDS (21-34) H 04/26/17 06:21 - Head Exam Head Exam: ATRAUMATIC - Eye Exam Eye Exam: Normal appearance - ENT Exam ENT Exam: Mucous Membranes Dry - Cardiovascular Exam Cardiovascular Exam: +S1, +S2 - GI/Abdominal Exam GI & Abdominal Exam: Normal Bowel Sounds Assessment and Plan (1) Coagulopathy Assessment & Plan: nutritional improved with vit k Status: Acute (2) Anemia Assessment & Plan: FOBT positive chronic disease Status: Acute
--- NOTE | 2017-04-30 00:19 | CP.PCM.PN ---
Subjective - Date & Time of Evaluation Date of Evaluation: 04/29/17 Time of Evaluation: 11:10 - Subjective Subjective: Medicine Progress Note- Dr. Vanegas's service Patient seen and examined. Patient states that he wants breakfast. He admits that he has spending most of his time in the bed and not ambulating much. He denies any complaints. Objective - Vital Signs/Intake and Output Vital Signs (last 24 hours): Temp Pulse Resp BP Pulse Ox 97.3 F L 72 20 111/70 96 04/29/17 15:57 04/29/17 15:57 04/29/17 15:57 04/29/17 18:24 04/29/17 15:57 - Medications Medications: Current Medications Carvedilol (Coreg) 12.5 mg PO BID [facility] Last Admin: 04/29/17 18:24 Dose: 12.5 mg Clopidogrel Bisulfate (Plavix) 75 mg PO DAILY [facility] Last Admin: 04/29/17 10:33 Dose: 75 mg Furosemide (Lasix) 40 mg IVP DAILY [facility] Last Admin: 04/29/17 10:33 Dose: 40 mg Metolazone (Zaroxolyn) 5 mg PO DAILY [facility] Last Admin: 04/29/17 10:33 Dose: 5 mg Sacubitril/Valsartan (Entresto 24 Mg-26 Mg) 1 tab PO BID [facility] Last Admin: 04/29/17 18:24 Dose: 1 tab Tiotropium [place] (Spiriva) 18 mcg INH RQ24 [facility] Last Admin: 04/29/17 08:18 Dose: Not Given - Labs Labs: 04/29/17 06:40 04/29/17 06:40 PT 34.1 SECONDS (9.7-12.2) H* D 04/29/17 06:40 INR 2.9 D 04/29/17 06:40 APTT 54 SECONDS (21-34) H 04/26/17 06:21 - Constitutional Appears: Non-toxic, No Acute Distress - Head Exam Head Exam: ATRAUMATIC, NORMAL INSPECTION - Eye Exam Eye Exam: EOMI, Normal appearance - ENT Exam ENT Exam: Mucous Membranes Moist - Neck Exam Neck Exam: Full ROM - Respiratory Exam Respiratory Exam: NORMAL BREATHING PATTERN - Cardiovascular Exam Cardiovascular Exam: +S1, +S2 - GI/Abdominal Exam GI & Abdominal Exam: Soft, Normal Bowel Sounds - Extremities Exam Extremities Exam: Full ROM - Back Exam Back Exam: Full ROM - Neurological Exam Neurological Exam: Alert, Awake, Oriented x3 - Psychiatric Exam Psychiatric exam: Normal Affect - Skin Skin Exam: Dry, Normal Color, Warm Assessment and Plan - Assessment and Plan (Free Text) Assessment: Dilated Cardiomyopathy s/p AICD. On Coreg, Lasix, Metolazone, Entresto at this time Echo in 11/2016: EF ~ 10%. Severe ischemic cardiomyopathy. Mild pulmonic valvular regurgitation Dr. Salazar on the case. F/U recommendations Continue to monitor Elevated INR Improved to normal parameters 2.9 Vitamin K administered on 04/29 Hold Coumadin. If still here in the AM, f/u INR F/U recommendations per Dr. Oro Anemia Continue on IV iron supplement Colonoscopy as outpatient per GI recommendations Prophylactic measure Contraindications for chemical DVT prophylaxis at this time No GI prophylaxis indicated at this time Patient to be discharged to [facility] when a bed is available. This will likely be on 04/30 Discharge planning as follows: Patient is medically stable for discharge to [facility] when a bed is available. Patient is asked to have PT/INR levels checked daily for the first three days that he is at the facility. If PT/INR levels are stable, patient may then have checks every [address] Rocio Vanegas must be contacted for any coumadin orders. Patient may only take Coumadin if his PT/INR range is in the appropriate range. Please contact Dr. Vanegas for further dosing instructions. If symptoms return, go to the emergency room. Instructions explained to patient who is aware. Discussed with attending. All management and planning per Dr. Vanegas.
[2017-04-30 06:42] LABS: INR 2.6
[2017-04-30 06:46] LABS: PROTHROMBIN TIME 30.1 SECONDS (9.7-12.2)
[2017-04-30 07:00] LABS: ALB/GLOB RATIO 0.8 (1.0-2.1); ALBUMIN 3.5 g/dL (3.5-5.0); ALT/SGPT 19 U/L (21-72); AST/SGOT 31 U/L (17-59); BLOOD UREA NITROGEN 27 mg/dL (9-20); GFR AFRICAN-AMERICAN > 60; GFR NON-AFRICAN AMERICAN 51; MAGNESIUM 1.7 mg/dL (1.6-2.3)
[2017-04-30 07:37] LABS: HEMOGLOBIN 9.4 g/dL (12.0-18.0); MEAN CELL VOLUME 77.7 fL (80.0-94.0); MEAN CORPUSCULAR HEMOGLOBIN 25.4 pg (27.0-31.0); MEAN CORPUSCULAR HGB CONC 32.6 g/dL (33.0-37.0); MEAN PLATELET VOLUME 8.3 fL (7.2-11.7); RBC 3.71 Mil/uL (4.40-5.90); RED CELL DISTRIBUTION WIDTH 22.3 % (11.5-14.5); WHITE BLOOD COUNT 5.8 K/uL (4.8-10.8)
[2017-04-30] MEDS: Tiotropium 18 mcg Cap For Inhalation INH SCH (07:59)
[2017-04-30 08:00] VITALS: PULSE 74; TEMP 98; O2SAT 95
[2017-04-30] MEDS: metOLazone 5 MG TAB PO SCH (09:40)
[2017-04-30] MEDS: Sacubitril/Valsartan 24-26mg Tab PO SCH (09:40)
[2017-04-30 09:41] VITALS: BP 111/70
[2017-04-30 12:14] LABS: LYMPH # 1.6 K/uL (1.0-4.3); MONO # 0.8 K/uL (0.0-0.8); NEUT # 3.3 K/uL (1.8-7.0)
[2017-04-30 12:15] LABS: BASO # 0.1 K/uL (0.0-0.2)
== END 2017-04-30 14:13 | DRG 292 ==
LOC: C.ER 09:47 → C.9E 12:37 → C.6T 19:50
PROVIDERS: ADMIT Internal Medicine Nephrology; ATTEND Internal Medicine Nephrology
DX: I13.0 Hypertensive heart and chronic kidney disease with heart failure and stage 1 through stage 4 chronic kidney disease, or unspecified chronic kidney disease (principal); K92.1 Melena; E11.22 Type 2 diabetes mellitus with diabetic chronic kidney disease; I42.0 Dilated cardiomyopathy; I48.91 Unspecified atrial fibrillation; F17.210 Nicotine dependence, cigarettes, uncomplicated; D50.9 Iron deficiency anemia, unspecified; Z79.01 Long term (current) use of anticoagulants; E78.5 Hyperlipidemia, unspecified; I25.10 Atherosclerotic heart disease of native coronary artery without angina pectoris; R04.0 Epistaxis; I50.9 Heart failure, unspecified; N18.9 Chronic kidney disease, unspecified; Z95.810 Presence of automatic (implantable) cardiac defibrillator; I37.1 Nonrheumatic pulmonary valve insufficiency; Z79.4 Long term (current) use of insulin

== ENCOUNTER 2017-05-06 13:43 | Inpatient (IN) | payer MEDICARE, MEDICAID ==
[2017-05-06] MEDS ORDERED: Albuterol-Ipratrop 3 mg / 0.5 (3 ml) UD INH STA (14:10)
[2017-05-06] MEDS ORDERED: Cefepime 1 GM in Sodium Chloride 0.9% 50 ML IVPB ONE (14:10)
--- NOTE | 2017-05-06 14:15 | C.PDOC ---
History Of Present Illness 62yo male with history of hypertension, pacemaker, (?) heart failure, brought to ED by ALS from long-term for evaluation of shortness of breath for the past 2 days. Patient reports a tactile fever, cough and shortness of breath. Of note, patient was given Duoneb and Solumedrol en route to the facility. He denies using any O2 at home and denies any prior lung issues like COPD, emphysema or asthma. No other complaints. Chief Complaint (Nursing): Shortness Of Breath History Per: Patient History/Exam Limitations: no limitations Onset/Duration Of Symptoms: Days (2) Current Symptoms Are (Timing): Still Present Additional History Per: EMS, Half-Way Past Medical History Reviewed: Historical Data, Nursing Documentation, Vital Signs Vital Signs: Last Vital Signs Temp 98.2 F 05/06/17 16:56 Pulse 82 05/06/17 16:56 Resp 18 05/06/17 16:56 BP 123/78 05/06/17 16:56 Pulse Ox 86 L 05/06/17 17:37 - Medical History PMH: CHF, HTN, Hypercholesterolemia Denies: Chronic Kidney Disease Surgical History: Pacemaker Family History: States: Unknown Family Hx - Social History Hx Alcohol Use: No Hx Substance Use: No - Immunization History Hx Tetanus Toxoid Vaccination: No Hx Influenza Vaccination: Yes (01/03/17) Hx Pneumococcal Vaccination: Yes (01/03/17) Review Of Systems Except As Marked, All Systems Reviewed And Found Negative. Constitutional: Positive for: Fever (tactile) Respiratory: Positive for: Cough, Shortness of Breath Physical Exam - Physical Exam Skin: Warm Eye(s): bilateral: PERRL, EOMI Nose: Normal Oral Mucosa: Moist Neck: Normal ROM, Supple Chest: Symmetrical Cardiovascular: Rhythm Regular (distant heart sounds) Respiratory: Decreased Breath Sounds (decreased breath sounds left lung base), Accessory Muscle Use, Other (right sided crackles) Gastrointestinal/Abdominal: Normal Exam, Bowel Sounds, Soft, No Tenderness Extremity: Pedal Edema (2+ pitting edema bilateral lower extremities) Neurological/Psych: Oriented x3 ED Course And Treatment - Laboratory Results Result Diagrams: 05/06/17 14:37 05/06/17 14:37 ECG: Interpreted By Me, Viewed By Me Interpretation Of ECG: Ventricular paced. Normal capture. Rate From EC O2 Sat by Pulse Oximetry: 86 Critical Care Time - Critical Care Note Total Time (in mins): 40 Documented critical care: time excludes all time spent performing seperately billable procedures. Medical Decision Making Medical Decision Making: Impression: CHF/Pneumonia Plan: -- CXR -- Labs -- Duoneb 3ml INH -- Maxipime 1gm IVPB Time: [address] Kelly Vanegas and patient to be admitted to his service for CHF and PNA Disposition Discussed With Dr.: Erika Vanegas Counseled Patient/Family Regarding: Studies Performed, Diagnosis - Disposition Disposition: HOSPITALIZED Disposition Time: 17:38 Condition: STABLE Forms: [facility] (Kiswahili) - Clinical Impression Clinical Impression: CHF (congestive heart failure), Pneumonia - Scribe Statement The provider has reviewed the documentation as recorded by the Kirit Lowe Provider Attestation: All medical record entries made by the Kirit were at my direction and personally dictated by me. I have reviewed the chart and agree that the record accurately reflects my personal performance of the history, physical exam, medical decision making, and the department course for this patient. I have also personally directed, reviewed, and agree with the discharge instructions and disposition.
[2017-05-06] MEDS ORDERED: Albuterol-Ipratrop 3 mg / 0.5 (3 ml) UD ONE (14:27)
--- NOTE | 2017-05-06 14:28 | RAD ---
Chest x-ray single frontal view History: Chest pain. Comparison: 04/21/2017 Findings: Moderate venous congestion. Prominent bibasilar airspace opacities. Small left pleural effusion. Cardiomegaly. Left-sided pacemaker. Degenerative changes in the spine and shoulders. Impression: Moderate venous congestion. Prominent bibasilar airspace opacities. Small left pleural effusion. Cardiomegaly. Left-sided pacemaker.
[2017-05-06 14:45] LABS: HEMOGLOBIN 9.1 g/dL (12.0-18.0); MEAN CELL VOLUME 78.3 fL (80.0-94.0); MEAN CORPUSCULAR HEMOGLOBIN 25.3 pg (27.0-31.0); MEAN CORPUSCULAR HGB CONC 32.2 g/dL (33.0-37.0); MEAN PLATELET VOLUME 7.7 fL (7.2-11.7); RBC 3.59 Mil/uL (4.40-5.90); WHITE BLOOD COUNT 5.5 K/uL (4.8-10.8)
[2017-05-06 14:50] LABS: INR 2.3; PROTHROMBIN TIME 26.8 SECONDS (9.7-12.2)
[2017-05-06 15:00] LABS: ALB/GLOB RATIO 0.9 (1.0-2.1); ALBUMIN 3.5 g/dL (3.5-5.0); CALCIUM 8.5 mg/dl (8.6-10.4)
[2017-05-06] MEDS ORDERED: Naloxone 0.4 mg/ml Inj (Adult) ONE (15:00)
[2017-05-06] MEDS ORDERED: Naloxone 0.4 mg/ml Inj (Adult) IVP ONE (15:00)
[2017-05-06 15:06] LABS: TROPONIN I 0.056 ng/mL (0.00-0.120)
[2017-05-06 15:22] LABS: LYMPH # 0.8 K/uL (1.0-4.3); MONO # 0.6 K/uL (0.0-0.8); NEUT # 4.1 K/uL (1.8-7.0)
[2017-05-06 15:41] LABS: ABG ALLEN TEST PO; ARTERIAL BLOOD GAS HCO3 24.5 mmol/L (21-28); ARTERIAL BLOOD GAS HEMOGLOBIN 8.8 g/dL (11.7-17.4); ARTERIAL BLOOD GAS O2 SAT 98.1 % (95-98); ARTERIAL BLOOD GAS PCO2 39 mm/Hg (35-45); ARTERIAL BLOOD GAS PO2 84 mm/Hg (80-100); ARTERIAL BLOOD GAS TCO2 25.4 mmol/L (22-28)
--- NOTE | 2017-05-06 17:31 | CT ---
PROCEDURE: CT HEAD WITHOUT CONTRAST. HISTORY: msc COMPARISON: Comparison is made with the previous study dated 04/21/2017 TECHNIQUE: Axial computed tomography images were obtained through the head/brain without intravenous contrast. Radiation dose: Total exam DLP = 982.82 mGy-cm. This CT exam was performed using one or more of the following dose reduction techniques: Automated exposure control, adjustment of the mA and/or kV according to patient size, and/or use of iterative reconstruction technique. FINDINGS: HEMORRHAGE: No intracranial hemorrhage. BRAIN: Again seen is sub centimeter focal encephalomalacia at the right thalamus suggestive of chronic lacunar infarction. Mild atrophy and chronic microvascular white matter ischemic disease are again noted. VENTRICLES: Unremarkable. No hydrocephalus. CALVARIUM: Unremarkable. PARANASAL SINUSES: Unremarkable as visualized. No significant inflammatory changes. MASTOID AIR CELLS: Unremarkable as visualized. No inflammatory changes. OTHER FINDINGS: None. IMPRESSION: No evidence of acute intracranial hemorrhage mass effect or midline shift. No significant interval change noted since the previous exam.
[2017-05-06 17:58] LABS: SQUAMOUS EPITHIAL < 1 /hpf (0-5); URINE BACTERIA RARE (<OCC); URINE BILIRUBIN NEGATIVE (NEGATIVE); URINE BLOOD NEGATIVE (NEGATIVE); URINE CLARITY Clear (Clear); URINE COLOR Yellow (YELLOW); URINE GLUCOSE (UA) NORMAL (Normal); URINE LEUKOCYTE ESTERASE NEG Leu/uL (Negative); URINE NITRATE NEGATIVE (NEGATIVE); URINE PROTEIN NEGATIVE (NEGATIVE); URINE UROBILINOGEN NORMAL mg/dL (0.2-1.0)
--- NOTE | 2017-05-06 23:10 | CP.PCM.HP ---
Past Patient History - Infectious Disease Hx of Infectious Diseases: None - Past Medical History & Family History Past Medical History?: Yes - Past Social History Smoking Status: Former Smoker - CARDIAC Hx Congestive Heart Failure: Yes Hx Hypercholesterolemia: Yes Hx Hypertension: Yes Hx Pacemaker: Yes - PULMONARY Hx Respiratory Disorders: No - NEUROLOGICAL Hx Neurological Disorder: No - HEENT Hx HEENT Problems: Yes - RENAL Hx Chronic Kidney Disease: No - ENDOCRINE/METABOLIC Hx Endocrine Disorders: Yes Hx Diabetes Mellitus Type 2: Yes - HEMATOLOGICAL/ONCOLOGICAL Hx Blood Disorders: No - INTEGUMENTARY Hx Dermatological Problems: No - MUSCULOSKELETAL/RHEUMATOLOGICAL Hx Musculoskeletal Disorders: Yes Hx Falls: Yes - GASTROINTESTINAL Hx Gastrointestinal Disorders: No - GENITOURINARY/GYNECOLOGICAL Hx Genitourinary Disorders: No - PSYCHIATRIC Hx Substance Use: No - SURGICAL HISTORY Hx Surgeries: Yes Other/Comment: AICD to Left Chest Wall - ANESTHESIA Hx Anesthesia: Yes Hx Anesthesia Reactions: No Hx Malignant Hyperthermia: No Meds Allergies/Adverse Reactions: Allergies Allergy/AdvReac Type Severity Reaction Status Date / Time No Known Allergies Allergy Verified 03/16/17 14:28 Results - Vital Signs Recent Vital Signs: Last Vital Signs Temp 97.9 F 05/06/17 22:19 Pulse 116 H 05/06/17 22:19 Resp 20 05/06/17 22:19 BP 108/73 05/06/17 22:19 Pulse Ox 96 05/06/17 22:19 - Labs Result Diagrams: 05/06/17 14:37 05/06/17 14:37 Labs: Laboratory Results - last 24 hr 05/06/17 05/06/17 05/06/17 14:37 14:37 14:37 WBC 5.5 RBC 3.59 L Hgb 9.1 L Hct 28.1 L MCV 78.3 L MCH 25.3 L MCHC 32.2 L RDW 25.0 H Plt Count 279 MPV 7.7 Neut % (Auto) 74.0 Lymph % (Auto) 15.0 L [place] % (Auto) 11.0 H Eos % (Auto) 0.0 Baso % (Auto) 0.0 Neut # (Auto) 4.1 Lymph # (Auto) 0.8 L [place] # (Auto) 0.6 Eos # (Auto) 0.0 Baso # (Auto) 0.0 PT 26.8 H INR 2.3 APTT 30 Puncture Site pCO2 pO2 HCO3 ABG pH ABG Total CO2 ABG O2 Saturation ABG Base Excess ABG Hemoglobin ABG Carboxyhemoglobin POC ABG HHb (Measured) ABG Methemoglobin Bud Test A-a O2 Difference Respiratory Index Hgb O2 Saturation Liter Flow FiO2 Sodium 133 Potassium 4.7 Chloride 96 L Carbon Dioxide 24 Anion Gap 17 BUN 33 H Creatinine 1.7 H Est GFR ( Amer) 50 Est GFR (Non-Af Amer) 41 Random Glucose 90 Lactic Acid Calcium 8.5 L Total Bilirubin 2.6 H AST 44 ALT 38 Alkaline Phosphatase 128 H D Troponin I 0.0560 NT-Pro-B Natriuret Pep 01461 H Total Protein 7.7 Albumin 3.5 Globulin 4.1 H Albumin/Globulin Ratio 0.9 L Urine Color Urine Clarity Urine pH Ur Specific [place] Urine Protein Urine Glucose (UA) Urine Ketones Urine Blood Urine Nitrate Urine Bilirubin Urine Urobilinogen Ur Leukocyte Esterase Urine WBC (Auto) Ur Squamous Epith Cells Urine Bacteria Hyaline Casts 05/06/17 05/06/17 05/06/17 14:37 15:38 17:39 WBC RBC Hgb Hct MCV MCH MCHC RDW Plt Count MPV Neut % (Auto) Lymph % (Auto) [place] % (Auto) Eos % (Auto) Baso % (Auto) Neut # (Auto) Lymph # (Auto) [place] # (Auto) Eos # (Auto) Baso # (Auto) PT INR APTT Puncture Site Lr pCO2 39 pO2 84 HCO3 24.5 ABG pH 7.40 ABG Total CO2 25.4 ABG O2 Saturation 98.1 H ABG Base Excess -0.5 ABG Hemoglobin 8.8 L ABG Carboxyhemoglobin 2.3 H POC ABG HHb (Measured) 1.8 ABG Methemoglobin 1.0 Bud Test Po A-a O2 Difference 124.0 Respiratory Index 1.5 Hgb O2 Saturation 95.0 Liter Flow 4.0 FiO2 36.0 Sodium Potassium Chloride Carbon Dioxide Anion Gap BUN Creatinine Est GFR ( Amer) Est GFR (Non-Af Amer) Random Glucose Lactic Acid 1.8 Calcium Total Bilirubin AST ALT Alkaline Phosphatase Troponin I NT-Pro-B Natriuret Pep Total Protein Albumin Globulin Albumin/Globulin Ratio Urine Color Yellow Urine Clarity Clear Urine pH 5.0 Ur Specific [place] 1.009 Urine Protein Negative Urine Glucose (UA) Normal Urine Ketones Negative Urine Blood Negative Urine Nitrate Negative Urine Bilirubin Negative Urine Urobilinogen Normal Ur Leukocyte Esterase Neg Urine WBC (Auto) < 1 Ur Squamous Epith Cells < 1 Urine Bacteria Rare Hyaline Casts 3-5 H
[2017-05-07] MEDS ORDERED: Azithromycin 500 MG in Sodium Chloride 0.9% 250 ML IVPB SCH (00:30)
[2017-05-07] MEDS: Albuterol-Ipratrop 3 mg / 0.5 (3 ml) UD INH SCH ×4 (01:22→19:58)
[2017-05-07] MEDS ORDERED: Albuterol 0.042% Inhal Sol (1.25 mg/3 mL) UD INH SCH (02:00)
[2017-05-07] MEDS: metOLazone 5 MG TAB PO SCH (10:52)
[2017-05-07] MEDS: Sacubitril/Valsartan 24-26mg Tab PO SCH ×2 (11:49→18:07)
[2017-05-07] MEDS: guaiFENesin 200 mg/10 ml Syrup UD PO PRN ×2 (11:55→18:07)
--- NOTE | 2017-05-07 13:04 | CP.PCM.PN ---
Subjective - Date & Time of Evaluation Date of Evaluation: 05/07/17 Time of Evaluation: 11:00 - Subjective Subjective: clinically same Objective - Vital Signs/Intake and Output Vital Signs (last 24 hours): Temp Pulse Resp BP Pulse Ox 97.2 F L 84 20 101/71 96 05/07/17 07:00 05/07/17 11:47 05/07/17 07:00 05/07/17 11:48 05/07/17 10:38 - Medications Medications: Current Medications Acetaminophen (Tylenol 325mg Tab) 650 mg PO Q6 PRN PRN Reason: Pain, Mild (1-3) Albuterol/Ipratropium (Duoneb 3 Mg/0.5 Mg (3 Ml) Ud) 3 ml INH RQ6 [facility] Last Admin: 05/07/17 07:12 Dose: 3 ml Carvedilol (Coreg) 12.5 mg PO BID [facility] Last Admin: 05/07/17 11:48 Dose: 12.5 mg Clopidogrel Bisulfate (Plavix) 75 mg PO DAILY [facility] Last Admin: 05/07/17 10:43 Dose: 75 mg Furosemide (Lasix) 40 mg IVP DAILY [facility] Last Admin: 05/07/17 10:52 Dose: 40 mg Guaifenesin (Robitussin) 200 mg PO Q4H PRN PRN Reason: Cough and congestion Last Admin: 05/07/17 11:55 Dose: 200 mg Azithromycin 500 mg/ Sodium (Chloride) 250 mls @ 250 mls/hr IVPB Q24H [facility] Ceftriaxone Sodium 1 gm/ (Sodium Chloride) 100 mls @ 100 mls/hr IVPB HS [facility] Metolazone (Zaroxolyn) 5 mg PO DAILY [facility] Last Admin: 05/07/17 10:52 Dose: 5 mg Sacubitril/Valsartan (Entresto 24 Mg-26 Mg) 1 tab PO BID [facility] Last Admin: 05/07/17 11:49 Dose: 1 tab - Labs Labs: 05/06/17 14:37 05/06/17 14:37 PT 26.8 SECONDS (9.7-12.2) H 05/06/17 14:37 INR 2.3 05/06/17 14:37 APTT 30 SECONDS (21-34) 05/06/17 14:37 - Constitutional Appears: Well - Head Exam Head Exam: ATRAUMATIC, NORMAL INSPECTION, NORMOCEPHALIC - Eye Exam Eye Exam: EOMI, Normal appearance, PERRL Pupil Exam: NORMAL ACCOMODATION, PERRL - ENT Exam ENT Exam: Mucous Membranes Moist, Normal Exam - Neck Exam Neck Exam: Full ROM, Normal Inspection. absent: Lymphadenopathy - Respiratory Exam Respiratory Exam: Decreased Breath Sounds - Cardiovascular Exam Cardiovascular Exam: REGULAR RHYTHM, +S1, +S2 - GI/Abdominal Exam GI & Abdominal Exam: Soft, Diminished Bowel Sounds - Rectal Exam Rectal Exam: Deferred
--- NOTE | 2017-05-07 13:11 | CP.PCM.CON ---
History of Present Illness - History of Present Illness History of Present Illness: 62yo male with history of hypertension, pacemaker, (?) heart failure, brought to ED by ALS from senior care for evaluation of shortness of breath for the past 2 days. Patient reports a tactile fever, cough and shortness of breath. Of note, patient was given Duoneb and Solumedrol en route to the facility. He denies using any O2 at home and denies any prior lung issues like COPD, emphysema or asthma. No other complaints. 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 walking capacity is baseline with exception of recent CHF/Congestion/URI sx;s Review of Systems - Review of Systems All systems: reviewed and no additional remarkable complaints except (Chronic B/ L LE CEAP 4 skin changes without ulcers) Past Patient History - Infectious Disease Hx of Infectious Diseases: None - Past Medical History & Family History Past Medical History?: Yes - Past Social History Smoking Status: Former Smoker - CARDIAC Hx Congestive Heart Failure: Yes Hx Hypercholesterolemia: Yes Hx Hypertension: Yes Hx Pacemaker: Yes - PULMONARY Hx Respiratory Disorders: No - NEUROLOGICAL Hx Neurological Disorder: No - HEENT Hx HEENT Problems: Yes - RENAL Hx Chronic Kidney Disease: No - ENDOCRINE/METABOLIC Hx Endocrine Disorders: Yes Hx Diabetes Mellitus Type 2: Yes - HEMATOLOGICAL/ONCOLOGICAL Hx Blood Disorders: No - INTEGUMENTARY Hx Dermatological Problems: No - MUSCULOSKELETAL/RHEUMATOLOGICAL Hx Musculoskeletal Disorders: Yes Hx Falls: Yes - GASTROINTESTINAL Hx Gastrointestinal Disorders: No - GENITOURINARY/GYNECOLOGICAL Hx Genitourinary Disorders: No - PSYCHIATRIC Hx Substance Use: No - SURGICAL HISTORY Hx Surgeries: Yes Other/Comment: AICD to Left Chest Wall - ANESTHESIA Hx Anesthesia: Yes Hx Anesthesia Reactions: No Hx Malignant Hyperthermia: No Meds Allergies/Adverse Reactions: Allergies Allergy/AdvReac Type Severity Reaction Status Date / Time No Known Allergies Allergy Verified 03/16/17 14:28 - Medications Medications: Current Medications Acetaminophen (Tylenol 325mg Tab) 650 mg PO Q6 PRN PRN Reason: Pain, Mild (1-3) Albuterol/Ipratropium (Duoneb 3 Mg/0.5 Mg (3 Ml) Ud) 3 ml INH RQ6 [facility] Last Admin: 05/07/17 07:12 Dose: 3 ml Carvedilol (Coreg) 12.5 mg PO BID [facility] Last Admin: 05/07/17 11:48 Dose: 12.5 mg Clopidogrel Bisulfate (Plavix) 75 mg PO DAILY [facility] Last Admin: 05/07/17 10:43 Dose: 75 mg Furosemide (Lasix) 40 mg IVP DAILY [facility] Last Admin: 05/07/17 10:52 Dose: 40 mg Guaifenesin (Robitussin) 200 mg PO Q4H PRN PRN Reason: Cough and congestion Last Admin: 05/07/17 11:55 Dose: 200 mg Azithromycin 500 mg/ Sodium (Chloride) 250 mls @ 250 mls/hr IVPB Q24H [facility] Ceftriaxone Sodium 1 gm/ (Sodium Chloride) 100 mls @ 100 mls/hr IVPB HS [facility] Metolazone (Zaroxolyn) 5 mg PO DAILY [facility] Last Admin: 05/07/17 10:52 Dose: 5 mg Sacubitril/Valsartan (Entresto 24 Mg-26 Mg) 1 tab PO BID [facility] Last Admin: 05/07/17 11:49 Dose: 1 tab Physical Exam - Constitutional Appears: Chronically Ill - Head Exam Head Exam: ATRAUMATIC, NORMAL INSPECTION, NORMOCEPHALIC - Eye Exam Eye Exam: EOMI, Normal appearance - ENT Exam ENT Exam: Mucous Membranes Moist, Normal Oropharynx - Neck Exam Neck exam: Negative for: Normal Inspection (+ JVD), Tenderness, Thyromegaly - Respiratory Exam Respiratory Exam: Clear to Auscultation Bilateral, NORMAL BREATHING PATTERN. absent: Rales, Rhonchi, Wheezes - Cardiovascular Exam Cardiovascular Exam: REGULAR RHYTHM, +S1, +S2 Additional comments: L. chest AICD - GI/Abdominal Exam GI & Abdominal Exam: Soft. absent: Pulsatile Mass, Rebound - Extremities Exam Extremities exam: Negative for: normal inspection (1+ B/L LE edema: CEAP 4 skin changes and hyperpigmentation) Results - Vital Signs Recent Vital Signs: Last Vital Signs Temp 97.2 F L 05/07/17 07:00 Pulse 84 05/07/17 11:47 Resp 20 05/07/17 07:00 BP 101/71 05/07/17 11:48 Pulse Ox 96 05/07/17 10:38 - Labs Result Diagrams: 05/06/17 14:37 05/06/17 14:37 Labs: Laboratory Results - last 24 hr 05/06/17 05/06/17 05/06/17 14:37 14:37 14:37 WBC 5.5 RBC 3.59 L Hgb 9.1 L Hct 28.1 L MCV 78.3 L MCH 25.3 L MCHC 32.2 L RDW 25.0 H Plt Count 279 MPV 7.7 Neut % (Auto) 74.0 Lymph % (Auto) 15.0 L Starr % (Auto) 11.0 H Eos % (Auto) 0.0 Baso % (Auto) 0.0 Neut # (Auto) 4.1 Lymph # (Auto) 0.8 L Starr # (Auto) 0.6 Eos # (Auto) 0.0 Baso # (Auto) 0.0 PT 26.8 H INR 2.3 APTT 30 Puncture Site pCO2 pO2 HCO3 ABG pH ABG Total CO2 ABG O2 Saturation ABG Base Excess ABG Hemoglobin ABG Carboxyhemoglobin POC ABG HHb (Measured) ABG Methemoglobin Bud Test A-a O2 Difference Respiratory Index Hgb O2 Saturation Liter Flow FiO2 Sodium 133 Potassium 4.7 Chloride 96 L Carbon Dioxide 24 Anion Gap 17 BUN 33 H Creatinine 1.7 H Est GFR ( Amer) 50 Est GFR (Non-Af Amer) 41 POC Glucose (mg/dL) Random Glucose 90 Lactic Acid Calcium 8.5 L Total Bilirubin 2.6 H AST 44 ALT 38 Alkaline Phosphatase 128 H D Troponin I 0.0560 NT-Pro-B Natriuret Pep 67671 H Total Protein 7.7 Albumin 3.5 Globulin 4.1 H Albumin/Globulin Ratio 0.9 L Urine Color Urine Clarity Urine pH Ur Specific [place] Urine Protein Urine Glucose (UA) Urine Ketones Urine Blood Urine Nitrate Urine Bilirubin Urine Urobilinogen Ur Leukocyte Esterase Urine WBC (Auto) Ur Squamous Epith Cells Urine Bacteria Hyaline Casts 05/06/17 05/06/17 05/06/17 14:37 15:38 17:39 WBC RBC Hgb Hct MCV MCH MCHC RDW Plt Count MPV Neut % (Auto) Lymph % (Auto) Starr % (Auto) Eos % (Auto) Baso % (Auto) Neut # (Auto) Lymph # (Auto) Starr # (Auto) Eos # (Auto) Baso # (Auto) PT INR APTT Puncture Site Lr pCO2 39 pO2 84 HCO3 24.5 ABG pH 7.40 ABG Total CO2 25.4 ABG O2 Saturation 98.1 H ABG Base Excess -0.5 ABG Hemoglobin 8.8 L ABG Carboxyhemoglobin 2.3 H POC ABG HHb (Measured) 1.8 ABG Methemoglobin 1.0 Bud Test Po A-a O2 Difference 124.0 Respiratory Index 1.5 Hgb O2 Saturation 95.0 Liter Flow 4.0 FiO2 36.0 Sodium Potassium Chloride Carbon Dioxide Anion Gap BUN Creatinine Est GFR ( Amer) Est GFR (Non-Af Amer) POC Glucose (mg/dL) Random Glucose Lactic Acid 1.8 Calcium Total Bilirubin AST ALT Alkaline Phosphatase Troponin I NT-Pro-B Natriuret Pep Total Protein Albumin Globulin Albumin/Globulin Ratio Urine Color Yellow Urine Clarity Clear Urine pH 5.0 Ur Specific [place] 1.009 Urine Protein Negative Urine Glucose (UA) Normal Urine Ketones Negative Urine Blood Negative Urine Nitrate Negative Urine Bilirubin Negative Urine Urobilinogen Normal Ur Leukocyte Esterase Neg Urine WBC (Auto) < 1 Ur Squamous Epith Cells < 1 Urine Bacteria Rare Hyaline Casts 3-5 H 05/07/17 05/07/17 06:34 11:34 WBC RBC Hgb Hct MCV MCH MCHC RDW Plt Count MPV Neut % (Auto) Lymph % (Auto) Starr % (Auto) Eos % (Auto) Baso % (Auto) Neut # (Auto) Lymph # (Auto) Starr # (Auto) Eos # (Auto) Baso # (Auto) PT INR APTT Puncture Site pCO2 pO2 HCO3 ABG pH ABG Total CO2 ABG O2 Saturation ABG Base Excess ABG Hemoglobin ABG Carboxyhemoglobin POC ABG HHb (Measured) ABG Methemoglobin Bud Test A-a O2 Difference Respiratory Index Hgb O2 Saturation Liter Flow FiO2 Sodium Potassium Chloride Carbon Dioxide Anion Gap BUN Creatinine Est GFR ( Amer) Est GFR (Non-Af Amer) POC Glucose (mg/dL) 144 H 131 H Random Glucose Lactic Acid Calcium Total Bilirubin AST ALT Alkaline Phosphatase Troponin I NT-Pro-B Natriuret Pep Total Protein Albumin Globulin Albumin/Globulin Ratio Urine Color Urine Clarity Urine pH Ur Specific [place] Urine Protein Urine Glucose (UA) Urine Ketones Urine Blood Urine Nitrate Urine Bilirubin Urine Urobilinogen Ur Leukocyte Esterase Urine WBC (Auto) Ur Squamous Epith Cells Urine Bacteria Hyaline Casts - EKG Data EKG Interpreted by: Myself (Juan navarrete , jeremy reynolds) Assessment & Plan - Assessment and Plan (Free Text) Assessment: 1. SOB/congestion 2. Acute on chronic severe systolic CHF --> mild-mod volume overload 3. P. AFIB 4. Hx of AICD- BiV Paced 5. CKD Carvedilol (Coreg) 12.5 mg PO BID [facility] Last Admin: 05/07/17 11:48 Dose: 12.5 mg Clopidogrel Bisulfate (Plavix) 75 mg PO DAILY [facility] Last Admin: 05/07/17 10:43 Dose: 75 mg Furosemide (Lasix) 40 mg IVP DAILY [facility] Last Admin: 05/07/17 10:52 Dose: 40 mg Metolazone (Zaroxolyn) 5 mg PO DAILY [facility] Last Admin: 05/07/17 10:52 Dose: 5 mg Sacubitril/Valsartan (Entresto 24 Mg-26 Mg) 1 tab PO BID [facility] Last Admin: 05/07/17 11:49 Dose: 1 tab Plan: Augment diuretics: Inc Lasix to 40 IV BID Cont ABX and pulmonary supportive meds INR is 2.3: given AFIB cont AC if he is tolerating it: I feel compliance may be an issue as well as prior hx of Supratherapeutic INR/coagulopathy. CHF meds otherwise are optimal D/C planning once clinically better.
--- NOTE | 2017-05-07 19:08 | CP.PCM.CON ---
History of Present Illness - History of Present Illness History of Present Illness: 62yo male brought to ED by ALS from long-term for evaluation of shortness of breath for the past 2 days. 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 and describes walking capacity is baseline with exception of recent CHF/Congestion/URI sx;s Review of Systems - Constitutional Constitutional: As Per HPI - EENT Eyes: absent: As Per HPI, Blind Spots, Blurred Vision, Change in Vision, Decreased Night Vision, Diplopia, Discharge, Dry Eye, Exophthalmos, Floaters, Irritation, Itchy Eyes, Loss of Peripheral Vision, Pain, Photophobia, Requires Corrective Lenses, Sees Flashes, Spots in Vision, Tunnel Vision, Other Visual Disturbances, Loss of Vision, Other Ears: absent: As Per HPI, Decreased Hearing, Ear Discharge, Ear Pain, Tinnitus, Abnormal Hearing, Disequilibrium, Dizziness, Other Nose/Mouth/Throat: absent: As Per HPI, Epistaxis, Nasal Congestion, Nasal Discharge, Nasal Obstruction, Nasal Trauma, Nose Pain, Post Nasal Drip, Sinus Pain, Sinus Pressure, Bleeding Gums, Change in Voice, Dental Pain, Dry Mouth, Dysphagia, Halitosis, Hoarsness, Lip Swelling, Mouth Lesions, Mouth Pain, Odynophagia, Sore Throat, Throat Swelling, Tongue Swelling, Facial Pain, Neck Pain, Neck Mass, Other - Cardiovascular Cardiovascular: As Per HPI - Respiratory Respiratory: As Per HPI, Cough. absent: Hemoptysis - Gastrointestinal Gastrointestinal: absent: As Per HPI, Abdominal Pain, Belching, Bloating, Change in Bowel Habits, Change in Stool Character, Coffee Ground Emesis, Constipation, Cramping, Diarrhea, Dyspepsia, Dysphagia, Early Satiety, Excessive Flatus, Fecal Incontinence, Heartburn, Hematemesis, Hematochezia, Loose Stools, Melena, Nausea, Odynophagia, Temesmus, Vomiting, Other - Genitourinary Genitourinary: absent: As Per HPI, Change in Urinary Stream, Difficulty Urinating, Dysuria, Flank Pain, Hematuria, Pyuria, Nocturia, Urinary Incontinence, Urinary Frequency, Urinary Hesitance, Urinary Urgency, Voiding Freq/Small Amts, Freq UTI, Hx Renal/Bladder Calculi, Hx /Renal Surgery, Bladder Distension, Other - Musculoskeletal Musculoskeletal: absent: As Per HPI, Abnormal Gait, Arthralgias, Atrophy, Back Pain, Deformity, Joint Swelling, Limited Range of Motion, Loss of Height, Muscle Cramps, Muscle Weakness, Myalgias, Neck Pain, Numbness, Radiating Pain into Limb, Stiffness, Tingling, Other - Integumentary Integumentary: absent: As Per HPI, Acne, Alopecia, Bleeding Lesions, Change in Hair, Change in Nails, Change in Pigmentation, Changing Lesions, Dry Skin, Erythema, Furuncle, Hirsutism, Lesions, New Lesions, Non-Healing Lesions, Photosensitivity, Pruritus, Rash, Skin Pain, Skin Ulcer, Sores, Striae, Swelling , Unusual Bruising, Wounds, Jaundice, Other - Neurological Neurological: absent: As Per HPI, Abnormal Gait, Abnormal Hearing, Abnormal Movements, Abnormal Speech, Behavioral Changes, Burning Sensations, Confusion, Convulsions, Disequilibrium, Dizziness, Numbness, Focal Weakness, Frequent Falls , Headaches, Lack of Coordination, Loss of Vision, Memory Loss, Paresthesias, Radicular Pain, Restless Legs, Sensory Deficit, Syncope, Tingling, Tremor, Vertigo, Weakness, Other Visual Disturbances, Other - Psychiatric Psychiatric: absent: As Per HPI, Abnormal Sleep Pattern, Anhedonia, Anxiety, Auditory Hallucinations, Behavioral Changes, Change in Appetite, Change in Libido, Confusion, Depression, Difficulty Concentrating, Hallucinations, Homicidal Ideation, Hopelessness, Irritability, Memory Loss, Mood Swings, Panic Attacks, Paranoia, Suicidal Ideation, Visual Hallucinations, Tactile Hallucinations, Other - Endocrine Endocrine: absent: As Per HPI, Change in Body Appearance, Change in Libido, Cold Intolorance, Deepening of Voice, Excessive Sweating, Fatigue, Flushing, Heat Intolorance, Increase in Ring/Shoe/Hat Size, Palpitations, Polydipsia, Polyphagia, Polyuria, Other - Hematologic/Lymphatic Hematologic: absent: As Per HPI, Easy Bleeding, Easy Bruising, Lymphadenopathy, Other Past Patient History - Infectious Disease Hx of Infectious Diseases: None - Past Medical History & Family History Past Medical History?: Yes - Past Social History Smoking Status: Former Smoker - CARDIAC Hx Congestive Heart Failure: Yes Hx Hypercholesterolemia: Yes Hx Hypertension: Yes Hx Pacemaker: Yes - PULMONARY Hx Respiratory Disorders: No - NEUROLOGICAL Hx Neurological Disorder: No - HEENT Hx HEENT Problems: Yes - RENAL Hx Chronic Kidney Disease: No - ENDOCRINE/METABOLIC Hx Endocrine Disorders: Yes Hx Diabetes Mellitus Type 2: Yes - HEMATOLOGICAL/ONCOLOGICAL Hx Blood Disorders: No - INTEGUMENTARY Hx Dermatological Problems: No - MUSCULOSKELETAL/RHEUMATOLOGICAL Hx Musculoskeletal Disorders: Yes Hx Falls: Yes - GASTROINTESTINAL Hx Gastrointestinal Disorders: No - GENITOURINARY/GYNECOLOGICAL Hx Genitourinary Disorders: No - PSYCHIATRIC Hx Substance Use: No - SURGICAL HISTORY Hx Surgeries: Yes Other/Comment: AICD to Left Chest Wall - ANESTHESIA Hx Anesthesia: Yes Hx Anesthesia Reactions: No Hx Malignant Hyperthermia: No Meds Allergies/Adverse Reactions: Allergies Allergy/AdvReac Type Severity Reaction Status Date / Time No Known Allergies Allergy Verified 03/16/17 14:28 - Medications Medications: Current Medications Acetaminophen (Tylenol 325mg Tab) 650 mg PO Q6 PRN PRN Reason: Pain, Mild (1-3) Albuterol/Ipratropium (Duoneb 3 Mg/0.5 Mg (3 Ml) Ud) 3 ml INH RQ6 [facility] Last Admin: 05/07/17 13:21 Dose: 3 ml Carvedilol (Coreg) 12.5 mg PO BID [facility] Last Admin: 05/07/17 18:07 Dose: Not Given Clopidogrel Bisulfate (Plavix) 75 mg PO DAILY [facility] Last Admin: 05/07/17 10:43 Dose: 75 mg Furosemide (Lasix) 40 mg IVP DAILY [facility] Last Admin: 05/07/17 10:52 Dose: 40 mg Guaifenesin (Robitussin) 200 mg PO Q4H PRN PRN Reason: Cough and congestion Last Admin: 05/07/17 18:07 Dose: 200 mg Azithromycin 500 mg/ Sodium (Chloride) 250 mls @ 250 mls/hr IVPB Q24H [facility] Ceftriaxone Sodium 1 gm/ (Sodium Chloride) 100 mls @ 100 mls/hr IVPB HS [facility] Metolazone (Zaroxolyn) 5 mg PO DAILY [facility] Last Admin: 05/07/17 10:52 Dose: 5 mg Sacubitril/Valsartan (Entresto 24 Mg-26 Mg) 1 tab PO BID [facility] Last Admin: 05/07/17 18:07 Dose: Not Given Physical Exam - Constitutional Appears: Non-toxic, Chronically Ill - Head Exam Head Exam: NORMOCEPHALIC - Eye Exam Eye Exam: PERRL. absent: Scleral icterus - ENT Exam ENT Exam: Mucous Membranes Dry - Neck Exam Neck exam: Negative for: Lymphadenopathy - Respiratory Exam Respiratory Exam: Decreased Breath Sounds, Prolonged Expiratory Phase, Rhonchi - Cardiovascular Exam Cardiovascular Exam: REGULAR RHYTHM - GI/Abdominal Exam GI & Abdominal Exam: Diminished Bowel Sounds, Soft. absent: Tenderness - Rectal Exam Rectal Exam: Deferred - Exam Exam: NORMAL INSPECTION - Extremities Exam Extremities exam: Positive for: pedal edema, pedal pulses present. Negative for : calf tenderness, tenderness - Back Exam Back exam: absent: CVA tenderness (L), CVA tenderness (R) - Neurological Exam Neurological exam: Alert, CN II-XII Intact, Oriented x3, Reflexes Normal - Psychiatric Exam Psychiatric exam: Normal Mood - Skin Skin Exam: Dry Results - Vital Signs Recent Vital Signs: Last Vital Signs Temp 97.9 F 05/07/17 15:19 Pulse 77 05/07/17 15:19 Resp 20 05/07/17 15:19 BP 96/58 L 05/07/17 18:07 Pulse Ox 96 05/07/17 15:19 - Labs Result Diagrams: 05/06/17 14:37 05/06/17 14:37 Labs: Laboratory Results - last 24 hr 05/07/17 05/07/17 05/07/17 06:34 11:34 16:56 POC Glucose (mg/dL) 144 H 131 H 128 H Assessment & Plan (1) CHF (congestive heart failure) Status: Acute (2) Pneumonia Status: Acute (3) Anemia Status: Acute (4) CAD (coronary artery disease) Status: Acute (5) CHF exacerbation Status: Acute (6) COPD (chronic obstructive pulmonary disease) Status: Acute (7) Dilated cardiomyopathy Status: Acute - Assessment and Plan (Free Text) Assessment: CHF R/O PNEUMONIA SEVERE CARDIOMYOPATHY AWAIT CULTURES CONT IV ANTIBIOTICS
--- NOTE | 2017-05-07 20:06 | CP.PCM.CON ---
Past Patient History - Infectious Disease Hx of Infectious Diseases: None - Past Medical History & Family History Past Medical History?: Yes - Past Social History Smoking Status: Former Smoker - CARDIAC Hx Congestive Heart Failure: Yes Hx Hypercholesterolemia: Yes Hx Hypertension: Yes Hx Pacemaker: Yes - PULMONARY Hx Respiratory Disorders: No - NEUROLOGICAL Hx Neurological Disorder: No - HEENT Hx HEENT Problems: Yes - RENAL Hx Chronic Kidney Disease: No - ENDOCRINE/METABOLIC Hx Endocrine Disorders: Yes Hx Diabetes Mellitus Type 2: Yes - HEMATOLOGICAL/ONCOLOGICAL Hx Blood Disorders: No - INTEGUMENTARY Hx Dermatological Problems: No - MUSCULOSKELETAL/RHEUMATOLOGICAL Hx Musculoskeletal Disorders: Yes Hx Falls: Yes - GASTROINTESTINAL Hx Gastrointestinal Disorders: No - GENITOURINARY/GYNECOLOGICAL Hx Genitourinary Disorders: No - PSYCHIATRIC Hx Substance Use: No - SURGICAL HISTORY Hx Surgeries: Yes Other/Comment: AICD to Left Chest Wall - ANESTHESIA Hx Anesthesia: Yes Hx Anesthesia Reactions: No Hx Malignant Hyperthermia: No Meds Allergies/Adverse Reactions: Allergies Allergy/AdvReac Type Severity Reaction Status Date / Time No Known Allergies Allergy Verified 03/16/17 14:28 - Medications Medications: Current Medications Acetaminophen (Tylenol 325mg Tab) 650 mg PO Q6 PRN PRN Reason: Pain, Mild (1-3) Albuterol/Ipratropium (Duoneb 3 Mg/0.5 Mg (3 Ml) Ud) 3 ml INH RQ6 [facility] Last Admin: 05/07/17 19:58 Dose: 3 ml Carvedilol (Coreg) 12.5 mg PO BID [facility] Last Admin: 05/07/17 18:07 Dose: Not Given Clopidogrel Bisulfate (Plavix) 75 mg PO DAILY [facility] Last Admin: 05/07/17 10:43 Dose: 75 mg Furosemide (Lasix) 40 mg IVP DAILY [facility] Last Admin: 05/07/17 10:52 Dose: 40 mg Guaifenesin (Robitussin) 200 mg PO Q4H PRN PRN Reason: Cough and congestion Last Admin: 05/07/17 18:07 Dose: 200 mg Azithromycin 500 mg/ Sodium (Chloride) 250 mls @ 250 mls/hr IVPB Q24H [facility] Ceftriaxone Sodium 1 gm/ (Sodium Chloride) 100 mls @ 100 mls/hr IVPB HS [facility] Metolazone (Zaroxolyn) 5 mg PO DAILY [facility] Last Admin: 05/07/17 10:52 Dose: 5 mg Sacubitril/Valsartan (Entresto 24 Mg-26 Mg) 1 tab PO BID [facility] Last Admin: 05/07/17 18:07 Dose: Not Given Results - Vital Signs Recent Vital Signs: Last Vital Signs Temp 97.9 F 05/07/17 15:19 Pulse 77 05/07/17 15:19 Resp 20 05/07/17 15:19 BP 96/58 L 05/07/17 18:07 Pulse Ox 96 05/07/17 15:19 - Labs Result Diagrams: 05/06/17 14:37 05/06/17 14:37 Labs: Laboratory Results - last 24 hr 05/07/17 05/07/17 05/07/17 06:34 11:34 16:56 POC Glucose (mg/dL) 144 H 131 H 128 H
[2017-05-07] MEDS: Azithromycin 500 MG in Sodium Chloride 0.9% 250 ML IVPB SCH (23:00)
[2017-05-08] MEDS: Albuterol-Ipratrop 3 mg / 0.5 (3 ml) UD INH SCH ×3 (07:35→19:05)
[2017-05-08] MEDS: metOLazone 5 MG TAB PO SCH (10:55)
[2017-05-08] MEDS: Sacubitril/Valsartan 24-26mg Tab PO SCH ×2 (10:55→17:58)
--- NOTE | 2017-05-08 12:09 | CARD ---
APPROVED REPORT EKG Measurement Heart [id number] <Conclusion> Atrial-sensed ventricular-paced rhythm Abnormal ECG
--- NOTE | 2017-05-08 16:51 | CP.PCM.PN ---
Subjective - Date & Time of Evaluation Date of Evaluation: 05/08/17 Time of Evaluation: 08:00 - Subjective Subjective: less cough less sob no fever today Objective - Vital Signs/Intake and Output Vital Signs (last 24 hours): Temp Pulse Resp BP Pulse Ox 98.7 F 110 H 20 99/67 L 96 05/08/17 07:45 05/08/17 07:45 05/08/17 07:45 05/08/17 10:55 05/08/17 07:45 Intake and Output: 05/08/17 05/08/17 06:59 18:59 Intake Total 940 Output Total 1150 Balance -210 - Medications Medications: Current Medications Acetaminophen (Tylenol 325mg Tab) 650 mg PO Q6 PRN PRN Reason: Pain, Mild (1-3) Albuterol/Ipratropium (Duoneb 3 Mg/0.5 Mg (3 Ml) Ud) 3 ml INH RQ6 [facility] Last Admin: 05/08/17 13:38 Dose: 3 ml Carvedilol (Coreg) 12.5 mg PO BID [facility] Last Admin: 05/08/17 10:55 Dose: Not Given Clopidogrel Bisulfate (Plavix) 75 mg PO DAILY [facility] Last Admin: 05/08/17 11:05 Dose: 75 mg Furosemide (Lasix) 40 mg IVP DAILY [facility] Last Admin: 05/08/17 10:55 Dose: Not Given Guaifenesin (Robitussin) 200 mg PO Q4H PRN PRN Reason: Cough and congestion Last Admin: 05/07/17 18:07 Dose: 200 mg Azithromycin 500 mg/ Sodium (Chloride) 250 mls @ 250 mls/hr IVPB Q24H [facility] Last Admin: 05/07/17 23:00 Dose: 250 mls/hr Ceftriaxone Sodium 1 gm/ (Sodium Chloride) 100 mls @ 100 mls/hr IVPB HS [facility] Last Admin: 05/07/17 22:00 Dose: 100 mls/hr Metolazone (Zaroxolyn) 5 mg PO DAILY [facility] Last Admin: 05/08/17 10:55 Dose: Not Given Sacubitril/Valsartan (Entresto 24 Mg-26 Mg) 1 tab PO BID [facility] Last Admin: 05/08/17 10:55 Dose: Not Given - Labs Labs: 05/06/17 14:37 05/06/17 14:37 PT 26.8 SECONDS (9.7-12.2) H 05/06/17 14:37 INR 2.3 05/06/17 14:37 APTT 30 SECONDS (21-34) 05/06/17 14:37 - Constitutional Appears: Well - Head Exam Head Exam: ATRAUMATIC, NORMAL INSPECTION, NORMOCEPHALIC - Eye Exam Eye Exam: EOMI, Normal appearance, PERRL Pupil Exam: NORMAL ACCOMODATION, PERRL - ENT Exam ENT Exam: Mucous Membranes Moist, Normal Exam - Neck Exam Neck Exam: Full ROM, Normal Inspection. absent: Lymphadenopathy - Respiratory Exam Respiratory Exam: Clear to Ausculation Bilateral, NORMAL BREATHING PATTERN - Cardiovascular Exam Cardiovascular Exam: REGULAR RHYTHM, +S1, +S2. absent: Murmur - GI/Abdominal Exam GI & Abdominal Exam: Soft, Normal Bowel Sounds. absent: Tenderness - Rectal Exam Rectal Exam: NORMAL INSPECTION - Extremities Exam Extremities Exam: Full ROM, Normal Capillary Refill, Normal Inspection. absent : Joint Swelling, Pedal Edema - Back Exam Back Exam: NORMAL INSPECTION - Neurological Exam Neurological Exam: Alert, Awake, CN II-XII Intact, Normal Gait, Oriented x3 - Psychiatric Exam Psychiatric exam: Normal Affect, Normal Mood - Skin Skin Exam: Dry, Intact, Normal Color, Warm Assessment and Plan (1) CHF (congestive heart failure) Status: Acute (2) Pneumonia Status: Acute (3) Anemia Status: Acute (4) CAD (coronary artery disease) Status: Acute (5) CHF exacerbation Status: Acute (6) COPD (chronic obstructive pulmonary disease) Status: Acute (7) Dilated cardiomyopathy Status: Acute
--- NOTE | 2017-05-08 18:30 | CP.PCM.PN ---
Subjective - Date & Time of Evaluation Date of Evaluation: 05/08/17 Time of Evaluation: 18:30 Objective - Vital Signs/Intake and Output Vital Signs (last 24 hours): Temp Pulse Resp BP Pulse Ox 97.4 F L 70 20 107/74 97 05/08/17 15:28 05/08/17 15:28 05/08/17 15:28 05/08/17 17:55 05/08/17 15:28 Intake and Output: 05/08/17 05/08/17 06:59 18:59 Intake Total 940 Output Total 1150 Balance -210 - Medications Medications: Current Medications Acetaminophen (Tylenol 325mg Tab) 650 mg PO Q6 PRN PRN Reason: Pain, Mild (1-3) Albuterol/Ipratropium (Duoneb 3 Mg/0.5 Mg (3 Ml) Ud) 3 ml INH RQ6 [facility] Last Admin: 05/08/17 13:38 Dose: 3 ml Carvedilol (Coreg) 12.5 mg PO BID [facility] Last Admin: 05/08/17 17:55 Dose: 12.5 mg Clopidogrel Bisulfate (Plavix) 75 mg PO DAILY [facility] Last Admin: 05/08/17 11:05 Dose: 75 mg Furosemide (Lasix) 40 mg IVP DAILY [facility] Last Admin: 05/08/17 10:55 Dose: Not Given Guaifenesin (Robitussin) 200 mg PO Q4H PRN PRN Reason: Cough and congestion Last Admin: 05/07/17 18:07 Dose: 200 mg Azithromycin 500 mg/ Sodium (Chloride) 250 mls @ 250 mls/hr IVPB Q24H [facility] Last Admin: 05/07/17 23:00 Dose: 250 mls/hr Ceftriaxone Sodium 1 gm/ (Sodium Chloride) 100 mls @ 100 mls/hr IVPB HS [facility] Last Admin: 05/07/17 22:00 Dose: 100 mls/hr Metolazone (Zaroxolyn) 5 mg PO DAILY [facility] Last Admin: 05/08/17 10:55 Dose: Not Given Sacubitril/Valsartan (Entresto 24 Mg-26 Mg) 1 tab PO BID [facility] Last Admin: 05/08/17 17:58 Dose: Not Given - Labs Labs: 05/06/17 14:37 05/06/17 14:37 PT 26.8 SECONDS (9.7-12.2) H 05/06/17 14:37 INR 2.3 05/06/17 14:37 APTT 30 SECONDS (21-34) 05/06/17 14:37
--- NOTE | 2017-05-08 18:33 | CP.PCM.PN ---
Subjective - Date & Time of Evaluation Date of Evaluation: 05/08/17 Time of Evaluation: 11:40 - Subjective Subjective: clinically same Objective - Vital Signs/Intake and Output Vital Signs (last 24 hours): Temp Pulse Resp BP Pulse Ox 97.4 F L 70 20 107/74 97 05/08/17 15:28 05/08/17 15:28 05/08/17 15:28 05/08/17 17:55 05/08/17 15:28 Intake and Output: 05/08/17 05/08/17 06:59 18:59 Intake Total 940 Output Total 1150 Balance -210 - Medications Medications: Current Medications Acetaminophen (Tylenol 325mg Tab) 650 mg PO Q6 PRN PRN Reason: Pain, Mild (1-3) Albuterol/Ipratropium (Duoneb 3 Mg/0.5 Mg (3 Ml) Ud) 3 ml INH RQ6 [facility] Last Admin: 05/08/17 13:38 Dose: 3 ml Carvedilol (Coreg) 12.5 mg PO BID [facility] Last Admin: 05/08/17 17:55 Dose: 12.5 mg Clopidogrel Bisulfate (Plavix) 75 mg PO DAILY [facility] Last Admin: 05/08/17 11:05 Dose: 75 mg Furosemide (Lasix) 40 mg IVP DAILY [facility] Last Admin: 05/08/17 10:55 Dose: Not Given Guaifenesin (Robitussin) 200 mg PO Q4H PRN PRN Reason: Cough and congestion Last Admin: 05/07/17 18:07 Dose: 200 mg Azithromycin 500 mg/ Sodium (Chloride) 250 mls @ 250 mls/hr IVPB Q24H [facility] Last Admin: 05/07/17 23:00 Dose: 250 mls/hr Ceftriaxone Sodium 1 gm/ (Sodium Chloride) 100 mls @ 100 mls/hr IVPB HS [facility] Last Admin: 05/07/17 22:00 Dose: 100 mls/hr Metolazone (Zaroxolyn) 5 mg PO DAILY [facility] Last Admin: 05/08/17 10:55 Dose: Not Given Sacubitril/Valsartan (Entresto 24 Mg-26 Mg) 1 tab PO BID [facility] Last Admin: 05/08/17 17:58 Dose: Not Given - Labs Labs: 05/06/17 14:37 05/06/17 14:37 PT 26.8 SECONDS (9.7-12.2) H 05/06/17 14:37 INR 2.3 05/06/17 14:37 APTT 30 SECONDS (21-34) 05/06/17 14:37 - Constitutional Appears: Well - Head Exam Head Exam: ATRAUMATIC, NORMAL INSPECTION, NORMOCEPHALIC - Eye Exam Eye Exam: EOMI, Normal appearance, PERRL Pupil Exam: NORMAL ACCOMODATION, PERRL - ENT Exam ENT Exam: Mucous Membranes Moist, Normal Exam - Neck Exam Neck Exam: Full ROM, Normal Inspection. absent: Lymphadenopathy - Respiratory Exam Respiratory Exam: Decreased Breath Sounds - Cardiovascular Exam Cardiovascular Exam: REGULAR RHYTHM, +S1, +S2 - GI/Abdominal Exam GI & Abdominal Exam: Soft, Diminished Bowel Sounds - Rectal Exam Rectal Exam: Deferred
[2017-05-08] MEDS: Azithromycin 500 MG in Sodium Chloride 0.9% 250 ML IVPB SCH (22:42)
[2017-05-09] MEDS: Albuterol-Ipratrop 3 mg / 0.5 (3 ml) UD INH SCH ×5 (01:42→19:36)
[2017-05-09] MEDS: metOLazone 5 MG TAB PO SCH (10:32)
[2017-05-09] MEDS: Sacubitril/Valsartan 24-26mg Tab PO SCH ×2 (10:33→18:49)
[2017-05-09] MEDS: guaiFENesin 200 mg/10 ml Syrup UD PO PRN (10:34)
--- NOTE | 2017-05-09 12:29 | CP.PCM.PN ---
Subjective - Date & Time of Evaluation Date of Evaluation: 05/09/17 Time of Evaluation: 12:29 Objective - Vital Signs/Intake and Output Vital Signs (last 24 hours): Temp Pulse Resp BP Pulse Ox 98.2 F 92 H 18 125/71 96 05/09/17 08:00 05/09/17 08:00 05/09/17 08:00 05/09/17 10:34 05/09/17 08:00 Intake and Output: 05/09/17 05/09/17 06:59 18:59 Intake Total 500 Output Total 601 Balance -101 - Medications Medications: Current Medications Acetaminophen (Tylenol 325mg Tab) 650 mg PO Q6 PRN PRN Reason: Pain, Mild (1-3) Albuterol/Ipratropium (Duoneb 3 Mg/0.5 Mg (3 Ml) Ud) 3 ml INH RQ6 [facility] Last Admin: 05/09/17 07:39 Dose: 3 ml Carvedilol (Coreg) 12.5 mg PO BID [facility] Last Admin: 05/09/17 10:33 Dose: 12.5 mg Clopidogrel Bisulfate (Plavix) 75 mg PO DAILY [facility] Last Admin: 05/09/17 10:34 Dose: 75 mg Furosemide (Lasix) 40 mg IVP DAILY [facility] Last Admin: 05/09/17 10:34 Dose: 40 mg Guaifenesin (Robitussin) 200 mg PO Q4H PRN PRN Reason: Cough and congestion Last Admin: 05/09/17 10:34 Dose: 200 mg Azithromycin 500 mg/ Sodium (Chloride) 250 mls @ 250 mls/hr IVPB Q24H [facility] Last Admin: 05/08/17 22:42 Dose: 250 mls/hr Ceftriaxone Sodium 1 gm/ (Sodium Chloride) 100 mls @ 100 mls/hr IVPB HS [facility] Last Admin: 05/08/17 21:11 Dose: 100 mls/hr Metolazone (Zaroxolyn) 5 mg PO DAILY [facility] Last Admin: 05/09/17 10:32 Dose: 5 mg Sacubitril/Valsartan (Entresto 24 Mg-26 Mg) 1 tab PO BID [facility] Last Admin: 05/09/17 10:33 Dose: 1 tab - Labs Labs: 05/06/17 14:37 05/06/17 14:37 PT 26.8 SECONDS (9.7-12.2) H 05/06/17 14:37 INR 2.3 05/06/17 14:37 APTT 30 SECONDS (21-34) 05/06/17 14:37
--- NOTE | 2017-05-09 16:16 | CP.PCM.PN ---
Subjective - Date & Time of Evaluation Date of Evaluation: 05/09/17 Time of Evaluation: 16:13 - Subjective Subjective: PT SEEN BY DR SANTACRUZ. OK TO D/C BACK TO [facility]. PER CM THERE IS NO BED AVAILABLE AT [facility] UNTIL FRIDAY AFTER [address] GIMENEZ--- RECS TO CONTINUE LEVAQUIN 500 MG PO DAILY X5 DAYS (FORM 05/12-05/16). CORE DRILLER DISCUSSED PLAN WITH CARDIO AND PER DR. HERNANDEZ CONTINUE LASIX 40 MG PO BID AND CONTINUE SAME MEDS; CHECK BMP WEEKLY FOR LYTES. ALL D/C ORDER AND INFORMATION LEFT BY CORE DRILLER. DISCUSSED PLAN WITH RN ISABELLE AND AYAD. IF PT'S STATUS CHANGES BETWEEN NOW AND FRIDAY, RN OCCUPATIONAL TO NOTIFY DR SANTACRUZ FOR HOLD OF D/C ORDER. NO FURTHER ORDERS. Objective - Vital Signs/Intake and Output Vital Signs (last 24 hours): Temp Pulse Resp BP Pulse Ox 98.2 F 92 H 18 125/71 96 05/09/17 08:00 05/09/17 08:00 05/09/17 08:00 05/09/17 10:34 05/09/17 08:00 Intake and Output: 05/09/17 05/09/17 06:59 18:59 Intake Total 500 Output Total 601 Balance -101 - Medications Medications: Current Medications Acetaminophen (Tylenol 325mg Tab) 650 mg PO Q6 PRN PRN Reason: Pain, Mild (1-3) Albuterol/Ipratropium (Duoneb 3 Mg/0.5 Mg (3 Ml) Ud) 3 ml INH RQ6 [facility] Last Admin: 05/09/17 14:01 Dose: 3 ml Carvedilol (Coreg) 12.5 mg PO BID [facility] Last Admin: 05/09/17 10:33 Dose: 12.5 mg Clopidogrel Bisulfate (Plavix) 75 mg PO DAILY [facility] Last Admin: 05/09/17 10:34 Dose: 75 mg Furosemide (Lasix) 40 mg IVP DAILY [facility] Last Admin: 05/09/17 10:34 Dose: 40 mg Guaifenesin (Robitussin) 200 mg PO Q4H PRN PRN Reason: Cough and congestion Last Admin: 05/09/17 10:34 Dose: 200 mg Azithromycin 500 mg/ Sodium (Chloride) 250 mls @ 250 mls/hr IVPB Q24H [facility] Last Admin: 05/08/17 22:42 Dose: 250 mls/hr Ceftriaxone Sodium 1 gm/ (Sodium Chloride) 100 mls @ 100 mls/hr IVPB HS [facility] Last Admin: 05/08/17 21:11 Dose: 100 mls/hr Metolazone (Zaroxolyn) 5 mg PO DAILY [facility] Last Admin: 05/09/17 10:32 Dose: 5 mg Sacubitril/Valsartan (Entresto 24 Mg-26 Mg) 1 tab PO BID [facility] Last Admin: 05/09/17 10:33 Dose: 1 tab - Labs Labs: 05/06/17 14:37 05/06/17 14:37 PT 26.8 SECONDS (9.7-12.2) H 05/06/17 14:37 INR 2.3 05/06/17 14:37 APTT 30 SECONDS (21-34) 05/06/17 14:37
--- NOTE | 2017-05-09 16:16 | PCM.HF ---
Heart Failure Core Measure - Follow up Will be discharged to: [facility] ([facility])
--- NOTE | 2017-05-09 17:56 | CP.PCM.PN ---
Subjective - Date & Time of Evaluation Date of Evaluation: 05/09/17 Time of Evaluation: 13:00 - Subjective Subjective: clinically same Objective - Vital Signs/Intake and Output Vital Signs (last 24 hours): Temp Pulse Resp BP Pulse Ox 98.2 F 92 H 18 125/71 96 05/09/17 08:00 05/09/17 08:00 05/09/17 08:00 05/09/17 10:34 05/09/17 08:00 Intake and Output: 05/09/17 05/09/17 06:59 18:59 Intake Total 500 Output Total 601 Balance -101 - Medications Medications: Current Medications Acetaminophen (Tylenol 325mg Tab) 650 mg PO Q6 PRN PRN Reason: Pain, Mild (1-3) Albuterol/Ipratropium (Duoneb 3 Mg/0.5 Mg (3 Ml) Ud) 3 ml INH RQ6 [facility] Last Admin: 05/09/17 14:01 Dose: 3 ml Carvedilol (Coreg) 12.5 mg PO BID [facility] Last Admin: 05/09/17 10:33 Dose: 12.5 mg Clopidogrel Bisulfate (Plavix) 75 mg PO DAILY [facility] Last Admin: 05/09/17 10:34 Dose: 75 mg Furosemide (Lasix) 40 mg IVP DAILY [facility] Last Admin: 05/09/17 10:34 Dose: 40 mg Guaifenesin (Robitussin) 200 mg PO Q4H PRN PRN Reason: Cough and congestion Last Admin: 05/09/17 10:34 Dose: 200 mg Azithromycin 500 mg/ Sodium (Chloride) 250 mls @ 250 mls/hr IVPB Q24H [facility] Last Admin: 05/08/17 22:42 Dose: 250 mls/hr Ceftriaxone Sodium 1 gm/ (Sodium Chloride) 100 mls @ 100 mls/hr IVPB HS [facility] Last Admin: 05/08/17 21:11 Dose: 100 mls/hr Metolazone (Zaroxolyn) 5 mg PO DAILY [facility] Last Admin: 05/09/17 10:32 Dose: 5 mg Sacubitril/Valsartan (Entresto 24 Mg-26 Mg) 1 tab PO BID [facility] Last Admin: 05/09/17 10:33 Dose: 1 tab - Labs Labs: 05/06/17 14:37 05/06/17 14:37 PT 26.8 SECONDS (9.7-12.2) H 05/06/17 14:37 INR 2.3 05/06/17 14:37 APTT 30 SECONDS (21-34) 05/06/17 14:37 - Constitutional Appears: Well - Head Exam Head Exam: ATRAUMATIC, NORMAL INSPECTION, NORMOCEPHALIC - Eye Exam Eye Exam: EOMI, Normal appearance, PERRL Pupil Exam: NORMAL ACCOMODATION, PERRL - ENT Exam ENT Exam: Mucous Membranes Moist, Normal Exam - Neck Exam Neck Exam: Full ROM, Normal Inspection. absent: Lymphadenopathy - Respiratory Exam Respiratory Exam: Decreased Breath Sounds - Cardiovascular Exam Cardiovascular Exam: REGULAR RHYTHM, +S1, +S2 - GI/Abdominal Exam GI & Abdominal Exam: Soft, Diminished Bowel Sounds - Rectal Exam Rectal Exam: Deferred
--- NOTE | 2017-05-09 18:35 | CP.PCM.PN ---
Subjective - Date & Time of Evaluation Date of Evaluation: 05/09/17 Time of Evaluation: 07:00 - Subjective Subjective: overall improved afeb Objective - Vital Signs/Intake and Output Vital Signs (last 24 hours): Temp Pulse Resp BP Pulse Ox 98.2 F 92 H 18 125/71 96 05/09/17 08:00 05/09/17 08:00 05/09/17 08:00 05/09/17 10:34 05/09/17 08:00 Intake and Output: 05/09/17 05/09/17 06:59 18:59 Intake Total 500 Output Total 601 Balance -101 - Medications Medications: Current Medications Acetaminophen (Tylenol 325mg Tab) 650 mg PO Q6 PRN PRN Reason: Pain, Mild (1-3) Albuterol/Ipratropium (Duoneb 3 Mg/0.5 Mg (3 Ml) Ud) 3 ml INH RQ6 [facility] Last Admin: 05/09/17 14:01 Dose: 3 ml Carvedilol (Coreg) 12.5 mg PO BID [facility] Last Admin: 05/09/17 10:33 Dose: 12.5 mg Clopidogrel Bisulfate (Plavix) 75 mg PO DAILY [facility] Last Admin: 05/09/17 10:34 Dose: 75 mg Furosemide (Lasix) 40 mg IVP DAILY [facility] Last Admin: 05/09/17 10:34 Dose: 40 mg Guaifenesin (Robitussin) 200 mg PO Q4H PRN PRN Reason: Cough and congestion Last Admin: 05/09/17 10:34 Dose: 200 mg Azithromycin 500 mg/ Sodium (Chloride) 250 mls @ 250 mls/hr IVPB Q24H [facility] Last Admin: 05/08/17 22:42 Dose: 250 mls/hr Ceftriaxone Sodium 1 gm/ (Sodium Chloride) 100 mls @ 100 mls/hr IVPB HS [facility] Last Admin: 05/08/17 21:11 Dose: 100 mls/hr Metolazone (Zaroxolyn) 5 mg PO DAILY [facility] Last Admin: 05/09/17 10:32 Dose: 5 mg Sacubitril/Valsartan (Entresto 24 Mg-26 Mg) 1 tab PO BID [facility] Last Admin: 05/09/17 10:33 Dose: 1 tab - Labs Labs: 05/06/17 14:37 05/06/17 14:37 PT 26.8 SECONDS (9.7-12.2) H 05/06/17 14:37 INR 2.3 05/06/17 14:37 APTT 30 SECONDS (21-34) 05/06/17 14:37 - Constitutional Appears: Non-toxic, Chronically Ill - Head Exam Head Exam: NORMOCEPHALIC - Eye Exam Eye Exam: PERRL - ENT Exam ENT Exam: Mucous Membranes Dry - Neck Exam Neck Exam: absent: Lymphadenopathy - Respiratory Exam Respiratory Exam: Decreased Breath Sounds - Cardiovascular Exam Cardiovascular Exam: REGULAR RHYTHM - GI/Abdominal Exam GI & Abdominal Exam: Distended, Soft - Rectal Exam Rectal Exam: Deferred Assessment and Plan (1) CHF (congestive heart failure) Status: Acute (2) Pneumonia Status: Acute (3) Anemia Status: Acute (4) CAD (coronary artery disease) Status: Acute (5) CHF exacerbation Status: Acute (6) COPD (chronic obstructive pulmonary disease) Status: Acute (7) Dilated cardiomyopathy Status: Acute
[2017-05-09] MEDS: Azithromycin 500 MG in Sodium Chloride 0.9% 250 ML IVPB SCH (22:03)
[2017-05-10] MEDS: Albuterol-Ipratrop 3 mg / 0.5 (3 ml) UD INH SCH ×4 (01:44→20:09)
[2017-05-10 07:06] LABS: INR 1.6; PROTHROMBIN TIME 18.3 SECONDS (9.7-12.2)
[2017-05-10 07:41] LABS: BLOOD UREA NITROGEN 46 mg/dL (9-20); CALCIUM 8.8 mg/dl (8.6-10.4); GFR AFRICAN-AMERICAN > 60; GFR NON-AFRICAN AMERICAN > 60
[2017-05-10] MEDS: Sacubitril/Valsartan 24-26mg Tab PO SCH ×2 (10:19→18:01)
[2017-05-10] MEDS: metOLazone 5 MG TAB PO SCH (10:20)
[2017-05-10 11:44] LABS: HEMOGLOBIN 9.3 g/dL (12.0-18.0); MEAN CELL VOLUME 79.4 fL (80.0-94.0); MEAN CORPUSCULAR HEMOGLOBIN 25.6 pg (27.0-31.0); MEAN CORPUSCULAR HGB CONC 32.2 g/dL (33.0-37.0); MEAN PLATELET VOLUME 7.8 fL (7.2-11.7); RBC 3.62 Mil/uL (4.40-5.90); RED CELL DISTRIBUTION WIDTH 24.9 % (11.5-14.5); WHITE BLOOD COUNT 4.3 K/uL (4.8-10.8)
[2017-05-10] MEDS: guaiFENesin 200 mg/10 ml Syrup UD PO PRN (13:33)
--- NOTE | 2017-05-10 16:36 | CP.PCM.PN ---
Subjective - Date & Time of Evaluation Date of Evaluation: 05/10/17 Time of Evaluation: 10:40 - Subjective Subjective: clinically same Objective - Vital Signs/Intake and Output Vital Signs (last 24 hours): Temp Pulse Resp BP Pulse Ox 97.4 F L 80 18 124/70 97 05/10/17 04:59 05/10/17 07:45 05/10/17 04:59 05/10/17 10:19 05/10/17 04:59 Intake and Output: 05/10/17 05/10/17 06:59 18:59 Intake Total 590 Balance 590 - Medications Medications: Current Medications Acetaminophen (Tylenol 325mg Tab) 650 mg PO Q6 PRN PRN Reason: Pain, Mild (1-3) Albuterol/Ipratropium (Duoneb 3 Mg/0.5 Mg (3 Ml) Ud) 3 ml INH RQ6 [facility] Last Admin: 05/10/17 13:52 Dose: 3 ml Carvedilol (Coreg) 12.5 mg PO BID [facility] Last Admin: 05/10/17 10:19 Dose: 12.5 mg Clopidogrel Bisulfate (Plavix) 75 mg PO DAILY [facility] Last Admin: 05/10/17 10:20 Dose: 75 mg Furosemide (Lasix) 40 mg IVP DAILY [facility] Last Admin: 05/10/17 10:19 Dose: 40 mg Guaifenesin (Robitussin) 200 mg PO Q4H PRN PRN Reason: Cough and congestion Last Admin: 05/10/17 13:33 Dose: 200 mg Azithromycin 500 mg/ Sodium (Chloride) 250 mls @ 250 mls/hr IVPB Q24H [facility] Last Admin: 05/09/17 22:03 Dose: 250 mls/hr Ceftriaxone Sodium 1 gm/ (Sodium Chloride) 100 mls @ 100 mls/hr IVPB HS [facility] Last Admin: 05/09/17 21:19 Dose: 100 mls/hr Metolazone (Zaroxolyn) 5 mg PO DAILY [facility] Last Admin: 05/10/17 10:20 Dose: 5 mg Sacubitril/Valsartan (Entresto 24 Mg-26 Mg) 1 tab PO BID [facility] Last Admin: 05/10/17 10:19 Dose: 1 tab - Labs Labs: 05/10/17 11:35 05/10/17 06:50 PT 18.3 SECONDS (9.7-12.2) H 05/10/17 06:50 INR 1.6 05/10/17 06:50 APTT 33 SECONDS (21-34) 05/10/17 06:50 - Constitutional Appears: Well - Head Exam Head Exam: ATRAUMATIC, NORMAL INSPECTION, NORMOCEPHALIC - Eye Exam Eye Exam: EOMI, Normal appearance, PERRL Pupil Exam: NORMAL ACCOMODATION, PERRL - ENT Exam ENT Exam: Mucous Membranes Moist, Normal Exam - Neck Exam Neck Exam: Full ROM, Normal Inspection. absent: Lymphadenopathy - Respiratory Exam Respiratory Exam: Decreased Breath Sounds - Cardiovascular Exam Cardiovascular Exam: REGULAR RHYTHM, +S1, +S2 - GI/Abdominal Exam GI & Abdominal Exam: Soft, Diminished Bowel Sounds - Rectal Exam Rectal Exam: Deferred
--- NOTE | 2017-05-10 17:41 | CP.PCM.PN ---
Subjective - Date & Time of Evaluation Date of Evaluation: 05/10/17 Time of Evaluation: 17:40 Objective - Vital Signs/Intake and Output Vital Signs (last 24 hours): Temp Pulse Resp BP Pulse Ox 97.4 F L 80 18 124/70 97 05/10/17 04:59 05/10/17 07:45 05/10/17 04:59 05/10/17 10:19 05/10/17 04:59 Intake and Output: 05/10/17 05/10/17 06:59 18:59 Intake Total 590 Balance 590 - Medications Medications: Current Medications Acetaminophen (Tylenol 325mg Tab) 650 mg PO Q6 PRN PRN Reason: Pain, Mild (1-3) Albuterol/Ipratropium (Duoneb 3 Mg/0.5 Mg (3 Ml) Ud) 3 ml INH RQ6 [facility] Last Admin: 05/10/17 13:52 Dose: 3 ml Carvedilol (Coreg) 12.5 mg PO BID [facility] Last Admin: 05/10/17 10:19 Dose: 12.5 mg Clopidogrel Bisulfate (Plavix) 75 mg PO DAILY [facility] Last Admin: 05/10/17 10:20 Dose: 75 mg Furosemide (Lasix) 40 mg IVP DAILY [facility] Last Admin: 05/10/17 10:19 Dose: 40 mg Guaifenesin (Robitussin) 200 mg PO Q4H PRN PRN Reason: Cough and congestion Last Admin: 05/10/17 13:33 Dose: 200 mg Azithromycin 500 mg/ Sodium (Chloride) 250 mls @ 250 mls/hr IVPB Q24H [facility] Last Admin: 05/09/17 22:03 Dose: 250 mls/hr Ceftriaxone Sodium 1 gm/ (Sodium Chloride) 100 mls @ 100 mls/hr IVPB HS [facility] Last Admin: 05/09/17 21:19 Dose: 100 mls/hr Metolazone (Zaroxolyn) 5 mg PO DAILY [facility] Last Admin: 05/10/17 10:20 Dose: 5 mg Sacubitril/Valsartan (Entresto 24 Mg-26 Mg) 1 tab PO BID [facility] Last Admin: 05/10/17 10:19 Dose: 1 tab - Labs Labs: 05/10/17 11:35 05/10/17 06:50 PT 18.3 SECONDS (9.7-12.2) H 02/10/18 06:50 INR 1.6 05/10/17 06:50 APTT 33 SECONDS (21-34) 05/10/17 06:50
[2017-05-10] MEDS: Azithromycin 500 MG in Sodium Chloride 0.9% 250 ML IVPB SCH (23:46)
[2017-05-11] MEDS: Albuterol-Ipratrop 3 mg / 0.5 (3 ml) UD INH SCH ×4 (03:03→19:41)
[2017-05-11] MEDS: guaiFENesin 200 mg/10 ml Syrup UD PO PRN (09:58)
[2017-05-11] MEDS: Sacubitril/Valsartan 24-26mg Tab PO SCH ×2 (09:59→18:07)
[2017-05-11] MEDS: metOLazone 5 MG TAB PO SCH (10:02)
--- NOTE | 2017-05-11 14:35 | CP.PCM.PN ---
Subjective - Date & Time of Evaluation Date of Evaluation: 05/11/17 Time of Evaluation: 11:20 - Subjective Subjective: clinically same Objective - Vital Signs/Intake and Output Vital Signs (last 24 hours): Temp Pulse Resp BP Pulse Ox 98.7 F 75 20 120/71 98 05/10/17 23:48 05/11/17 07:40 05/10/17 23:48 05/11/17 10:01 05/10/17 23:48 Intake and Output: 05/11/17 05/11/17 06:59 18:59 Intake Total 240 Output Total 450 Balance -210 - Medications Medications: Current Medications Acetaminophen (Tylenol 325mg Tab) 650 mg PO Q6 PRN PRN Reason: Pain, Mild (1-3) Last Admin: 05/11/17 10:04 Dose: 650 mg Albuterol/Ipratropium (Duoneb 3 Mg/0.5 Mg (3 Ml) Ud) 3 ml INH RQ6 [facility] Last Admin: 05/11/17 13:50 Dose: 3 ml Carvedilol (Coreg) 12.5 mg PO BID [facility] Last Admin: 05/11/17 10:01 Dose: 12.5 mg Clopidogrel Bisulfate (Plavix) 75 mg PO DAILY [facility] Last Admin: 05/11/17 09:58 Dose: 75 mg Furosemide (Lasix) 40 mg IVP DAILY [facility] Last Admin: 05/11/17 09:58 Dose: 40 mg Guaifenesin (Robitussin) 200 mg PO Q4H PRN PRN Reason: Cough and congestion Last Admin: 05/11/17 09:58 Dose: 200 mg Azithromycin 500 mg/ Sodium (Chloride) 250 mls @ 250 mls/hr IVPB Q24H [facility] Last Admin: 05/10/17 23:46 Dose: 250 mls/hr Ceftriaxone Sodium 1 gm/ (Sodium Chloride) 100 mls @ 100 mls/hr IVPB HS [facility] Last Admin: 05/10/17 21:43 Dose: 100 mls/hr Metolazone (Zaroxolyn) 5 mg PO DAILY [facility] Last Admin: 05/11/17 10:02 Dose: 5 mg Sacubitril/Valsartan (Entresto 24 Mg-26 Mg) 1 tab PO BID [facility] Last Admin: 05/11/17 09:59 Dose: 1 tab - Labs Labs: 05/10/17 11:35 05/10/17 06:50 PT 18.3 SECONDS (9.7-12.2) H 05/10/17 06:50 INR 1.6 05/10/17 06:50 APTT 33 SECONDS (21-34) 05/10/17 06:50 - Constitutional Appears: Well - Head Exam Head Exam: ATRAUMATIC, NORMAL INSPECTION, NORMOCEPHALIC - Eye Exam Eye Exam: EOMI, Normal appearance, PERRL Pupil Exam: NORMAL ACCOMODATION, PERRL - ENT Exam ENT Exam: Mucous Membranes Moist, Normal Exam - Neck Exam Neck Exam: Full ROM, Normal Inspection. absent: Lymphadenopathy - Respiratory Exam Respiratory Exam: Decreased Breath Sounds - Cardiovascular Exam Cardiovascular Exam: REGULAR RHYTHM, +S1, +S2 - GI/Abdominal Exam GI & Abdominal Exam: Soft, Diminished Bowel Sounds - Rectal Exam Rectal Exam: Deferred
--- NOTE | 2017-05-11 15:39 | CP.PCM.PN ---
Subjective - Date & Time of Evaluation Date of Evaluation: 05/11/17 Time of Evaluation: 09:00 - Subjective Subjective: AFEBRILE ALERT NAD Objective - Vital Signs/Intake and Output Vital Signs (last 24 hours): Temp Pulse Resp BP Pulse Ox 98.7 F 75 20 120/71 98 05/10/17 23:48 05/11/17 07:40 05/10/17 23:48 05/11/17 10:01 05/10/17 23:48 Intake and Output: 05/11/17 05/11/17 06:59 18:59 Intake Total 240 Output Total 450 Balance -210 - Medications Medications: Current Medications Acetaminophen (Tylenol 325mg Tab) 650 mg PO Q6 PRN PRN Reason: Pain, Mild (1-3) Last Admin: 05/11/17 10:04 Dose: 650 mg Albuterol/Ipratropium (Duoneb 3 Mg/0.5 Mg (3 Ml) Ud) 3 ml INH RQ6 [facility] Last Admin: 05/11/17 13:50 Dose: 3 ml Carvedilol (Coreg) 12.5 mg PO BID [facility] Last Admin: 05/11/17 10:01 Dose: 12.5 mg Clopidogrel Bisulfate (Plavix) 75 mg PO DAILY [facility] Last Admin: 05/11/17 09:58 Dose: 75 mg Furosemide (Lasix) 40 mg IVP DAILY [facility] Last Admin: 05/11/17 09:58 Dose: 40 mg Guaifenesin (Robitussin) 200 mg PO Q4H PRN PRN Reason: Cough and congestion Last Admin: 05/11/17 09:58 Dose: 200 mg Azithromycin 500 mg/ Sodium (Chloride) 250 mls @ 250 mls/hr IVPB Q24H [facility] Last Admin: 05/10/17 23:46 Dose: 250 mls/hr Ceftriaxone Sodium 1 gm/ (Sodium Chloride) 100 mls @ 100 mls/hr IVPB HS [facility] Last Admin: 05/10/17 21:43 Dose: 100 mls/hr Metolazone (Zaroxolyn) 5 mg PO DAILY [facility] Last Admin: 05/11/17 10:02 Dose: 5 mg Sacubitril/Valsartan (Entresto 24 Mg-26 Mg) 1 tab PO BID [facility] Last Admin: 05/11/17 09:59 Dose: 1 tab - Labs Labs: 05/10/17 11:35 05/10/17 06:50 PT 18.3 SECONDS (9.7-12.2) H 05/10/17 06:50 INR 1.6 05/10/17 06:50 APTT 33 SECONDS (21-34) 05/10/17 06:50 - Constitutional Appears: Non-toxic, Chronically Ill - Head Exam Head Exam: NORMOCEPHALIC - Eye Exam Eye Exam: PERRL - ENT Exam ENT Exam: Mucous Membranes Dry - Neck Exam Neck Exam: absent: Lymphadenopathy - Respiratory Exam Respiratory Exam: Decreased Breath Sounds - Cardiovascular Exam Cardiovascular Exam: REGULAR RHYTHM - GI/Abdominal Exam GI & Abdominal Exam: Distended, Soft - Rectal Exam Rectal Exam: Deferred - Exam Exam: NORMAL INSPECTION - Extremities Exam Extremities Exam: absent: Pedal Edema - Back Exam Back Exam: absent: CVA tenderness (L), CVA tenderness (R) Assessment and Plan (1) CHF (congestive heart failure) Status: Acute (2) Pneumonia Status: Acute (3) Anemia Status: Acute (4) CAD (coronary artery disease) Status: Acute (5) CHF exacerbation Status: Acute (6) COPD (chronic obstructive pulmonary disease) Status: Acute (7) Dilated cardiomyopathy Status: Acute - Assessment and Plan (Free Text) Assessment: RX REORDERED
--- NOTE | 2017-05-11 16:27 | CP.PCM.PN ---
Subjective - Date & Time of Evaluation Date of Evaluation: 05/11/17 Time of Evaluation: 16:27 Objective - Vital Signs/Intake and Output Vital Signs (last 24 hours): Temp Pulse Resp BP Pulse Ox 98.7 F 75 20 120/71 98 05/10/17 23:48 05/11/17 07:40 05/10/17 23:48 05/11/17 10:01 05/10/17 23:48 Intake and Output: 05/11/17 05/11/17 06:59 18:59 Intake Total 240 Output Total 450 Balance -210 - Medications Medications: Current Medications Acetaminophen (Tylenol 325mg Tab) 650 mg PO Q6 PRN PRN Reason: Pain, Mild (1-3) Last Admin: 05/11/17 10:04 Dose: 650 mg Albuterol/Ipratropium (Duoneb 3 Mg/0.5 Mg (3 Ml) Ud) 3 ml INH RQ6 [facility] Last Admin: 05/11/17 13:50 Dose: 3 ml Carvedilol (Coreg) 12.5 mg PO BID [facility] Last Admin: 05/11/17 10:01 Dose: 12.5 mg Clopidogrel Bisulfate (Plavix) 75 mg PO DAILY [facility] Last Admin: 05/11/17 09:58 Dose: 75 mg Furosemide (Lasix) 40 mg IVP DAILY [facility] Last Admin: 05/11/17 09:58 Dose: 40 mg Guaifenesin (Robitussin) 200 mg PO Q4H PRN PRN Reason: Cough and congestion Last Admin: 05/11/17 09:58 Dose: 200 mg Azithromycin 500 mg/ Sodium (Chloride) 250 mls @ 250 mls/hr IVPB Q24H [facility] Last Admin: 05/10/17 23:46 Dose: 250 mls/hr Ceftriaxone Sodium 1 gm/ (Sodium Chloride) 100 mls @ 100 mls/hr IVPB HS [facility] Last Admin: 05/10/17 21:43 Dose: 100 mls/hr Metolazone (Zaroxolyn) 5 mg PO DAILY [facility] Last Admin: 05/11/17 10:02 Dose: 5 mg Sacubitril/Valsartan (Entresto 24 Mg-26 Mg) 1 tab PO BID [facility] Last Admin: 05/11/17 09:59 Dose: 1 tab - Labs Labs: 05/10/17 11:35 05/10/17 06:50 PT 18.3 SECONDS (9.7-12.2) H 05/10/17 06:50 INR 1.6 05/10/17 06:50 APTT 33 SECONDS (21-34) 05/10/17 06:50
[2017-05-11] MEDS: Azithromycin 500 MG in Sodium Chloride 0.9% 250 ML IVPB SCH (23:53)
[2017-05-12] MEDS: Albuterol-Ipratrop 3 mg / 0.5 (3 ml) UD INH SCH (01:30)
[2017-05-12 08:09] VITALS: RESP 18; TEMP 98.9; O2SAT 94
[2017-05-12] MEDS: guaiFENesin 200 mg/10 ml Syrup UD PO PRN (10:59)
--- NOTE | 2017-05-12 11:01 | CP.PCM.PN ---
Subjective - Date & Time of Evaluation Date of Evaluation: 05/12/17 Time of Evaluation: 11:00 - Subjective Subjective: progress note DR Sweta Ross pt seen and examined at bedside. no acute distress. no pain, no fevers, chills, vomiting, diarrhea, cp, sob. Objective - Vital Signs/Intake and Output Vital Signs (last 24 hours): Temp Pulse Resp BP Pulse Ox 98.9 F 72 18 92/55 L 94 L 05/12/17 08:05 05/12/17 08:05 05/12/17 08:05 05/12/17 08:05 05/12/17 08:05 Intake and Output: 05/12/17 05/12/17 06:59 18:59 Intake Total 240 Output Total 440 Balance -200 - Medications Medications: Current Medications Acetaminophen (Tylenol 325mg Tab) 650 mg PO Q6 PRN PRN Reason: Pain, Mild (1-3) Last Admin: 05/11/17 10:04 Dose: 650 mg Carvedilol (Coreg) 12.5 mg PO BID [facility] Last Admin: 05/11/17 18:07 Dose: 12.5 mg Clopidogrel Bisulfate (Plavix) 75 mg PO DAILY [facility] Last Admin: 05/11/17 09:58 Dose: 75 mg Furosemide (Lasix) 40 mg IVP DAILY [facility] Last Admin: 05/11/17 09:58 Dose: 40 mg Guaifenesin (Robitussin) 200 mg PO Q4H PRN PRN Reason: Cough and congestion Last Admin: 05/11/17 09:58 Dose: 200 mg Azithromycin 500 mg/ Sodium (Chloride) 250 mls @ 250 mls/hr IVPB Q24H [facility] Last Admin: 05/11/17 23:53 Dose: 250 mls/hr Ceftriaxone Sodium 1 gm/ (Sodium Chloride) 100 mls @ 100 mls/hr IVPB HS [facility] Last Admin: 05/11/17 21:10 Dose: 100 mls/hr Metolazone (Zaroxolyn) 5 mg PO DAILY [facility] Last Admin: 05/11/17 10:02 Dose: 5 mg Sacubitril/Valsartan (Entresto 24 Mg-26 Mg) 1 tab PO BID [facility] Last Admin: 05/11/17 18:07 Dose: Not Given - Labs Labs: 05/10/17 11:35 05/10/17 06:50 PT 18.3 SECONDS (9.7-12.2) H 05/10/17 06:50 INR 1.6 05/10/17 06:50 APTT 33 SECONDS (21-34) 05/10/17 06:50 - Constitutional Appears: Non-toxic, No Acute Distress - Head Exam Head Exam: ATRAUMATIC, NORMAL INSPECTION, NORMOCEPHALIC - Eye Exam Eye Exam: EOMI - ENT Exam ENT Exam: Mucous Membranes Moist - Neck Exam Neck Exam: Full ROM, Normal Inspection - Respiratory Exam Respiratory Exam: Decreased Breath Sounds - Cardiovascular Exam Cardiovascular Exam: +S1, +S2 - GI/Abdominal Exam GI & Abdominal Exam: Soft, Normal Bowel Sounds. absent: Tenderness - Extremities Exam Extremities Exam: Full ROM, Normal Inspection - Neurological Exam Neurological Exam: Alert, Awake, Oriented x3 - Psychiatric Exam Psychiatric exam: Normal Affect, Normal Mood - Skin Skin Exam: Dry, Intact, Normal Color, Warm Assessment and Plan - Assessment and Plan (Free Text) Assessment: this is a 62 yo male with 1. congestive heart failure -continue lasix iv daily -continue metolazone -cardio consult -continue entresto -head ct neg 2. pna -continue iv rocephin -continue azithromycin -cultures all negative so far -pulm consult. recs appreciated 3. hx of cad -continue plavix -continue coreg 4. anemia -continue to monitor dw dr ross
[2017-05-12 11:03] VITALS: BP 95/58
--- NOTE | 2017-05-12 11:03 | CP.PCM.PN ---
Subjective - Date & Time of Evaluation Date of Evaluation: 05/12/17 Time of Evaluation: 07:00 - Subjective Subjective: afeb on zmax Objective - Vital Signs/Intake and Output Vital Signs (last 24 hours): Temp Pulse Resp BP Pulse Ox 98.9 F 72 18 92/55 L 94 L 05/12/17 08:05 05/12/17 08:05 05/12/17 08:05 05/12/17 08:05 05/12/17 08:05 Intake and Output: 05/12/17 05/12/17 06:59 18:59 Intake Total 240 Output Total 440 Balance -200 - Medications Medications: Current Medications Acetaminophen (Tylenol 325mg Tab) 650 mg PO Q6 PRN PRN Reason: Pain, Mild (1-3) Last Admin: 05/11/17 10:04 Dose: 650 mg Carvedilol (Coreg) 12.5 mg PO BID [facility] Last Admin: 05/11/17 18:07 Dose: 12.5 mg Clopidogrel Bisulfate (Plavix) 75 mg PO DAILY [facility] Last Admin: 05/12/17 11:00 Dose: 75 mg Furosemide (Lasix) 40 mg IVP DAILY [facility] Last Admin: 05/11/17 09:58 Dose: 40 mg Guaifenesin (Robitussin) 200 mg PO Q4H PRN PRN Reason: Cough and congestion Last Admin: 05/12/17 10:59 Dose: 200 mg Azithromycin 500 mg/ Sodium (Chloride) 250 mls @ 250 mls/hr IVPB Q24H [facility] Last Admin: 05/11/17 23:53 Dose: 250 mls/hr Ceftriaxone Sodium 1 gm/ (Sodium Chloride) 100 mls @ 100 mls/hr IVPB HS [facility] Last Admin: 05/11/17 21:10 Dose: 100 mls/hr Metolazone (Zaroxolyn) 5 mg PO DAILY [facility] Last Admin: 05/11/17 10:02 Dose: 5 mg Sacubitril/Valsartan (Entresto 24 Mg-26 Mg) 1 tab PO BID [facility] Last Admin: 05/11/17 18:07 Dose: Not Given - Labs Labs: 05/10/17 11:35 05/10/17 06:50 PT 18.3 SECONDS (9.7-12.2) H 05/10/17 06:50 INR 1.6 05/10/17 06:50 APTT 33 SECONDS (21-34) 05/10/17 06:50 - Constitutional Appears: Non-toxic, Chronically Ill - Head Exam Head Exam: NORMOCEPHALIC - Eye Exam Eye Exam: PERRL - ENT Exam ENT Exam: Mucous Membranes Dry - Respiratory Exam Respiratory Exam: Decreased Breath Sounds - Cardiovascular Exam Cardiovascular Exam: REGULAR RHYTHM - GI/Abdominal Exam GI & Abdominal Exam: Distended - Rectal Exam Rectal Exam: Deferred Assessment and Plan (1) CHF (congestive heart failure) Status: Acute (2) Pneumonia Status: Acute (3) Anemia Status: Acute (4) CAD (coronary artery disease) Status: Acute (5) CHF exacerbation Status: Acute (6) COPD (chronic obstructive pulmonary disease) Status: Acute (7) Dilated cardiomyopathy Status: Acute - Assessment and Plan (Free Text) Assessment: cont iv rx discussed with dr sindy ross
[2017-05-12] MEDS: Sacubitril/Valsartan 24-26mg Tab PO SCH (11:12)
[2017-05-12] MEDS: metOLazone 5 MG TAB PO SCH (11:13)
[2017-05-12 11:52] VITALS: PULSE 92
--- NOTE | 2017-05-12 12:00 | PCM.HF ---
Heart Failure Core Measure - Heart Failure Ejection Fraction: Less Than 40 % ESTHER Inhibitor Prescribed: No Contraindication/Reason for not providing: ON ENTRESTO (ARB COMBO) Beta-Armando Prescribed: Carvedilol Angiotensin II Receptor Armando Prescribed: Yes AnticoagulationTherapy for Atrial Fibrillation/Atrialflutter: No Contraindication/Reason for not providing: RISK OF BLEED; HELD BY CARDIO RECOMMENDATIONS; MAY RESUME OUTPATIENT Aldosterone Antagonist Prescribed: No Contraindication/Reason for not providing: ON LASIX AND ZAROXOLYN Hydralazine Nitrate Prescribed: No Contraindication/Reason for not providing: EPISODES OF HYPOTENSION Implantable Cardioverter Defibrillator Therapy: No Contraindication/Reason for not providing: HAS AN AICD Cardiac Resynchronization Therapy Prescribed: No Contraindication/Reason for not providing: HAS AN AICD - Follow up Will be discharged to: [facility] ([facility] UNDER DR. Kelly SANTACRUZ) Follow Up Date (must be within 7 days from discharge): 05/14/17 Follow Up Time: 09:00
--- NOTE | 2017-05-12 12:05 | CP.PCM.PN ---
Subjective - Date & Time of Evaluation Date of Evaluation: 05/12/17 Time of Evaluation: 12:00 - Subjective Subjective: PT SEEN BY THE MED RESIDENT COVERING DR. SANTACRUZ TODAY. SEE RESIDENT PROGRESS NOTES. PT STABLE AND COMFORTABLE; NAD. PT WAS CLEARED BY ALL CONSULTS ON 05/09/17 FOR D/C OVER THE WEEKEND. OK PER DR. SANTACRUZ TO D/C THE PT TODAY TO [facility]. D/C ORDER WAS CANCELLED LAST NIGHT; PER FABY RN DR. SANTACRUZ SAID PT'S LEGS WERE SWOLLEN. PT HAS HAD PEDAL EDEMA; HE IS CURRENTLY ON LASIX DAILY BUT WILL TAKE LASIX BID AT [facility] PER DR. HERNANDEZ'S RECOMMENDATIONS. SEE MY NOTE FROM FRIDAY, 05/09, FOR ALL D/C ORDERS AND RECOMMENDATIONS FOR MEDS, LABS, AND F/U. CM AWARE OF THE D/C. SW TO ARRANGE TRANSPORTATION TODAY. NO FURTHER ORDERS. Objective - Vital Signs/Intake and Output Vital Signs (last 24 hours): Temp Pulse Resp BP Pulse Ox 98.9 F 92 H 18 95/58 L 94 L 05/12/17 08:05 05/12/17 11:50 05/12/17 08:05 05/12/17 11:03 05/12/17 08:05 Intake and Output: 05/12/17 05/12/17 06:59 18:59 Intake Total 240 Output Total 440 Balance -200 - Medications Medications: Current Medications Acetaminophen (Tylenol 325mg Tab) 650 mg PO Q6 PRN PRN Reason: Pain, Mild (1-3) Last Admin: 05/11/17 10:04 Dose: 650 mg Carvedilol (Coreg) 12.5 mg PO BID [facility] Last Admin: 05/12/17 11:12 Dose: Not Given Clopidogrel Bisulfate (Plavix) 75 mg PO DAILY [facility] Last Admin: 05/12/17 11:00 Dose: 75 mg Furosemide (Lasix) 40 mg IVP DAILY [facility] Last Admin: 05/12/17 11:12 Dose: Not Given Guaifenesin (Robitussin) 200 mg PO Q4H PRN PRN Reason: Cough and congestion Last Admin: 05/12/17 10:59 Dose: 200 mg Azithromycin 500 mg/ Sodium (Chloride) 250 mls @ 250 mls/hr IVPB Q24H [facility] Last Admin: 05/11/17 23:53 Dose: 250 mls/hr Ceftriaxone Sodium 1 gm/ (Sodium Chloride) 100 mls @ 100 mls/hr IVPB HS [facility] Last Admin: 05/11/17 21:10 Dose: 100 mls/hr Metolazone (Zaroxolyn) 5 mg PO DAILY [facility] Last Admin: 05/12/17 11:13 Dose: Not Given Sacubitril/Valsartan (Entresto 24 Mg-26 Mg) 1 tab PO BID [facility] Last Admin: 05/12/17 11:12 Dose: Not Given - Labs Labs: 05/10/17 11:35 05/10/17 06:50 PT 18.3 SECONDS (9.7-12.2) H 05/10/17 06:50 INR 1.6 05/10/17 06:50 APTT 33 SECONDS (21-34) 05/10/17 06:50
--- NOTE | 2017-05-12 14:02 | CP.PCM.PN ---
Subjective - Date & Time of Evaluation Date of Evaluation: 05/12/17 Time of Evaluation: 14:02 Objective - Vital Signs/Intake and Output Vital Signs (last 24 hours): Temp Pulse Resp BP Pulse Ox 98.9 F 92 H 18 95/58 L 94 L 05/12/17 08:05 05/12/17 11:50 05/12/17 08:05 05/12/17 11:03 05/12/17 08:05 Intake and Output: 05/12/17 05/12/17 06:59 18:59 Intake Total 240 Output Total 440 Balance -200 - Medications Medications: Current Medications Acetaminophen (Tylenol 325mg Tab) 650 mg PO Q6 PRN PRN Reason: Pain, Mild (1-3) Last Admin: 05/11/17 10:04 Dose: 650 mg Carvedilol (Coreg) 12.5 mg PO BID [facility] Last Admin: 05/12/17 11:12 Dose: Not Given Clopidogrel Bisulfate (Plavix) 75 mg PO DAILY [facility] Last Admin: 05/12/17 11:00 Dose: 75 mg Furosemide (Lasix) 40 mg IVP DAILY [facility] Last Admin: 05/12/17 11:12 Dose: Not Given Guaifenesin (Robitussin) 200 mg PO Q4H PRN PRN Reason: Cough and congestion Last Admin: 05/12/17 10:59 Dose: 200 mg Azithromycin 500 mg/ Sodium (Chloride) 250 mls @ 250 mls/hr IVPB Q24H [facility] Last Admin: 05/11/17 23:53 Dose: 250 mls/hr Ceftriaxone Sodium 1 gm/ (Sodium Chloride) 100 mls @ 100 mls/hr IVPB HS [facility] Last Admin: 05/11/17 21:10 Dose: 100 mls/hr Metolazone (Zaroxolyn) 5 mg PO DAILY [facility] Last Admin: 05/12/17 11:13 Dose: Not Given Sacubitril/Valsartan (Entresto 24 Mg-26 Mg) 1 tab PO BID [facility] Last Admin: 05/12/17 11:12 Dose: Not Given - Labs Labs: 05/10/17 11:35 05/10/17 06:50 PT 18.3 SECONDS (9.7-12.2) H 05/10/17 06:50 INR 1.6 05/10/17 06:50 APTT 33 SECONDS (21-34) 05/10/17 06:50
== END 2017-05-12 15:58 | DRG 291 ==
LOC: C.ER 13:43 → C.9E 17:36 → C.6T 19:34
PROVIDERS: ADMIT Internal Medicine Nephrology; ATTEND Internal Medicine Nephrology
DX: I13.0 Hypertensive heart and chronic kidney disease with heart failure and stage 1 through stage 4 chronic kidney disease, or unspecified chronic kidney disease (principal); I50.23 Acute on chronic systolic (congestive) heart failure; J18.9 Pneumonia, unspecified organism; E11.22 Type 2 diabetes mellitus with diabetic chronic kidney disease; I42.0 Dilated cardiomyopathy; J44.0 Chronic obstructive pulmonary disease with (acute) lower respiratory infection; I48.0 Paroxysmal atrial fibrillation; I25.10 Atherosclerotic heart disease of native coronary artery without angina pectoris; I25.5 Ischemic cardiomyopathy; D64.9 Anemia, unspecified; N18.9 Chronic kidney disease, unspecified; E78.00 Pure hypercholesterolemia, unspecified; Z79.01 Long term (current) use of anticoagulants; Z79.02 Long term (current) use of antithrombotics/antiplatelets; Z79.899 Other long term (current) drug therapy; Z87.891 Personal history of nicotine dependence; Z95.810 Presence of automatic (implantable) cardiac defibrillator

== ENCOUNTER 2018-03-19 15:42 | Inpatient (IN) | payer MEDICAID, MEDICARE ==
--- NOTE | 2018-03-19 16:11 | C.PDOC ---
History Of Present Illness 62 y/o male, w/PMhx of HTN, CHF, and hypercholesterolemia, presents to the ER [facility] complaining of shortness of breath which has been present for the past 2 days. Patient states that the symptoms are typical of his CHF exacerbation. P atient reports that he is not sure if he took all his medications today. Pt states that right now her "feels just fine". Visibly short of breath. Denies having CP, dizziness, cough, fever, and chills, hemoptysis, abdominal pain, N/V, numbness, paresthesias, weakness, or any other associated symptoms. Time Seen by Provider: 03/19/18 16:10 Chief Complaint (Nursing): Shortness Of Breath History Per: Patient History/Exam Limitations: no limitations Onset/Duration Of Symptoms: Days Current Symptoms Are (Timing): Still Present Severity: Moderate Past Medical History Reviewed: Historical Data, Nursing Documentation, Vital Signs Vital Signs: Last Vital Signs Temp 97.3 F L 03/19/18 16:00 Pulse 76 03/19/18 16:00 Resp 22 03/19/18 16:00 BP 133/83 03/19/18 16:00 Pulse Ox 100 03/19/18 16:00 - Medical History PMH: CHF, HTN, Hypercholesterolemia Denies: Chronic Kidney Disease Surgical History: Pacemaker Family History: States: No Known Family Hx - Social History Hx Alcohol Use: No Hx Substance Use: No - Immunization History Hx Tetanus Toxoid Vaccination: No Hx Influenza Vaccination: Yes Hx Pneumococcal Vaccination: Yes Review Of Systems Except As Marked, All Systems Reviewed And Found Negative. Constitutional: Negative for: Fever, Chills Eyes: Negative for: Vision Change Cardiovascular: Positive for: Orthopnea. Negative for: Chest Pain, Palpitations, Light Headedness Respiratory: Positive for: Shortness of Breath. Negative for: Cough Gastrointestinal: Negative for: Nausea, Vomiting, Abdominal Pain Genitourinary: Negative for: Dysuria, Frequency, Incontinence Musculoskeletal: Negative for: Neck Pain, Shoulder Pain, Back Pain Neurological: Negative for: Weakness, Numbness, Headache, Dizziness Physical Exam - Physical Exam Appears: Non-toxic, Other (short of breath) Skin: Normal Color, Warm, Dry Head: Atraumatic, Normacephalic Eye(s): bilateral: Normal Inspection, PERRL, EOMI Ear(s): Bilateral: Normal Nose: Normal Oral Mucosa: Moist Neck: Supple Chest: Symmetrical Cardiovascular: Rhythm Regular Respiratory: Decreased Breath Sounds (bilaterally), No Accessory Muscle Use Gastrointestinal/Abdominal: Normal Exam, Soft, No Tenderness, No Guarding, No Rebound Extremity: Normal ROM, Other (bilateral pitting edema) Extremity: Bilateral: Atraumatic, Other (pitting pedal edema bilaterally) Pulses: Left Radial: Normal, Right Radial: Normal Neurological/Psych: Oriented x3, Normal Speech, Normal Cognition, Normal Motor, Normal Sensation Gait: Unable To Assess ED Course And Treatment - Laboratory Results Result Diagrams: 03/19/18 16:40 03/19/18 16:40 ECG: Viewed By Il ECG Rhythm: V Paced ECG Interpretation: No Acute Changes, No Changes From Prior (05/06/17) Interpretation Of ECG: Rate 74; ventricular pacing; PVCs; No STEMI, T wave inversions in inferior leads Rate From EC O2 Sat by Pulse Oximetry: 100 (RA) Pulse Ox Interpretation: Normal - Radiology CXR: Viewed By Me, Read By Radiologist - Other Rad No standard instances X-Ray: Viewed By Me, Read By Radiologist Interpretation: FINDINGS: LUNGS: Bilateral lower lobe atelectasis or pneumonia. Probable small pleural effusions. No definite pneumothorax. CARDIOVASCULAR: Cardiomegaly. Left-sided AICD. OSSEOUS STRUCTURES: Degenerative changes. VISUALIZED UPPER ABDOMEN: Unremarkable. OTHER FINDINGS: None. IMPRESSION: Left-sided AICD. Cardiomegaly. Bilateral lower lobe atelectasis or pneumonia. Probable small pleural effusions. Medical Decision Making Medical Decision Making: Plan: --Labs --EKG --CXR --Aspirin PO --Lasix IV --Albuterol 17:00 Patient reports improvement in SOB after lasix and duoneb, will admit for further management of CHF exacerbation. 17:30 Dr. Vanegas accepted patient for inpatient admission to telemetry floor with diagnoses or CHF and PNA. Requests consults with ID and Cardiology. IV antibiotics and cultures ordered for possible pneumonia. Disposition - Disposition Disposition: HOSPITALIZED Disposition Time: 18:00 Condition: STABLE - Clinical Impression Clinical Impression: Congestive heart failure, Pneumonia - PA / ACCOUNTING MANAGER CONTROLLER / Resident Statement MD/DO has reviewed & agrees with the documentation as recorded. - Scribe Statement The provider has reviewed the documentation as recorded by the Scribe Summen Conor Provider Attestation All medical record entries made by the Scribe were at my direction and personally dictated by me. I have reviewed the chart and agree that the record accurately reflects my personal performance of the history, physical exam, medical decision making, and the department course for this patient. I have also personally directed, reviewed, and agree with the discharge instructions and disposition.
[2018-03-19] MEDS ORDERED: Albuterol-Ipratrop 3 mg / 0.5 (3 ml) UD INH STA (16:28)
[2018-03-19] MEDS ORDERED: Albuterol-Ipratrop 3 mg / 0.5 (3 ml) UD ONE (16:42)
[2018-03-19 16:43] LABS: BASO # 0.1 K/uL (0.0-0.2); BASO % 2.6 % (0.0-2.0); EOS # 0.1 K/uL (0.0-0.7); EOS % 2.4 % (0.0-4.0); HEMOGLOBIN 10.2 g/dL (12.0-18.0); LYMPH # 1.7 K/uL (1.0-4.3); LYMPH % 34.2 % (20.0-40.0); MEAN CELL VOLUME 89.2 fL (80.0-94.0); MEAN CORPUSCULAR HEMOGLOBIN 28.6 pg (27.0-31.0); MEAN PLATELET VOLUME 7.5 fL (7.2-11.7); MONO # 0.6 K/uL (0.0-0.8); MONO % 11.4 % (0.0-10.0); NEUT # 2.4 K/uL (1.8-7.0); NEUT % 49.4 % (50.0-75.0); NRBC % 0.1 % (0.0-2.0); RBC 3.59 Mil/uL (4.40-5.90); RED CELL DISTRIBUTION WIDTH 17.5 % (11.5-14.5); WHITE BLOOD COUNT 4.8 K/uL (4.8-10.8)
[2018-03-19 16:53] LABS: INR 1.3; PROTHROMBIN TIME 14.7 SECONDS (9.7-12.2)
[2018-03-19 16:57] LABS: ABG ALLEN TEST POS; ARTERIAL BLOOD GAS HCO3 20.6 mmol/L (21-28); ARTERIAL BLOOD GAS HEMOGLOBIN 9.6 g/dL (11.7-17.4); ARTERIAL BLOOD GAS O2 SAT 96.7 % (95-98); ARTERIAL BLOOD GAS PCO2 30 mm/Hg (35-45); ARTERIAL BLOOD GAS PO2 74 mm/Hg (80-100); ARTERIAL BLOOD GAS TCO2 19.5 mmol/L (22-28)
--- NOTE | 2018-03-19 16:57 | RAD ---
HISTORY: SOB COMPARISON: Chest x-ray performed 05/06/17 TECHNIQUE: Chest, one view. FINDINGS: LUNGS: Bilateral lower lobe atelectasis or pneumonia. Probable small pleural effusions. No definite pneumothorax. CARDIOVASCULAR: Cardiomegaly. Left-sided AICD. OSSEOUS STRUCTURES: Degenerative changes. VISUALIZED UPPER ABDOMEN: Unremarkable. OTHER FINDINGS: None. IMPRESSION: Left-sided AICD. Cardiomegaly. Bilateral lower lobe atelectasis or pneumonia. Probable small pleural effusions.
[2018-03-19 17:03] LABS: ALB/GLOB RATIO 1.2 (1.0-2.1); ALBUMIN 3.8 g/dL (3.5-5.0)
[2018-03-19 17:13] LABS: TROPONIN I 0.051 ng/mL (0.00-0.120)
--- NOTE | 2018-03-19 20:54 | CP.PCM.HP ---
Past Patient History - Infectious Disease Hx of Infectious Diseases: None - Past Medical History & Family History Past Medical History?: Yes - Past Social History Smoking Status: Former Smoker - CARDIAC Hx Congestive Heart Failure: Yes Hx Hypercholesterolemia: Yes Hx Hypertension: Yes Hx Pacemaker: Yes - PULMONARY Hx Respiratory Disorders: No - NEUROLOGICAL Hx Neurological Disorder: No - HEENT Hx HEENT Problems: Yes - RENAL Hx Chronic Kidney Disease: No - ENDOCRINE/METABOLIC Hx Endocrine Disorders: Yes Hx Diabetes Mellitus Type 2: Yes - HEMATOLOGICAL/ONCOLOGICAL Hx Blood Disorders: No - INTEGUMENTARY Hx Dermatological Problems: No - MUSCULOSKELETAL/RHEUMATOLOGICAL Hx Musculoskeletal Disorders: Yes Hx Falls: Yes - GASTROINTESTINAL Hx Gastrointestinal Disorders: No - GENITOURINARY/GYNECOLOGICAL Hx Genitourinary Disorders: No - PSYCHIATRIC Hx Substance Use: No - SURGICAL HISTORY Hx Surgeries: Yes Other/Comment: AICD to Left Chest Wall - ANESTHESIA Hx Anesthesia: Yes Hx Anesthesia Reactions: No Hx Malignant Hyperthermia: No Meds Allergies/Adverse Reactions: Allergies Allergy/AdvReac Type Severity Reaction Status Date / Time No Known Allergies Allergy Verified 03/19/18 16:02 Results - Vital Signs Recent Vital Signs: Last Vital Signs Temp 97.6 F 03/19/18 19:58 Pulse 78 03/19/18 19:58 Resp 20 03/19/18 19:58 BP 135/73 03/19/18 19:58 Pulse Ox 100 03/19/18 19:58 - Labs Result Diagrams: 03/19/18 16:40 03/19/18 16:40 Labs: Laboratory Results - last 24 hr 03/19/18 03/19/18 03/19/18 16:40 16:40 16:40 WBC 4.8 RBC 3.59 L Hgb 10.2 L Hct 32.0 L MCV 89.2 D MCH 28.6 MCHC 32.0 L RDW 17.5 H Plt Count 349 MPV 7.5 Neut % (Auto) 49.4 L Lymph % (Auto) 34.2 [place] % (Auto) 11.4 H Eos % (Auto) 2.4 Baso % (Auto) 2.6 H Neut # (Auto) 2.4 Lymph # (Auto) 1.7 [place] # (Auto) 0.6 Eos # (Auto) 0.1 Baso # (Auto) 0.1 PT 14.7 H INR 1.3 APTT 31 Puncture Site pCO2 pO2 HCO3 ABG pH ABG Total CO2 ABG O2 Saturation ABG Base Excess ABG Hemoglobin ABG Carboxyhemoglobin POC ABG HHb (Measured) ABG Methemoglobin Bud Test Hgb O2 Saturation Sodium 140 Potassium 4.6 Chloride 108 H Carbon Dioxide 24 Anion Gap 13 BUN 19 Creatinine 1.5 Est GFR ( Amer) 57 Est GFR (Non-Af Amer) 47 Random Glucose 97 Calcium 9.0 Total Bilirubin 0.8 AST 26 ALT 37 Alkaline Phosphatase 151 H Troponin I 0.0510 NT-Pro-B Natriuret Pep 32025 H Total Protein 7.0 Albumin 3.8 Globulin 3.2 Albumin/Globulin Ratio 1.2 03/19/18 16:45 WBC RBC Hgb Hct MCV MCH MCHC RDW Plt Count MPV Neut % (Auto) Lymph % (Auto) [place] % (Auto) Eos % (Auto) Baso % (Auto) Neut # (Auto) Lymph # (Auto) [place] # (Auto) Eos # (Auto) Baso # (Auto) PT INR APTT Puncture Site Rr pCO2 30 L pO2 74 L HCO3 20.6 L ABG pH 7.40 ABG Total CO2 19.5 L ABG O2 Saturation 96.7 ABG Base Excess -5.4 L ABG Hemoglobin 9.6 L ABG Carboxyhemoglobin 2.5 H POC ABG HHb (Measured) 3.2 ABG Methemoglobin 1.5 Bud Test Pos Hgb O2 Saturation 92.8 L Sodium Potassium Chloride Carbon Dioxide Anion Gap BUN Creatinine Est GFR ( Amer) Est GFR (Non-Af Amer) Random Glucose Calcium Total Bilirubin AST ALT Alkaline Phosphatase Troponin I NT-Pro-B Natriuret Pep Total Protein Albumin Globulin Albumin/Globulin Ratio
[2018-03-19] MEDS: Sacubitril/Valsartan 24-26mg Tab PO SCH (21:21)
[2018-03-20] MEDS: Azithromycin 500 MG in Sodium Chloride 0.9% 250 ML IVPB SCH ×2 (00:48→09:28)
[2018-03-20] MEDS: Albuterol-Ipratrop 3 mg / 0.5 (3 ml) UD INH SCH ×4 (01:30→19:29)
--- NOTE | 2018-03-20 07:39 | CP.PCM.CON ---
History of Present Illness - History of Present Illness History of Present Illness: Consultation for evaluation of CHF exacerbation HPI: Salvador is a 62-year-old -[place] male past medical history significant f or nonischemic dilated cardiomyopathy with possible etiology secondary to heavy alcohol use in the past multiple recurrent hospitalizations secondary to noncompliance of medications presenting with complains of CHF exacerbation secondary to possible medication noncompliance symptoms began a few days prior to presentation apparently patient somehow stopped taking his medications is given IV Lasix in the emergency room with adequate diuresis and mild improvement in symptoms evaluate for CHF exacerbation. Review of Systems - Review of Systems Systems not reviewed;Unavailable: Acuity of Condition - Constitutional Constitutional: As Per HPI - EENT Eyes: As Per HPI Ears: As Per HPI Nose/Mouth/Throat: As Per HPI - Cardiovascular Cardiovascular: As Per HPI - Respiratory Respiratory: As Per HPI - Gastrointestinal Gastrointestinal: As Per HPI - Genitourinary Genitourinary: As Per HPI - Reproductive: Male Reproductive:Male: As Per HPI - Musculoskeletal Musculoskeletal: As Per HPI - Integumentary Integumentary: As Per HPI - Neurological Neurological: As Per HPI - Psychiatric Psychiatric: As Per HPI - Endocrine Endocrine: As Per HPI - Hematologic/Lymphatic Hematologic: As Per HPI Past Patient History - Infectious Disease Hx of Infectious Diseases: None - Past Medical History & Family History Past Medical History?: Yes - Past Social History Smoking Status: Never Smoked - CARDIAC Hx Congestive Heart Failure: Yes Hx Hypercholesterolemia: Yes Hx Hypertension: Yes Hx Pacemaker: Yes - PULMONARY Hx Respiratory Disorders: No - NEUROLOGICAL Hx Neurological Disorder: No - HEENT Hx HEENT Problems: No - RENAL Hx Chronic Kidney Disease: No - ENDOCRINE/METABOLIC Hx Endocrine Disorders: Yes Hx Diabetes Mellitus Type 2: Yes - HEMATOLOGICAL/ONCOLOGICAL Hx Blood Disorders: No - INTEGUMENTARY Hx Dermatological Problems: No - MUSCULOSKELETAL/RHEUMATOLOGICAL Hx Musculoskeletal Disorders: Yes Hx Falls: Yes - GASTROINTESTINAL Hx Gastrointestinal Disorders: No - GENITOURINARY/GYNECOLOGICAL Hx Genitourinary Disorders: No - PSYCHIATRIC Hx Substance Use: No - SURGICAL HISTORY Hx Surgeries: Yes Other/Comment: AICD to Left Chest Wall - ANESTHESIA Hx Anesthesia: Yes Hx Anesthesia Reactions: No Hx Malignant Hyperthermia: No Meds Allergies/Adverse Reactions: Allergies Allergy/AdvReac Type Severity Reaction Status Date / Time No Known Allergies Allergy Verified 03/19/18 16:02 - Medications Medications: Current Medications Acetaminophen (Tylenol 325mg Tab) 650 mg PO Q6 PRN PRN Reason: Pain, Mild (1-3) Albuterol/Ipratropium (Duoneb 3 Mg/0.5 Mg (3 Ml) Ud) 3 ml INH RQ6 [facility] Last Admin: 03/20/18 01:30 Dose: Not Given Carvedilol (Coreg) 12.5 mg PO BID [facility] Last Admin: 03/19/18 21:24 Dose: Not Given Clopidogrel Bisulfate (Plavix) 75 mg PO DAILY [facility] Digoxin (Digoxin) 0.125 mg PO DAILY@1800 [facility] Enalapril Maleate (Vasotec) 10 mg PO BID [facility] Last Admin: 03/19/18 21:24 Dose: Not Given Furosemide (Lasix) 40 mg PO BID [facility] Last Admin: 03/19/18 21:21 Dose: 40 mg Azithromycin 500 mg/ Sodium (Chloride) 250 mls @ 250 mls/hr IVPB DAILY [facility]; Protocol Last Admin: 03/20/18 00:48 Dose: 250 mls/hr Ceftriaxone Sodium 1 gm/ (Sodium Chloride) 100 mls @ 100 mls/hr IVPB DAILY [facility]; Protocol Last Admin: 03/20/18 00:47 Dose: 100 mls/hr Metolazone (Zaroxolyn) 5 mg PO DAILY [facility] Pantoprazole Sodium (Protonix Inj) 40 mg IVP DAILY [facility] Potassium Chloride (Klor-Con 10) 10 meq PO DAILY [facility] Sacubitril/Valsartan (Entresto 24 Mg-26 Mg) 1 tab PO BID [facility] Last Admin: 03/19/18 21:21 Dose: 1 tab Tiotropium [place] (Spiriva) 18 mcg INH RQ24 [facility] Warfarin Sodium (Coumadin) 5 mg PO DAILY [facility] Physical Exam - Constitutional Appears: Well - Head Exam Head Exam: ATRAUMATIC, NORMAL INSPECTION, NORMOCEPHALIC - Eye Exam Eye Exam: EOMI, Normal appearance, PERRL Pupil Exam: NORMAL ACCOMODATION, PERRL - ENT Exam ENT Exam: Mucous Membranes Moist, Normal Exam - Neck Exam Neck exam: Positive for: Normal Inspection - Respiratory Exam Respiratory Exam: Clear to Auscultation Bilateral, NORMAL BREATHING PATTERN - Cardiovascular Exam Cardiovascular Exam: REGULAR RHYTHM, RRR, +S1, +S2, Systolic Murmur - GI/Abdominal Exam GI & Abdominal Exam: Normal Bowel Sounds, Soft. absent: Tenderness - Extremities Exam Extremities exam: Positive for: normal inspection - Back Exam Back exam: NORMAL INSPECTION - Neurological Exam Neurological exam: Alert, CN II-XII Intact, Normal Gait, Oriented x3, Reflexes Normal - Psychiatric Exam Psychiatric exam: Normal Affect, Normal Mood - Skin Skin Exam: Dry, Intact, Normal Color, Warm Results - Vital Signs Recent Vital Signs: Last Vital Signs Temp 97.5 F L 03/19/18 23:00 Pulse 62 03/19/18 23:00 Resp 20 03/19/18 23:00 BP 123/74 03/19/18 23:00 Pulse Ox 100 03/20/18 01:21 - Labs Result Diagrams: 03/19/18 16:40 03/19/18 16:40 Labs: Laboratory Results - last 24 hr 03/19/18 03/19/18 03/19/18 16:40 16:40 16:40 WBC 4.8 RBC 3.59 L Hgb 10.2 L Hct 32.0 L MCV 89.2 D MCH 28.6 MCHC 32.0 L RDW 17.5 H Plt Count 349 MPV 7.5 Neut % (Auto) 49.4 L Lymph % (Auto) 34.2 Greene % (Auto) 11.4 H Eos % (Auto) 2.4 Baso % (Auto) 2.6 H Neut # (Auto) 2.4 Lymph # (Auto) 1.7 Greene # (Auto) 0.6 Eos # (Auto) 0.1 Baso # (Auto) 0.1 PT 14.7 H INR 1.3 APTT 31 Puncture Site pCO2 pO2 HCO3 ABG pH ABG Total CO2 ABG O2 Saturation ABG Base Excess ABG Hemoglobin ABG Carboxyhemoglobin POC ABG HHb (Measured) ABG Methemoglobin Bud Test Hgb O2 Saturation Sodium 140 Potassium 4.6 Chloride 108 H Carbon Dioxide 24 Anion Gap 13 BUN 19 Creatinine 1.5 Est GFR ( Amer) 57 Est GFR (Non-Af Amer) 47 Random Glucose 97 Calcium 9.0 Total Bilirubin 0.8 AST 26 ALT 37 Alkaline Phosphatase 151 H Troponin I 0.0510 NT-Pro-B Natriuret Pep 80842 H Total Protein 7.0 Albumin 3.8 Globulin 3.2 Albumin/Globulin Ratio 1.2 Influenza Typ A,B (EIA) 12/20/18 12/21/18 16:45 02:14 WBC RBC Hgb Hct MCV MCH MCHC RDW Plt Count MPV Neut % (Auto) Lymph % (Auto) Greene % (Auto) Eos % (Auto) Baso % (Auto) Neut # (Auto) Lymph # (Auto) Greene # (Auto) Eos # (Auto) Baso # (Auto) PT INR APTT Puncture Site Rr pCO2 30 L pO2 74 L HCO3 20.6 L ABG pH 7.40 ABG Total CO2 19.5 L ABG O2 Saturation 96.7 ABG Base Excess -5.4 L ABG Hemoglobin 9.6 L ABG Carboxyhemoglobin 2.5 H POC ABG HHb (Measured) 3.2 ABG Methemoglobin 1.5 Bud Test Pos Hgb O2 Saturation 92.8 L Sodium Potassium Chloride Carbon Dioxide Anion Gap BUN Creatinine Est GFR ( Amer) Est GFR (Non-Af Amer) Random Glucose Calcium Total Bilirubin AST ALT Alkaline Phosphatase Troponin I NT-Pro-B Natriuret Pep Total Protein Albumin Globulin Albumin/Globulin Ratio Influenza Typ A,B (EIA) Negative for flu a/b Assessment & Plan (1) CHF (congestive heart failure) Assessment and Plan: cont lasix and zaroxlyn cont bb cont entresto Status: Acute (2) CAD (coronary artery disease) Assessment and Plan: non-obstructive Status: Acute (3) Dilated cardiomyopathy Status: Acute (4) Dyspnea Status: Acute (5) Fluid overload Assessment and Plan: diuretic therapy Status: Acute
[2018-03-20 07:49] LABS: INR 1.4; PROTHROMBIN TIME 15.5 SECONDS (9.7-12.2)
[2018-03-20] MEDS: Tiotropium 18 mcg Cap For Inhalation INH SCH (08:22)
[2018-03-20] MEDS: Potassium Chloride 10 mEq ER Tab PO SCH (09:26)
[2018-03-20] MEDS: Sacubitril/Valsartan 24-26mg Tab PO SCH ×2 (09:27→18:17)
[2018-03-20] MEDS: metOLazone 5 MG TAB PO SCH (09:27)
--- NOTE | 2018-03-20 12:07 | CARD ---
APPROVED REPORT Date of service: 03/19/2018 EKG Measurement Heart [id number] DC P103 [id number] <Conclusion> Ventricular-paced rhythm with occasional premature ventricular complexes Abnormal ECG
[2018-03-20] MEDS: (Novolog) Insulin Aspart, Recombinant 100 u/ml 10 ml vial SC SCH ×2 (16:38→22:04)
--- NOTE | 2018-03-20 17:07 | CP.PCM.CON ---
History of Present Illness - History of Present Illness History of Present Illness: dictated Past Patient History - Infectious Disease Hx of Infectious Diseases: None - Past Medical History & Family History Past Medical History?: Yes - Past Social History Smoking Status: Never Smoked - CARDIAC Hx Congestive Heart Failure: Yes Hx Hypercholesterolemia: Yes Hx Hypertension: Yes Hx Pacemaker: Yes - PULMONARY Hx Respiratory Disorders: No - NEUROLOGICAL Hx Neurological Disorder: No - HEENT Hx HEENT Problems: No - RENAL Hx Chronic Kidney Disease: No - ENDOCRINE/METABOLIC Hx Endocrine Disorders: Yes Hx Diabetes Mellitus Type 2: Yes - HEMATOLOGICAL/ONCOLOGICAL Hx Blood Disorders: No - INTEGUMENTARY Hx Dermatological Problems: No - MUSCULOSKELETAL/RHEUMATOLOGICAL Hx Musculoskeletal Disorders: Yes Hx Falls: Yes - GASTROINTESTINAL Hx Gastrointestinal Disorders: No - GENITOURINARY/GYNECOLOGICAL Hx Genitourinary Disorders: No - PSYCHIATRIC Hx Substance Use: No - SURGICAL HISTORY Hx Surgeries: Yes Other/Comment: AICD to Left Chest Wall - ANESTHESIA Hx Anesthesia: Yes Hx Anesthesia Reactions: No Hx Malignant Hyperthermia: No Meds Allergies/Adverse Reactions: Allergies Allergy/AdvReac Type Severity Reaction Status Date / Time No Known Allergies Allergy Verified 03/19/18 16:02 - Medications Medications: Current Medications Acetaminophen (Tylenol 325mg Tab) 650 mg PO Q6 PRN PRN Reason: Pain, Mild (1-3) Albuterol/Ipratropium (Duoneb 3 Mg/0.5 Mg (3 Ml) Ud) 3 ml INH RQ6 [facility] Last Admin: 03/20/18 13:03 Dose: Not Given Carvedilol (Coreg) 12.5 mg PO BID [facility] Last Admin: 03/20/18 09:26 Dose: 12.5 mg Clopidogrel Bisulfate (Plavix) 75 mg PO DAILY [facility] Last Admin: 03/20/18 09:26 Dose: 75 mg Digoxin (Digoxin) 0.125 mg PO DAILY@1800 [facility] Enalapril Maleate (Vasotec) 10 mg PO BID [facility] Last Admin: 03/20/18 09:26 Dose: 10 mg Furosemide (Lasix) 40 mg PO BID [facility] Last Admin: 03/20/18 09:27 Dose: 40 mg Azithromycin 500 mg/ Sodium (Chloride) 250 mls @ 250 mls/hr IVPB DAILY [facility]; Protocol Last Admin: 03/20/18 09:28 Dose: 250 mls/hr Ceftriaxone Sodium 1 gm/ (Sodium Chloride) 100 mls @ 100 mls/hr IVPB DAILY [facility]; Protocol Last Admin: 03/20/18 09:28 Dose: 100 mls/hr Insulin Aspart (Novolog) 0 unit SC ACHS [facility]; Protocol Last Admin: 03/20/18 16:38 Dose: Not Given Metolazone (Zaroxolyn) 5 mg PO DAILY [facility] Last Admin: 03/20/18 09:27 Dose: 5 mg Pantoprazole Sodium (Protonix Inj) 40 mg IVP DAILY [facility] Last Admin: 03/20/18 09:26 Dose: 40 mg Potassium Chloride (Klor-Con 10) 10 meq PO DAILY [facility] Last Admin: 03/20/18 09:26 Dose: 10 meq Sacubitril/Valsartan (Entresto 24 Mg-26 Mg) 1 tab PO BID [facility] Last Admin: 03/20/18 09:27 Dose: 1 tab Tiotropium [place] (Spiriva) 18 mcg INH RQ24 [facility] Last Admin: 03/20/18 08:22 Dose: Not Given Warfarin Sodium (Coumadin) 5 mg PO ONCE ONE Stop: 03/20/18 18:01 Results - Vital Signs Recent Vital Signs: Last Vital Signs Temp 97.2 F L 03/20/18 15:00 Pulse 72 03/20/18 15:00 Resp 20 03/20/18 15:00 BP 136/77 03/20/18 15:00 Pulse Ox 100 03/20/18 15:00 - Labs Result Diagrams: 03/19/18 16:40 03/19/18 16:40 Labs: Laboratory Results - last 24 hr 03/19/18 03/20/18 03/20/18 16:40 02:14 02:14 PT INR APTT POC Glucose (mg/dL) Troponin I 0.0510 NT-Pro-B Natriuret Pep 06216 H Procalcitonin Influenza Typ A,B (EIA) Negative for flu a/b Ur L.pneumophila Ag Negative 03/20/18 03/20/18 03/20/18 06:41 07:34 07:34 PT 15.5 H INR 1.4 APTT 26 D POC Glucose (mg/dL) 97 Troponin I NT-Pro-B Natriuret Pep Procalcitonin 0.12 L Influenza Typ A,B (EIA) Ur L.pneumophila Ag 03/20/18 03/20/18 11:50 15:56 PT INR APTT POC Glucose (mg/dL) 134 H 114 H Troponin I NT-Pro-B Natriuret Pep Procalcitonin Influenza Typ A,B (EIA) Ur L.pneumophila Ag
[2018-03-20] MEDS: Digoxin 125 mcg (0.125 mg) Tab PO SCH (18:16)
--- NOTE | 2018-03-20 18:16 | CP.PCM.PN ---
Subjective - Date & Time of Evaluation Date of Evaluation: 03/20/18 Time of Evaluation: 10:15 - Subjective Subjective: clinically same Objective - Vital Signs/Intake and Output Vital Signs (last 24 hours): Temp Pulse Resp BP Pulse Ox 97.2 F L 72 20 136/77 100 03/20/18 15:00 03/20/18 15:00 03/20/18 15:00 03/20/18 15:00 03/20/18 15:00 Intake and Output: 03/20/18 03/20/18 06:59 18:59 Intake Total 350 700 Output Total 400 Balance -50 700 - Medications Medications: Current Medications Acetaminophen (Tylenol 325mg Tab) 650 mg PO Q6 PRN PRN Reason: Pain, Mild (1-3) Albuterol/Ipratropium (Duoneb 3 Mg/0.5 Mg (3 Ml) Ud) 3 ml INH RQ6 [facility] Last Admin: 03/20/18 13:03 Dose: Not Given Carvedilol (Coreg) 12.5 mg PO BID [facility] Last Admin: 03/20/18 09:26 Dose: 12.5 mg Clopidogrel Bisulfate (Plavix) 75 mg PO DAILY [facility] Last Admin: 03/20/18 09:26 Dose: 75 mg Digoxin (Digoxin) 0.125 mg PO DAILY@1800 [facility] Furosemide (Lasix) 40 mg PO BID [facility] Last Admin: 03/20/18 09:27 Dose: 40 mg Azithromycin 500 mg/ Sodium (Chloride) 250 mls @ 250 mls/hr IVPB DAILY [facility]; Protocol Last Admin: 03/20/18 09:28 Dose: 250 mls/hr Ceftriaxone Sodium 1 gm/ (Sodium Chloride) 100 mls @ 100 mls/hr IVPB DAILY [facility]; Protocol Last Admin: 03/20/18 09:28 Dose: 100 mls/hr Insulin Aspart (Novolog) 0 unit SC ACHS [facility]; Protocol Last Admin: 03/20/18 16:38 Dose: Not Given Metolazone (Zaroxolyn) 5 mg PO DAILY [facility] Last Admin: 03/20/18 09:27 Dose: 5 mg Pantoprazole Sodium (Protonix Inj) 40 mg IVP DAILY [facility] Last Admin: 03/20/18 09:26 Dose: 40 mg Potassium Chloride (Klor-Con 10) 10 meq PO DAILY [facility] Last Admin: 03/20/18 09:26 Dose: 10 meq Sacubitril/Valsartan (Entresto 24 Mg-26 Mg) 1 tab PO BID [facility] Last Admin: 03/20/18 09:27 Dose: 1 tab Tiotropium [place] (Spiriva) 18 mcg INH RQ24 [facility] Last Admin: 03/20/18 08:22 Dose: Not Given - Labs Labs: 03/19/18 16:40 03/19/18 16:40 PT 15.5 SECONDS (9.7-12.2) H 03/20/18 07:34 INR 1.4 03/20/18 07:34 APTT 26 SECONDS (21-34) D 03/20/18 07:34
--- NOTE | 2018-03-20 23:26 | PQF ---
PROVIDER RESPONSE TEXT: Acute on chronic Systolic CHF REVIEWER QUERY TEXT: CHF Acuity and Type Congestive Heart Failure is documented in the Medical Record. Please document the type and acuity (in cludes probable or suspected) Such as: Type: -- Systolic -- Diastolic -- Combined -- Other, please specify Acuity: -- Acute -- Chronic -- Acute on chronic -- Other, please specify Also please document the underlying cause of the CHF (includes probable or suspected) The patient's Clinical Indicators include: Pt. is 62 Y.O. male with PMHx of HTN, CHF. Present to ER with complaint of SOB. Admitted with Dx. CHF Exacerbation, Pneumonia. PBNP- 15036 Echo 12/28/16: LVEF: 10%, Systolic Function severely impaired, Severe Ischemic cardiomyopathy CXR: Cardiomegaly, Pneumonia. Tx: Lasix 40 mg PO BID, [id number] mg-26 mg PO BID Query created by: Carlota Vasques on 03/20/2018 3:04 PM Electronically signed by: Erika SIMPSON 03/20/2018 11:23 PM
[2018-03-21] MEDS: Albuterol-Ipratrop 3 mg / 0.5 (3 ml) UD INH SCH ×4 (01:20→19:30)
--- NOTE | 2018-03-21 02:43 | CON ---
DATE: 03/20/2018 INFECTIOUS DISEASE CONSULT REQUESTED BY: Rocio Vanegas MD HISTORY OF PRESENT ILLNESS: This patient is a 62-year-old male. He has history of congestive heart failure, hypertension, hypercholesterolemia. He also states he has a defibrillator and came to the hospital through the emergency room yesterday complaining of shortness of breath which he has been having for 2 days and he says he is not sure if he took all is medicine. He was not feeling right, came in with shortness of breath. He is feeling cold at this time and he is all dressed up in his clothing, street clothes and along with the shoe and socks and feels cold. Denies having any chest pain right now. Denies any cough, but he is feeling cold and he says otherwise he is fine. He denies any nausea, vomiting, diarrhea, but he does suffer from congestive heart failure. PAST MEDICAL HISTORY: Significant for high cholesterol, hypertension, congestive heart failure, chronic kidney disease. PAST SURGICAL HISTORY: Significant for a pacemaker. FAMILY HISTORY: Noncontributory. SOCIAL HISTORY: Negative for smoking or drinking or any drug abuse. He does give history of having influenza shot and pneumococcal vaccine in the past. REVIEW OF SYSTEMS: He denied any fever or chills. Denies any ear, nose, throat problems right now, but he has shortness of breath. He denied any chest pain. No palpitations. He denied any cough. Denies nausea, vomiting, or diarrhea. He does say his legs swell up and denies any urinary problem problems with urgency, frequency or incontinence or dysuria. Denies any neck pain. No shoulder pain. No back pain. No other symptoms. No neurological symptoms of any numbness, tingling or weakness reported. PHYSICAL EXAMINATION: VITAL SIGNS: On examination I find his temperature is 97.2 right now. So, he is afebrile now, pulse is 62, blood pressure 123/74, respirations 20, saturation is 100%. GENERAL: He is alert, awake, oriented; able to answer questions. HEENT: Head is atraumatic, normocephalic. Pupils are reacting to light. Eye movements are unremarkable. Tongue is moist. Throat, no congestion, no thrush seen. NECK: Supple. JVP is flat. CHEST: Chest wall is symmetrical. No crackles or rales heard. HEART: S1, S2 is regular at this time. ABDOMEN: Soft, nontender. No guarding. No rigidity present. EXTREMITIES: Bilaterally have edema. His legs are very cold and he is wearing socks since he feels cold. He does not want to remove them for me to check his pulses. LABORATORY DATA: White count 4.8, hemoglobin 10.2, hematocrit 32, platelet count 349. Sodium 140, potassium 4.6, chloride 104, CO2 is 24, BUN is 19, creatinine is 1.5. DIAGNOSTIC DATA: Chest x-ray shows bilateral lower lobe atelectasis or pneumonia and left-sided AICD, probable small pleural effusion and cardiomegaly. IMPRESSION AND PLAN: My impression is that since they are mentioning pneumonia and he appears very cold and short of breath, it may be acute exacerbation of congestive heart failure along with something which is exacerbating it and pneumonia as noted on the x-ray. We started him on Rocephin as well as Zithromax at this time and we will continue with the Duoneb treatment and treat him for pneumonia. He also is on Plavix, digoxin, fluzinamide, metolazone, pantoprazole, potassium chloride, Entresto, and he does have early stage IV congestive heart failure with pneumonia at this time. I would like to screen for the different kind of pneumonias and will follow, which we have ordered. Lary Pineda MD
[2018-03-21] MEDS: (Novolog) Insulin Aspart, Recombinant 100 u/ml 10 ml vial SC SCH ×5 (07:30→22:02)
[2018-03-21 08:11] LABS: BASO # 0.1 K/uL (0.0-0.2); BASO % 1.3 % (0.0-2.0); EOS # 0.2 K/uL (0.0-0.7); EOS % 4.6 % (0.0-4.0); HEMOGLOBIN 11.5 g/dL (12.0-18.0); LYMPH # 1.8 K/uL (1.0-4.3); LYMPH % 34.8 % (20.0-40.0); MEAN CORPUSCULAR HEMOGLOBIN 28.6 pg (27.0-31.0); MEAN CORPUSCULAR HGB CONC 32.5 g/dL (33.0-37.0); MEAN PLATELET VOLUME 8.5 fL (7.2-11.7); MONO # 0.5 K/uL (0.0-0.8); MONO % 10.5 % (0.0-10.0); NEUT # 2.5 K/uL (1.8-7.0); NEUT % 48.8 % (50.0-75.0); NRBC % 0.2 % (0.0-2.0); RBC 4.02 Mil/uL (4.40-5.90); RED CELL DISTRIBUTION WIDTH 17.9 % (11.5-14.5); WHITE BLOOD COUNT 5.1 K/uL (4.8-10.8)
[2018-03-21 08:31] LABS: ALB/GLOB RATIO 1.1 (1.0-2.1); ALBUMIN 3.5 g/dL (3.5-5.0); CALCIUM 9.3 mg/dl (8.6-10.4)
[2018-03-21] MEDS: Tiotropium 18 mcg Cap For Inhalation INH SCH (09:18)
[2018-03-21] MEDS: Azithromycin 500 MG in Sodium Chloride 0.9% 250 ML IVPB SCH (10:37)
[2018-03-21] MEDS: metOLazone 5 MG TAB PO SCH (10:39)
[2018-03-21] MEDS: Sacubitril/Valsartan 24-26mg Tab PO SCH ×2 (10:39→18:05)
[2018-03-21] MEDS: Potassium Chloride 10 mEq ER Tab PO SCH (10:39)
[2018-03-21] MEDS: Digoxin 125 mcg (0.125 mg) Tab PO SCH (18:05)
--- NOTE | 2018-03-21 19:58 | CP.PCM.PN ---
Subjective - Date & Time of Evaluation Date of Evaluation: 03/21/18 Time of Evaluation: 17:05 - Subjective Subjective: dictated Objective - Vital Signs/Intake and Output Vital Signs (last 24 hours): Temp Pulse Resp BP Pulse Ox 97.2 F L 72 20 113/70 100 03/21/18 15:00 03/21/18 16:00 03/21/18 15:00 03/21/18 18:05 03/21/18 15:00 - Medications Medications: Current Medications Acetaminophen (Tylenol 325mg Tab) 650 mg PO Q6 PRN PRN Reason: Pain, Mild (1-3) Albuterol/Ipratropium (Duoneb 3 Mg/0.5 Mg (3 Ml) Ud) 3 ml INH RQ6 [facility] Last Admin: 03/21/18 13:30 Dose: 3 ml Carvedilol (Coreg) 12.5 mg PO BID [facility] Last Admin: 03/21/18 18:05 Dose: 12.5 mg Clopidogrel Bisulfate (Plavix) 75 mg PO DAILY [facility] Last Admin: 03/21/18 10:40 Dose: 75 mg Digoxin (Digoxin) 0.125 mg PO DAILY@1800 [facility] Last Admin: 03/21/18 18:05 Dose: 0.125 mg Furosemide (Lasix) 60 mg IVP Q12 [facility] Last Admin: 03/21/18 10:36 Dose: 60 mg Azithromycin 500 mg/ Sodium (Chloride) 250 mls @ 250 mls/hr IVPB DAILY [facility]; Protocol Last Admin: 03/21/18 10:37 Dose: 250 mls/hr Ceftriaxone Sodium 1 gm/ (Sodium Chloride) 100 mls @ 100 mls/hr IVPB DAILY [facility]; Protocol Last Admin: 03/21/18 09:00 Dose: 100 mls/hr Insulin Aspart (Novolog) 0 unit SC ACHS [facility]; Protocol Last Admin: 03/21/18 17:19 Dose: Not Given Metolazone (Zaroxolyn) 5 mg PO DAILY [facility] Last Admin: 03/21/18 10:39 Dose: 5 mg Pantoprazole Sodium (Protonix Inj) 40 mg IVP DAILY [facility] Last Admin: 03/21/18 10:35 Dose: 40 mg Potassium Chloride (Klor-Con 10) 10 meq PO DAILY [facility] Last Admin: 03/21/18 10:39 Dose: 10 meq Sacubitril/Valsartan (Entresto 24 Mg-26 Mg) 1 tab PO BID [facility] Last Admin: 03/21/18 18:05 Dose: 1 tab Tiotropium [place] (Spiriva) 18 mcg INH RQ24 [facility] Last Admin: 03/21/18 09:18 Dose: 18 mcg - Labs Labs: 03/21/18 07:58 03/21/18 07:58 PT 15.5 SECONDS (9.7-12.2) H 03/20/18 07:34 INR 1.4 03/20/18 07:34 APTT 26 SECONDS (21-34) D 03/20/18 07:34
--- NOTE | 2018-03-21 21:11 | CP.PCM.PN ---
Subjective - Date & Time of Evaluation Date of Evaluation: 03/21/18 Time of Evaluation: 09:30 - Subjective Subjective: clinically same Objective - Vital Signs/Intake and Output Vital Signs (last 24 hours): Temp Pulse Resp BP Pulse Ox 97.2 F L 72 20 113/70 100 03/21/18 15:00 03/21/18 16:00 03/21/18 15:00 03/21/18 18:05 03/21/18 15:00 - Medications Medications: Current Medications Acetaminophen (Tylenol 325mg Tab) 650 mg PO Q6 PRN PRN Reason: Pain, Mild (1-3) Albuterol/Ipratropium (Duoneb 3 Mg/0.5 Mg (3 Ml) Ud) 3 ml INH RQ6 [facility] Last Admin: 03/21/18 19:30 Dose: 3 ml Carvedilol (Coreg) 12.5 mg PO BID [facility] Last Admin: 03/21/18 18:05 Dose: 12.5 mg Clopidogrel Bisulfate (Plavix) 75 mg PO DAILY [facility] Last Admin: 03/21/18 10:40 Dose: 75 mg Digoxin (Digoxin) 0.125 mg PO DAILY@1800 [facility] Last Admin: 03/21/18 18:05 Dose: 0.125 mg Furosemide (Lasix) 60 mg IVP Q12 [facility] Last Admin: 03/21/18 10:36 Dose: 60 mg Azithromycin 500 mg/ Sodium (Chloride) 250 mls @ 250 mls/hr IVPB DAILY [facility]; Protocol Last Admin: 03/21/18 10:37 Dose: 250 mls/hr Ceftriaxone Sodium 1 gm/ (Sodium Chloride) 100 mls @ 100 mls/hr IVPB DAILY [facility]; Protocol Last Admin: 03/21/18 09:00 Dose: 100 mls/hr Insulin Aspart (Novolog) 0 unit SC ACHS [facility]; Protocol Last Admin: 03/21/18 17:19 Dose: Not Given Metolazone (Zaroxolyn) 5 mg PO DAILY [facility] Last Admin: 03/21/18 10:39 Dose: 5 mg Pantoprazole Sodium (Protonix Inj) 40 mg IVP DAILY [facility] Last Admin: 03/21/18 10:35 Dose: 40 mg Potassium Chloride (Klor-Con 10) 10 meq PO DAILY [facility] Last Admin: 03/21/18 10:39 Dose: 10 meq Sacubitril/Valsartan (Entresto 24 Mg-26 Mg) 1 tab PO BID [facility] Last Admin: 03/21/18 18:05 Dose: [address] [place] (Spiriva) 18 mcg INH RQ24 [facility] Last Admin: 03/21/18 09:18 Dose: 18 mcg - Labs Labs: 03/21/18 07:58 03/21/18 07:58 PT 15.5 SECONDS (9.7-12.2) H 03/20/18 07:34 INR 1.4 03/20/18 07:34 APTT 26 SECONDS (21-34) D 03/20/18 07:34
[2018-03-22] MEDS: Albuterol-Ipratrop 3 mg / 0.5 (3 ml) UD INH SCH ×4 (03:29→19:45)
[2018-03-22] MEDS: (Novolog) Insulin Aspart, Recombinant 100 u/ml 10 ml vial SC SCH ×4 (08:05→21:20)
[2018-03-22] MEDS: Tiotropium 18 mcg Cap For Inhalation INH SCH (08:24)
[2018-03-22] MEDS: Potassium Chloride 10 mEq ER Tab PO SCH (09:26)
[2018-03-22] MEDS: Sacubitril/Valsartan 24-26mg Tab PO SCH ×2 (09:32→17:32)
[2018-03-22] MEDS: metOLazone 5 MG TAB PO SCH (09:32)
[2018-03-22] MEDS: Azithromycin 500 MG in Sodium Chloride 0.9% 250 ML IVPB SCH (09:33)
[2018-03-22] MEDS: Digoxin 125 mcg (0.125 mg) Tab PO SCH (17:33)
[2018-03-22 17:34] VITALS: PULSE 83
--- NOTE | 2018-03-22 21:25 | CP.PCM.PN ---
Subjective - Date & Time of Evaluation Date of Evaluation: 03/22/18 Time of Evaluation: 10:00 - Subjective Subjective: clinically same Objective - Vital Signs/Intake and Output Vital Signs (last 24 hours): Temp Pulse Resp BP Pulse Ox 97.7 F 83 20 87/52 L 100 03/22/18 15:00 03/22/18 16:00 03/22/18 15:00 03/22/18 21:19 03/22/18 15:00 - Medications Medications: Current Medications Acetaminophen (Tylenol 325mg Tab) 650 mg PO Q6 PRN PRN Reason: Pain, Mild (1-3) Albuterol/Ipratropium (Duoneb 3 Mg/0.5 Mg (3 Ml) Ud) 3 ml INH RQ6 [facility] Last Admin: 03/22/18 19:45 Dose: 3 ml Carvedilol (Coreg) 12.5 mg PO BID [facility] Last Admin: 03/22/18 17:33 Dose: Not Given Clopidogrel Bisulfate (Plavix) 75 mg PO DAILY [facility] Last Admin: 03/22/18 09:26 Dose: 75 mg Digoxin (Digoxin) 0.125 mg PO DAILY@1800 [facility] Last Admin: 03/22/18 17:33 Dose: 0.125 mg Furosemide (Lasix) 60 mg IVP Q12 [facility] Last Admin: 03/22/18 21:19 Dose: Not Given Azithromycin 500 mg/ Sodium (Chloride) 250 mls @ 250 mls/hr IVPB DAILY [facility]; Protocol Last Admin: 03/22/18 09:33 Dose: 250 mls/hr Ceftriaxone Sodium 1 gm/ (Sodium Chloride) 100 mls @ 100 mls/hr IVPB DAILY [facility]; Protocol Last Admin: 03/22/18 09:32 Dose: 100 mls/hr Insulin Aspart (Novolog) 0 unit SC ACHS [facility]; Protocol Last Admin: 03/22/18 21:20 Dose: Not Given Metolazone (Zaroxolyn) 5 mg PO DAILY [facility] Last Admin: 03/22/18 09:32 Dose: 5 mg Pantoprazole Sodium (Protonix Inj) 40 mg IVP DAILY [facility] Last Admin: 03/22/18 09:26 Dose: 40 mg Potassium Chloride (Klor-Con 10) 10 meq PO DAILY [facility] Last Admin: 03/22/18 09:26 Dose: 10 meq Sacubitril/Valsartan (Entresto 24 Mg-26 Mg) 1 tab PO BID [facility] Last Admin: 03/22/18 17:32 Dose: 1 tab Tiotropium [place] (Spiriva) 18 mcg INH RQ24 [facility] Last Admin: 03/22/18 08:24 Dose: 18 mcg - Labs Labs: 03/21/18 07:58 03/21/18 07:58 PT 15.5 SECONDS (9.7-12.2) H 03/20/18 07:34 INR 1.4 03/20/18 07:34 APTT 26 SECONDS (21-34) D 03/20/18 07:34
[2018-03-23] MEDS: Albuterol-Ipratrop 3 mg / 0.5 (3 ml) UD INH SCH ×3 (02:20→13:40)
--- NOTE | 2018-03-23 06:45 | PN ---
DATE: 03/21/2018 SUBJECTIVE: The patient is 62 years old. He has been noncompliant with medications. He came in with failure. I was asked to see him because x-ray was read as bilateral pneumonia. The patient is still feeling cold. He is covered all over up to his neck. He denies any cough or cold. He does say his leg swelling is getting better. He did say that he stopped his medicines. PHYSICAL EXAMINATION: VITAL SIGNS: T-max is 97.2, pulse is 72, blood pressure 113/70, respirations are 20. HEENT: Head is atraumatic and normocephalic. NECK: Supple. LUNGS: Clear at this time. Decreased breath sounds on both bases. HEART: S1 and S2 are regular. No murmurs appreciated. ABDOMEN: Soft, nontender. No guarding, no rigidity present. EXTREMITIES: Have bilateral edema. ASSESSMENT AND PLAN: He also has automatic implantable cardioverter-defibrillator on the left chest wall. The patient has no fever. His white count is normal. We will repeat the x-ray on Friday and if it is improving, then most likely it is exacerbation of congestive heart failure. I will cover for now with antibiotics. I am trying to cover for the pneumonia. We will follow the x-ray on Friday. He has dilated cardiomyopathy which is nonischemic. We will follow. Lary Pineda MD
[2018-03-23] MEDS: (Novolog) Insulin Aspart, Recombinant 100 u/ml 10 ml vial SC SCH ×3 (07:30→17:02)
[2018-03-23] MEDS: Tiotropium 18 mcg Cap For Inhalation INH SCH (07:50)
--- NOTE | 2018-03-23 08:52 | RAD ---
Date of service: 03/23/2018 PROCEDURE: CHEST RADIOGRAPH, 1 VIEW HISTORY: f/u COMPARISON: 03/19/2018 FINDINGS: LUNGS: Opacity at right lung base common nonspecific. This may be due in part to dependent pleural fluid but the possibility of an infiltrate must also be considered. PLEURA: Small bilateral pleural effusion. CARDIOVASCULAR: No aortic atherosclerotic calcification present. Normal heart size. AICD. OSSEOUS STRUCTURES: No significant abnormalities. VISUALIZED UPPER ABDOMEN: Normal. OTHER FINDINGS: None. IMPRESSION: Small bilateral pleural effusion and possible right basilar infiltrate. Rule out pneumonia.
[2018-03-23] MEDS: Sacubitril/Valsartan 24-26mg Tab PO SCH ×2 (09:33→17:21)
[2018-03-23] MEDS: metOLazone 5 MG TAB PO SCH (09:33)
[2018-03-23] MEDS: Potassium Chloride 10 mEq ER Tab PO SCH (09:34)
[2018-03-23] MEDS: Azithromycin 500 MG in Sodium Chloride 0.9% 250 ML IVPB SCH (10:39)
[2018-03-23 11:07] LABS: BASO # 0.1 K/uL (0.0-0.2); BASO % 1.4 % (0.0-2.0); EOS # 0.2 K/uL (0.0-0.7); EOS % 5.1 % (0.0-4.0); HEMOGLOBIN 11.8 g/dL (12.0-18.0); LYMPH # 1.8 K/uL (1.0-4.3); LYMPH % 36.7 % (20.0-40.0); MEAN CELL VOLUME 86.9 fL (80.0-94.0); MEAN CORPUSCULAR HEMOGLOBIN 27.7 pg (27.0-31.0); MEAN CORPUSCULAR HGB CONC 31.8 g/dL (33.0-37.0); MEAN PLATELET VOLUME 7.7 fL (7.2-11.7); MONO # 0.8 K/uL (0.0-0.8); NEUT % 40.8 % (50.0-75.0); RBC 4.26 Mil/uL (4.40-5.90); RED CELL DISTRIBUTION WIDTH 17.8 % (11.5-14.5); WHITE BLOOD COUNT 4.8 K/uL (4.8-10.8)
[2018-03-23 11:29] LABS: ALBUMIN 3.1 g/dL (3.5-5.0); CALCIUM 8.5 mg/dl (8.6-10.4)
[2018-03-23] MEDS ORDERED: Potassium Chloride 20 mEq ER Tab PO ONE (12:00)
--- NOTE | 2018-03-23 15:12 | CP.PCM.PN ---
Subjective - Date & Time of Evaluation Date of Evaluation: 03/23/18 Time of Evaluation: 15:12 Objective - Vital Signs/Intake and Output Vital Signs (last 24 hours): Temp Pulse Resp BP Pulse Ox 98.0 F 83 18 100/62 94 L 03/23/18 07:00 03/23/18 12:00 03/23/18 07:00 03/23/18 09:32 03/23/18 07:00 Intake and Output: 03/23/18 03/23/18 06:59 18:59 Intake Total 120 750 Output Total 850 Balance -730 750 - Medications Medications: Current Medications Acetaminophen (Tylenol 325mg Tab) 650 mg PO Q6 PRN PRN Reason: Pain, Mild (1-3) Albuterol/Ipratropium (Duoneb 3 Mg/0.5 Mg (3 Ml) Ud) 3 ml INH RQ6 [facility] Last Admin: 03/23/18 07:50 Dose: 3 ml Carvedilol (Coreg) 12.5 mg PO BID [facility] Last Admin: 03/23/18 09:34 Dose: Not Given Clopidogrel Bisulfate (Plavix) 75 mg PO DAILY [facility] Last Admin: 03/23/18 09:34 Dose: 75 mg Digoxin (Digoxin) 0.125 mg PO DAILY@1800 [facility] Last Admin: 03/22/18 17:33 Dose: 0.125 mg Famotidine (Pepcid) 20 mg PO DAILY [facility] Last Admin: 03/23/18 09:34 Dose: 20 mg Furosemide (Lasix) 60 mg IVP Q12 [facility] Last Admin: 03/23/18 09:35 Dose: Not Given Azithromycin 500 mg/ Sodium (Chloride) 250 mls @ 250 mls/hr IVPB DAILY [facility]; Protocol Last Admin: 03/23/18 10:39 Dose: 250 mls/hr Ceftriaxone Sodium 1 gm/ (Sodium Chloride) 100 mls @ 100 mls/hr IVPB DAILY [facility]; Protocol Last Admin: 03/23/18 09:34 Dose: 100 mls/hr Insulin Aspart (Novolog) 0 unit SC ACHS [facility]; Protocol Last Admin: 03/23/18 11:40 Dose: Not Given Metolazone (Zaroxolyn) 5 mg PO DAILY [facility] Last Admin: 03/23/18 09:33 Dose: Not Given Potassium Chloride (Klor-Con 10) 10 meq PO DAILY [facility] Last Admin: 03/23/18 09:34 Dose: 10 meq Sacubitril/Valsartan (Entresto 24 Mg-26 Mg) 1 tab PO BID [facility] Last Admin: 03/23/18 09:33 Dose: 1 tab Tiotropium [place] (Spiriva) 18 mcg INH RQ24 [facility] Last Admin: 03/23/18 07:50 Dose: 18 mcg - Labs Labs: 03/23/18 10:54 03/23/18 10:54 PT 15.5 SECONDS (9.7-12.2) H 03/20/18 07:34 INR 1.4 03/20/18 07:34 APTT 26 SECONDS (21-34) D 03/20/18 07:34 Assessment and Plan - Assessment and Plan (Free Text) Assessment: FOLLOW UP WITH DR Kelly SANTACRUZ IN HIS OFFICE -----CALL FOR APPOINTMENT FOLLOW UP WITH DR ARIAS IN HER OFFICE ----CALL FOR APPOINTMENT FOLLOW UP WITH DR HINKLE IN HIS OFFICE -----CALL FOR APPOINTMENT CONTINUE HOME MEDICATION NEW PRESCRIPTION GIVEN LASIX 40 MG PO BID [facility] CALL DR Kelly SANTACRUZ OR GO TO THE EMERGENCY ROOM IF SYMPTOM RETURN OR WORSENING
--- NOTE | 2018-03-23 15:39 | CP.PCM.PN ---
Subjective - Date & Time of Evaluation Date of Evaluation: 03/23/18 Time of Evaluation: 15:00 - Subjective Subjective: dictated Objective - Vital Signs/Intake and Output Vital Signs (last 24 hours): Temp Pulse Resp BP Pulse Ox 98.0 F 83 18 100/62 94 L 03/23/18 07:00 03/23/18 12:00 03/23/18 07:00 03/23/18 09:32 03/23/18 07:00 Intake and Output: 03/23/18 03/23/18 06:59 18:59 Intake Total 120 750 Output Total 850 Balance -730 750 - Medications Medications: Current Medications Acetaminophen (Tylenol 325mg Tab) 650 mg PO Q6 PRN PRN Reason: Pain, Mild (1-3) Albuterol/Ipratropium (Duoneb 3 Mg/0.5 Mg (3 Ml) Ud) 3 ml INH RQ6 [facility] Last Admin: 03/23/18 13:40 Dose: 3 ml Carvedilol (Coreg) 12.5 mg PO BID [facility] Last Admin: 03/23/18 09:34 Dose: Not Given Clopidogrel Bisulfate (Plavix) 75 mg PO DAILY [facility] Last Admin: 03/23/18 09:34 Dose: 75 mg Digoxin (Digoxin) 0.125 mg PO DAILY@1800 [facility] Last Admin: 03/22/18 17:33 Dose: 0.125 mg Famotidine (Pepcid) 20 mg PO DAILY [facility] Last Admin: 03/23/18 09:34 Dose: 20 mg Furosemide (Lasix) 60 mg IVP Q12 [facility] Last Admin: 03/23/18 09:35 Dose: Not Given Azithromycin 500 mg/ Sodium (Chloride) 250 mls @ 250 mls/hr IVPB DAILY [facility]; Protocol Last Admin: 03/23/18 10:39 Dose: 250 mls/hr Ceftriaxone Sodium 1 gm/ (Sodium Chloride) 100 mls @ 100 mls/hr IVPB DAILY [facility]; Protocol Last Admin: 03/23/18 09:34 Dose: 100 mls/hr Insulin Aspart (Novolog) 0 unit SC ACHS [facility]; Protocol Last Admin: 03/23/18 11:40 Dose: Not Given Metolazone (Zaroxolyn) 5 mg PO DAILY [facility] Last Admin: 03/23/18 09:33 Dose: Not Given Potassium Chloride (Klor-Con 10) 10 meq PO DAILY [facility] Last Admin: 03/23/18 09:34 Dose: 10 meq Sacubitril/Valsartan (Entresto 24 Mg-26 Mg) 1 tab PO BID [facility] Last Admin: 03/23/18 09:33 Dose: 1 tab Tiotropium [place] (Spiriva) 18 mcg INH RQ24 [facility] Last Admin: 03/23/18 07:50 Dose: 18 mcg - Labs Labs: 03/23/18 10:54 03/23/18 10:54 PT 15.5 SECONDS (9.7-12.2) H 03/20/18 07:34 INR 1.4 03/20/18 07:34 APTT 26 SECONDS (21-34) D 03/20/18 07:34
[2018-03-23 16:20] VITALS: PULSE 75
[2018-03-23 17:13] VITALS: BP 92/57; RESP 20; TEMP 97.8; O2SAT 100
[2018-03-23] MEDS: Digoxin 125 mcg (0.125 mg) Tab PO SCH (17:21)
--- NOTE | 2018-03-23 17:50 | CP.PCM.PN ---
Subjective - Date & Time of Evaluation Date of Evaluation: 03/23/18 Time of Evaluation: 10:45 - Subjective Subjective: clinically same Objective - Vital Signs/Intake and Output Vital Signs (last 24 hours): Temp Pulse Resp BP Pulse Ox 97.8 F 75 20 92/57 L 100 03/23/18 15:12 03/23/18 16:00 03/23/18 15:12 03/23/18 17:21 03/23/18 15:12 Intake and Output: 03/23/18 03/23/18 06:59 18:59 Intake Total 120 750 Output Total 850 Balance -730 750 - Medications Medications: Current Medications Acetaminophen (Tylenol 325mg Tab) 650 mg PO Q6 PRN PRN Reason: Pain, Mild (1-3) Albuterol/Ipratropium (Duoneb 3 Mg/0.5 Mg (3 Ml) Ud) 3 ml INH RQ6 [facility] Last Admin: 03/23/18 13:40 Dose: 3 ml Carvedilol (Coreg) 12.5 mg PO BID [facility] Last Admin: 03/23/18 17:21 Dose: Not Given Clopidogrel Bisulfate (Plavix) 75 mg PO DAILY [facility] Last Admin: 03/23/18 09:34 Dose: 75 mg Digoxin (Digoxin) 0.125 mg PO DAILY@1800 [facility] Last Admin: 03/23/18 17:21 Dose: Not Given Famotidine (Pepcid) 20 mg PO DAILY [facility] Last Admin: 03/23/18 09:34 Dose: 20 mg Furosemide (Lasix) 60 mg IVP Q12 [facility] Last Admin: 03/23/18 09:35 Dose: Not Given Insulin Aspart (Novolog) 0 unit SC [facility]; Protocol Last Admin: 03/23/18 17:02 Dose: Not Given Metolazone (Zaroxolyn) 5 mg PO DAILY [facility] Last Admin: 03/23/18 09:33 Dose: Not Given Potassium Chloride (Klor-Con 10) 10 meq PO DAILY [facility] Last Admin: 03/23/18 09:34 Dose: 10 meq Sacubitril/Valsartan (Entresto 24 Mg-26 Mg) 1 tab PO BID [facility] Last Admin: 03/23/18 17:21 Dose: Not Given Tiotropium [place] (Spiriva) 18 mcg INH RQ24 [facility] Last Admin: 03/23/18 07:50 Dose: 18 mcg - Labs Labs: 03/23/18 10:54 03/23/18 10:54 PT 15.5 SECONDS (9.7-12.2) H 03/20/18 07:34 INR 1.4 03/20/18 07:34 APTT 26 SECONDS (21-34) D 03/20/18 07:34 - Constitutional Appears: Well - Head Exam Head Exam: ATRAUMATIC, NORMAL INSPECTION, NORMOCEPHALIC - Eye Exam Eye Exam: EOMI, Normal appearance, PERRL Pupil Exam: NORMAL ACCOMODATION, PERRL - ENT Exam ENT Exam: Mucous Membranes Moist, Normal Exam - Neck Exam Neck Exam: Full ROM, Normal Inspection. absent: Lymphadenopathy - Respiratory Exam Respiratory Exam: Decreased Breath Sounds - Cardiovascular Exam Cardiovascular Exam: REGULAR RHYTHM, +S1, +S2 - GI/Abdominal Exam GI & Abdominal Exam: Soft, Diminished Bowel Sounds - Rectal Exam Rectal Exam: Deferred
== END 2018-03-23 18:10 | disposition home or self-care (01) | DRG 291 ==
LOC: C.ER 15:42 → C.9E 17:38 → C.6T 21:07
PROVIDERS: ADMIT Internal Medicine Nephrology; ATTEND Internal Medicine Nephrology
DX: I13.0 Hypertensive heart and chronic kidney disease with heart failure and stage 1 through stage 4 chronic kidney disease, or unspecified chronic kidney disease (principal); J18.9 Pneumonia, unspecified organism; I50.9 Heart failure, unspecified; I42.0 Dilated cardiomyopathy; E11.22 Type 2 diabetes mellitus with diabetic chronic kidney disease; I25.10 Atherosclerotic heart disease of native coronary artery without angina pectoris; N18.9 Chronic kidney disease, unspecified; E78.00 Pure hypercholesterolemia, unspecified; Z95.0 Presence of cardiac pacemaker; Z87.891 Personal history of nicotine dependence; Z79.02 Long term (current) use of antithrombotics/antiplatelets; Z91.14 Patient's other noncompliance with medication regimen

== ENCOUNTER 2018-06-08 14:58 | Inpatient (IN) | payer MEDICARE ==
--- NOTE | 2018-06-08 15:33 | C.PDOC ---
History Of Present Illness 63 year old male with PMHx of CHF presents to ED with complaint of shortness of breath for 1 week. He states that the shortness of breath is worse when lying flat.Patient states that he vomited 3-4 days ago. He denies abdominal pain, fever, chills, cough, chest pain, and syncope. Time Seen by Provider: 06/08/18 15:12 Chief Complaint (Nursing): Shortness Of Breath History Per: Patient History/Exam Limitations: no limitations Onset/Duration Of Symptoms: Days (7) Current Symptoms Are (Timing): Still Present Exacerbating Factor(s): Laying Flat Associated Symptoms: denies: Fever, Chills, Chest Pain, Productive Cough Past Medical History Reviewed: Historical Data, Nursing Documentation, Vital Signs Vital Signs: Last Vital Signs Temp 97.4 F L 06/08/18 15:08 Pulse 112 H 06/08/18 15:08 Resp 32 H 06/08/18 15:11 BP 143/93 H 06/08/18 15:08 Pulse Ox 2 L 06/08/18 15:11 - Medical History PMH: CHF, HTN, Hypercholesterolemia Denies: Chronic Kidney Disease Surgical History: Pacemaker Family History: States: Unknown Family Hx - Social History Hx Alcohol Use: No Hx Substance Use: No - Immunization History Hx Tetanus Toxoid Vaccination: No Hx Influenza Vaccination: Yes Hx Pneumococcal Vaccination: Yes Review Of Systems Constitutional: Negative for: Fever, Chills, Weakness Cardiovascular: Negative for: Chest Pain Respiratory: Positive for: Shortness of Breath. Negative for: Cough Gastrointestinal: Positive for: Vomiting. Negative for: Nausea, Abdominal Pain Neurological: Negative for: Weakness, Numbness, Dizziness Physical Exam - Physical Exam Appears: Non-toxic, No Acute Distress, Other (speaking full sentences) Skin: Normal Color, Warm, Dry Head: Atraumatic, Normacephalic Eye(s): bilateral: Normal Inspection, PERRL, EOMI Neck: Normal ROM, Supple Chest: Symmetrical, No Deformity Cardiovascular: Rhythm Regular, Other (Tachycardic) Respiratory: No Accessory Muscle Use, Rales (at the base of the lungs bilaterally with fare air entry), No Rhonchi, No Wheezing Gastrointestinal/Abdominal: Soft, No Tenderness Extremity: Swelling (bilateral lower extemities) Pulses: Left Dorsalis Pedis: Normal, Right Dorsalis Pedis: Normal Neurological/Psych: Oriented x3, Normal Speech, Normal Cognition, Normal Cranial Nerves, Normal Motor, Normal Sensation ED Course And Treatment - Laboratory Results Result Diagrams: 06/13/18 07:40 06/13/18 07:40 ECG: Interpreted By Me, Viewed By Me ECG Rhythm: Sinus Tachycardia, AV Paced Rate From EC O2 Sat by Pulse Oximetry: 2 (on BiPAP) - Other Rad CXR X-Ray: Interpreted by Me, Viewed By Me Interpretation: Desai, Hemali MD. Patient NameSCOTOM BARGER / [id number] Bernardo MD. Study [id number] 15:57:06Transcriber. Sex / AgeM / [id number] Bernardo MD. [facility]Approval [id number] 16:12:52. My Comment. Study Comments. Report. Date of service: 06/08/2018. PROCEDURE: CHEST RADIOGRAPH, 1 VIEW. HISTORY: SOB. COMPARISON: 03/23/2018. FINDINGS: LUNGS: There are low lung volumes. PLEURA: Moderate right pleural effusion. Question of layering small left pleural effusion. No pneumothorax. CARDIOVASCULAR: Persistent cardiomegaly. There is stable position of left-sided permanent pacing device. OSSEOUS STRUCTURES: Within normal limits for the patient's age. VISUALIZED UPPER ABDOMEN: Normal. OTHER FINDINGS: None. IMPRESSION: Moderate right pleural effusion. Suspect small left pleural effusion. Underlying right pneumonia cannot be entirely excluded. Follow-up after medical management is recommended to ensure complete resolution. Persistent cardiomegaly Medical Decision Making Medical Decision Making: Impression: 63 year old male with shortness of breath Plan: EKG and CXR ordered for patient Labs with CBC and blood culture ordered for patient Patient given Lasix IVP 1606: O2 up to 100%. Respiratory rate improved. 1642:Dr.J Vanegas accepted admission 1650: Discussed with . No heparin. History of ischemic cardiomyopathy 16:55 Case d/w Dr. Justice, ICU, who accepts pt. Disposition Counseled Patient/Family Regarding: Studies Performed, Diagnosis - Disposition Disposition: HOSPITALIZED Disposition Time: 18:13 Condition: FAIR - Clinical Impression Clinical Impression: Fluid overload, NSTEMI (non-ST elevated myocardial infarction), Sepsis, Pneu monia, Pleural effusion, Hyperkalemia - Scribe Statement The provider has reviewed the documentation as recorded by the Scribe (Yamileth Delatorre) All medical record entries made by the Scribe were at my direction and personally dictated by me. I have reviewed the chart and agree that the record accurately reflects my personal performance of the history, physical exam, medical decision making, and the department course for this patient. I have also personally directed, reviewed, and agree with the discharge instructions and disposition.
[2018-06-08 15:43] LABS: BASO % 0.6 % (0.0-2.0); EOS % 0.1 % (0.0-4.0); LYMPH # 1.6 K/uL (1.0-4.3); LYMPH % 20.6 % (20.0-40.0); MEAN CORPUSCULAR HEMOGLOBIN 25.4 pg (27.0-31.0); MEAN CORPUSCULAR HGB CONC 31.1 g/dL (33.0-37.0); MEAN PLATELET VOLUME 7.6 fL (7.2-11.7); MONO # 0.8 K/uL (0.0-0.8); MONO % 10.1 % (0.0-10.0); NEUT # 5.4 K/uL (1.8-7.0); NEUT % 68.6 % (50.0-75.0); NRBC % 0.3 % (0.0-2.0); RBC 3.93 Mil/uL (4.40-5.90); RED CELL DISTRIBUTION WIDTH 21.3 % (11.5-14.5)
[2018-06-08 15:48] LABS: INR 1.6; PROTHROMBIN TIME 17.6 SECONDS (9.7-12.2)
[2018-06-08 15:49] LABS: MEAN CELL VOLUME 81.6 fL (80.0-94.0); WHITE BLOOD COUNT 7.9 K/uL (4.8-10.8)
[2018-06-08 15:57] LABS: ALBUMIN 4.1 g/dL (3.5-5.0); ALT/SGPT 21 U/L (21-72); AST/SGOT 39 U/L (17-59); BLOOD UREA NITROGEN 23 mg/dL (9-20); CALCIUM 9.4 mg/dl (8.6-10.4); GFR NON-AFRICAN AMERICAN 32
[2018-06-08 16:02] LABS: ARTERIAL BLOOD GAS HCO3 21.2 mmol/L (21-28); ARTERIAL BLOOD GAS O2 SAT 100.5 % (95-98); ARTERIAL BLOOD GAS PCO2 25 mm/Hg (35-45); ARTERIAL BLOOD GAS PH 7.45 (7.35-7.45); ARTERIAL BLOOD GAS PO2 503 mm/Hg (80-100); ARTERIAL BLOOD GAS TCO2 18.2 mmol/L (22-28)
--- NOTE | 2018-06-08 16:16 | RAD ---
Date of service: 06/08/2018 PROCEDURE: CHEST RADIOGRAPH, 1 VIEW HISTORY: SOB COMPARISON: 03/23/2018 FINDINGS: LUNGS: There are low lung volumes. PLEURA: Moderate right pleural effusion. Question of layering small left pleural effusion. No pneumothorax. CARDIOVASCULAR: Persistent cardiomegaly. There is stable position of left-sided permanent pacing device. OSSEOUS STRUCTURES: Within normal limits for the patient's age. VISUALIZED UPPER ABDOMEN: Normal. OTHER FINDINGS: None. IMPRESSION: Moderate right pleural effusion. Suspect small left pleural effusion. Underlying right pneumonia cannot be entirely excluded. Follow-up after medical management is recommended to ensure complete resolution. Persistent cardiomegaly
[2018-06-08 16:17] LABS: B-TYPE NATRIURETIC PEPTIDE > 35000 pg/mL (0-900)
[2018-06-08] MEDS ORDERED: Aspirin 325 mg EC Tablets PO STA (16:19)
[2018-06-08] MEDS ORDERED: Sod Polystyrene Sulf 15 gm/60 ml Susp PO ONE (16:20)
[2018-06-08] MEDS ORDERED: Cefepime IV 2 gm in Dextrose 2 GM/100 ML BAG IVPB STA (16:25)
[2018-06-08] MEDS ORDERED: Sod Polystyrene Sulf 15 gm/60 ml Susp ONE (16:29)
[2018-06-08] MEDS ORDERED: Aspirin 325 mg EC Tablets PO ONE (16:30)
[2018-06-08] MEDS ORDERED: Cefepime 2 GM in Sodium Chloride 0.9% 100 ML IVPB STA (16:36)
[2018-06-08 17:54] LABS: SQUAMOUS EPITHIAL < 1 /hpf (0-5); URINE BACTERIA RARE (<OCC); URINE BILIRUBIN NEGATIVE (NEGATIVE); URINE BLOOD NEGATIVE (NEGATIVE); URINE CLARITY Clear (Clear); URINE COLOR Yellow (YELLOW); URINE GLUCOSE (UA) NORMAL (Normal); URINE LEUKOCYTE ESTERASE NEG Leu/uL (Negative); URINE PROTEIN NEGATIVE (NEGATIVE); URINE UROBILINOGEN NORMAL mg/dL (0.2-1.0)
--- NOTE | 2018-06-08 18:33 | CP.PCM.CON ---
History of Present Illness - History of Present Illness History of Present Illness: ICU Consult Note for Dr. Justice This is a 63 y o male with PMhx CHF, HTN, and HLD who presents to the ED with c/o worsening shortness of breath x 1 week. Reported to ED staff that the shortness of breath worsened while lying flat. Also reported episode of vomiting 3-4 days ago. Reason for ICU consult was for Sepsis/PNA/CHF. Pt seen and examined at bedside. Currently on BiPap, comfortable on exam, in NAD. Unable to fully answer HPI and ROS due to current mental status. States he was brought in from rehab facility. Per chart review, recently admitted in Feb 2018 for CHF exacerbation. PMhx: CHF, HLD, HTN, CKD, COPD PSurgHx: S/p AICD placement Home meds: reviewed as per MAY Fam hx: unknown Soc hx: negative for smoking, EtOH or illicit drug abuse. Per chart review in Feb 2018 reported hx of receiving influenza and pneumococcal vaccines in the past PMD: Dr. Sweta Vanegas Review of Systems - Review of Systems Systems not reviewed;Unavailable: Altered Mental Status Past Patient History - Infectious Disease Hx of Infectious Diseases: None - Past Medical History & Family History Past Medical History?: Yes - Past Social History Smoking Status: Former Smoker - CARDIAC Hx Congestive Heart Failure: Yes Hx Hypercholesterolemia: Yes Hx Hypertension: Yes Hx Pacemaker: Yes - PULMONARY Hx Respiratory Disorders: No - NEUROLOGICAL Hx Neurological Disorder: No - HEENT Hx HEENT Problems: Yes - RENAL Hx Chronic Kidney Disease: No - ENDOCRINE/METABOLIC Hx Endocrine Disorders: Yes Hx Diabetes Mellitus Type 2: Yes - HEMATOLOGICAL/ONCOLOGICAL Hx Blood Disorders: No - INTEGUMENTARY Hx Dermatological Problems: No - MUSCULOSKELETAL/RHEUMATOLOGICAL Hx Musculoskeletal Disorders: Yes Hx Falls: Yes - GASTROINTESTINAL Hx Gastrointestinal Disorders: No - GENITOURINARY/GYNECOLOGICAL Hx Genitourinary Disorders: No - PSYCHIATRIC Hx Substance Use: No - SURGICAL HISTORY Hx Surgeries: Yes Other/Comment: AICD to Left Chest Wall - ANESTHESIA Hx Anesthesia: Yes Hx Anesthesia Reactions: No Hx Malignant Hyperthermia: No Meds Allergies/Adverse Reactions: Allergies Allergy/AdvReac Type Severity Reaction Status Date / Time No Known Allergies Allergy Verified 06/08/18 15:11 Physical Exam - Constitutional Appears: Non-toxic, No Acute Distress - Head Exam Head Exam: ATRAUMATIC, NORMOCEPHALIC - Eye Exam Eye Exam: EOMI, Normal appearance, PERRL - ENT Exam ENT Exam: Mucous Membranes Moist - Neck Exam Neck exam: Positive for: Full Rom, Normal Inspection. Negative for: Lymphadenopathy - Respiratory Exam Respiratory Exam: Rales. absent: Accessory Muscle Use, Chest Wall Tenderness, Respiratory Distress - Cardiovascular Exam Cardiovascular Exam: Tachycardia, REGULAR RHYTHM, +S1, +S2. absent: Gallop, Rubs, Systolic Murmur - GI/Abdominal Exam GI & Abdominal Exam: Distended, Normal Bowel Sounds, Soft. absent: Guarding, Organomegaly, Tenderness - Extremities Exam Extremities exam: Positive for: normal capillary refill, normal inspection, pedal pulses present. Negative for: calf tenderness, pedal edema - Neurological Exam Neurological exam: Alert, CN II-XII Intact - Skin Skin Exam: Dry, Intact, Warm Results - Vital Signs Recent Vital Signs: Last Vital Signs Temp 97.4 F L 06/08/18 15:08 Pulse 98 H 06/08/18 17:30 Resp 26 H 06/08/18 17:30 BP 124/79 06/08/18 17:30 Pulse Ox 2 L 06/08/18 18:17 - Labs Result Diagrams: 06/08/18 15:33 06/08/18 15:33 Labs: Laboratory Results - last 24 hr 06/08/18 06/08/18 06/08/18 15:33 15:33 15:33 WBC 7.9 D RBC 3.93 L Hgb 10.0 L Hct 32.1 L MCV 81.6 D MCH 25.4 L MCHC 31.1 L RDW 21.3 H Plt Count 551 H MPV 7.6 Neut % (Auto) 68.6 Lymph % (Auto) 20.6 [place] % (Auto) 10.1 H Eos % (Auto) 0.1 Baso % (Auto) 0.6 Neut # (Auto) 5.4 Lymph # (Auto) 1.6 [place] # (Auto) 0.8 Eos # (Auto) 0.0 Baso # (Auto) 0.0 PT 17.6 H INR 1.6 APTT 25 Puncture Site pCO2 pO2 HCO3 ABG pH ABG Total CO2 ABG O2 Saturation ABG Base Excess Bud Test ABG Potassium A-a O2 Difference Respiratory Index Glucose Lactate Vent Mode FiO2 Inspiratory BiPAP Expiratory BiPAP Sodium 136 Potassium 5.6 H Chloride 104 Carbon Dioxide 16 L Anion Gap 23 H BUN 23 H Creatinine 2.1 H Est GFR ( Amer) 39 Est GFR (Non-Af Amer) 32 Random Glucose 108 Calcium 9.4 Phosphorus Magnesium 1.9 Total Bilirubin 2.5 H AST 39 ALT 21 D Alkaline Phosphatase 88 Troponin I 0.2680 H* NT-Pro-B Natriuret Pep > 65028 H Total Protein 8.3 Albumin 4.1 Globulin 4.1 H Albumin/Globulin Ratio 1.0 Arterial Blood Potassium Urine Color Urine Clarity Urine pH Ur Specific [place] Urine Protein Urine Glucose (UA) Urine Ketones Urine Blood Urine Nitrate Urine Bilirubin Urine Urobilinogen Ur Leukocyte Esterase Urine WBC (Auto) Ur Squamous Epith Cells Urine Bacteria Hyaline Casts 06/08/18 06/08/18 06/08/18 15:59 16:40 16:46 WBC RBC Hgb Hct MCV MCH MCHC RDW Plt Count MPV Neut % (Auto) Lymph % (Auto) [place] % (Auto) Eos % (Auto) Baso % (Auto) Neut # (Auto) Lymph # (Auto) [place] # (Auto) Eos # (Auto) Baso # (Auto) PT INR APTT Puncture Site Rb pCO2 25 L pO2 503 H HCO3 21.2 ABG pH 7.45 ABG Total CO2 18.2 L ABG O2 Saturation 100.5 H ABG Base Excess -4.9 L Bud Test Na ABG Potassium 5.4 H A-a O2 Difference 179.0 Respiratory Index 0.4 Glucose 118 H Lactate 3.5 H Vent Mode Bipap FiO2 100.0 Inspiratory BiPAP 12 Expiratory BiPAP 6 Sodium 133.0 Potassium Chloride 110.0 H Carbon Dioxide Anion Gap BUN Creatinine Est GFR ( Amer) Est GFR (Non-Af Amer) Random Glucose Calcium Phosphorus 4.1 Magnesium Total Bilirubin AST ALT Alkaline Phosphatase Troponin I NT-Pro-B Natriuret Pep Total Protein Albumin Globulin Albumin/Globulin Ratio Arterial Blood Potassium 5.4 H Urine Color Yellow Urine Clarity Clear Urine pH 5.0 Ur Specific [place] 1.006 Urine Protein Negative Urine Glucose (UA) Normal Urine Ketones Negative Urine Blood Negative Urine Nitrate Negative Urine Bilirubin Negative Urine Urobilinogen Normal Ur Leukocyte Esterase Neg Urine WBC (Auto) < 1 Ur Squamous Epith Cells < 1 Urine Bacteria Rare Hyaline Casts 6-10 H Assessment & Plan - Assessment and Plan (Free Text) Assessment: This is a 63 y o male with PMhx CHF, HTN, and HLD who presents to the ED with c/o worsening shortness of breath x 1 week. Reason for ICU consult was for Sepsis/PNA/CHF. Plan: Neuro: -AAOx2, altered 2/2 to CHF exacerbation and worsening sob -No gross deficits appreciated on exam -Cont to monitor Cardiac: -BNP >35,000 on admission -Symptoms likely 2/2 CHF exacerbation -Cardiology consulted (Dr. Winter), recs appreciated -Home ESTHER inhibitors held on admission 2/2 NAVEEN, Entresto held on admission -C/w ASA, Coreg, Plavix, Digoxin, Lasix, Metolazone -C/w BiPap settings -F/u EKGs -Strict I's/O's, daily weights -Troponin elevated at 0.26 on admission, repeat ROMIs x2 pending -Pt currently asymptomatic, not c/o chest pain Pulm: -C/w BiPap, maintain O2 sat > 92% -CXR on admission demonstrates moderate R pleural effusion, suspect small L pleural effusion. Underlying R PNA cannot be excluded. -C/w Cefepime 1 g q daily IVPB -Duonebs q6h -C/w home med Spiriva daily GI: -HHD -Protonix IVP daily -No acute issues at this time ID: -Urine, blood cxs pending -CXR findings as noted above -Cefepime 1 g q daily IVPB for treatment of PNA -No leukocytosis -Pt met SIRS criteria with tachycardia and increased respiratory rate Heme: -H/H 10.0/32.1, cont to trend PPX: -Protonix IVP daily -Home med Warfarin held on admission, will follow up INR tomorrow am; SCD for DVT ppx Dispo: Will observe in ICU overnight. Further recommendations as per Dr. Justice, attending physician. Dixon Dillon DO PGY-1, Commissioning Engineer pager #[phone]
[2018-06-08 19:06] LABS: VENOUS BLOOD GAS BASE EXCESS -3.3 mmol/L (0.0-2.0); VENOUS BLOOD GAS PCO2 40 mmHg (40-60); VENOUS BLOOD GAS PO2 31 mm/Hg (30-55); VENOUS BLOOD PH 7.35 (7.32-7.43)
--- NOTE | 2018-06-08 20:34 | CP.PCM.HP ---
Past Patient History - Infectious Disease Hx of Infectious Diseases: None - Past Medical History & Family History Past Medical History?: Yes - Past Social History Smoking Status: Former Smoker - CARDIAC Hx Congestive Heart Failure: Yes Hx Hypercholesterolemia: Yes Hx Hypertension: Yes Hx Pacemaker: Yes - PULMONARY Hx Respiratory Disorders: No - NEUROLOGICAL Hx Neurological Disorder: No - HEENT Hx HEENT Problems: Yes - RENAL Hx Chronic Kidney Disease: No - ENDOCRINE/METABOLIC Hx Endocrine Disorders: Yes Hx Diabetes Mellitus Type 2: Yes - HEMATOLOGICAL/ONCOLOGICAL Hx Blood Disorders: No - INTEGUMENTARY Hx Dermatological Problems: No - MUSCULOSKELETAL/RHEUMATOLOGICAL Hx Musculoskeletal Disorders: Yes Hx Falls: Yes - GASTROINTESTINAL Hx Gastrointestinal Disorders: No - GENITOURINARY/GYNECOLOGICAL Hx Genitourinary Disorders: No - PSYCHIATRIC Hx Substance Use: No - SURGICAL HISTORY Hx Surgeries: Yes Other/Comment: AICD to Left Chest Wall - ANESTHESIA Hx Anesthesia: Yes Hx Anesthesia Reactions: No Hx Malignant Hyperthermia: No Meds Allergies/Adverse Reactions: Allergies Allergy/AdvReac Type Severity Reaction Status Date / Time No Known Allergies Allergy Verified 06/08/18 15:11 Physical Exam - Constitutional Appears: Well - Head Exam Head Exam: ATRAUMATIC, NORMAL INSPECTION, NORMOCEPHALIC - Eye Exam Eye Exam: EOMI, Normal appearance, PERRL Pupil Exam: NORMAL ACCOMODATION, PERRL - ENT Exam ENT Exam: Mucous Membranes Moist, Normal Exam - Neck Exam Neck exam: Positive for: Normal Inspection - Respiratory Exam Respiratory Exam: Decreased Breath Sounds - Cardiovascular Exam Cardiovascular Exam: REGULAR RHYTHM, +S1, +S2 - GI/Abdominal Exam GI & Abdominal Exam: Diminished Bowel Sounds, Soft - Rectal Exam Rectal Exam: Deferred Results - Vital Signs Recent Vital Signs: Last Vital Signs Temp 97.8 F 06/08/18 19:02 Pulse 109 H 06/08/18 19:42 Resp 23 06/08/18 19:02 BP 123/78 06/08/18 19:02 Pulse Ox 100 06/08/18 19:02 - Labs Result Diagrams: 06/08/18 15:33 06/08/18 15:33 Labs: Laboratory Results - last 24 hr 06/08/18 06/08/18 06/08/18 15:33 15:33 15:33 WBC 7.9 D RBC 3.93 L Hgb 10.0 L Hct 32.1 L MCV 81.6 D MCH 25.4 L MCHC 31.1 L RDW 21.3 H Plt Count 551 H MPV 7.6 Neut % (Auto) 68.6 Lymph % (Auto) 20.6 [place] % (Auto) 10.1 H Eos % (Auto) 0.1 Baso % (Auto) 0.6 Neut # (Auto) 5.4 Lymph # (Auto) 1.6 [place] # (Auto) 0.8 Eos # (Auto) 0.0 Baso # (Auto) 0.0 PT 17.6 H INR 1.6 APTT 25 Puncture Site pCO2 pO2 HCO3 ABG pH ABG Total CO2 ABG O2 Saturation ABG Base Excess Bud Test ABG Potassium VBG pH VBG pCO2 VBG HCO3 VBG Total CO2 VBG O2 Sat (Calc) VBG Base Excess VBG Potassium A-a O2 Difference Respiratory Index Glucose Lactate Vent Mode FiO2 Inspiratory BiPAP Expiratory BiPAP Sodium 136 Potassium 5.6 H Chloride 104 Carbon Dioxide 16 L Anion Gap 23 H BUN 23 H Creatinine 2.1 H Est GFR ( Amer) 39 Est GFR (Non-Af Amer) 32 Random Glucose 108 Calcium 9.4 Phosphorus Magnesium 1.9 Total Bilirubin 2.5 H AST 39 ALT 21 D Alkaline Phosphatase 88 Troponin I 0.2680 H* NT-Pro-B Natriuret Pep > 82099 H Total Protein 8.3 Albumin 4.1 Globulin 4.1 H Albumin/Globulin Ratio 1.0 Arterial Blood Potassium Venous Blood Potassium Urine Color Urine Clarity Urine pH Ur Specific [place] Urine Protein Urine Glucose (UA) Urine Ketones Urine Blood Urine Nitrate Urine Bilirubin Urine Urobilinogen Ur Leukocyte Esterase Urine WBC (Auto) Ur Squamous Epith Cells Urine Bacteria Hyaline Casts Digoxin 06/08/18 06/08/18 06/08/18 15:59 16:40 16:46 WBC RBC Hgb Hct MCV MCH MCHC RDW Plt Count MPV Neut % (Auto) Lymph % (Auto) [place] % (Auto) Eos % (Auto) Baso % (Auto) Neut # (Auto) Lymph # (Auto) [place] # (Auto) Eos # (Auto) Baso # (Auto) PT INR APTT Puncture Site Rb pCO2 25 L pO2 503 H HCO3 21.2 ABG pH 7.45 ABG Total CO2 18.2 L ABG O2 Saturation 100.5 H ABG Base Excess -4.9 L Bud Test Na ABG Potassium 5.4 H VBG pH VBG pCO2 VBG HCO3 VBG Total CO2 VBG O2 Sat (Calc) VBG Base Excess VBG Potassium A-a O2 Difference 179.0 Respiratory Index 0.4 Glucose 118 H Lactate 3.5 H Vent Mode Bipap FiO2 100.0 Inspiratory BiPAP 12 Expiratory BiPAP 6 Sodium 133.0 Potassium Chloride 110.0 H Carbon Dioxide Anion Gap BUN Creatinine Est GFR ( Amer) Est GFR (Non-Af Amer) Random Glucose Calcium Phosphorus 4.1 Magnesium Total Bilirubin AST ALT Alkaline Phosphatase Troponin I NT-Pro-B Natriuret Pep Total Protein Albumin Globulin Albumin/Globulin Ratio Arterial Blood Potassium 5.4 H Venous Blood Potassium Urine Color Yellow Urine Clarity Clear Urine pH 5.0 Ur Specific [place] 1.006 Urine Protein Negative Urine Glucose (UA) Normal Urine Ketones Negative Urine Blood Negative Urine Nitrate Negative Urine Bilirubin Negative Urine Urobilinogen Normal Ur Leukocyte Esterase Neg Urine WBC (Auto) < 1 Ur Squamous Epith Cells < 1 Urine Bacteria Rare Hyaline Casts 6-10 H Digoxin 06/08/18 06/08/18 18:03 18:57 WBC RBC Hgb Hct MCV MCH MCHC RDW Plt Count MPV Neut % (Auto) Lymph % (Auto) [place] % (Auto) Eos % (Auto) Baso % (Auto) Neut # (Auto) Lymph # (Auto) [place] # (Auto) Eos # (Auto) Baso # (Auto) PT INR APTT Puncture Site pCO2 pO2 31 HCO3 ABG pH ABG Total CO2 ABG O2 Saturation ABG Base Excess Bud Test ABG Potassium VBG pH 7.35 VBG pCO2 40 VBG HCO3 21.2 VBG Total CO2 23.3 VBG O2 Sat (Calc) 55.9 VBG Base Excess -3.3 L VBG Potassium 5.4 H A-a O2 Difference Respiratory Index Glucose 112 H Lactate 3.5 H Vent Mode FiO2 Inspiratory BiPAP Expiratory BiPAP Sodium 138.0 Potassium Chloride 109.0 H Carbon Dioxide Anion Gap BUN Creatinine Est GFR ( Amer) Est GFR (Non-Af Amer) Random Glucose Calcium Phosphorus Magnesium Total Bilirubin AST ALT Alkaline Phosphatase Troponin I NT-Pro-B Natriuret Pep Total Protein Albumin Globulin Albumin/Globulin Ratio Arterial Blood Potassium Venous Blood Potassium 5.4 H Urine Color Urine Clarity Urine pH Ur Specific [place] Urine Protein Urine Glucose (UA) Urine Ketones Urine Blood Urine Nitrate Urine Bilirubin Urine Urobilinogen Ur Leukocyte Esterase Urine WBC (Auto) Ur Squamous Epith Cells Urine Bacteria Hyaline Casts Digoxin 1.3
[2018-06-08 22:45] LABS: CK-MB 2.05 ng/mL (0.0-3.38); TROPONIN I 0.214 ng/mL (0.00-0.120)
[2018-06-08 23:18] LABS: INR 1.6
[2018-06-09] MEDS: Albuterol-Ipratrop 3 mg / 0.5 (3 ml) UD INH SCH ×5 (01:45→19:17)
[2018-06-09 04:26] LABS: BASO % 0.5 % (0.0-2.0); EOS % 0.2 % (0.0-4.0); HEMOGLOBIN 9.1 g/dL (12.0-18.0); LYMPH # 1.2 K/uL (1.0-4.3); LYMPH % 14.9 % (20.0-40.0); MEAN CELL VOLUME 81.3 fL (80.0-94.0); MEAN CORPUSCULAR HEMOGLOBIN 25.8 pg (27.0-31.0); MEAN CORPUSCULAR HGB CONC 31.8 g/dL (33.0-37.0); MEAN PLATELET VOLUME 7.6 fL (7.2-11.7); MONO # 1.2 K/uL (0.0-0.8); MONO % 14.5 % (0.0-10.0); NEUT # 5.7 K/uL (1.8-7.0); NEUT % 69.9 % (50.0-75.0); NRBC % 0.1 % (0.0-2.0); RBC 3.51 Mil/uL (4.40-5.90); RED CELL DISTRIBUTION WIDTH 20.7 % (11.5-14.5); WHITE BLOOD COUNT 8.2 K/uL (4.8-10.8)
[2018-06-09 04:29] LABS: INR 1.6; PROTHROMBIN TIME 17.6 SECONDS (9.7-12.2)
[2018-06-09 04:58] LABS: ALB/GLOB RATIO 0.9 (1.0-2.1); ALBUMIN 3.5 g/dL (3.5-5.0); CALCIUM 8.8 mg/dl (8.6-10.4); CK-MB 1.91 ng/mL (0.0-3.38); TROPONIN I 0.205 ng/mL (0.00-0.120)
--- NOTE | 2018-06-09 08:33 | CP.CCUPN ---
<Dixon Dillon - Last Filed: 06/09/18 14:44> CCU Subjective - Physician Review Subjective (Free Text): 06/09/18 09:30 Pt seen and examined at bedside. States he feels tired today. Denies shortness of breath currently or chest pain, reports he has not ambulated out of bed yet today. States he is hungry. Denies headache, dizziness, fever, chills, n/v/d/c, abd pain, urinary complaints, or other symptoms. On BiPap. No acute events reported by staff overnight. CCU Objective - Vital Signs / Intake & Output Vital Signs (Last 4 hours): Vital Signs Pulse 06/09/18 06:06 90 Intake and Output (Last 8hrs): Intake & Output 06/08/18 06/09/18 06/09/18 22:59 06:59 14:59 Intake Total 0 360 0 Output Total 300 0 Balance -300 360 0 Weight 160 lb 160 lb 11.2 oz Intake: Intake, IV Amount 0 0 0 Left Antecubital 0 0 0 Right Wrist 0 0 Oral 0 360 Output: Urine 300 0 Urine, Voided 0 0 Stool 0 0 - Physical Exam Head: Positive for: Atraumatic, Normocephalic Pupils: Positive for: PERRL Extroacular Muscles: Positive for: EOMI Conjunctiva: Positive for: Normal Mouth: Positive for: Moist Mucous Membranes Neck: Positive for: Normal Range of Motion, Trachea Midline. Negative for: JVD, Lymphadenopathy Respiratory/Chest: Positive for: Clear to Auscultation, Good Air Exchange, Rales (prominent in R lower lobe). Negative for: Respiratory Distress, Accessory Muscle Use, Wheezes Cardiovascular: Positive for: Regular Rate and Rhythm, Normal S1, S2. Negative for: Murmurs, Rub, Gallop Abdomen: Positive for: Normal Bowel Sounds. Negative for: Tenderness, Distention Upper Extremity: Positive for: Normal Inspection, NORMAL PULSES, Neurovascularly Intact, Capillary Refill < 2s. Negative for: Cyanosis, Edema Lower Extremity: Positive for: Normal Inspection, NORMAL PULSES, Neurovascularly Intact, Capillary Refill < 2 s. Negative for: Edema - Medications Active Medications: Active Medications Generic Name Dose Route Start Last Admin Trade Name Freq PRN Reason Stop Dose Admin Albuterol/Ipratropium 3 ml 06/08/18 20:00 06/09/18 01:45 Duoneb 3 Mg/0.5 Mg (3 Ml) Ud INH 3 ml RQ6 BRITANY Administration Carvedilol 12.5 mg 06/09/18 10:00 Coreg PO BID [facility] Clopidogrel Bisulfate 75 mg 06/09/18 10:00 Plavix PO DAILY [facility] Digoxin 0.125 mg 06/09/18 18:00 Digoxin PO DAILY@1800 [facility] Famotidine 20 mg 06/08/18 22:00 06/08/18 22:32 Pepcid IVP 20 mg DAILY [facility] Administration Furosemide 40 mg 06/09/18 10:00 Lasix IVP BID [facility] Cefepime HCl 1 gm in 50 mls @ 100 mls/hr 06/09/18 10:00 Maxipime Iv 1 Gm Premix IVPB DAILY [facility] Protocol Metolazone 5 mg 06/09/18 10:00 Zaroxolyn PO DAILY [facility] Tiotropium [place] 18 mcg 06/09/18 08:00 Spiriva INH RQ24 [facility] Warfarin Sodium 5 mg 06/09/18 18:00 Coumadin PO 06/09/18 18:01 1800 [facility] - Patient Studies Lab Studies: Lab Studies 06/09/18 06/09/18 06/09/18 Range/Units 04:18 04:18 04:18 WBC 8.2 (4.8-10.8) K/uL RBC 3.51 L (4.40-5.90) Mil/uL Hgb 9.1 L (12.0-18.0) g/dL Hct 28.5 L (35.0-51.0) % MCV 81.3 (80.0-94.0) fL MCH 25.8 L (27.0-31.0) pg MCHC 31.8 L (33.0-37.0) g/dL RDW 20.7 H (11.5-14.5) % Plt Count 466 H (130-400) K/uL MPV 7.6 (7.2-11.7) fL Neut % (Auto) 69.9 (50.0-75.0) % Lymph % (Auto) 14.9 L (20.0-40.0) % Sullivan % (Auto) 14.5 H (0.0-10.0) % Eos % (Auto) 0.2 (0.0-4.0) % Baso % (Auto) 0.5 (0.0-2.0) % Neut # (Auto) 5.7 (1.8-7.0) K/uL Lymph # (Auto) 1.2 (1.0-4.3) K/uL Sullivan # (Auto) 1.2 H (0.0-0.8) K/uL Eos # (Auto) 0.0 (0.0-0.7) K/uL Baso # (Auto) 0.0 (0.0-0.2) K/uL PT 17.6 H (9.7-12.2) SECONDS INR 1.6 APTT 28 (21-34) SECONDS Puncture Site pCO2 (35-45) mm/Hg pO2 (80-100) mm/Hg HCO3 (21-28) mmol/L ABG pH (7.35-7.45) ABG Total CO2 (22-28) mmol/L ABG O2 Saturation (95-98) % ABG Base Excess (-2.0-3.0) mmol/L Bud Test ABG Potassium (3.6-5.2) mmol/L VBG pH (7.32-7.43) VBG pCO2 (40-60) mmHg VBG HCO3 mmol/L VBG Total CO2 (22-28) mmol/L VBG O2 Sat (Calc) (40-65) % VBG Base Excess (0.0-2.0) mmol/L VBG Potassium (3.6-5.2) mmol/L A-a O2 Difference mm/Hg Respiratory Index Glucose (75-110) mg/dl Lactate (0.7-2.1) mmol/L Vent Mode FiO2 % Inspiratory BiPAP Expiratory BiPAP Sodium 136 (132-148) mmol/L Potassium 5.2 (3.6-5.2) mmol/L Chloride 104 (98-107) mmol/L Carbon Dioxide 24 (22-30) mmol/L Anion Gap 13 (10-20) BUN 32 H (9-20) mg/dL Creatinine 1.9 H (0.8-1.5) mg/dL Est GFR ( Amer) 44 Est GFR (Non-Af Amer) 36 Random Glucose 106 (75-110) mg/dL Calcium 8.8 (8.6-10.4) mg/dl Phosphorus 3.2 (2.5-4.5) mg/dL Magnesium 1.9 (1.6-2.3) mg/dL Total Bilirubin 1.9 H (0.2-1.3) mg/dL AST 39 (17-59) U/L ALT 32 (21-72) U/L Alkaline Phosphatase 71 (38-126) U/L Total Creatine Kinase 80 (55-170) U/L CK-MB (Mass) 1.91 (0.0-3.38) ng/mL Troponin I 0.2050 H* (0.00-0.120) ng/mL NT-Pro-B Natriuret Pep (0-900) pg/mL Total Protein 7.2 (6.3-8.3) g/dL Albumin 3.5 (3.5-5.0) g/dL Globulin 3.7 (2.2-3.9) gm/dL Albumin/Globulin Ratio 0.9 L (1.0-2.1) Arterial Blood Potassium (3.6-5.2) mmol/L Venous Blood Potassium (3.6-5.2) mmol/L Urine Color (YELLOW) Urine Clarity (Clear) Urine pH (5.0-8.0) Ur Specific [place] (1.003-1.030) Urine Protein (NEGATIVE) mg/dL Urine Glucose (UA) (Normal) mg/dL Urine Ketones (NEGATIVE) mg/dL Urine Blood (NEGATIVE) Urine Nitrate (NEGATIVE) Urine Bilirubin (NEGATIVE) Urine Urobilinogen (0.2-1.0) mg/dL Ur Leukocyte Esterase (Negative) Addie/uL Urine WBC (Auto) (0-5) /hpf Ur Squamous Epith Cells (0-5) /hpf Urine Bacteria (<OCC) Hyaline Casts (0-2) /lpf Digoxin (0.8-2.0) ng/mL 06/08/18 06/08/18 06/08/18 Range/Units 22:58 21:50 18:57 WBC (4.8-10.8) K/uL RBC (4.40-5.90) Mil/uL Hgb (12.0-18.0) g/dL Hct (35.0-51.0) % MCV (80.0-94.0) fL MCH (27.0-31.0) pg MCHC (33.0-37.0) g/dL RDW (11.5-14.5) % Plt Count (130-400) K/uL MPV (7.2-11.7) fL Neut % (Auto) (50.0-75.0) % Lymph % (Auto) (20.0-40.0) % Sullivan % (Auto) (0.0-10.0) % Eos % (Auto) (0.0-4.0) % Baso % (Auto) (0.0-2.0) % Neut # (Auto) (1.8-7.0) K/uL Lymph # (Auto) (1.0-4.3) K/uL [place] # (Auto) (0.0-0.8) K/uL Eos # (Auto) (0.0-0.7) K/uL Baso # (Auto) (0.0-0.2) K/uL PT 18.0 H (9.7-12.2) SECONDS INR 1.6 APTT (21-34) SECONDS Puncture Site pCO2 (35-45) mm/Hg pO2 31 (80-100) mm/Hg HCO3 (21-28) mmol/L ABG pH (7.35-7.45) ABG Total CO2 (22-28) mmol/L ABG O2 Saturation (95-98) % ABG Base Excess (-2.0-3.0) mmol/L Bud Test ABG Potassium (3.6-5.2) mmol/L VBG pH 7.35 (7.32-7.43) VBG pCO2 40 (40-60) mmHg VBG HCO3 21.2 mmol/L VBG Total CO2 23.3 (22-28) mmol/L VBG O2 Sat (Calc) 55.9 (40-65) % VBG Base Excess -3.3 L (0.0-2.0) mmol/L VBG Potassium 5.4 H (3.6-5.2) mmol/L A-a O2 Difference mm/Hg Respiratory Index Glucose 112 H (75-110) mg/dl Lactate 3.5 H (0.7-2.1) mmol/L Vent Mode FiO2 % Inspiratory BiPAP Expiratory BiPAP Sodium 138.0 (132-148) mmol/L Potassium (3.6-5.2) mmol/L Chloride 109.0 H (98-107) mmol/L Carbon Dioxide (22-30) mmol/L Anion Gap (10-20) BUN (9-20) mg/dL Creatinine (0.8-1.5) mg/dL Est GFR ( Amer) Est GFR (Non-Af Amer) Random Glucose (75-110) mg/dL Calcium (8.6-10.4) mg/dl Phosphorus (2.5-4.5) mg/dL Magnesium (1.6-2.3) mg/dL Total Bilirubin (0.2-1.3) mg/dL AST (17-59) U/L ALT (21-72) U/L Alkaline Phosphatase (38-126) U/L Total Creatine Kinase 80 (55-170) U/L CK-MB (Mass) 2.05 (0.0-3.38) ng/mL Troponin I 0.2140 H* (0.00-0.120) ng/mL NT-Pro-B Natriuret Pep (0-900) pg/mL Total Protein (6.3-8.3) g/dL Albumin (3.5-5.0) g/dL Globulin (2.2-3.9) gm/dL Albumin/Globulin Ratio (1.0-2.1) Arterial Blood Potassium (3.6-5.2) mmol/L Venous Blood Potassium 5.4 H (3.6-5.2) mmol/L Urine Color (YELLOW) Urine Clarity (Clear) Urine pH (5.0-8.0) Ur Specific [place] (1.003-1.030) Urine Protein (NEGATIVE) mg/dL Urine Glucose (UA) (Normal) mg/dL Urine Ketones (NEGATIVE) mg/dL Urine Blood (NEGATIVE) Urine Nitrate (NEGATIVE) Urine Bilirubin (NEGATIVE) Urine Urobilinogen (0.2-1.0) mg/dL Ur Leukocyte Esterase (Negative) Addie/uL Urine WBC (Auto) (0-5) /hpf Ur Squamous Epith Cells (0-5) /hpf Urine Bacteria (<OCC) Hyaline Casts (0-2) /lpf Digoxin (0.8-2.0) ng/mL 06/08/18 06/08/18 06/08/18 Range/Units 18:03 16:46 16:40 WBC (4.8-10.8) K/uL RBC (4.40-5.90) Mil/uL Hgb (12.0-18.0) g/dL Hct (35.0-51.0) % MCV (80.0-94.0) fL MCH (27.0-31.0) pg MCHC (33.0-37.0) g/dL RDW (11.5-14.5) % Plt Count (130-400) K/uL MPV (7.2-11.7) fL Neut % (Auto) (50.0-75.0) % Lymph % (Auto) (20.0-40.0) % [place] % (Auto) (0.0-10.0) % Eos % (Auto) (0.0-4.0) % Baso % (Auto) (0.0-2.0) % Neut # (Auto) (1.8-7.0) K/uL Lymph # (Auto) (1.0-4.3) K/uL [place] # (Auto) (0.0-0.8) K/uL Eos # (Auto) (0.0-0.7) K/uL Baso # (Auto) (0.0-0.2) K/uL PT (9.7-12.2) SECONDS INR APTT (21-34) SECONDS Puncture Site pCO2 (35-45) mm/Hg pO2 (80-100) mm/Hg HCO3 (21-28) mmol/L ABG pH (7.35-7.45) ABG Total CO2 (22-28) mmol/L ABG O2 Saturation (95-98) % ABG Base Excess (-2.0-3.0) mmol/L Bud Test ABG Potassium (3.6-5.2) mmol/L VBG pH (7.32-7.43) VBG pCO2 (40-60) mmHg VBG HCO3 mmol/L VBG Total CO2 (22-28) mmol/L VBG O2 Sat (Calc) (40-65) % VBG Base Excess (0.0-2.0) mmol/L VBG Potassium (3.6-5.2) mmol/L A-a O2 Difference mm/Hg Respiratory Index Glucose (75-110) mg/dl Lactate (0.7-2.1) mmol/L Vent Mode FiO2 % Inspiratory BiPAP Expiratory BiPAP Sodium (132-148) mmol/L Potassium (3.6-5.2) mmol/L Chloride (98-107) mmol/L Carbon Dioxide (22-30) mmol/L Anion Gap (10-20) BUN (9-20) mg/dL Creatinine (0.8-1.5) mg/dL Est GFR ( Amer) Est GFR (Non-Af Amer) Random Glucose (75-110) mg/dL Calcium (8.6-10.4) mg/dl Phosphorus 4.1 (2.5-4.5) mg/dL Magnesium (1.6-2.3) mg/dL Total Bilirubin (0.2-1.3) mg/dL AST (17-59) U/L ALT (21-72) U/L Alkaline Phosphatase (38-126) U/L Total Creatine Kinase (55-170) U/L CK-MB (Mass) (0.0-3.38) ng/mL Troponin I (0.00-0.120) ng/mL NT-Pro-B Natriuret Pep (0-900) pg/mL Total Protein (6.3-8.3) g/dL Albumin (3.5-5.0) g/dL Globulin (2.2-3.9) gm/dL Albumin/Globulin Ratio (1.0-2.1) Arterial Blood Potassium (3.6-5.2) mmol/L Venous Blood Potassium (3.6-5.2) mmol/L Urine Color Yellow (YELLOW) Urine Clarity Clear (Clear) Urine pH 5.0 (5.0-8.0) Ur Specific [place] 1.006 (1.003-1.030) Urine Protein Negative (NEGATIVE) mg/dL Urine Glucose (UA) Normal (Normal) mg/dL Urine Ketones Negative (NEGATIVE) mg/dL Urine Blood Negative (NEGATIVE) Urine Nitrate Negative (NEGATIVE) Urine Bilirubin Negative (NEGATIVE) Urine Urobilinogen Normal (0.2-1.0) mg/dL Ur Leukocyte Esterase Neg (Negative) Addie/uL Urine WBC (Auto) < 1 (0-5) /hpf Ur Squamous Epith Cells < 1 (0-5) /hpf Urine Bacteria Rare (<OCC) Hyaline Casts 6-10 H (0-2) /lpf Digoxin 1.3 (0.8-2.0) ng/mL 06/08/18 06/08/18 06/08/18 Range/Units 15:59 15:33 15:33 WBC (4.8-10.8) K/uL RBC (4.40-5.90) Mil/uL Hgb (12.0-18.0) g/dL Hct (35.0-51.0) % MCV (80.0-94.0) fL MCH (27.0-31.0) pg MCHC (33.0-37.0) g/dL RDW (11.5-14.5) % Plt Count (130-400) K/uL MPV (7.2-11.7) fL Neut % (Auto) (50.0-75.0) % Lymph % (Auto) (20.0-40.0) % Sullivan % (Auto) (0.0-10.0) % Eos % (Auto) (0.0-4.0) % Baso % (Auto) (0.0-2.0) % Neut # (Auto) (1.8-7.0) K/uL Lymph # (Auto) (1.0-4.3) K/uL [place] # (Auto) (0.0-0.8) K/uL Eos # (Auto) (0.0-0.7) K/uL Baso # (Auto) (0.0-0.2) K/uL PT 17.6 H (9.7-12.2) SECONDS INR 1.6 APTT 25 (21-34) SECONDS Puncture Site Rb pCO2 25 L (35-45) mm/Hg pO2 503 H (80-100) mm/Hg HCO3 21.2 (21-28) mmol/L ABG pH 7.45 (7.35-7.45) ABG Total CO2 18.2 L (22-28) mmol/L ABG O2 Saturation 100.5 H (95-98) % ABG Base Excess -4.9 L (-2.0-3.0) mmol/L Bud Test Na ABG Potassium 5.4 H (3.6-5.2) mmol/L VBG pH (7.32-7.43) VBG pCO2 (40-60) mmHg VBG HCO3 mmol/L VBG Total CO2 (22-28) mmol/L VBG O2 Sat (Calc) (40-65) % VBG Base Excess (0.0-2.0) mmol/L VBG Potassium (3.6-5.2) mmol/L A-a O2 Difference 179.0 mm/Hg Respiratory Index 0.4 Glucose 118 H (75-110) mg/dl Lactate 3.5 H (0.7-2.1) mmol/L Vent Mode Bipap FiO2 100.0 % Inspiratory BiPAP 12 Expiratory BiPAP 6 Sodium 133.0 136 (132-148) mmol/L Potassium 5.6 H (3.6-5.2) mmol/L Chloride 110.0 H 104 (98-107) mmol/L Carbon Dioxide 16 L (22-30) mmol/L Anion Gap 23 H (10-20) BUN 23 H (9-20) mg/dL Creatinine 2.1 H (0.8-1.5) mg/dL Est GFR ( Amer) 39 Est GFR (Non-Af Amer) 32 Random Glucose 108 (75-110) mg/dL Calcium 9.4 (8.6-10.4) mg/dl Phosphorus (2.5-4.5) mg/dL Magnesium 1.9 (1.6-2.3) mg/dL Total Bilirubin 2.5 H (0.2-1.3) mg/dL AST 39 (17-59) U/L ALT 21 D (21-72) U/L Alkaline Phosphatase 88 (38-126) U/L Total Creatine Kinase (55-170) U/L CK-MB (Mass) (0.0-3.38) ng/mL Troponin I 0.2680 H* (0.00-0.120) ng/mL NT-Pro-B Natriuret Pep > 02849 H (0-900) pg/mL Total Protein 8.3 (6.3-8.3) g/dL Albumin 4.1 (3.5-5.0) g/dL Globulin 4.1 H (2.2-3.9) gm/dL Albumin/Globulin Ratio 1.0 (1.0-2.1) Arterial Blood Potassium 5.4 H (3.6-5.2) mmol/L Venous Blood Potassium (3.6-5.2) mmol/L Urine Color (YELLOW) Urine Clarity (Clear) Urine pH (5.0-8.0) Ur Specific [place] (1.003-1.030) Urine Protein (NEGATIVE) mg/dL Urine Glucose (UA) (Normal) mg/dL Urine Ketones (NEGATIVE) mg/dL Urine Blood (NEGATIVE) Urine Nitrate (NEGATIVE) Urine Bilirubin (NEGATIVE) Urine Urobilinogen (0.2-1.0) mg/dL Ur Leukocyte Esterase (Negative) Addie/uL Urine WBC (Auto) (0-5) /hpf Ur Squamous Epith Cells (0-5) /hpf Urine Bacteria (<OCC) Hyaline Casts (0-2) /lpf Digoxin (0.8-2.0) ng/mL 06/08/18 Range/Units 15:33 WBC 7.9 D (4.8-10.8) K/uL RBC 3.93 L (4.40-5.90) Mil/uL Hgb 10.0 L (12.0-18.0) g/dL Hct 32.1 L (35.0-51.0) % MCV 81.6 D (80.0-94.0) fL MCH 25.4 L (27.0-31.0) pg MCHC 31.1 L (33.0-37.0) g/dL RDW 21.3 H (11.5-14.5) % Plt Count 551 H (130-400) K/uL MPV 7.6 (7.2-11.7) fL Neut % (Auto) 68.6 (50.0-75.0) % Lymph % (Auto) 20.6 (20.0-40.0) % [place] % (Auto) 10.1 H (0.0-10.0) % Eos % (Auto) 0.1 (0.0-4.0) % Baso % (Auto) 0.6 (0.0-2.0) % Neut # (Auto) 5.4 (1.8-7.0) K/uL Lymph # (Auto) 1.6 (1.0-4.3) K/uL [place] # (Auto) 0.8 (0.0-0.8) K/uL Eos # (Auto) 0.0 (0.0-0.7) K/uL Baso # (Auto) 0.0 (0.0-0.2) K/uL PT (9.7-12.2) SECONDS INR APTT (21-34) SECONDS Puncture Site pCO2 (35-45) mm/Hg pO2 (80-100) mm/Hg HCO3 (21-28) mmol/L ABG pH (7.35-7.45) ABG Total CO2 (22-28) mmol/L ABG O2 Saturation (95-98) % ABG Base Excess (-2.0-3.0) mmol/L Bud Test ABG Potassium (3.6-5.2) mmol/L VBG pH (7.32-7.43) VBG pCO2 (40-60) mmHg VBG HCO3 mmol/L VBG Total CO2 (22-28) mmol/L VBG O2 Sat (Calc) (40-65) % VBG Base Excess (0.0-2.0) mmol/L VBG Potassium (3.6-5.2) mmol/L A-a O2 Difference mm/Hg Respiratory Index Glucose (75-110) mg/dl Lactate (0.7-2.1) mmol/L Vent Mode FiO2 % Inspiratory BiPAP Expiratory BiPAP Sodium (132-148) mmol/L Potassium (3.6-5.2) mmol/L Chloride (98-107) mmol/L Carbon Dioxide (22-30) mmol/L Anion Gap (10-20) BUN (9-20) mg/dL Creatinine (0.8-1.5) mg/dL Est GFR ( Amer) Est GFR (Non-Af Amer) Random Glucose (75-110) mg/dL Calcium (8.6-10.4) mg/dl Phosphorus (2.5-4.5) mg/dL Magnesium (1.6-2.3) mg/dL Total Bilirubin (0.2-1.3) mg/dL AST (17-59) U/L ALT (21-72) U/L Alkaline Phosphatase (38-126) U/L Total Creatine Kinase (55-170) U/L CK-MB (Mass) (0.0-3.38) ng/mL Troponin I (0.00-0.120) ng/mL NT-Pro-B Natriuret Pep (0-900) pg/mL Total Protein (6.3-8.3) g/dL Albumin (3.5-5.0) g/dL Globulin (2.2-3.9) gm/dL Albumin/Globulin Ratio (1.0-2.1) Arterial Blood Potassium (3.6-5.2) mmol/L Venous Blood Potassium (3.6-5.2) mmol/L Urine Color (YELLOW) Urine Clarity (Clear) Urine pH (5.0-8.0) Ur Specific [place] (1.003-1.030) Urine Protein (NEGATIVE) mg/dL Urine Glucose (UA) (Normal) mg/dL Urine Ketones (NEGATIVE) mg/dL Urine Blood (NEGATIVE) Urine Nitrate (NEGATIVE) Urine Bilirubin (NEGATIVE) Urine Urobilinogen (0.2-1.0) mg/dL Ur Leukocyte Esterase (Negative) Addie/uL Urine WBC (Auto) (0-5) /hpf Ur Squamous Epith Cells (0-5) /hpf Urine Bacteria (<OCC) Hyaline Casts (0-2) /lpf Digoxin (0.8-2.0) ng/mL Laboratory Results - last 24 hr 06/08/18 06/08/18 06/08/18 15:33 15:33 15:33 WBC 7.9 D RBC 3.93 L Hgb 10.0 L Hct 32.1 L MCV 81.6 D MCH 25.4 L MCHC 31.1 L RDW 21.3 H Plt Count 551 H MPV 7.6 Neut % (Auto) 68.6 Lymph % (Auto) 20.6 [place] % (Auto) 10.1 H Eos % (Auto) 0.1 Baso % (Auto) 0.6 Neut # (Auto) 5.4 Lymph # (Auto) 1.6 [place] # (Auto) 0.8 Eos # (Auto) 0.0 Baso # (Auto) 0.0 PT 17.6 H INR 1.6 APTT 25 Puncture Site pCO2 pO2 HCO3 ABG pH ABG Total CO2 ABG O2 Saturation ABG Base Excess Bud Test ABG Potassium VBG pH VBG pCO2 VBG HCO3 VBG Total CO2 VBG O2 Sat (Calc) VBG Base Excess VBG Potassium A-a O2 Difference Respiratory Index Glucose Lactate Vent Mode FiO2 Inspiratory BiPAP Expiratory BiPAP Sodium 136 Potassium 5.6 H Chloride 104 Carbon Dioxide 16 L Anion Gap 23 H BUN 23 H Creatinine 2.1 H Est GFR ( Amer) 39 Est GFR (Non-Af Amer) 32 Random Glucose 108 Calcium 9.4 Phosphorus Magnesium 1.9 Total Bilirubin 2.5 H AST 39 ALT 21 D Alkaline Phosphatase 88 Total Creatine Kinase CK-MB (Mass) Troponin I 0.2680 H* NT-Pro-B Natriuret Pep > 17286 H Total Protein 8.3 Albumin 4.1 Globulin 4.1 H Albumin/Globulin Ratio 1.0 Arterial Blood Potassium Venous Blood Potassium Urine Color Urine Clarity Urine pH Ur Specific [place] Urine Protein Urine Glucose (UA) Urine Ketones Urine Blood Urine Nitrate Urine Bilirubin Urine Urobilinogen Ur Leukocyte Esterase Urine WBC (Auto) Ur Squamous Epith Cells Urine Bacteria Hyaline Casts Digoxin 06/08/18 06/08/18 06/08/18 15:59 16:40 16:46 WBC RBC Hgb Hct MCV MCH MCHC RDW Plt Count MPV Neut % (Auto) Lymph % (Auto) [place] % (Auto) Eos % (Auto) Baso % (Auto) Neut # (Auto) Lymph # (Auto) Sullivan # (Auto) Eos # (Auto) Baso # (Auto) PT INR APTT Puncture Site Rb pCO2 25 L pO2 503 H HCO3 21.2 ABG pH 7.45 ABG Total CO2 18.2 L ABG O2 Saturation 100.5 H ABG Base Excess -4.9 L Bud Test Na ABG Potassium 5.4 H VBG pH VBG pCO2 VBG HCO3 VBG Total CO2 VBG O2 Sat (Calc) VBG Base Excess VBG Potassium A-a O2 Difference 179.0 Respiratory Index 0.4 Glucose 118 H Lactate 3.5 H Vent Mode Bipap FiO2 100.0 Inspiratory BiPAP 12 Expiratory BiPAP 6 Sodium 133.0 Potassium Chloride 110.0 H Carbon Dioxide Anion Gap BUN Creatinine Est GFR ( Amer) Est GFR (Non-Af Amer) Random Glucose Calcium Phosphorus 4.1 Magnesium Total Bilirubin AST ALT Alkaline Phosphatase Total Creatine Kinase CK-MB (Mass) Troponin I NT-Pro-B Natriuret Pep Total Protein Albumin Globulin Albumin/Globulin Ratio Arterial Blood Potassium 5.4 H Venous Blood Potassium Urine Color Yellow Urine Clarity Clear Urine pH 5.0 Ur Specific [place] 1.006 Urine Protein Negative Urine Glucose (UA) Normal Urine Ketones Negative Urine Blood Negative Urine Nitrate Negative Urine Bilirubin Negative Urine Urobilinogen Normal Ur Leukocyte Esterase Neg Urine WBC (Auto) < 1 Ur Squamous Epith Cells < 1 Urine Bacteria Rare Hyaline Casts 6-10 H Digoxin 06/08/18 06/08/18 06/08/18 18:03 18:57 21:50 WBC RBC Hgb Hct MCV MCH MCHC RDW Plt Count MPV Neut % (Auto) Lymph % (Auto) Sullivan % (Auto) Eos % (Auto) Baso % (Auto) Neut # (Auto) Lymph # (Auto) Sullivan # (Auto) Eos # (Auto) Baso # (Auto) PT INR APTT Puncture Site pCO2 pO2 31 HCO3 ABG pH ABG Total CO2 ABG O2 Saturation ABG Base Excess Bud Test ABG Potassium VBG pH 7.35 VBG pCO2 40 VBG HCO3 21.2 VBG Total CO2 23.3 VBG O2 Sat (Calc) 55.9 VBG Base Excess -3.3 L VBG Potassium 5.4 H A-a O2 Difference Respiratory Index Glucose 112 H Lactate 3.5 H Vent Mode FiO2 Inspiratory BiPAP Expiratory BiPAP Sodium 138.0 Potassium Chloride 109.0 H Carbon Dioxide Anion Gap BUN Creatinine Est GFR ( Amer) Est GFR (Non-Af Amer) Random Glucose Calcium Phosphorus Magnesium Total Bilirubin AST ALT Alkaline Phosphatase Total Creatine Kinase 80 CK-MB (Mass) 2.05 Troponin I 0.2140 H* NT-Pro-B Natriuret Pep Total Protein Albumin Globulin Albumin/Globulin Ratio Arterial Blood Potassium Venous Blood Potassium 5.4 H Urine Color Urine Clarity Urine pH Ur Specific [place] Urine Protein Urine Glucose (UA) Urine Ketones Urine Blood Urine Nitrate Urine Bilirubin Urine Urobilinogen Ur Leukocyte Esterase Urine WBC (Auto) Ur Squamous Epith Cells Urine Bacteria Hyaline Casts Digoxin 1.3 06/08/18 06/09/18 06/09/18 22:58 04:18 04:18 WBC 8.2 RBC 3.51 L Hgb 9.1 L Hct 28.5 L MCV 81.3 MCH 25.8 L MCHC 31.8 L RDW 20.7 H Plt Count 466 H MPV 7.6 Neut % (Auto) 69.9 Lymph % (Auto) 14.9 L Sullivan % (Auto) 14.5 H Eos % (Auto) 0.2 Baso % (Auto) 0.5 Neut # (Auto) 5.7 Lymph # (Auto) 1.2 Sullivan # (Auto) 1.2 H Eos # (Auto) 0.0 Baso # (Auto) 0.0 PT 18.0 H INR 1.6 APTT Puncture Site pCO2 pO2 HCO3 ABG pH ABG Total CO2 ABG O2 Saturation ABG Base Excess Bud Test ABG Potassium VBG pH VBG pCO2 VBG HCO3 VBG Total CO2 VBG O2 Sat (Calc) VBG Base Excess VBG Potassium A-a O2 Difference Respiratory Index Glucose Lactate Vent Mode FiO2 Inspiratory BiPAP Expiratory BiPAP Sodium 136 Potassium 5.2 Chloride 104 Carbon Dioxide 24 Anion Gap 13 BUN 32 H Creatinine 1.9 H Est GFR ( Amer) 44 Est GFR (Non-Af Amer) 36 Random Glucose 106 Calcium 8.8 Phosphorus 3.2 Magnesium 1.9 Total Bilirubin 1.9 H AST 39 ALT 32 Alkaline Phosphatase 71 Total Creatine Kinase 80 CK-MB (Mass) 1.91 Troponin I 0.2050 H* NT-Pro-B Natriuret Pep Total Protein 7.2 Albumin 3.5 Globulin 3.7 Albumin/Globulin Ratio 0.9 L Arterial Blood Potassium Venous Blood Potassium Urine Color Urine Clarity Urine pH Ur Specific [place] Urine Protein Urine Glucose (UA) Urine Ketones Urine Blood Urine Nitrate Urine Bilirubin Urine Urobilinogen Ur Leukocyte Esterase Urine WBC (Auto) Ur Squamous Epith Cells Urine Bacteria Hyaline Casts Digoxin 06/09/18 04:18 WBC RBC Hgb Hct MCV MCH MCHC RDW Plt Count MPV Neut % (Auto) Lymph % (Auto) Sullivan % (Auto) Eos % (Auto) Baso % (Auto) Neut # (Auto) Lymph # (Auto) Sullivan # (Auto) Eos # (Auto) Baso # (Auto) PT 17.6 H INR 1.6 APTT 28 Puncture Site pCO2 pO2 HCO3 ABG pH ABG Total CO2 ABG O2 Saturation ABG Base Excess Bud Test ABG Potassium VBG pH VBG pCO2 VBG HCO3 VBG Total CO2 VBG O2 Sat (Calc) VBG Base Excess VBG Potassium A-a O2 Difference Respiratory Index Glucose Lactate Vent Mode FiO2 Inspiratory BiPAP Expiratory BiPAP Sodium Potassium Chloride Carbon Dioxide Anion Gap BUN Creatinine Est GFR ( Amer) Est GFR (Non-Af Amer) Random Glucose Calcium Phosphorus Magnesium Total Bilirubin AST ALT Alkaline Phosphatase Total Creatine Kinase CK-MB (Mass) Troponin I NT-Pro-B Natriuret Pep Total Protein Albumin Globulin Albumin/Globulin Ratio Arterial Blood Potassium Venous Blood Potassium Urine Color Urine Clarity Urine pH Ur Specific [place] Urine Protein Urine Glucose (UA) Urine Ketones Urine Blood Urine Nitrate Urine Bilirubin Urine Urobilinogen Ur Leukocyte Esterase Urine WBC (Auto) Ur Squamous Epith Cells Urine Bacteria Hyaline Casts Digoxin Radiology Impressions: Radiology Impressions Chest X-Ray 06/08/18 15:13 IMPRESSION: Moderate right pleural effusion. Suspect small left pleural effusion. Underlying right pneumonia cannot be entirely excluded. Follow-up after medical management is recommended to ensure complete resolution. Persistent cardiomegaly EKG/Cardiology Studies: Cardiology / EKG Studies 06/08/18 15:13 ELECTROCARDIOGRAM Stat Comment: Mode Of Transportation: BED Reason For Exam: SOB 06/09/18 07:00 EKG [ELECTROCARDIOGRAM] Routine Comment: Mode Of Transportation: Reason For Exam: eval for interval change Critical Care Progress Note - Nutrition Nutrition: Nutrition Category Date Time Status Heart Healthy Diet [DIET] Diets 06/08/18 Dinner Active Assessment/Plan - Assessment and Plan (Free Text) Assessment: 63 y o male with PMhx CHF, HTN, and HLD who presents to the ED with c/o worsening shortness of breath x 1 week. Reason for ICU consult was for Sepsis/PNA/CHF. Pt admitted with [id number] CHF exacerbation. Plan: Neuro: -AAOx2 on admission, altered 2/2 to CHF exacerbation and worsening sob, improving today -No gross deficits appreciated on exam -Cont to monitor Cardiac: -BNP >35,000 on admission -Symptoms likely 2/2 CHF exacerbation, cardiomyopathy -Cardiology consulted (Dr. Winter), recs appreciated -EF 12% per chart review from prior echo in 2017 -Home ESTHER inhibitors held on admission 2/2 NAVEEN, Entresto held on admission -C/w ASA, Coreg, Plavix, Digoxin, Lasix, Metolazone -C/w BiPap settings -F/u EKGs -Strict I's/O's, daily weights -Troponin elevated at 0.26 on admission => 0.21 => 0.20 -Pt currently asymptomatic, not c/o chest pain Pulm: -C/w BiPap, maintain O2 sat > 92% -CXR on admission demonstrates moderate R pleural effusion, suspect small L pleural effusion. Underlying R PNA cannot be excluded. -C/w Cefepime 1 g q daily IVPB -Duonebs q6h -C/w home med Spiriva daily GI: -HHD -Protonix IVP daily -No acute issues at this time ID: -Urine, blood cxs pending -CXR findings as noted above -Cefepime 1 g q daily IVPB -No leukocytosis -Pt met SIRS criteria with tachycardia and increased respiratory rate -Podiatry consulted (Dr. Forrest) for elongated toenails, recs appreciated Heme: -H/H 9.1/28.5, cont to trend -INR 1.6 this am, home med Warfarin restarted PPX: -Protonix IVP daily -Warfarin, SCD PT eval ordered. Pt seen, examined with, and plan discussed with Dr. Samra Vanegas, attending physician. Dixon Dillon DO PGY-1, Intervention Manager pager #[phone] <Florecita Vanegas - Last Filed: 06/14/18 15:54> CCU Objective - Vital Signs / Intake & Output Vital Signs (Last 4 hours): Vital Signs Pulse Pulse Ox 06/14/18 15:40 2 L 06/14/18 11:57 89 Intake and Output (Last 8hrs): Intake & Output 06/14/18 06/14/18 06/14/18 06:59 14:59 22:59 Intake Total 500 Balance 500 Weight 137 lb Intake: Intake, IV Amount 50 Left Hand 50 Oral 450 Other: # Voids Urine, Voided 2 3 # Bowel Movements 0 - Medications Active Medications: Active Medications Generic Name Dose Route Start Last Admin Trade Name Freq PRN Reason Stop Dose Admin Aspirin 81 mg 06/10/18 10:00 06/14/18 09:57 Aspirin Chewable PO 81 mg DAILY [facility] Administration Carvedilol 12.5 mg 06/09/18 10:00 06/14/18 09:56 Coreg PO Not Given BID [facility] Clopidogrel Bisulfate 75 mg 06/09/18 10:00 06/14/18 09:47 Plavix PO 75 mg DAILY [facility] Administration Digoxin 0.125 mg 06/09/18 18:00 06/13/18 18:29 Digoxin PO 0.125 mg DAILY@1800 [facility] Administration Famotidine 20 mg 06/10/18 10:00 06/14/18 09:47 Pepcid PO 20 mg DAILY [facility] Administration Furosemide 40 mg 06/09/18 10:00 06/14/18 09:47 Lasix IVP 40 mg BID [facility] Administration Cefepime HCl 1 gm in 50 mls @ 100 mls/hr 06/09/18 10:00 06/14/18 09:59 Maxipime Iv 1 Gm Premix IVPB 100 mls/hr DAILY [facility] Administration Protocol Metolazone 5 mg 06/09/18 10:00 06/14/18 09:47 Zaroxolyn PO 5 mg DAILY [facility] Administration Potassium Chloride 40 meq 06/13/18 09:15 06/14/18 09:00 Klor-Con 10 PO 40 meq BRK [facility] Administration Tiotropium [place] 18 mcg 06/09/18 08:00 06/14/18 07:51 Spiriva INH Not Given RQ24 [facility] - Patient Studies Lab Studies: Microbiology Studies 06/08/18 16:20 Blood Culture - Final Blood NO GROWTH AFTER 5 DAYS Gram Stain - Final TEST NOT PERFORMED 06/08/18 16:20 Blood Culture - Final Blood NO GROWTH AFTER 5 DAYS Gram Stain - Final TEST NOT PERFORMED Critical Care Progress Note - Nutrition Nutrition: Nutrition Category Date Time Status Heart Healthy Diet [DIET] Diets 06/08/18 Dinner Active Assessment/Plan - Assessment and Plan (Free Text) Plan: Above patient seen and examined at bedside. above resident documents my clinical findings and current managment. - Date & Time Date: 06/09/18 Time: 19:00
[2018-06-09] MEDS: metOLazone 5 MG TAB PO SCH (09:26)
[2018-06-09] MEDS: Cefepime IV 1 gm in Dextrose 1 GM/50 ML BAG IVPB SCH (09:26)
[2018-06-09] MEDS ORDERED: Potassium Chloride 10 mEq ER Tab PO SCH (10:00)
--- NOTE | 2018-06-09 12:39 | CARD ---
APPROVED REPORT Date of service: 06/08/2018 EKG Measurement Heart [id number] <Conclusion> Atrial-sensed ventricular-paced rhythm Abnormal ECG
--- NOTE | 2018-06-09 15:11 | CP.PCM.PN ---
Subjective - Date & Time of Evaluation Date of Evaluation: 06/09/18 Time of Evaluation: 12:30 - Subjective Subjective: clinically same Objective - Vital Signs/Intake and Output Vital Signs (last 24 hours): Temp Pulse Resp BP Pulse Ox 97.6 F 84 22 91/61 L 99 06/09/18 12:00 06/09/18 14:00 06/09/18 14:00 06/09/18 14:00 06/09/18 14:00 Intake and Output: 06/09/18 06/09/18 06:59 18:59 Intake Total 360 345 Output Total 300 575 Balance 60 -230 - Medications Medications: Current Medications Albuterol/Ipratropium (Duoneb 3 Mg/0.5 Mg (3 Ml) Ud) 3 ml INH RQ6 [facility] Last Admin: 06/09/18 13:39 Dose: 3 ml Carvedilol (Coreg) 12.5 mg PO BID [facility] Last Admin: 06/09/18 09:24 Dose: 12.5 mg Clopidogrel Bisulfate (Plavix) 75 mg PO DAILY [facility] Last Admin: 06/09/18 09:24 Dose: 75 mg Digoxin (Digoxin) 0.125 mg PO DAILY@1800 [facility] Famotidine (Pepcid) 20 mg PO DAILY [facility] Furosemide (Lasix) 40 mg IVP BID [facility] Last Admin: 06/09/18 09:24 Dose: 40 mg Cefepime HCl (Maxipime Iv 1 Gm Premix) 1 gm in 50 mls @ 100 mls/hr IVPB DAILY [facility]; Protocol Last Admin: 06/09/18 09:26 Dose: 100 mls/hr Metolazone (Zaroxolyn) 5 mg PO DAILY [facility] Last Admin: 06/09/18 09:26 Dose: 5 mg Tiotropium [place] (Spiriva) 18 mcg INH RQ24 [facility] Warfarin Sodium (Coumadin) 5 mg PO 1800 [facility] Stop: 06/09/18 18:01 - Labs Labs: 06/09/18 04:18 06/09/18 04:18 PT 17.6 SECONDS (9.7-12.2) H 06/09/18 04:18 INR 1.6 06/09/18 04:18 APTT 28 SECONDS (21-34) 06/09/18 04:18
[2018-06-09] MEDS: Digoxin 125 mcg (0.125 mg) Tab PO SCH (17:19)
--- NOTE | 2018-06-09 17:34 | CP.PCM.CON ---
History of Present Illness - History of Present Illness History of Present Illness: Zachary Cool, PGY-1, Cardiology Consult Note for Dr. Winter 63 year old male with past medical history of CHF, HTN, and HLD presented to the ED with complaints of worsening shortness of breath for one week. Patient reports shortness of breath worsened while laying flat. Patient was started on BiPap in the ER and admitted to the ICU. Patient reported episode of vomiting 3- 4 days ago prior to admission. Patient today reported that shortness of breath has resolved, however, patient has not ambulated from the bed since this admissi on. Patient has been noncompliant with his medications and appointments. Patient denies any other symptoms including chest pain, nausea, diaphoresis, dizziness, jaw pain, or left arm pain. PMHx: CHF, HLD, HTN, CKD, COPD PSHx: S/p AICD placement FMHx: noncontributary SHx: denies smoking, EtOH or illicit drug abuse. Review of Systems - Review of Systems Review of Systems: except for what was mentioned in HPI Past Patient History - Infectious Disease Hx of Infectious Diseases: None - Past Medical History & Family History Past Medical History?: Yes - Past Social History Smoking Status: Former Smoker - CARDIAC Hx Congestive Heart Failure: Yes Hx Hypercholesterolemia: Yes Hx Hypertension: Yes Hx Pacemaker: Yes - PULMONARY Hx Respiratory Disorders: No - NEUROLOGICAL Hx Neurological Disorder: No - HEENT Hx HEENT Problems: Yes - RENAL Hx Chronic Kidney Disease: No - ENDOCRINE/METABOLIC Hx Endocrine Disorders: Yes Hx Diabetes Mellitus Type 2: Yes - HEMATOLOGICAL/ONCOLOGICAL Hx Blood Disorders: No - INTEGUMENTARY Hx Dermatological Problems: No - MUSCULOSKELETAL/RHEUMATOLOGICAL Hx Musculoskeletal Disorders: Yes Hx Falls: Yes - GASTROINTESTINAL Hx Gastrointestinal Disorders: No - GENITOURINARY/GYNECOLOGICAL Hx Genitourinary Disorders: No - PSYCHIATRIC Hx Substance Use: No - SURGICAL HISTORY Hx Surgeries: Yes Other/Comment: AICD to Left Chest Wall - ANESTHESIA Hx Anesthesia: Yes Hx Anesthesia Reactions: No Hx Malignant Hyperthermia: No Meds Allergies/Adverse Reactions: Allergies Allergy/AdvReac Type Severity Reaction Status Date / Time No Known Allergies Allergy Verified 06/08/18 15:11 - Medications Medications: Current Medications Albuterol/Ipratropium (Duoneb 3 Mg/0.5 Mg (3 Ml) Ud) 3 ml INH RQ6 [facility] Last Admin: 06/09/18 13:39 Dose: 3 ml Carvedilol (Coreg) 12.5 mg PO BID [facility] Last Admin: 06/09/18 17:16 Dose: 12.5 mg Clopidogrel Bisulfate (Plavix) 75 mg PO DAILY [facility] Last Admin: 06/09/18 09:24 Dose: 75 mg Digoxin (Digoxin) 0.125 mg PO DAILY@1800 [facility] Last Admin: 06/09/18 17:19 Dose: 0.125 mg Famotidine (Pepcid) 20 mg PO DAILY [facility] Furosemide (Lasix) 40 mg IVP BID [facility] Last Admin: 06/09/18 17:19 Dose: 40 mg Cefepime HCl (Maxipime Iv 1 Gm Premix) 1 gm in 50 mls @ 100 mls/hr IVPB DAILY [facility]; Protocol Last Admin: 06/09/18 09:26 Dose: 100 mls/hr Metolazone (Zaroxolyn) 5 mg PO DAILY [facility] Last Admin: 06/09/18 09:26 Dose: 5 mg Tiotropium [place] (Spiriva) 18 mcg INH RQ24 [facility] Warfarin Sodium (Coumadin) 5 mg PO 1800 [facility] Stop: 06/09/18 18:01 Last Admin: 06/09/18 17:17 Dose: 5 mg Physical Exam - Constitutional Appears: Well, Non-toxic, No Acute Distress, Unkempt - Head Exam Head Exam: ATRAUMATIC, NORMAL INSPECTION, NORMOCEPHALIC - Eye Exam Eye Exam: EOMI, PERRL - ENT Exam ENT Exam: Mucous Membranes Moist - Respiratory Exam Respiratory Exam: Clear to Auscultation Bilateral, NORMAL BREATHING PATTERN - Cardiovascular Exam Cardiovascular Exam: REGULAR RHYTHM, RRR, +S1, +S2 Additional comments: +S3 - GI/Abdominal Exam GI & Abdominal Exam: Normal Bowel Sounds, Soft. absent: Tenderness - Extremities Exam Extremities exam: Positive for: full ROM - Neurological Exam Neurological exam: Alert, CN II-XII Intact, Oriented x3 - Skin Skin Exam: Dry, Intact Results - Vital Signs Recent Vital Signs: Last Vital Signs Temp 97.7 F 06/09/18 16:00 Pulse 74 06/09/18 17:00 Resp 19 06/09/18 17:00 BP 102/56 L 06/09/18 17:19 Pulse Ox 100 06/09/18 17:00 - Labs Result Diagrams: 06/09/18 04:18 06/09/18 04:18 Labs: Laboratory Results - last 24 hr 06/08/18 06/08/18 06/08/18 16:46 18:03 18:57 WBC RBC Hgb Hct MCV MCH MCHC RDW Plt Count MPV Neut % (Auto) Lymph % (Auto) [place] % (Auto) Eos % (Auto) Baso % (Auto) Neut # (Auto) Lymph # (Auto) [place] # (Auto) Eos # (Auto) Baso # (Auto) PT INR APTT pO2 31 VBG pH 7.35 VBG pCO2 40 VBG HCO3 21.2 VBG Total CO2 23.3 VBG O2 Sat (Calc) 55.9 VBG Base Excess -3.3 L VBG Potassium 5.4 H Sodium 138.0 Chloride 109.0 H Glucose 112 H Lactate 3.5 H Potassium Carbon Dioxide Anion Gap BUN Creatinine Est GFR ( Amer) Est GFR (Non-Af Amer) Random Glucose Calcium Phosphorus Magnesium Total Bilirubin AST ALT Alkaline Phosphatase Total Creatine Kinase CK-MB (Mass) Troponin I Total Protein Albumin Globulin Albumin/Globulin Ratio Venous Blood Potassium 5.4 H Urine Color Yellow Urine Clarity Clear Urine pH 5.0 Ur Specific [place] 1.006 Urine Protein Negative Urine Glucose (UA) Normal Urine Ketones Negative Urine Blood Negative Urine Nitrate Negative Urine Bilirubin Negative Urine Urobilinogen Normal Ur Leukocyte Esterase Neg Urine WBC (Auto) < 1 Ur Squamous Epith Cells < 1 Urine Bacteria Rare Hyaline Casts 6-10 H Digoxin 1.3 06/08/18 06/08/18 06/09/18 21:50 22:58 04:18 WBC 8.2 RBC 3.51 L Hgb 9.1 L Hct 28.5 L MCV 81.3 MCH 25.8 L MCHC 31.8 L RDW 20.7 H Plt Count 466 H MPV 7.6 Neut % (Auto) 69.9 Lymph % (Auto) 14.9 L [place] % (Auto) 14.5 H Eos % (Auto) 0.2 Baso % (Auto) 0.5 Neut # (Auto) 5.7 Lymph # (Auto) 1.2 [place] # (Auto) 1.2 H Eos # (Auto) 0.0 Baso # (Auto) 0.0 PT 18.0 H INR 1.6 APTT pO2 VBG pH VBG pCO2 VBG HCO3 VBG Total CO2 VBG O2 Sat (Calc) VBG Base Excess VBG Potassium Sodium Chloride Glucose Lactate Potassium Carbon Dioxide Anion Gap BUN Creatinine Est GFR ( Amer) Est GFR (Non-Af Amer) Random Glucose Calcium Phosphorus Magnesium Total Bilirubin AST ALT Alkaline Phosphatase Total Creatine Kinase 80 CK-MB (Mass) 2.05 Troponin I 0.2140 H* Total Protein Albumin Globulin Albumin/Globulin Ratio Venous Blood Potassium Urine Color Urine Clarity Urine pH Ur Specific [place] Urine Protein Urine Glucose (UA) Urine Ketones Urine Blood Urine Nitrate Urine Bilirubin Urine Urobilinogen Ur Leukocyte Esterase Urine WBC (Auto) Ur Squamous Epith Cells Urine Bacteria Hyaline Casts Digoxin 06/09/18 06/09/18 04:18 04:18 WBC RBC Hgb Hct MCV MCH MCHC RDW Plt Count MPV Neut % (Auto) Lymph % (Auto) [place] % (Auto) Eos % (Auto) Baso % (Auto) Neut # (Auto) Lymph # (Auto) [place] # (Auto) Eos # (Auto) Baso # (Auto) PT 17.6 H INR 1.6 APTT 28 pO2 VBG pH VBG pCO2 VBG HCO3 VBG Total CO2 VBG O2 Sat (Calc) VBG Base Excess VBG Potassium Sodium 136 Chloride 104 Glucose Lactate Potassium 5.2 Carbon Dioxide 24 Anion Gap 13 BUN 32 H Creatinine 1.9 H Est GFR ( Amer) 44 Est GFR (Non-Af Amer) 36 Random Glucose 106 Calcium 8.8 Phosphorus 3.2 Magnesium 1.9 Total Bilirubin 1.9 H AST 39 ALT 32 Alkaline Phosphatase 71 Total Creatine Kinase 80 CK-MB (Mass) 1.91 Troponin I 0.2050 H* Total Protein 7.2 Albumin 3.5 Globulin 3.7 Albumin/Globulin Ratio 0.9 L Venous Blood Potassium Urine Color Urine Clarity Urine pH Ur Specific [place] Urine Protein Urine Glucose (UA) Urine Ketones Urine Blood Urine Nitrate Urine Bilirubin Urine Urobilinogen Ur Leukocyte Esterase Urine WBC (Auto) Ur Squamous Epith Cells Urine Bacteria Hyaline Casts Digoxin Assessment & Plan - Assessment and Plan (Free Text) Assessment: CHF exacerbation NSTEMI Hyperlipidemia Hypertension Plan: CHF exacerbation NSTEMI Hyperlipidemia Hypertension EKG: NSR with pacer spikes with HR: 88 Troponinx3: 0.26, 0.21, 0.20 (likely 2/2 to heart strain from CHF exacerbation and renal failure) Consider echocardiogram CXR: right and left pleural effusion with cardiomegaly Medications: aspirin plavix digoxin coreg lasix 40 mg IV BID metolazone (as combination of metolazone and lasix can cause electrolyte imbalances, check daily bmp) - Date & Time Date: 06/09/18 Time: 17:41
[2018-06-10] MEDS: Albuterol-Ipratrop 3 mg / 0.5 (3 ml) UD INH SCH ×4 (01:34→19:37)
[2018-06-10 06:36] LABS: HEMOGLOBIN 9.2 g/dL (12.0-18.0); MEAN CELL VOLUME 80.8 fL (80.0-94.0); MEAN PLATELET VOLUME 7.6 fL (7.2-11.7); RBC 3.66 Mil/uL (4.40-5.90); RED CELL DISTRIBUTION WIDTH 21.1 % (11.5-14.5)
[2018-06-10 06:45] LABS: ALB/GLOB RATIO 0.9 (1.0-2.1); ALBUMIN 3.2 g/dL (3.5-5.0); CALCIUM 8.7 mg/dl (8.6-10.4)
[2018-06-10] MEDS: Tiotropium 18 mcg Cap For Inhalation INH SCH (07:36)
--- NOTE | 2018-06-10 08:15 | CP.PCM.PN ---
Subjective - Date & Time of Evaluation Date of Evaluation: 06/10/18 Time of Evaluation: 08:13 - Subjective Subjective: Zachary Cool, PGY-1, Cardiology Progress Note for Dr. Winter Patient was seen and evaluated at bedside this morning. Patient had no acute overnight events. Patient reported shortness of breath this morning but had no exacerbating or remitting factors. Patient denied chest pain, heart palpitations, nausea, diaphoresis, left arm pain, jaw pain, dizziness. Objective - Vital Signs/Intake and Output Vital Signs (last 24 hours): Temp Pulse Resp BP Pulse Ox 98.1 F 75 20 114/70 99 06/10/18 04:00 06/10/18 07:40 06/10/18 07:20 06/10/18 07:12 06/10/18 07:20 Intake and Output: 06/10/18 06/10/18 06:59 18:59 Intake Total 200 0 Output Total 550 0 Balance -350 0 - Medications Medications: Current Medications Albuterol/Ipratropium (Duoneb 3 Mg/0.5 Mg (3 Ml) Ud) 3 ml INH RQ6 [facility] Last Admin: 06/10/18 07:36 Dose: 3 ml Aspirin (Aspirin Chewable) 81 mg PO DAILY [facility] Carvedilol (Coreg) 12.5 mg PO BID [facility] Last Admin: 06/09/18 17:16 Dose: 12.5 mg Clopidogrel Bisulfate (Plavix) 75 mg PO DAILY [facility] Last Admin: 06/09/18 09:24 Dose: 75 mg Digoxin (Digoxin) 0.125 mg PO DAILY@1800 [facility] Last Admin: 06/09/18 17:19 Dose: 0.125 mg Famotidine (Pepcid) 20 mg PO DAILY [facility] Furosemide (Lasix) 40 mg IVP BID [facility] Last Admin: 06/09/18 17:19 Dose: 40 mg Cefepime HCl (Maxipime Iv 1 Gm Premix) 1 gm in 50 mls @ 100 mls/hr IVPB DAILY [facility]; Protocol Last Admin: 06/09/18 09:26 Dose: 100 mls/hr Metolazone (Zaroxolyn) 5 mg PO DAILY [facility] Last Admin: 06/09/18 09:26 Dose: 5 mg Tiotropium [place] (Spiriva) 18 mcg INH RQ24 [facility] Last Admin: 06/10/18 07:36 Dose: 18 mcg - Labs Labs: 06/10/18 06:27 06/10/18 06:25 PT 17.6 SECONDS (9.7-12.2) H 06/09/18 04:18 INR 1.6 06/09/18 04:18 APTT 28 SECONDS (21-34) 06/09/18 04:18 - Constitutional Appears: Well, Non-toxic, No Acute Distress - Head Exam Head Exam: ATRAUMATIC, NORMAL INSPECTION, NORMOCEPHALIC - Eye Exam Eye Exam: EOMI, PERRL - ENT Exam ENT Exam: Mucous Membranes Moist - Neck Exam Neck Exam: Full ROM - Respiratory Exam Respiratory Exam: Clear to Ausculation Bilateral, NORMAL BREATHING PATTERN - Cardiovascular Exam Cardiovascular Exam: REGULAR RHYTHM, RRR, +S1, +S2, Murmur (holosytolic blowing murmur at apex) - GI/Abdominal Exam GI & Abdominal Exam: Soft, Normal Bowel Sounds. absent: Tenderness - Extremities Exam Extremities Exam: Full ROM - Neurological Exam Neurological Exam: Alert, Awake, CN II-XII Intact, Oriented x3 - Skin Skin Exam: Dry, Intact Assessment and Plan - Assessment and Plan (Free Text) Assessment: CHF exacerbation NSTEMI Hyperlipidemia Hypertension Plan: CHF exacerbation NSTEMI Hyperlipidemia Hypertension EKG: NSR with pacer spikes with HR: 88 Troponinx3: 0.26, 0.21, 0.20 (likely 2/2 to heart strain from CHF exacerbation and renal failure) CXR: right and left pleural effusion with cardiomegaly Will reevaluate patient's cardiac function with echocardiogram as patient's last echo showed EF of 10% Medications: aspirin plavix digoxin coreg lasix 40 mg IV BID Would consider discontinuing metolazone due to renal function
[2018-06-10 08:26] LABS: PROTHROMBIN TIME 15.3 SECONDS (9.7-12.2)
[2018-06-10 08:27] LABS: INR 1.4
[2018-06-10 08:47] LABS: EOS # 0.2 K/uL (0.0-0.7); LYMPH # 1.8 K/uL (1.0-4.3); MONO # 0.5 K/uL (0.0-0.8); NEUT # 6.6 K/uL (1.8-7.0)
--- NOTE | 2018-06-10 09:15 | CP.CCUPN ---
CCU Subjective - Physician Review Subjective (Free Text): ICU Progress Note for Dr. Carrion 06/10/18 12:28 Pt seen and examined at bedside. States he feels less tired that yesterday, reports no issues sleeping overnight. Denies shortness of breath currently or chest pain, reports he has not ambulated out of bed yet today. Denies headache, dizziness, fever, chills, n/v/d/c, abd pain, urinary complaints, or other symptoms. On BiPap. No acute events reported by staff overnight. Tolerating PO diet. CCU Objective - Vital Signs / Intake & Output Vital Signs (Last 4 hours): Vital Signs Temp Pulse Resp BP Pulse Ox 06/10/18 08:12 74 16 110/59 L 100 06/10/18 08:00 96.9 F L 06/10/18 07:40 75 06/10/18 07:20 75 20 99 06/10/18 07:12 74 14 114/70 100 06/10/18 07:10 69 18 100 06/10/18 07:00 78 21 100 06/10/18 06:50 76 18 100 06/10/18 06:40 80 16 100 06/10/18 06:30 89 22 100 06/10/18 06:20 75 15 100 06/10/18 06:12 82 22 119/66 100 06/10/18 06:10 75 18 100 06/10/18 06:00 80 22 06/10/18 05:56 93 H 06/10/18 05:50 77 16 100 06/10/18 05:40 78 19 100 06/10/18 05:30 77 18 100 06/10/18 05:20 86 21 100 Intake and Output (Last 8hrs): Intake & Output 06/09/18 06/10/18 06/10/18 22:59 06:59 14:59 Intake Total 270 100 0 Output Total 750 400 0 Balance -480 -300 0 Weight 160 lb Intake: Oral 270 100 0 Output: Urine 750 400 0 Urine, Voided 750 400 0 - Physical Exam Head: Positive for: Atraumatic, Normocephalic Pupils: Positive for: PERRL Extroacular Muscles: Positive for: EOMI Conjunctiva: Positive for: Normal Mouth: Positive for: Moist Mucous Membranes Neck: Positive for: Normal Range of Motion, Trachea Midline. Negative for: JVD, Lymphadenopathy Respiratory/Chest: Positive for: Clear to Auscultation, Good Air Exchange, Rales (prominent in R lower lobe). Negative for: Respiratory Distress, Accessory Muscle Use, Wheezes Cardiovascular: Positive for: Regular Rate and Rhythm, Normal S1, S2. Negative for: Murmurs, Rub, Gallop Abdomen: Positive for: Normal Bowel Sounds. Negative for: Tenderness, Distention Upper Extremity: Positive for: Normal Inspection, NORMAL PULSES, Neurovascularly Intact, Capillary Refill < 2s. Negative for: Cyanosis, Edema Lower Extremity: Positive for: Normal Inspection, NORMAL PULSES, Neurovascularly Intact, Capillary Refill < 2 s. Negative for: Edema Neurological: Positive for: GCS=15, CN II-XII Intact Skin: Positive for: Warm, Dry, Normal Color Psychiatric: Positive for: Alert, Oriented x 3 - Medications Active Medications: Active Medications Generic Name Dose Route Start Last Admin Trade Name Freq PRN Reason Stop Dose Admin Albuterol/Ipratropium 3 ml 06/08/18 20:00 06/10/18 07:36 Duoneb 3 Mg/0.5 Mg (3 Ml) Ud INH 3 ml RQ6 [facility] Administration Aspirin 81 mg 06/10/18 10:00 Aspirin Chewable PO DAILY [facility] Carvedilol 12.5 mg 06/09/18 10:00 06/09/18 17:16 Coreg PO 12.5 mg BID [facility] Administration Clopidogrel Bisulfate 75 mg 06/09/18 10:00 06/09/18 09:24 Plavix PO 75 mg DAILY [facility] Administration Digoxin 0.125 mg 06/09/18 18:00 06/09/18 17:19 Digoxin PO 0.125 mg DAILY@1800 [facility] Administration Famotidine 20 mg 06/10/18 10:00 Pepcid PO DAILY [facility] Furosemide 40 mg 06/09/18 10:00 06/09/18 17:19 Lasix IVP 40 mg BID [facility] Administration Cefepime HCl 1 gm in 50 mls @ 100 mls/hr 06/09/18 10:00 06/09/18 09:26 Maxipime Iv 1 Gm Premix IVPB 100 mls/hr DAILY [facility] Administration Protocol Metolazone 5 mg 06/09/18 10:00 06/09/18 09:26 Zaroxolyn PO 5 mg DAILY [facility] Administration Tiotropium [place] 18 mcg 06/09/18 08:00 06/10/18 07:36 Spiriva INH 18 mcg RQ24 [facility] Administration - Patient Studies Lab Studies: Microbiology Studies 06/08/18 21:50 MRSA Culture (Admit) - Final Nose MRSA NOT DETECTED 06/08/18 16:20 Blood Culture - Preliminary Blood NO GROWTH AFTER 24 HOURS 06/08/18 16:20 Blood Culture - Preliminary Blood NO GROWTH AFTER 24 HOURS 06/08/18 16:46 Urine Culture - Final Urine,Clean Catch No Growth (<1,000 CFU/ML) Lab Studies 06/10/18 06/10/18 06/10/18 Range/Units 07:27 06:27 06:25 WBC 9.0 (4.8-10.8) K/uL RBC 3.66 L (4.40-5.90) Mil/uL Hgb 9.2 L (12.0-18.0) g/dL Hct 29.6 L (35.0-51.0) % MCV 80.8 (80.0-94.0) fL MCH 25.0 L (27.0-31.0) pg MCHC 31.0 L (33.0-37.0) g/dL RDW 21.1 H (11.5-14.5) % Plt Count 447 H (130-400) K/uL MPV 7.6 (7.2-11.7) fL Neut % (Auto) 73.0 (50.0-75.0) % Lymph % (Auto) 20.0 (20.0-40.0) % Atkinson % (Auto) 5.0 (0.0-10.0) % Eos % (Auto) 2.0 (0.0-4.0) % Baso % (Auto) 0.0 (0.0-2.0) % Neut # (Auto) 6.6 (1.8-7.0) K/uL Lymph # (Auto) 1.8 (1.0-4.3) K/uL Atkinson # (Auto) 0.5 (0.0-0.8) K/uL Eos # (Auto) 0.2 (0.0-0.7) K/uL Baso # (Auto) 0.0 (0.0-0.2) K/uL PT 15.3 H (9.7-12.2) SECONDS INR 1.4 APTT 27 (21-34) SECONDS Sodium 137 (132-148) mmol/L Potassium 4.0 (3.6-5.2) mmol/L Chloride 103 (98-107) mmol/L Carbon Dioxide 27 (22-30) mmol/L Anion Gap 12 (10-20) BUN 37 H (9-20) mg/dL Creatinine 1.9 H (0.8-1.5) mg/dL Est GFR ( Amer) 44 Est GFR (Non-Af Amer) 36 Random Glucose 105 (75-110) mg/dL Calcium 8.7 (8.6-10.4) mg/dl Phosphorus 3.1 (2.5-4.5) mg/dL Magnesium 2.1 (1.6-2.3) mg/dL Total Bilirubin 1.0 (0.2-1.3) mg/dL AST 31 (17-59) U/L ALT 28 (21-72) U/L Alkaline Phosphatase 84 (38-126) U/L Total Protein 6.6 (6.3-8.3) g/dL Albumin 3.2 L (3.5-5.0) g/dL Globulin 3.4 (2.2-3.9) gm/dL Albumin/Globulin Ratio 0.9 L (1.0-2.1) Laboratory Results - last 24 hr 06/10/18 06/10/18 06/10/18 06:25 06:27 07:27 WBC 9.0 RBC 3.66 L Hgb 9.2 L Hct 29.6 L MCV 80.8 MCH 25.0 L MCHC 31.0 L RDW 21.1 H Plt Count 447 H MPV 7.6 Neut % (Auto) 73.0 Lymph % (Auto) 20.0 Atkinson % (Auto) 5.0 Eos % (Auto) 2.0 Baso % (Auto) 0.0 Neut # (Auto) 6.6 Lymph # (Auto) 1.8 Atkinson # (Auto) 0.5 Eos # (Auto) 0.2 Baso # (Auto) 0.0 PT 15.3 H INR 1.4 APTT 27 Sodium 137 Potassium 4.0 Chloride 103 Carbon Dioxide 27 Anion Gap 12 BUN 37 H Creatinine 1.9 H Est GFR ( Amer) 44 Est GFR (Non-Af Amer) 36 Random Glucose 105 Calcium 8.7 Phosphorus 3.1 Magnesium 2.1 Total Bilirubin 1.0 AST 31 ALT 28 Alkaline Phosphatase 84 Total Protein 6.6 Albumin 3.2 L Globulin 3.4 Albumin/Globulin Ratio 0.9 L Review of Systems - Constitutional Constitutional: absent: Fever, Chills, Sweats - Cardiovascular Cardiovascular: absent: Chest Pain, Dyspnea on Exertion, Leg Edema, Palpitations, Pedal Edema - Respiratory Respiratory: absent: Cough, Dyspnea, Wheezing, Chest Congestion - Gastrointestinal Gastrointestinal: absent: Abdominal Pain, Constipation, Diarrhea, Nausea, Vomiting Critical Care Progress Note - Nutrition Nutrition: Nutrition Category Date Time Status Heart Healthy Diet [DIET] Diets 06/08/18 Dinner Active Assessment/Plan - Assessment and Plan (Free Text) Assessment: 63 y o male with PMhx CHF, HTN, and HLD who presents to the ED with c/o worsening shortness of breath x 1 week. Reason for ICU consult was for Sepsis/PNA/CHF. Pt admitted with [id number] CHF exacerbation. Stable for downgrade from ICU to tele floor. Plan: Neuro: -AAOx2 on admission, altered 2/2 to CHF exacerbation and worsening sob, improving today -No gross deficits appreciated on exam -Cont to monitor Cardiac: -BNP >35,000 on admission -Symptoms likely 2/2 CHF exacerbation, cardiomyopathy -Cardiology consulted (Dr. Winter), recs appreciated -EF 12% per chart review from prior echo in 2017 -Home ESTHER inhibitors held on admission 2/2 NAVEEN, Entresto held on admission -C/w ASA, Coreg, Plavix, Digoxin, Lasix, Metolazone -C/w BiPap settings -F/u EKGs -Strict I's/O's, daily weights -Troponin elevated at 0.26 on admission => 0.21 => 0.20 -Pt currently asymptomatic, not c/o chest pain Pulm: -C/w BiPap, maintain O2 sat > 92% -CXR on admission demonstrates moderate R pleural effusion, suspect small L pleural effusion. Underlying R PNA cannot be excluded. -C/w Cefepime 1 g q daily IVPB -Duonebs q6h -C/w home med Spiriva daily GI: -HHD -Protonix IVP daily -No acute issues at this time ID: -Urine, blood cxs pending -CXR findings as noted above -Cefepime 1 g q daily IVPB -No leukocytosis -Pt met SIRS criteria with tachycardia and increased respiratory rate -Podiatry consulted (Dr. Forrest) for elongated toenails, recs appreciated Heme: -H/H 9.2/29.6, cont to trend -INR 1.4 this am, home med Warfarin restarted PPX: -Protonix IVP daily -Warfarin, SCD PT eval ordered. Pt seen, examined with, and plan discussed with Dr. Carrion, attending physician. Dixon Dillon DO PGY-1, Regulatory Attorney pager #[phone]
[2018-06-10] MEDS: Cefepime IV 1 gm in Dextrose 1 GM/50 ML BAG IVPB SCH (10:38)
[2018-06-10] MEDS: metOLazone 5 MG TAB PO SCH (10:42)
--- NOTE | 2018-06-10 12:45 | CARD ---
APPROVED REPORT Date of service: 06/09/2018 EKG Measurement Heart [id number] <Conclusion> Atrial-sensed ventricular-paced rhythm Abnormal ECG
[2018-06-10] MEDS: Digoxin 125 mcg (0.125 mg) Tab PO SCH (19:02)
--- NOTE | 2018-06-10 19:52 | CP.PCM.PN ---
Subjective - Date & Time of Evaluation Date of Evaluation: 06/10/18 Time of Evaluation: 10:45 - Subjective Subjective: clinically same Objective - Vital Signs/Intake and Output Vital Signs (last 24 hours): Temp Pulse Resp BP Pulse Ox 97.3 F L 72 20 113/71 100 06/10/18 16:10 06/10/18 16:10 06/10/18 16:10 06/10/18 19:03 06/10/18 16:10 Intake and Output: 06/10/18 06/11/18 18:59 06:59 Intake Total 875 Output Total 300 Balance 575 - Medications Medications: Current Medications Albuterol/Ipratropium (Duoneb 3 Mg/0.5 Mg (3 Ml) Ud) 3 ml INH RQ6 [facility] Last Admin: 06/10/18 19:37 Dose: 3 ml Aspirin (Aspirin Chewable) 81 mg PO DAILY [facility] Last Admin: 06/10/18 10:40 Dose: 81 mg Carvedilol (Coreg) 12.5 mg PO BID [facility] Last Admin: 06/10/18 19:03 Dose: 12.5 mg Clopidogrel Bisulfate (Plavix) 75 mg PO DAILY [facility] Last Admin: 06/10/18 10:41 Dose: 75 mg Digoxin (Digoxin) 0.125 mg PO DAILY@1800 [facility] Last Admin: 06/10/18 19:02 Dose: 0.125 mg Famotidine (Pepcid) 20 mg PO DAILY [facility] Last Admin: 06/10/18 10:41 Dose: 20 mg Furosemide (Lasix) 40 mg IVP BID [facility] Last Admin: 06/10/18 19:03 Dose: 40 mg Cefepime HCl (Maxipime Iv 1 Gm Premix) 1 gm in 50 mls @ 100 mls/hr IVPB DAILY [facility]; Protocol Last Admin: 06/10/18 10:38 Dose: 100 mls/hr Metolazone (Zaroxolyn) 5 mg PO DAILY [facility] Last Admin: 06/10/18 10:42 Dose: 5 mg Tiotropium [place] (Spiriva) 18 mcg INH RQ24 [facility] Last Admin: 06/10/18 07:36 Dose: 18 mcg - Labs Labs: 06/10/18 06:27 06/10/18 06:25 PT 15.3 SECONDS (9.7-12.2) H 06/10/18 07:27 INR 1.4 03/13/19 07:27 APTT 27 SECONDS (21-34) 06/10/18 07:27 - Constitutional Appears: Well - Head Exam Head Exam: ATRAUMATIC, NORMAL INSPECTION, NORMOCEPHALIC - Eye Exam Eye Exam: EOMI, Normal appearance, PERRL Pupil Exam: NORMAL ACCOMODATION, PERRL - ENT Exam ENT Exam: Mucous Membranes Moist, Normal Exam - Neck Exam Neck Exam: Full ROM, Normal Inspection. absent: Lymphadenopathy - Respiratory Exam Respiratory Exam: Decreased Breath Sounds - Cardiovascular Exam Cardiovascular Exam: REGULAR RHYTHM, +S1, +S2 - GI/Abdominal Exam GI & Abdominal Exam: Soft, Diminished Bowel Sounds - Rectal Exam Rectal Exam: Deferred
[2018-06-11] MEDS: Albuterol-Ipratrop 3 mg / 0.5 (3 ml) UD INH SCH ×4 (01:09→19:53)
[2018-06-11 07:22] LABS: BASO % 0.6 % (0.0-2.0); EOS # 0.2 K/uL (0.0-0.7); EOS % 2.2 % (0.0-4.0); HEMOGLOBIN 8.6 g/dL (12.0-18.0); LYMPH # 1.5 K/uL (1.0-4.3); LYMPH % 21.5 % (20.0-40.0); MEAN CELL VOLUME 81.8 fL (80.0-94.0); MEAN CORPUSCULAR HEMOGLOBIN 25.8 pg (27.0-31.0); MEAN CORPUSCULAR HGB CONC 31.5 g/dL (33.0-37.0); MEAN PLATELET VOLUME 7.7 fL (7.2-11.7); MONO # 0.9 K/uL (0.0-0.8); MONO % 12.6 % (0.0-10.0); NEUT # 4.3 K/uL (1.8-7.0); NEUT % 63.1 % (50.0-75.0); NRBC % 0.1 % (0.0-2.0); RBC 3.34 Mil/uL (4.40-5.90); RED CELL DISTRIBUTION WIDTH 21.3 % (11.5-14.5); WHITE BLOOD COUNT 6.8 K/uL (4.8-10.8)
[2018-06-11 07:36] LABS: ALB/GLOB RATIO 0.9 (1.0-2.1); CALCIUM 8.9 mg/dl (8.6-10.4)
[2018-06-11 07:47] LABS: INR 1.4; PROTHROMBIN TIME 15.6 SECONDS (9.7-12.2)
[2018-06-11] MEDS: Tiotropium 18 mcg Cap For Inhalation INH SCH (07:50)
--- NOTE | 2018-06-11 09:06 | CP.PCM.PN ---
Subjective - Date & Time of Evaluation Date of Evaluation: 06/11/18 Time of Evaluation: 08:53 - Subjective Subjective: Zachary Cool, PGY-1, Cardiology Progress Note for Dr. Winter Patient was seen and evaluated at bedside. Patient had no acute events ov ernight. Patient is currently on 4L of NC and denies shortness of breath today. Patient denies any symptoms at this time. Objective - Vital Signs/Intake and Output Vital Signs (last 24 hours): Temp Pulse Resp BP Pulse Ox 98.3 F 73 20 105/67 100 06/11/18 07:00 06/11/18 07:00 06/11/18 07:00 06/11/18 07:00 06/11/18 04:20 Intake and Output: 06/11/18 06/11/18 06:59 18:59 Intake Total 320 Output Total 850 Balance -530 - Medications Medications: Current Medications Albuterol/Ipratropium (Duoneb 3 Mg/0.5 Mg (3 Ml) Ud) 3 ml INH RQ6 [facility] Last Admin: 06/11/18 01:09 Dose: 3 ml Aspirin (Aspirin Chewable) 81 mg PO DAILY [facility] Last Admin: 06/10/18 10:40 Dose: 81 mg Carvedilol (Coreg) 12.5 mg PO BID [facility] Last Admin: 06/10/18 19:03 Dose: 12.5 mg Clopidogrel Bisulfate (Plavix) 75 mg PO DAILY [facility] Last Admin: 06/10/18 10:41 Dose: 75 mg Digoxin (Digoxin) 0.125 mg PO DAILY@1800 [facility] Last Admin: 06/10/18 19:02 Dose: 0.125 mg Famotidine (Pepcid) 20 mg PO DAILY [facility] Last Admin: 06/10/18 10:41 Dose: 20 mg Furosemide (Lasix) 40 mg IVP BID [facility] Last Admin: 06/10/18 19:03 Dose: 40 mg Cefepime HCl (Maxipime Iv 1 Gm Premix) 1 gm in 50 mls @ 100 mls/hr IVPB DAILY [facility]; Protocol Last Admin: 06/10/18 10:38 Dose: 100 mls/hr Metolazone (Zaroxolyn) 5 mg PO DAILY [facility] Last Admin: 06/10/18 10:42 Dose: 5 mg Tiotropium [place] (Spiriva) 18 mcg INH RQ24 [facility] Last Admin: 06/10/18 07:36 Dose: 18 mcg - Labs Labs: 06/11/18 07:14 06/11/18 07:14 PT 15.6 SECONDS (9.7-12.2) H 06/11/18 07:14 INR 1.4 06/11/18 07:14 APTT 29 SECONDS (21-34) 06/11/18 07:14 - Constitutional Appears: Well, Non-toxic, No Acute Distress - Head Exam Head Exam: ATRAUMATIC, NORMAL INSPECTION, NORMOCEPHALIC - Eye Exam Eye Exam: EOMI, PERRL - ENT Exam ENT Exam: Mucous Membranes Moist - Neck Exam Neck Exam: Full ROM - Respiratory Exam Respiratory Exam: Wheezes (bilateral upper lobes) Additional comments: on 4 L of oxygen - Cardiovascular Exam Cardiovascular Exam: REGULAR RHYTHM, RRR, +S1, +S2, Murmur (S3) - GI/Abdominal Exam GI & Abdominal Exam: Soft, Normal Bowel Sounds. absent: Tenderness - Extremities Exam Extremities Exam: Full ROM, Normal Capillary Refill. absent: Pedal Edema - Neurological Exam Neurological Exam: Alert, Awake, CN II-XII Intact, Oriented x3 - Psychiatric Exam Psychiatric exam: Normal Affect, Normal Mood Assessment and Plan - Assessment and Plan (Free Text) Assessment: CHF exacerbation NSTEMI Hyperlipidemia Hypertension Plan: CHF exacerbation NSTEMI Hyperlipidemia Hypertension EKG: NSR with pacer spikes with HR: 88 Troponinx3: 0.26, 0.21, 0.20 (likely 2/2 to heart strain from CHF exacerbation and renal failure) CXR: right and left pleural effusion with cardiomegaly Echocardiogram shows vegetation on valve. As a result, will repeat troponin and BNP and schedule patient for cardiac catheterization Friday Medications: aspirin plavix digoxin coreg lasix 40 mg IV BID Would consider discontinuing metolazone due to renal function
[2018-06-11] MEDS: Cefepime IV 1 gm in Dextrose 1 GM/50 ML BAG IVPB SCH (09:20)
[2018-06-11] MEDS: metOLazone 5 MG TAB PO SCH (09:21)
--- NOTE | 2018-06-11 10:24 | CARD ---
APPROVED REPORT Date of service: 06/11/2018 EXAM: Two-dimensional and M-mode echocardiogram with Doppler and color Doppler. Other Information Quality : GoodRhythm : INDICATION Dyspnea Cardiac Disease: CAD Syncope Non STEMI Surgery/Intervention ICD/Pacemaker: RISK FACTORS Hypertension Hyperlipidemia Diabetes Smoking 2D DIMENSIONS IVSd1.1 (0.7-1.1cm)LVDd7.2 (3.9-5.9cm) PWd1.1 (0.7-1.1cm)LA Tcbfvo94 (18-58mL) LVDs6.8 (2.5-4.0cm)FS (%) 4.9 % LVEF (%)10.7 (>50%)LVEF (Servin's)14.53 % IVC0.00 cm M-Mode DIMENSIONS RVDd2.88 (2.1-3.2cm)Left Atrium (MM)5.16 (2.5-4.0cm) IVSd0.81 (0.7-1.1cm)Aortic Root2.73 (2.2-3.7cm) LVDd7.71 (4.0-5.6cm)Aortic Cusp Exc.2.18 (1.5-2.0cm) PWd0.89 (0.7-1.1cm)FS (%) 12 % LVDs6.75 (2.0-3.8cm)TAPSE10.30 cm LVEF (%)15 (>50%) Aortic Valve AI P 1/2 [id number] Mitral Valve MV E Xlgbvrhl408.9cm/sE/A ratio0.6TVAV537.85 cm/s TDI Lateral E' Peak V5.71cm/sMedial E' Peak V3.64cm/sE/Lateral E'18.4 E/Medial E'28.8 Tricuspid Valve TR Peak [id number]/sTR Peak Gr.[id number] LEFT VENTRICLE The Left Ventricle is mildly dilated. There is normal left ventricular wall thickness. Left ventricle systolic function is severely impaired. The Ejection Fraction is 10-15%. There is global hypokinesis of the left ventricle. Transmitral Doppler flow pattern is Grade II-pseudonormal filling dynamics. small apical thrombus is suspected. There is no ventricular septal defect visualized. RIGHT VENTRICLE The right ventricle is normal size. The right ventricular systolic function is normal. ATRIA The left atrium is moderately dilated. The right atrium is moderately dilated. There is a thrombus in the right atrium. 2X1 cm on a cathater AORTIC VALVE The aortic valve is mildly sclerotic. The aortic valve is tri-cuspid. There is moderate aortic regurgitation. There is no aortic valvular stenosis. MITRAL VALVE The mitral valve is normal in structure. There is no evidence of mitral valve prolapse. Mitral regurgitation is moderate. ERO 0.7 cm2 TRICUSPID VALVE The tricuspid valve is normal in structure. There is moderate tricuspid regurgitation. Right ventricular systolic pressure is estimated at 50-60 mmHg. There is moderate-severe pulmonary hypertension. PULMONIC VALVE The pulmonic valve is not well visualized. GREAT VESSELS The aortic root is normal in size. The ascending aorta is normal in size. The IVC is dilated. PERICARDIAL EFFUSION There is a trace pericardial effusion. <Conclusion> The Left Ventricle is mildly dilated. Left ventricle systolic function is severely impaired. The Ejection Fraction is 10-15%. There is global hypokinesis of the left ventricle. Transmitral Doppler flow pattern is Grade II-pseudonormal filling dynamics. small apical thrombus is suspected. There is a thrombus in the right atrium. 2X1 cm on a cathater There is moderate aortic regurgitation. Mitral regurgitation is moderate. ERO 0.7 cm2 There is moderate-severe pulmonary hypertension.
[2018-06-11] MEDS: Potassium Chloride 20 mEq ER Tab PO SCH (11:03)
[2018-06-11 14:48] LABS: TROPONIN I 0.076 ng/mL (0.00-0.120)
--- NOTE | 2018-06-11 17:54 | CP.PCM.PN ---
Subjective - Date & Time of Evaluation Date of Evaluation: 06/11/18 Time of Evaluation: 11:30 - Subjective Subjective: clinically same Objective - Vital Signs/Intake and Output Vital Signs (last 24 hours): Temp Pulse Resp BP Pulse Ox 98.2 F 80 20 107/76 94 L 06/11/18 15:32 06/11/18 15:32 06/11/18 15:32 06/11/18 15:32 06/11/18 15:32 Intake and Output: 06/11/18 06/11/18 06:59 18:59 Intake Total 320 Output Total 850 Balance -530 - Medications Medications: Current Medications Albuterol/Ipratropium (Duoneb 3 Mg/0.5 Mg (3 Ml) Ud) 3 ml INH RQ6 [facility] Last Admin: 06/11/18 13:15 Dose: 3 ml Aspirin (Aspirin Chewable) 81 mg PO DAILY [facility] Last Admin: 06/11/18 09:19 Dose: 81 mg Carvedilol (Coreg) 12.5 mg PO BID [facility] Last Admin: 06/11/18 09:20 Dose: Not Given Clopidogrel Bisulfate (Plavix) 75 mg PO DAILY [facility] Last Admin: 06/11/18 09:19 Dose: 75 mg Digoxin (Digoxin) 0.125 mg PO DAILY@1800 [facility] Last Admin: 06/10/18 19:02 Dose: 0.125 mg Famotidine (Pepcid) 20 mg PO DAILY [facility] Last Admin: 06/11/18 09:19 Dose: 20 mg Furosemide (Lasix) 40 mg IVP BID [facility] Last Admin: 06/11/18 09:19 Dose: 40 mg Cefepime HCl (Maxipime Iv 1 Gm Premix) 1 gm in 50 mls @ 100 mls/hr IVPB DAILY [facility]; Protocol Last Admin: 06/11/18 09:20 Dose: 100 mls/hr Metolazone (Zaroxolyn) 5 mg PO DAILY [facility] Last Admin: 06/11/18 09:21 Dose: 5 mg Potassium Chloride (K-Dur 20 Meq Er Tab) 20 meq PO DAILY [facility] Stop: 06/15/18 10:01 Last Admin: 06/11/18 11:03 Dose: 20 meq Tiotropium [place] (Spiriva) 18 mcg INH RQ24 [facility] Last Admin: 06/11/18 07:50 Dose: Not Given - Labs Labs: 06/11/18 07:14 06/11/18 07:14 PT 15.6 SECONDS (9.7-12.2) H 06/11/18 07:14 INR 1.4 06/11/18 07:14 APTT 29 SECONDS (21-34) 06/11/18 07:14 - Constitutional Appears: Well - Head Exam Head Exam: ATRAUMATIC, NORMAL INSPECTION, NORMOCEPHALIC - Eye Exam Eye Exam: EOMI, Normal appearance, PERRL Pupil Exam: NORMAL ACCOMODATION, PERRL - ENT Exam ENT Exam: Mucous Membranes Moist, Normal Exam - Neck Exam Neck Exam: Full ROM, Normal Inspection. absent: Lymphadenopathy - Respiratory Exam Respiratory Exam: Decreased Breath Sounds - Cardiovascular Exam Cardiovascular Exam: REGULAR RHYTHM, +S1, +S2 - GI/Abdominal Exam GI & Abdominal Exam: Soft, Diminished Bowel Sounds - Rectal Exam Rectal Exam: Deferred
[2018-06-11] MEDS: Digoxin 125 mcg (0.125 mg) Tab PO SCH (18:57)
[2018-06-12] MEDS: Albuterol-Ipratrop 3 mg / 0.5 (3 ml) UD INH SCH ×4 (01:26→20:10)
[2018-06-12 06:51] LABS: BASO # 0.1 K/uL (0.0-0.2); EOS # 0.2 K/uL (0.0-0.7); HEMOGLOBIN 9.4 g/dL (12.0-18.0); LYMPH % 26.3 % (20.0-40.0); MEAN CELL VOLUME 80.7 fL (80.0-94.0); MEAN CORPUSCULAR HEMOGLOBIN 25.3 pg (27.0-31.0); MEAN CORPUSCULAR HGB CONC 31.3 g/dL (33.0-37.0); MEAN PLATELET VOLUME 7.6 fL (7.2-11.7); MONO # 0.8 K/uL (0.0-0.8); MONO % 10.2 % (0.0-10.0); NEUT # 4.6 K/uL (1.8-7.0); NEUT % 60.5 % (50.0-75.0); NRBC % 0.2 % (0.0-2.0); RBC 3.74 Mil/uL (4.40-5.90); RED CELL DISTRIBUTION WIDTH 21.2 % (11.5-14.5); WHITE BLOOD COUNT 7.5 K/uL (4.8-10.8)
[2018-06-12 07:06] LABS: INR 1.6
[2018-06-12] MEDS: Tiotropium 18 mcg Cap For Inhalation INH SCH (07:30)
[2018-06-12 07:46] LABS: ALBUMIN 3.5 g/dL (3.5-5.0); CALCIUM 9.1 mg/dl (8.6-10.4)
[2018-06-12] MEDS: Potassium Chloride 20 mEq ER Tab PO SCH (10:19)
[2018-06-12] MEDS: metOLazone 5 MG TAB PO SCH (10:20)
[2018-06-12] MEDS: Cefepime IV 1 gm in Dextrose 1 GM/50 ML BAG IVPB SCH (10:37)
--- NOTE | 2018-06-12 14:50 | CP.PCM.PN ---
Subjective - Date & Time of Evaluation Date of Evaluation: 06/12/18 Time of Evaluation: 14:48 - Subjective Subjective: Zachary Cool, PGY-1, Cardiology Progress Note for Dr. Winter Patient was seen and evaluated at bedside. Patient had no acute events ov ernight. Patient is currently on bipap and denies shortness of breath today. Patient denies any symptoms at this time. Objective - Vital Signs/Intake and Output Vital Signs (last 24 hours): Temp Pulse Resp BP Pulse Ox 98.2 F 79 20 107/65 96 06/12/18 07:00 06/12/18 08:30 06/12/18 07:00 06/12/18 10:19 06/12/18 07:00 Intake and Output: 06/12/18 06/12/18 06:59 18:59 Intake Total 320 Output Total 850 Balance -530 - Medications Medications: Current Medications Albuterol/Ipratropium (Duoneb 3 Mg/0.5 Mg (3 Ml) Ud) 3 ml INH RQ6 [facility] Last Admin: 06/12/18 07:30 Dose: 3 ml Aspirin (Aspirin Chewable) 81 mg PO DAILY [facility] Last Admin: 06/12/18 10:20 Dose: 81 mg Carvedilol (Coreg) 12.5 mg PO BID [facility] Last Admin: 06/12/18 10:21 Dose: Not Given Clopidogrel Bisulfate (Plavix) 75 mg PO DAILY [facility] Last Admin: 06/12/18 10:20 Dose: 75 mg Digoxin (Digoxin) 0.125 mg PO DAILY@1800 [facility] Last Admin: 06/11/18 18:57 Dose: 0.125 mg Famotidine (Pepcid) 20 mg PO DAILY [facility] Last Admin: 06/12/18 10:19 Dose: 20 mg Furosemide (Lasix) 40 mg IVP BID [facility] Last Admin: 06/12/18 10:19 Dose: 40 mg Cefepime HCl (Maxipime Iv 1 Gm Premix) 1 gm in 50 mls @ 100 mls/hr IVPB DAILY [facility]; Protocol Last Admin: 06/12/18 10:37 Dose: 100 mls/hr Metolazone (Zaroxolyn) 5 mg PO DAILY [facility] Last Admin: 06/12/18 10:20 Dose: 5 mg Potassium Chloride (K-Dur 20 Meq Er Tab) 20 meq PO DAILY [facility] Stop: 06/15/18 10:01 Last Admin: 06/12/18 10:19 Dose: 20 meq Tiotropium [place] (Spiriva) 18 mcg INH RQ24 [facility] Last Admin: 06/12/18 07:30 Dose: 18 mcg - Labs Labs: 06/12/18 06:42 06/12/18 06:42 PT 17.0 SECONDS (9.7-12.2) H 06/12/18 06:42 INR 1.6 06/12/18 06:42 APTT 32 SECONDS (21-34) 06/12/18 06:42 - Constitutional Appears: Well, Non-toxic, No Acute Distress - Head Exam Head Exam: ATRAUMATIC, NORMAL INSPECTION, NORMOCEPHALIC - Eye Exam Eye Exam: EOMI, PERRL - ENT Exam ENT Exam: Mucous Membranes Moist - Neck Exam Neck Exam: Full ROM. absent: Tenderness - Respiratory Exam Respiratory Exam: Clear to Ausculation Bilateral, NORMAL BREATHING PATTERN. absent: Respiratory Distress - Cardiovascular Exam Cardiovascular Exam: REGULAR RHYTHM, RRR - GI/Abdominal Exam GI & Abdominal Exam: Soft, Normal Bowel Sounds. absent: Tenderness - Extremities Exam Extremities Exam: Full ROM - Neurological Exam Neurological Exam: Alert, Awake, CN II-XII Intact, Oriented x3 - Skin Skin Exam: Dry, Intact, Normal Color Assessment and Plan - Assessment and Plan (Free Text) Assessment: CHF exacerbation NSTEMI Hyperlipidemia Hypertension Plan: CHF exacerbation NSTEMI Hyperlipidemia Hypertension EKG: NSR with pacer spikes with HR: 88 Troponinx5: 0.26, 0.21, 0.20, 0.07, 0.07 (as creatinine improved, troponin level improved as well) CXR: right and left pleural effusion with cardiomegaly Echocardiogram: LVEF 10-15%, small apical thrombus, thrombus in right atrium, moderate AR, MR, pulmonary hypertension BNP: [id number] from [id number] Will schedule patient for cardiac catheterization Friday Medications: aspirin plavix digoxin coreg lasix 40 mg IV BID Would consider discontinuing metolazone due to renal function
[2018-06-12] MEDS ORDERED: Potassium Chloride 10 mEq ER Tab PO SCH (17:15)
[2018-06-12] MEDS: Digoxin 125 mcg (0.125 mg) Tab PO SCH (17:55)
--- NOTE | 2018-06-12 19:41 | CP.PCM.PN ---
Subjective - Date & Time of Evaluation Date of Evaluation: 06/12/18 Time of Evaluation: 11:00 - Subjective Subjective: clinically same Objective - Vital Signs/Intake and Output Vital Signs (last 24 hours): Temp Pulse Resp BP Pulse Ox 98.4 F 81 20 105/65 95 06/12/18 15:00 06/12/18 15:10 06/12/18 15:00 06/12/18 18:00 06/12/18 15:00 - Medications Medications: Current Medications Albuterol/Ipratropium (Duoneb 3 Mg/0.5 Mg (3 Ml) Ud) 3 ml INH RQ6 [facility] Last Admin: 06/12/18 13:20 Dose: 3 ml Aspirin (Aspirin Chewable) 81 mg PO DAILY [facility] Last Admin: 06/12/18 10:20 Dose: 81 mg Carvedilol (Coreg) 12.5 mg PO BID [facility] Last Admin: 06/12/18 17:55 Dose: Not Given Clopidogrel Bisulfate (Plavix) 75 mg PO DAILY [facility] Last Admin: 06/12/18 10:20 Dose: 75 mg Digoxin (Digoxin) 0.125 mg PO DAILY@1800 [facility] Last Admin: 06/12/18 17:55 Dose: 0.125 mg Famotidine (Pepcid) 20 mg PO DAILY [facility] Last Admin: 06/12/18 10:19 Dose: 20 mg Furosemide (Lasix) 40 mg IVP BID [facility] Last Admin: 06/12/18 18:00 Dose: 40 mg Cefepime HCl (Maxipime Iv 1 Gm Premix) 1 gm in 50 mls @ 100 mls/hr IVPB DAILY [facility]; Protocol Last Admin: 06/12/18 10:37 Dose: 100 mls/hr Metolazone (Zaroxolyn) 5 mg PO DAILY [facility] Last Admin: 06/12/18 10:20 Dose: 5 mg Potassium Chloride (K-Dur 20 Meq Er Tab) 20 meq PO DAILY [facility] Stop: 06/15/18 10:01 Last Admin: 06/12/18 10:19 Dose: 20 meq Potassium Chloride (Klor-Con 10) 40 meq PO BRK [facility] Last Admin: 06/12/18 18:00 Dose: 40 meq Tiotropium [place] (Spiriva) 18 mcg INH RQ24 [facility] Last Admin: 06/12/18 07:30 Dose: 18 mcg - Labs Labs: 06/12/18 06:42 06/12/18 06:42 PT 17.0 SECONDS (9.7-12.2) H 06/12/18 06:42 INR 1.6 06/12/18 06:42 APTT 32 SECONDS (21-34) 06/12/18 06:42 - Constitutional Appears: Well - Head Exam Head Exam: ATRAUMATIC, NORMAL INSPECTION, NORMOCEPHALIC - Eye Exam Eye Exam: EOMI, Normal appearance, PERRL Pupil Exam: NORMAL ACCOMODATION, PERRL - ENT Exam ENT Exam: Mucous Membranes Moist, Normal Exam - Neck Exam Neck Exam: Full ROM, Normal Inspection. absent: Lymphadenopathy - Respiratory Exam Respiratory Exam: Decreased Breath Sounds - Cardiovascular Exam Cardiovascular Exam: REGULAR RHYTHM, +S1, +S2 - GI/Abdominal Exam GI & Abdominal Exam: Soft, Diminished Bowel Sounds - Rectal Exam Rectal Exam: Deferred
[2018-06-12] MEDS ORDERED: Potassium Chloride 10 mEq ER Tab PO STA (19:57)
[2018-06-13] MEDS: Albuterol-Ipratrop 3 mg / 0.5 (3 ml) UD INH SCH ×4 (01:19→19:57)
[2018-06-13 07:48] LABS: BASO % 0.7 % (0.0-2.0); EOS # 0.1 K/uL (0.0-0.7); EOS % 1.9 % (0.0-4.0); HEMOGLOBIN 9.5 g/dL (12.0-18.0); LYMPH % 27.3 % (20.0-40.0); MEAN CELL VOLUME 80.7 fL (80.0-94.0); MEAN CORPUSCULAR HEMOGLOBIN 26.5 pg (27.0-31.0); MEAN CORPUSCULAR HGB CONC 32.8 g/dL (33.0-37.0); MEAN PLATELET VOLUME 7.3 fL (7.2-11.7); MONO % 12.7 % (0.0-10.0); NEUT # 4.3 K/uL (1.8-7.0); NEUT % 57.4 % (50.0-75.0); NRBC % 0.1 % (0.0-2.0); RBC 3.57 Mil/uL (4.40-5.90); RED CELL DISTRIBUTION WIDTH 21.1 % (11.5-14.5); WHITE BLOOD COUNT 7.5 K/uL (4.8-10.8)
[2018-06-13 08:15] LABS: ALB/GLOB RATIO 0.9 (1.0-2.1); ALBUMIN 3.4 g/dL (3.5-5.0); CALCIUM 9.3 mg/dl (8.6-10.4)
[2018-06-13 08:23] LABS: INR 1.8; PROTHROMBIN TIME 19.8 SECONDS (9.7-12.2)
[2018-06-13] MEDS ORDERED: Potassium Chloride 20 mEq ER Tab PO SCH (09:00)
[2018-06-13] MEDS: Potassium Chloride 10 mEq ER Tab PO SCH (09:27)
[2018-06-13] MEDS: Cefepime IV 1 gm in Dextrose 1 GM/50 ML BAG IVPB SCH (09:31)
[2018-06-13] MEDS: metOLazone 5 MG TAB PO SCH (09:31)
[2018-06-13] MEDS: Tiotropium 18 mcg Cap For Inhalation INH SCH (10:10)
[2018-06-13] MEDS: Digoxin 125 mcg (0.125 mg) Tab PO SCH (18:29)
--- NOTE | 2018-06-13 18:38 | CP.PCM.PN ---
Subjective - Date & Time of Evaluation Date of Evaluation: 06/13/18 Time of Evaluation: 10:00 - Subjective Subjective: clinically same Objective - Vital Signs/Intake and Output Vital Signs (last 24 hours): Temp Pulse Resp BP Pulse Ox 98 F 82 20 103/71 98 06/13/18 15:00 06/13/18 16:00 06/13/18 15:00 06/13/18 18:29 06/13/18 15:00 Intake and Output: 06/13/18 06/13/18 06:59 18:59 Intake Total 430 Output Total 1000 Balance -570 - Medications Medications: Current Medications Albuterol/Ipratropium (Duoneb 3 Mg/0.5 Mg (3 Ml) Ud) 3 ml INH RQ6 [facility] Last Admin: 06/13/18 10:10 Dose: Not Given Aspirin (Aspirin Chewable) 81 mg PO DAILY [facility] Last Admin: 06/13/18 09:29 Dose: 81 mg Carvedilol (Coreg) 12.5 mg PO BID [facility] Last Admin: 06/13/18 09:30 Dose: Not Given Clopidogrel Bisulfate (Plavix) 75 mg PO DAILY [facility] Last Admin: 06/13/18 09:29 Dose: 75 mg Digoxin (Digoxin) 0.125 mg PO DAILY@1800 [facility] Last Admin: 06/13/18 18:29 Dose: 0.125 mg Famotidine (Pepcid) 20 mg PO DAILY [facility] Last Admin: 06/13/18 09:29 Dose: 20 mg Furosemide (Lasix) 40 mg IVP BID [facility] Last Admin: 06/13/18 18:29 Dose: 40 mg Cefepime HCl (Maxipime Iv 1 Gm Premix) 1 gm in 50 mls @ 100 mls/hr IVPB DAILY [facility]; Protocol Last Admin: 06/13/18 09:31 Dose: 100 mls/hr Metolazone (Zaroxolyn) 5 mg PO DAILY [facility] Last Admin: 06/13/18 09:31 Dose: 5 mg Potassium Chloride (Klor-Con 10) 40 meq PO BRK [facility] Last Admin: 06/13/18 09:27 Dose: 40 meq Tiotropium [place] (Spiriva) 18 mcg INH RQ24 [facility] Last Admin: 06/13/18 10:10 Dose: Not Given - Labs Labs: 06/13/18 07:40 06/13/18 07:40 PT 19.8 SECONDS (9.7-12.2) H 06/13/18 07:40 INR 1.8 06/13/18 07:40 APTT 34 SECONDS (21-34) 06/13/18 07:40 - Constitutional Appears: Well - Head Exam Head Exam: ATRAUMATIC, NORMAL INSPECTION, NORMOCEPHALIC - Eye Exam Eye Exam: EOMI, Normal appearance, PERRL Pupil Exam: NORMAL ACCOMODATION, PERRL - ENT Exam ENT Exam: Mucous Membranes Moist, Normal Exam - Neck Exam Neck Exam: Full ROM, Normal Inspection. absent: Lymphadenopathy - Respiratory Exam Respiratory Exam: Decreased Breath Sounds - Cardiovascular Exam Cardiovascular Exam: REGULAR RHYTHM, +S1, +S2 - GI/Abdominal Exam GI & Abdominal Exam: Soft, Diminished Bowel Sounds - Rectal Exam Rectal Exam: Deferred
[2018-06-14] MEDS: Tiotropium 18 mcg Cap For Inhalation INH SCH (07:51)
[2018-06-14] MEDS ORDERED: Potassium Chloride 20 mEq ER Tab PO SCH (08:00)
[2018-06-14] MEDS: Potassium Chloride 10 mEq ER Tab PO SCH (09:00)
[2018-06-14] MEDS: metOLazone 5 MG TAB PO SCH (09:47)
[2018-06-14] MEDS: Cefepime IV 1 gm in Dextrose 1 GM/50 ML BAG IVPB SCH (09:59)
--- NOTE | 2018-06-14 15:53 | CP.PCM.PN ---
Subjective - Date & Time of Evaluation Date of Evaluation: 06/14/18 Time of Evaluation: 09:45 - Subjective Subjective: clinically same Objective - Vital Signs/Intake and Output Vital Signs (last 24 hours): Temp Pulse Resp BP Pulse Ox 98.9 F 89 20 107/62 2 L 06/14/18 07:00 06/14/18 11:57 06/14/18 07:00 06/14/18 09:47 06/14/18 15:40 Intake and Output: 06/14/18 06/14/18 06:59 18:59 Intake Total 320 500 Output Total 800 Balance -480 500 - Medications Medications: Current Medications Aspirin (Aspirin Chewable) 81 mg PO DAILY [facility] Last Admin: 06/14/18 09:57 Dose: 81 mg Carvedilol (Coreg) 12.5 mg PO BID [facility] Last Admin: 06/14/18 09:56 Dose: Not Given Clopidogrel Bisulfate (Plavix) 75 mg PO DAILY [facility] Last Admin: 06/14/18 09:47 Dose: 75 mg Digoxin (Digoxin) 0.125 mg PO DAILY@1800 [facility] Last Admin: 06/13/18 18:29 Dose: 0.125 mg Famotidine (Pepcid) 20 mg PO DAILY [facility] Last Admin: 06/14/18 09:47 Dose: 20 mg Furosemide (Lasix) 40 mg IVP BID [facility] Last Admin: 06/14/18 09:47 Dose: 40 mg Cefepime HCl (Maxipime Iv 1 Gm Premix) 1 gm in 50 mls @ 100 mls/hr IVPB DAILY [facility]; Protocol Last Admin: 06/14/18 09:59 Dose: 100 mls/hr Metolazone (Zaroxolyn) 5 mg PO DAILY [facility] Last Admin: 06/14/18 09:47 Dose: 5 mg Potassium Chloride (Klor-Con 10) 40 meq PO BRK [facility] Last Admin: 06/14/18 09:00 Dose: 40 meq Tiotropium [place] (Spiriva) 18 mcg INH RQ24 [facility] Last Admin: 06/14/18 07:51 Dose: Not Given - Labs Labs: 06/13/18 07:40 06/13/18 07:40 PT 19.8 SECONDS (9.7-12.2) H 06/13/18 07:40 INR 1.8 06/13/18 07:40 APTT 34 SECONDS (21-34) 06/13/18 07:40 - Constitutional Appears: Younger Than Stated Age - Head Exam Head Exam: ATRAUMATIC, NORMAL INSPECTION, NORMOCEPHALIC - Eye Exam Eye Exam: EOMI, Normal appearance, PERRL Pupil Exam: NORMAL ACCOMODATION, PERRL - ENT Exam ENT Exam: Mucous Membranes Moist, Normal Exam - Neck Exam Neck Exam: Full ROM, Normal Inspection. absent: Lymphadenopathy - Respiratory Exam Respiratory Exam: Decreased Breath Sounds - Cardiovascular Exam Cardiovascular Exam: REGULAR RHYTHM, +S1, +S2 - GI/Abdominal Exam GI & Abdominal Exam: Soft, Diminished Bowel Sounds - Rectal Exam Rectal Exam: Deferred
[2018-06-14] MEDS: Digoxin 125 mcg (0.125 mg) Tab PO SCH (18:14)
[2018-06-15] MEDS: Potassium Chloride 10 mEq ER Tab PO SCH (07:49)
[2018-06-15] MEDS: Tiotropium 18 mcg Cap For Inhalation INH SCH (09:00)
[2018-06-15] MEDS ORDERED: Midazolam 2 MG/2 ML VIAL ONE ×2 (09:55)
[2018-06-15] MEDS ORDERED: Lidocaine 4% (Laryng-O-Jet) Kit MM ONE (09:56)
[2018-06-15] MEDS: metOLazone 5 MG TAB PO SCH (10:00)
[2018-06-15] MEDS: Cefepime IV 1 gm in Dextrose 1 GM/50 ML BAG IVPB SCH (14:17)
[2018-06-15 16:55] VITALS: RESP 20
[2018-06-15] MEDS: Digoxin 125 mcg (0.125 mg) Tab PO SCH (17:09)
--- NOTE | 2018-06-15 19:08 | CP.PCM.PN ---
Subjective - Date & Time of Evaluation Date of Evaluation: 06/15/18 Time of Evaluation: 19:05 - Subjective Subjective: Zachary Cool, PGY-1, Cardiology Progress Note for Dr. Winter Patient was seen and evaluated at bedside. Patient had no acute events ov ernight. Patient is currently on room air and denies shortness of breath today. Patient denies any symptoms at this time. Objective - Vital Signs/Intake and Output Vital Signs (last 24 hours): Temp Pulse Resp BP Pulse Ox 97.9 F 86 20 120/80 100 06/15/18 15:10 06/15/18 16:15 06/15/18 15:10 06/15/18 17:08 06/15/18 15:10 - Medications Medications: Current Medications Aspirin (Aspirin Chewable) 81 mg PO DAILY [facility] Last Admin: 06/15/18 10:00 Dose: Not Given Carvedilol (Coreg) 12.5 mg PO BID [facility] Last Admin: 06/15/18 10:00 Dose: Not Given Clopidogrel Bisulfate (Plavix) 75 mg PO DAILY [facility] Last Admin: 06/15/18 10:00 Dose: Not Given Digoxin (Digoxin) 0.125 mg PO DAILY@1800 [facility] Last Admin: 06/15/18 17:09 Dose: 0.125 mg Famotidine (Pepcid) 20 mg PO DAILY [facility] Last Admin: 06/15/18 10:00 Dose: Not Given Furosemide (Lasix) 40 mg IVP BID [facility] Last Admin: 06/15/18 17:08 Dose: 40 mg Cefepime HCl (Maxipime Iv 1 Gm Premix) 1 gm in 50 mls @ 100 mls/hr IVPB Q24H [facility] Last Admin: 06/15/18 14:17 Dose: 100 mls/hr Metolazone (Zaroxolyn) 5 mg PO DAILY [facility] Last Admin: 06/15/18 10:00 Dose: Not Given Potassium Chloride (Klor-Con 10) 40 meq PO BRK [facility] Last Admin: 06/15/18 07:49 Dose: Not Given Tiotropium [place] (Spiriva) 18 mcg INH RQ24 [facility] Last Admin: 06/15/18 09:00 Dose: Not Given - Labs Labs: 06/13/18 07:40 06/13/18 07:40 PT 19.8 SECONDS (9.7-12.2) H 06/13/18 07:40 INR 1.8 06/13/18 07:40 APTT 34 SECONDS (21-34) 06/13/18 07:40 - Constitutional Appears: Well, Non-toxic, No Acute Distress - Head Exam Head Exam: ATRAUMATIC, NORMAL INSPECTION, NORMOCEPHALIC - Eye Exam Eye Exam: EOMI, PERRL - ENT Exam ENT Exam: Mucous Membranes Moist - Respiratory Exam Respiratory Exam: Clear to Ausculation Bilateral, NORMAL BREATHING PATTERN - Cardiovascular Exam Cardiovascular Exam: REGULAR RHYTHM, RRR - GI/Abdominal Exam GI & Abdominal Exam: Soft, Normal Bowel Sounds. absent: Tenderness - Extremities Exam Extremities Exam: Full ROM - Neurological Exam Neurological Exam: Alert, Awake, CN II-XII Intact, Oriented x3 - Psychiatric Exam Psychiatric exam: Normal Affect, Normal Mood - Skin Skin Exam: Dry, Intact, Normal Color Assessment and Plan - Assessment and Plan (Free Text) Assessment: CHF exacerbation NSTEMI Hyperlipidemia Hypertension Plan: CHF exacerbation NSTEMI Hyperlipidemia Hypertension EKG: NSR with pacer spikes with HR: 88 Troponinx8: 0.26, 0.21, 0.20, 0.07, 0.07, 0.08 (as creatinine improved, troponin level improved as well) CXR: right and left pleural effusion with cardiomegaly TTE: LVEF 10-15%, small apical thrombus, thrombus in right atrium, moderate AR, MR, pulmonary hypertension BNP: [phone] from [id number] KIESHA: confirmed thrombus Will need to schedule cardiac catheterization Medications: aspirin plavix digoxin coreg lasix 40 mg IV BID Would consider discontinuing metolazone due to renal function
--- NOTE | 2018-06-15 20:23 | CP.PCM.PN ---
Subjective - Date & Time of Evaluation Date of Evaluation: 06/15/18 Time of Evaluation: 08:45 - Subjective Subjective: clinically same Objective - Vital Signs/Intake and Output Vital Signs (last 24 hours): Temp Pulse Resp BP Pulse Ox 97.9 F 86 20 120/80 100 06/15/18 15:10 06/15/18 16:15 06/15/18 15:10 06/15/18 17:08 06/15/18 15:10 - Medications Medications: Current Medications Aspirin (Aspirin Chewable) 81 mg PO DAILY [facility] Last Admin: 06/15/18 10:00 Dose: Not Given Carvedilol (Coreg) 12.5 mg PO BID [facility] Last Admin: 06/15/18 10:00 Dose: Not Given Clopidogrel Bisulfate (Plavix) 75 mg PO DAILY [facility] Last Admin: 06/15/18 10:00 Dose: Not Given Digoxin (Digoxin) 0.125 mg PO DAILY@1800 [facility] Last Admin: 06/15/18 17:09 Dose: 0.125 mg Famotidine (Pepcid) 20 mg PO DAILY [facility] Last Admin: 06/15/18 10:00 Dose: Not Given Furosemide (Lasix) 40 mg IVP BID [facility] Last Admin: 06/15/18 17:08 Dose: 40 mg Cefepime HCl (Maxipime Iv 1 Gm Premix) 1 gm in 50 mls @ 100 mls/hr IVPB Q24H [facility] Last Admin: 06/15/18 14:17 Dose: 100 mls/hr Metolazone (Zaroxolyn) 5 mg PO DAILY [facility] Last Admin: 06/15/18 10:00 Dose: Not Given Potassium Chloride (Klor-Con 10) 40 meq PO BRK [facility] Last Admin: 06/15/18 07:49 Dose: Not Given Tiotropium [place] (Spiriva) 18 mcg INH RQ24 [facility] Last Admin: 06/15/18 09:00 Dose: Not Given - Labs Labs: 06/13/18 07:40 06/13/18 07:40 PT 19.8 SECONDS (9.7-12.2) H 06/13/18 07:40 INR 1.8 06/13/18 07:40 APTT 34 SECONDS (21-34) 06/13/18 07:40 - Constitutional Appears: Well - Head Exam Head Exam: ATRAUMATIC, NORMAL INSPECTION, NORMOCEPHALIC - Eye Exam Eye Exam: EOMI, Normal appearance, PERRL Pupil Exam: NORMAL ACCOMODATION, PERRL - ENT Exam ENT Exam: Mucous Membranes Moist, Normal Exam - Neck Exam Neck Exam: Full ROM, Normal Inspection. absent: Lymphadenopathy - Respiratory Exam Respiratory Exam: Decreased Breath Sounds - Cardiovascular Exam Cardiovascular Exam: REGULAR RHYTHM, +S1, +S2 - GI/Abdominal Exam GI & Abdominal Exam: Soft, Diminished Bowel Sounds - Rectal Exam Rectal Exam: Deferred
[2018-06-16] MEDS: Potassium Chloride 10 mEq ER Tab PO SCH (09:00)
[2018-06-16] MEDS: Tiotropium 18 mcg Cap For Inhalation INH SCH (09:12)
[2018-06-16 11:33] LABS: BASO # 0.1 K/uL (0.0-0.2); BASO % 1.4 % (0.0-2.0); EOS # 0.3 K/uL (0.0-0.7); EOS % 3.7 % (0.0-4.0); HEMOGLOBIN 10.9 g/dL (12.0-18.0); LYMPH # 2.4 K/uL (1.0-4.3); LYMPH % 31.6 % (20.0-40.0); MEAN CELL VOLUME 80.6 fL (80.0-94.0); MEAN CORPUSCULAR HEMOGLOBIN 26.3 pg (27.0-31.0); MEAN CORPUSCULAR HGB CONC 32.6 g/dL (33.0-37.0); MEAN PLATELET VOLUME 7.6 fL (7.2-11.7); MONO % 12.6 % (0.0-10.0); NEUT # 3.9 K/uL (1.8-7.0); NEUT % 50.7 % (50.0-75.0); RBC 4.13 Mil/uL (4.40-5.90); RED CELL DISTRIBUTION WIDTH 21.4 % (11.5-14.5); WHITE BLOOD COUNT 7.6 K/uL (4.8-10.8)
[2018-06-16 12:05] LABS: CALCIUM 9.7 mg/dl (8.6-10.4)
[2018-06-16] MEDS: Cefepime IV 1 gm in Dextrose 1 GM/50 ML BAG IVPB SCH (14:32)
--- NOTE | 2018-06-16 17:10 | CP.PCM.PN ---
Subjective - Date & Time of Evaluation Date of Evaluation: 06/16/18 Time of Evaluation: 17:09 - Subjective Subjective: Zachary Cool, PGY-1, Cardiology Progress Note for Dr. Winter Patient was seen and evaluated at bedside. Patient had no acute events ov ernight. Patient is currently on room air and denies shortness of breath today. Patient denies any symptoms at this time. Objective - Vital Signs/Intake and Output Vital Signs (last 24 hours): Temp Pulse Resp BP Pulse Ox 98.0 F 93 H 20 105/65 98 06/16/18 15:00 06/16/18 16:00 06/16/18 15:00 06/16/18 15:00 06/16/18 15:00 Intake and Output: 06/16/18 06/16/18 06:59 18:59 Intake Total 510 Balance 510 - Medications Medications: Current Medications Aspirin (Aspirin Chewable) 81 mg PO DAILY [facility] Last Admin: 06/16/18 10:08 Dose: 81 mg Carvedilol (Coreg) 12.5 mg PO BID [facility] Last Admin: 06/16/18 10:06 Dose: Not Given Clopidogrel Bisulfate (Plavix) 75 mg PO DAILY [facility] Last Admin: 06/16/18 10:05 Dose: 75 mg Digoxin (Digoxin) 0.125 mg PO DAILY@1800 [facility] Last Admin: 06/15/18 17:09 Dose: 0.125 mg Famotidine (Pepcid) 20 mg PO DAILY [facility] Last Admin: 06/16/18 10:06 Dose: 20 mg Furosemide (Lasix) 40 mg IVP BID [facility] Last Admin: 06/16/18 10:04 Dose: 40 mg Cefepime HCl (Maxipime Iv 1 Gm Premix) 1 gm in 50 mls @ 100 mls/hr IVPB Q24H [facility] Last Admin: 06/16/18 14:32 Dose: 100 mls/hr Potassium Chloride (Klor-Con 10) 40 meq PO BRK [facility] Last Admin: 06/16/18 09:00 Dose: 40 meq Tiotropium [place] (Spiriva) 18 mcg INH RQ24 [facility] Last Admin: 06/16/18 09:12 Dose: 18 mcg - Labs Labs: 06/16/18 11:25 06/16/18 11:25 PT 19.8 SECONDS (9.7-12.2) H 06/13/18 07:40 INR 1.8 06/13/18 07:40 APTT 34 SECONDS (21-34) 06/13/18 07:40 - Constitutional Appears: Well, Non-toxic, No Acute Distress - Head Exam Head Exam: ATRAUMATIC, NORMAL INSPECTION, NORMOCEPHALIC - Eye Exam Eye Exam: EOMI, PERRL - ENT Exam ENT Exam: Mucous Membranes Moist - Neck Exam Neck Exam: Full ROM - Respiratory Exam Respiratory Exam: Clear to Ausculation Bilateral, NORMAL BREATHING PATTERN - Cardiovascular Exam Cardiovascular Exam: REGULAR RHYTHM, RRR, +S1, +S2 - GI/Abdominal Exam GI & Abdominal Exam: Soft, Normal Bowel Sounds. absent: Tenderness - Extremities Exam Extremities Exam: Full ROM - Neurological Exam Neurological Exam: Alert, Awake, CN II-XII Intact, Oriented x3 - Psychiatric Exam Psychiatric exam: Normal Affect, Normal Mood - Skin Skin Exam: Dry, Intact, Normal Color Assessment and Plan - Assessment and Plan (Free Text) Assessment: CHF exacerbation NSTEMI Hyperlipidemia Hypertension Plan: CHF exacerbation NSTEMI Hyperlipidemia Hypertension EKG: NSR with pacer spikes with HR: 88 Troponinx8: 0.26, 0.21, 0.20, 0.07, 0.07, 0.08 (as creatinine improved, troponin level improved as well) CXR: right and left pleural effusion with cardiomegaly TTE: LVEF 10-15%, small apical thrombus, thrombus in right atrium, moderate AR, MR, pulmonary hypertension BNP: [phone] from [id number] KIESHA: confirmed thrombus Will schedule cardiac catheterization likely for tomorrow Medications: aspirin plavix digoxin coreg lasix 40 mg IV BID Would consider discontinuing metolazone due to renal function
--- NOTE | 2018-06-16 18:05 | CP.PCM.PN ---
Subjective - Date & Time of Evaluation Date of Evaluation: 06/16/18 Time of Evaluation: 08:45 - Subjective Subjective: clinically same Objective - Vital Signs/Intake and Output Vital Signs (last 24 hours): Temp Pulse Resp BP Pulse Ox 98.0 F 93 H 20 105/65 98 06/16/18 15:00 06/16/18 16:00 06/16/18 15:00 06/16/18 15:00 06/16/18 15:00 Intake and Output: 06/16/18 06/16/18 06:59 18:59 Intake Total 510 Balance 510 - Medications Medications: Current Medications Aspirin (Aspirin Chewable) 81 mg PO DAILY [facility] Last Admin: 06/16/18 10:08 Dose: 81 mg Carvedilol (Coreg) 12.5 mg PO BID [facility] Last Admin: 06/16/18 10:06 Dose: Not Given Clopidogrel Bisulfate (Plavix) 75 mg PO DAILY [facility] Last Admin: 06/16/18 10:05 Dose: 75 mg Digoxin (Digoxin) 0.125 mg PO DAILY@1800 [facility] Last Admin: 06/15/18 17:09 Dose: 0.125 mg Famotidine (Pepcid) 20 mg PO DAILY [facility] Last Admin: 06/16/18 10:06 Dose: 20 mg Furosemide (Lasix) 40 mg IVP BID [facility] Last Admin: 06/16/18 10:04 Dose: 40 mg Cefepime HCl (Maxipime Iv 1 Gm Premix) 1 gm in 50 mls @ 100 mls/hr IVPB Q24H [facility] Last Admin: 06/16/18 14:32 Dose: 100 mls/hr Potassium Chloride (Klor-Con 10) 40 meq PO BRK [facility] Last Admin: 06/16/18 09:00 Dose: 40 meq Tiotropium [place] (Spiriva) 18 mcg INH RQ24 [facility] Last Admin: 06/16/18 09:12 Dose: 18 mcg - Labs Labs: 06/16/18 11:25 06/16/18 11:25 PT 19.8 SECONDS (9.7-12.2) H 06/13/18 07:40 INR 1.8 06/13/18 07:40 APTT 34 SECONDS (21-34) 06/13/18 07:40 - Constitutional Appears: Well - Head Exam Head Exam: ATRAUMATIC, NORMAL INSPECTION, NORMOCEPHALIC - Eye Exam Eye Exam: EOMI, Normal appearance, PERRL Pupil Exam: NORMAL ACCOMODATION, PERRL - ENT Exam ENT Exam: Mucous Membranes Moist, Normal Exam - Neck Exam Neck Exam: Full ROM, Normal Inspection. absent: Lymphadenopathy - Respiratory Exam Respiratory Exam: Decreased Breath Sounds - Cardiovascular Exam Cardiovascular Exam: REGULAR RHYTHM, +S1, +S2 - GI/Abdominal Exam GI & Abdominal Exam: Soft, Diminished Bowel Sounds - Rectal Exam Rectal Exam: Deferred
[2018-06-16] MEDS: Digoxin 125 mcg (0.125 mg) Tab PO SCH (18:31)
--- NOTE | 2018-06-17 03:45 | CON ---
DATE: 06/16/2018 CONSULTATION SERVICE: Clinical cardiac electrophysiology. PHYSICIAN PERFORMING CONSULT: Compa Pulido MD PHYSICIAN REQUESTING CONSULT: Narendra Winter MD REASON FOR CONSULTATION: Longstanding cardiomyopathy, status post [employer] defibrillator, infection. HISTORY OF PRESENT ILLNESS: Mr. Chavo Irwin is a pleasant 63-year-old male with a past medical history of longstanding nonischemic cardiomyopathy with a [employer] defibrillator implanted in 2010, class 2 to 3 congestive heart failure, hypertension, hyperlipidemia, who presented to [facility] with a week to two of shortness of breath which was ultimately thought to be congestive heart failure exacerbation. At that time, his x-ray also demonstrated a potential for pneumonia, and he was started IV antibiotics. He was initially placed in the ICU as he was tachycardic with an increase respiratory rate. He was not noted to be afebrile, and throughout his course, he has not had any positive culture data including negative blood cultures from 06/08/2018 and negative urine cultures from 06/08/2018 as well. He has subsequently improved from a congestive heart failure perspective. There was some concern of infection, and he has undergone some degree of testing including a KIESHA evaluating his valve, and there was some notation of an echodense inclusion on his leads. As mentioned, he appears to be afebrile and is relatively well-appearing and has not had any positive blood cultures. He is able to provide a somewhat minimal history and denied any lightheadedness, dizziness, syncope, ICD discharges. He denies any fever, chills, or cough currently. His breathing, he says has improved. FAMILY HISTORY AND SOCIAL HISTORY: Reviewed and essentially unchanged. REVIEW OF SYSTEMS: A comprehensive 10-point review of system was performed, notable for what is seen above. PHYSICAL EXAMINATION: VITAL SIGNS: The patient's blood pressure is 100s over 60s to 70s, heart rate 70s to 80s, respiratory rate of 14. GENERAL: The patient is alert, oriented. NECK: Supple. PULMONARY: Decreased breath sounds in the right base, otherwise, clear. GASTROINTESTINAL: Abdomen is soft. EXTREMITIES: No edema. CARDIOVASCULAR: Regular S1 and S2. CHEST WALL: The patient's left infraclavicular device site is well healed. SKIN: No rashes. DEVICE INTERROGATION: The patient has a [employer] defibrillator. Battery status is 6 years. Implant date was in 2009. His leads are all functioning normally. He has had no sustained arrhythmia. He has had a few episodes of 4-to 5-beat NSVT without any therapy. No AFib is noted. ASSESSMENT AND PLAN: In summary, Mr. Chavo Irwin has recurrent congestive heart failure and has a [employer] biventricular implantable cardioverter defibrillator since 2009. Although, there was a transient question of ongoing infection, review of the data reveals normal white count, no fevers and no mary blood cultures that have been positive. The transesophageal echocardiogram done for assessment of valves and heart failure did note some echodensity, which may all be thrombus as opposed to anything else from an infectious perspective. Certainly clinically, I would not do anything different from an electrophysiology standpoint. Certainly, as he has 6 months left on the battery, I will have him see me prior to this at my [place] electrophysiology office, and he can call [phone] to schedule an appointment in 6 months' time for us to assess his device. We did even consider for only monitoring this individual so we have a better sense of when he would be ready for generator exchange, unless of course he has seen somewhere on the outside. Thank you very much for allowing me to participate in the care of this patient. Compa Pulido MD
[2018-06-17] MEDS: Potassium Chloride 10 mEq ER Tab PO SCH (08:00)
[2018-06-17] MEDS: Tiotropium 18 mcg Cap For Inhalation INH SCH (08:01)
--- NOTE | 2018-06-17 11:33 | CP.PCM.PN ---
Subjective - Date & Time of Evaluation Date of Evaluation: 06/17/18 Time of Evaluation: 11:32 - Subjective Subjective: Zachary Cool, PGY-1, Cardiology Progress Note for Dr. Winter Patient was seen and evaluated at bedside. Patient had no acute events ov ernight. Patient is currently on room air and denies shortness of breath today. Patient denies any symptoms at this time. Objective - Vital Signs/Intake and Output Vital Signs (last 24 hours): Temp Pulse Resp BP Pulse Ox 97.3 F L 82 20 109/74 96 06/17/18 07:00 06/17/18 07:00 06/17/18 07:00 06/17/18 07:00 06/17/18 07:00 Intake and Output: 06/17/18 06/17/18 06:59 18:59 Intake Total 320 Output Total 1000 Balance -680 - Medications Medications: Current Medications Aspirin (Aspirin Chewable) 81 mg PO DAILY [facility] Last Admin: 06/16/18 10:08 Dose: 81 mg Carvedilol (Coreg) 12.5 mg PO BID [facility] Last Admin: 06/16/18 20:43 Dose: 12.5 mg Clopidogrel Bisulfate (Plavix) 75 mg PO DAILY [facility] Last Admin: 06/16/18 10:05 Dose: 75 mg Digoxin (Digoxin) 0.125 mg PO DAILY@1800 [facility] Last Admin: 06/16/18 18:31 Dose: 0.125 mg Famotidine (Pepcid) 20 mg PO DAILY [facility] Last Admin: 06/16/18 10:06 Dose: 20 mg Furosemide (Lasix) 40 mg IVP BID [facility] Last Admin: 06/16/18 18:31 Dose: 40 mg Potassium Chloride (Klor-Con 10) 40 meq PO BRK [facility] Last Admin: 06/16/18 09:00 Dose: 40 meq Tiotropium [place] (Spiriva) 18 mcg INH RQ24 [facility] Last Admin: 06/17/18 08:01 Dose: 18 mcg - Labs Labs: 06/16/18 11:25 06/16/18 11:25 PT 19.8 SECONDS (9.7-12.2) H 06/13/18 07:40 INR 1.8 06/13/18 07:40 APTT 34 SECONDS (21-34) 06/13/18 07:40 - Constitutional Appears: Well, Non-toxic, No Acute Distress - Head Exam Head Exam: ATRAUMATIC, NORMAL INSPECTION, NORMOCEPHALIC - Eye Exam Eye Exam: EOMI, PERRL - ENT Exam ENT Exam: Mucous Membranes Moist - Respiratory Exam Respiratory Exam: Clear to Ausculation Bilateral, NORMAL BREATHING PATTERN - Cardiovascular Exam Cardiovascular Exam: REGULAR RHYTHM, RRR, +S1, +S2 - GI/Abdominal Exam GI & Abdominal Exam: Soft, Normal Bowel Sounds. absent: Tenderness - Extremities Exam Extremities Exam: Full ROM, Normal Capillary Refill - Neurological Exam Neurological Exam: Alert, Awake, CN II-XII Intact, Oriented x3 - Psychiatric Exam Psychiatric exam: Normal Affect, Normal Mood - Skin Skin Exam: Dry, Intact Assessment and Plan - Assessment and Plan (Free Text) Assessment: CHF NSTEMI Hyperlipidemia Hypertension Plan: CHF NSTEMI Hyperlipidemia Hypertension EKG: NSR with pacer spikes with HR: 88 Troponinx8: 0.26, 0.21, 0.20, 0.07, 0.07, 0.08 (as creatinine improved, troponin level improved as well) CXR: right and left pleural effusion with cardiomegaly TTE: LVEF 10-15%, small apical thrombus, thrombus in right atrium, moderate AR, MR, pulmonary hypertension BNP: [id number] from [id number] KIESHA: confirmed thrombus Patient can be discharged to rehabilitation with xarelto 10 mg daily for 3 months, dual antiplatelet therapy from the cardiac standpoint. Will consider lead manipulation in the future. Medications: aspirin plavix digoxin coreg lasix 40 mg IV BID Would consider discontinuing metolazone due to renal function
[2018-06-17] MEDS: cefTRIAXone 2 GM in Sodium Chloride 0.9% 100 ML IVPB SCH (14:26)
--- NOTE | 2018-06-17 18:19 | CP.PCM.CON ---
History of Present Illness - History of Present Illness History of Present Illness: 63 year old male with past medical history of CHF, HTN, and HLD presented to the ED with complaints of worsening shortness of breath for one week. Patient reports shortness of breath worsened while laying flat. Patient was started on BiPap in the ER and admitted to the ICU. Patient reported episode of vomiting 3- 4 days ago prior to admission. Patient today reported that shortness of breath has resolved, however, patient has not ambulated from the bed since this admission. Patient has been noncompliant with his medications and appointments. Patient denies any other symptoms including chest pain, nausea, diaphoresis, dizziness, jaw pain, or left arm pain. PMHx: CHF, HLD, HTN, CKD, COPD PSHx: S/p AICD placement FMHx: noncontributary SHx: denies smoking, EtOH or illicit drug abuse. Past Patient History - Infectious Disease Hx of Infectious Diseases: None - Past Medical History & Family History Past Medical History?: Yes - Past Social History Smoking Status: Former Smoker - CARDIAC Hx Congestive Heart Failure: Yes Hx Hypercholesterolemia: Yes Hx Hypertension: Yes Hx Pacemaker: Yes - PULMONARY Hx Respiratory Disorders: No - NEUROLOGICAL Hx Neurological Disorder: No - HEENT Hx HEENT Problems: Yes - RENAL Hx Chronic Kidney Disease: No - ENDOCRINE/METABOLIC Hx Diabetes Mellitus Type 2: Yes - HEMATOLOGICAL/ONCOLOGICAL Hx Blood Disorders: No - INTEGUMENTARY Hx Dermatological Problems: No - MUSCULOSKELETAL/RHEUMATOLOGICAL Hx Musculoskeletal Disorders: Yes Hx Falls: Yes - GASTROINTESTINAL Hx Gastrointestinal Disorders: No - GENITOURINARY/GYNECOLOGICAL Hx Genitourinary Disorders: No - PSYCHIATRIC Hx Substance Use: No - SURGICAL HISTORY Hx Surgeries: Yes Other/Comment: AICD to Left Chest Wall - ANESTHESIA Hx Anesthesia: Yes Hx Anesthesia Reactions: No Hx Malignant Hyperthermia: No Meds Allergies/Adverse Reactions: Allergies Allergy/AdvReac Type Severity Reaction Status Date / Time No Known Allergies Allergy Verified 06/08/18 15:11 - Medications Medications: Current Medications Aspirin (Aspirin Chewable) 81 mg PO DAILY [facility] Last Admin: 06/16/18 10:08 Dose: 81 mg Carvedilol (Coreg) 12.5 mg PO BID [facility] Last Admin: 06/16/18 20:43 Dose: 12.5 mg Clopidogrel Bisulfate (Plavix) 75 mg PO DAILY [facility] Last Admin: 06/16/18 10:05 Dose: 75 mg Digoxin (Digoxin) 0.125 mg PO DAILY@1800 [facility] Last Admin: 06/16/18 18:31 Dose: 0.125 mg Famotidine (Pepcid) 20 mg PO DAILY [facility] Last Admin: 06/16/18 10:06 Dose: 20 mg Furosemide (Lasix) 40 mg IVP BID [facility] Last Admin: 06/16/18 18:31 Dose: 40 mg Cefepime HCl (Maxipime Iv 1 Gm Premix) 1 gm in 50 mls @ 100 mls/hr IVPB Q24H [facility] Last Admin: 06/16/18 14:32 Dose: 100 mls/hr Potassium Chloride (Klor-Con 10) 40 meq PO BRK [facility] Last Admin: 06/16/18 09:00 Dose: 40 meq Tiotropium [place] (Spiriva) 18 mcg INH RQ24 [facility] Last Admin: 06/16/18 09:12 Dose: 18 mcg Results - Vital Signs Recent Vital Signs: Last Vital Signs Temp 98.0 F 06/16/18 15:00 Pulse 93 H 06/16/18 16:00 Resp 20 06/16/18 15:00 BP 106/70 06/16/18 20:43 Pulse Ox 98 06/16/18 15:00 - Labs Result Diagrams: 06/16/18 11:25 06/16/18 11:25 Labs: Laboratory Results - last 24 hr 06/16/18 06/16/18 11:25 11:25 WBC 7.6 RBC 4.13 L Hgb 10.9 L Hct 33.3 L MCV 80.6 MCH 26.3 L MCHC 32.6 L RDW 21.4 H Plt Count 621 H D MPV 7.6 Neut % (Auto) 50.7 Lymph % (Auto) 31.6 [place] % (Auto) 12.6 H Eos % (Auto) 3.7 Baso % (Auto) 1.4 Neut # (Auto) 3.9 Lymph # (Auto) 2.4 [place] # (Auto) 1.0 H Eos # (Auto) 0.3 Baso # (Auto) 0.1 Sodium 135 Potassium 4.4 Chloride 97 L Carbon Dioxide 28 Anion Gap 14 BUN 46 H Creatinine 1.9 H Est GFR ( Amer) 44 Est GFR (Non-Af Amer) 36 Random Glucose 93 Calcium 9.7
--- NOTE | 2018-06-17 18:21 | CP.PCM.CON ---
History of Present Illness - History of Present Illness History of Present Illness: 63 year old male presented to the ED with complaints of worsening shortness of breath for one week. Patient was started on BiPap in the ER and admitted to the ICU. Patient has been noncompliant with his medications and appointments. Referred for ID eval for endocarditis Thus far cultures negative Denies fever or chills No recent medical procedures PMHx: CHF, HLD, HTN, CKD, COPD PSHx: S/p AICD placement FMHx: noncontributary SHx: denies smoking, EtOH or illicit drug abuse. Review of Systems - Review of Systems All systems: reviewed and no additional remarkable complaints except - Constitutional Constitutional: As Per HPI - EENT Eyes: absent: As Per HPI, Blind Spots, Blurred Vision, Change in Vision, Decreased Night Vision, Diplopia, Discharge, Dry Eye, Exophthalmos, Floaters, Irritation, Itchy Eyes, Loss of Peripheral Vision, Pain, Photophobia, Requires Corrective Lenses, Sees Flashes, Spots in Vision, Tunnel Vision, Other Visual Disturbances, Loss of Vision, Other Ears: absent: As Per HPI, Decreased Hearing, Ear Discharge, Ear Pain, Tinnitus, Abnormal Hearing, Disequilibrium, Dizziness, Other Nose/Mouth/Throat: absent: As Per HPI, Epistaxis, Nasal Congestion, Nasal Discharge, Nasal Obstruction, Nasal Trauma, Nose Pain, Post Nasal Drip, Sinus Pain, Sinus Pressure, Bleeding Gums, Change in Voice, Dental Pain, Dry Mouth, Dysphagia, Halitosis, Hoarsness, Lip Swelling, Mouth Lesions, Mouth Pain, Odynophagia, Sore Throat, Throat Swelling, Tongue Swelling, Facial Pain, Neck Pain, Neck Mass, Other - Cardiovascular Cardiovascular: As Per HPI - Respiratory Respiratory: Cough. absent: As Per HPI, Dyspnea, Hemoptysis, Dyspnea on Exerti on, Snoring, Stridor, Pain on Inspiration, Chest Congestion, Excessive Mucous Production, Change in Mucous Color, Pain with Coughing, Other - Gastrointestinal Gastrointestinal: absent: As Per HPI, Abdominal Pain, Belching, Bloating, Change in Bowel Habits, Change in Stool Character, Coffee Ground Emesis, Constipation, Cramping, Diarrhea, Dyspepsia, Dysphagia, Early Satiety, Excessive Flatus, Fecal Incontinence, Heartburn, Hematemesis, Hematochezia, Loose Stools, Melena, Nausea, Odynophagia, Temesmus, Vomiting, Other - Genitourinary Genitourinary: absent: As Per HPI, Change in Urinary Stream, Difficulty Urinating, Dysuria, Flank Pain, Hematuria, Pyuria, Nocturia, Urinary Incontinence, Urinary Frequency, Urinary Hesitance, Urinary Urgency, Voiding Freq/Small Amts, Freq UTI, Hx Renal/Bladder Calculi, Hx /Renal Surgery, Bladder Distension, Other - Musculoskeletal Musculoskeletal: absent: As Per HPI, Abnormal Gait, Arthralgias, Atrophy, Back Pain, Deformity, Joint Swelling, Limited Range of Motion, Loss of Height, Muscle Cramps, Muscle Weakness, Myalgias, Neck Pain, Numbness, Radiating Pain into Limb, Stiffness, Tingling, Other - Integumentary Integumentary: absent: As Per HPI, Acne, Alopecia, Bleeding Lesions, Change in Hair, Change in Nails, Change in Pigmentation, Changing Lesions, Dry Skin, Erythema, Furuncle, Hirsutism, Lesions, New Lesions, Non-Healing Lesions, Photosensitivity, Pruritus, Rash, Skin Pain, Skin Ulcer, Sores, Striae, Swelling, Unusual Bruising, Wounds, Jaundice, Other - Neurological Neurological: absent: As Per HPI, Abnormal Gait, Abnormal Hearing, Abnormal Mov ements, Abnormal Speech, Behavioral Changes, Burning Sensations, Confusion, Convulsions, Disequilibrium, Dizziness, Numbness, Focal Weakness, Frequent Falls, Headaches, Lack of Coordination, Loss of Vision, Memory Loss, Paresthesias, Radicular Pain, Restless Legs, Sensory Deficit, Syncope, Tingling, Tremor, Vertigo, Weakness, Other Visual Disturbances, Other - Psychiatric Psychiatric: absent: As Per HPI, Abnormal Sleep Pattern, Anhedonia, Anxiety, Auditory Hallucinations, Behavioral Changes, Change in Appetite, Change in Libido, Confusion, Depression, Difficulty Concentrating, Hallucinations, Homicidal Ideation, Hopelessness, Irritability, Memory Loss, Mood Swings, Panic Attacks, Paranoia, Suicidal Ideation, Visual Hallucinations, Tactile Hallucinations, Other - Endocrine Endocrine: absent: As Per HPI, Change in Body Appearance, Change in Libido, Cold Intolorance, Deepening of Voice, Excessive Sweating, Fatigue, Flushing, Heat Intolorance, Increase in Ring/Shoe/Hat Size, Palpitations, Polydipsia, Polyphagia, Polyuria, Other - Hematologic/Lymphatic Hematologic: absent: As Per HPI, Easy Bleeding, Easy Bruising, Lymphadenopathy, Other Past Patient History - Infectious Disease Hx of Infectious Diseases: None - Past Medical History & Family History Past Medical History?: Yes - Past Social History Smoking Status: Former Smoker - CARDIAC Hx Congestive Heart Failure: Yes Hx Hypercholesterolemia: Yes Hx Hypertension: Yes Hx Pacemaker: Yes - PULMONARY Hx Respiratory Disorders: No - NEUROLOGICAL Hx Neurological Disorder: No - HEENT Hx HEENT Problems: Yes - RENAL Hx Chronic Kidney Disease: No - ENDOCRINE/METABOLIC Hx Diabetes Mellitus Type 2: Yes - HEMATOLOGICAL/ONCOLOGICAL Hx Blood Disorders: No - INTEGUMENTARY Hx Dermatological Problems: No - MUSCULOSKELETAL/RHEUMATOLOGICAL Hx Musculoskeletal Disorders: Yes Hx Falls: Yes - GASTROINTESTINAL Hx Gastrointestinal Disorders: No - GENITOURINARY/GYNECOLOGICAL Hx Genitourinary Disorders: No - PSYCHIATRIC Hx Substance Use: No - SURGICAL HISTORY Hx Surgeries: Yes Other/Comment: AICD to Left Chest Wall - ANESTHESIA Hx Anesthesia: Yes Hx Anesthesia Reactions: No Hx Malignant Hyperthermia: No Meds Home Medications: Home Medication List Medication Instructions Recorded Confirmed Type Aspirin [Aspirin Chewable] 81 mg PO DAILY #30 chew 06/18/18 Rx Carvedilol [Coreg] 12.5 mg PO BID #60 tab 06/18/18 Rx Clopidogrel [Plavix] 75 mg PO DAILY #30 tab 06/18/18 Rx Digoxin 0.125 mg PO DAILY@1800 #30 tab 06/18/18 Rx Famotidine [Pepcid] 20 mg PO DAILY #30 tab 06/18/18 Rx Furosemide [Lasix] 40 mg PO BID #60 tab 06/18/18 Rx Potassium Chloride 10 meq PO DAILY #30 tab.er.prt 06/18/18 Rx Rivaroxaban [Xarelto] 10 mg PO DAILY #30 tab 06/18/18 Rx Tiotropium [Spiriva] 18 mcg INH RQ24 30 Days cap 06/18/18 Rx Allergies/Adverse Reactions: Allergies Allergy/AdvReac Type Severity Reaction Status Date / Time No Known Allergies Allergy Verified 06/08/18 15:11 - Medications Medications: Current Medications Aspirin (Aspirin Chewable) 81 mg PO DAILY [facility] Last Admin: 06/17/18 12:58 Dose: 81 mg Carvedilol (Coreg) 12.5 mg PO BID [facility] Last Admin: 06/17/18 10:00 Dose: Not Given Clopidogrel Bisulfate (Plavix) 75 mg PO DAILY [facility] Last Admin: 06/17/18 12:57 Dose: 75 mg Digoxin (Digoxin) 0.125 mg PO DAILY@1800 [facility] Last Admin: 06/16/18 18:31 Dose: 0.125 mg Famotidine (Pepcid) 20 mg PO DAILY [facility] Last Admin: 06/17/18 12:58 Dose: 20 mg Furosemide (Lasix) 40 mg IVP BID [facility] Last Admin: 06/17/18 10:00 Dose: Not Given Ceftriaxone Sodium 2 gm/ (Sodium Chloride) 100 mls @ 100 mls/hr IVPB Q24H [facility]; Protocol Last Admin: 06/17/18 14:26 Dose: 100 mls/hr Potassium Chloride (Klor-Con 10) 40 meq PO BRK [facility] Last Admin: 06/17/18 08:00 Dose: Not Given Rivaroxaban (Xarelto) 10 mg PO DAILY [facility] Last Admin: 06/17/18 14:36 Dose: 10 mg Tiotropium [place] (Spiriva) 18 mcg INH RQ24 [facility] Last Admin: 06/17/18 08:01 Dose: 18 mcg Physical Exam - Constitutional Appears: Non-toxic, Chronically Ill - Head Exam Head Exam: ATRAUMATIC, NORMAL INSPECTION, NORMOCEPHALIC - Eye Exam Eye Exam: EOMI, Normal appearance, PERRL Pupil Exam: NORMAL ACCOMODATION, PERRL - ENT Exam ENT Exam: Mucous Membranes Moist, Normal Exam - Neck Exam Neck exam: Positive for: Normal Inspection. Negative for: Lymphadenopathy - Respiratory Exam Respiratory Exam: Decreased Breath Sounds, Clear to Auscultation Bilateral, Prolonged Expiratory Phase - Cardiovascular Exam Cardiovascular Exam: REGULAR RHYTHM - GI/Abdominal Exam GI & Abdominal Exam: Normal Bowel Sounds, Soft. absent: Tenderness - Rectal Exam Rectal Exam: Deferred - Exam Exam: NORMAL INSPECTION - Extremities Exam Extremities exam: Positive for: normal inspection - Back Exam Back exam: NORMAL INSPECTION - Neurological Exam Neurological exam: Alert, CN II-XII Intact, Normal Gait, Oriented x3, Reflexes Normal - Psychiatric Exam Psychiatric exam: Normal Affect, Normal Mood - Skin Skin Exam: Dry, Intact, Normal Color, Warm Results - Vital Signs Recent Vital Signs: Last Vital Signs Temp 97.2 F L 06/17/18 15:00 Pulse 75 06/17/18 15:00 Resp 20 06/17/18 15:00 BP 110/66 06/17/18 15:00 Pulse Ox 100 06/17/18 15:00 - Labs Result Diagrams: 06/16/18 11:25 06/16/18 11:25 Assessment & Plan (1) Anemia Status: Acute (2) CAD (coronary artery disease) Status: Acute (3) CHF (congestive heart failure) Status: Acute (4) COPD (chronic obstructive pulmonary disease) Status: Acute (5) Coagulopathy Status: Acute (6) Dilated cardiomyopathy Status: Acute - Assessment and Plan (Free Text) Assessment: thrombus noted on KIESHA less likely infectious cultures pending IV antibiotics ordered
[2018-06-17] MEDS: Digoxin 125 mcg (0.125 mg) Tab PO SCH (18:45)
[2018-06-17 18:46] VITALS: PULSE 86
--- NOTE | 2018-06-17 19:12 | CP.PCM.PN ---
Subjective - Date & Time of Evaluation Date of Evaluation: 06/17/18 Time of Evaluation: 08:45 - Subjective Subjective: clinically same Objective - Vital Signs/Intake and Output Vital Signs (last 24 hours): Temp Pulse Resp BP Pulse Ox 97.2 F L 75 20 112/73 100 06/17/18 15:00 06/17/18 15:00 06/17/18 15:00 06/17/18 18:46 06/17/18 15:00 Intake and Output: 06/17/18 06/18/18 18:59 06:59 Intake Total 400 Balance 400 - Medications Medications: Current Medications Aspirin (Aspirin Chewable) 81 mg PO DAILY [facility] Last Admin: 06/17/18 12:58 Dose: 81 mg Carvedilol (Coreg) 12.5 mg PO BID [facility] Last Admin: 06/17/18 10:00 Dose: Not Given Clopidogrel Bisulfate (Plavix) 75 mg PO DAILY [facility] Last Admin: 06/17/18 12:57 Dose: 75 mg Digoxin (Digoxin) 0.125 mg PO DAILY@1800 [facility] Last Admin: 06/17/18 18:45 Dose: 0.125 mg Famotidine (Pepcid) 20 mg PO DAILY [facility] Last Admin: 06/17/18 12:58 Dose: 20 mg Furosemide (Lasix) 40 mg IVP BID [facility] Last Admin: 06/17/18 18:46 Dose: 40 mg Ceftriaxone Sodium 2 gm/ (Sodium Chloride) 100 mls @ 100 mls/hr IVPB Q24H [facility]; Protocol Last Admin: 06/17/18 14:26 Dose: 100 mls/hr Potassium Chloride (Klor-Con 10) 40 meq PO BRK [facility] Last Admin: 06/17/18 08:00 Dose: Not Given Rivaroxaban (Xarelto) 10 mg PO DAILY [facility] Last Admin: 06/17/18 14:36 Dose: 10 mg Tiotropium [place] (Spiriva) 18 mcg INH RQ24 [facility] Last Admin: 06/17/18 08:01 Dose: 18 mcg - Labs Labs: 06/16/18 11:25 06/16/18 11:25 PT 19.8 SECONDS (9.7-12.2) H 06/13/18 07:40 INR 1.8 06/13/18 07:40 APTT 34 SECONDS (21-34) 06/13/18 07:40 - Constitutional Appears: Well - Head Exam Head Exam: ATRAUMATIC, NORMAL INSPECTION, NORMOCEPHALIC - Eye Exam Eye Exam: EOMI, Normal appearance, PERRL Pupil Exam: NORMAL ACCOMODATION, PERRL - ENT Exam ENT Exam: Mucous Membranes Moist, Normal Exam - Neck Exam Neck Exam: Full ROM, Normal Inspection. absent: Lymphadenopathy - Respiratory Exam Respiratory Exam: Decreased Breath Sounds - Cardiovascular Exam Cardiovascular Exam: REGULAR RHYTHM, +S1, +S2 - GI/Abdominal Exam GI & Abdominal Exam: Soft, Diminished Bowel Sounds - Rectal Exam Rectal Exam: Deferred
[2018-06-18] MEDS: Tiotropium 18 mcg Cap For Inhalation INH SCH (07:35)
--- NOTE | 2018-06-18 08:29 | CP.PCM.PN ---
Subjective - Date & Time of Evaluation Date of Evaluation: 06/18/18 Time of Evaluation: 08:27 - Subjective Subjective: Zachary Cool, PGY-1, Cardiology Progress Note for Dr. Winter Patient seen and evaluated at bedside. Patient had no acute overnight events. Patient has no complaints at this time. Objective - Vital Signs/Intake and Output Vital Signs (last 24 hours): Temp Pulse Resp BP Pulse Ox 98.2 F 75 20 106/67 100 06/18/18 00:00 06/18/18 07:48 06/18/18 00:00 06/18/18 00:00 06/18/18 00:00 Intake and Output: 06/18/18 06/18/18 06:59 18:59 Intake Total 320 Output Total 850 Balance -530 - Medications Medications: Current Medications Aspirin (Aspirin Chewable) 81 mg PO DAILY [facility] Last Admin: 06/17/18 12:58 Dose: 81 mg Carvedilol (Coreg) 12.5 mg PO BID [facility] Last Admin: 06/17/18 20:44 Dose: 12.5 mg Clopidogrel Bisulfate (Plavix) 75 mg PO DAILY [facility] Last Admin: 06/17/18 12:57 Dose: 75 mg Digoxin (Digoxin) 0.125 mg PO DAILY@1800 [facility] Last Admin: 06/17/18 18:45 Dose: 0.125 mg Famotidine (Pepcid) 20 mg PO DAILY [facility] Last Admin: 06/17/18 12:58 Dose: 20 mg Furosemide (Lasix) 40 mg IVP BID [facility] Last Admin: 06/17/18 18:46 Dose: 40 mg Ceftriaxone Sodium 2 gm/ (Sodium Chloride) 100 mls @ 100 mls/hr IVPB Q24H [facility]; Protocol Last Admin: 06/17/18 14:26 Dose: 100 mls/hr Potassium Chloride (Klor-Con 10) 40 meq PO BRK [facility] Last Admin: 06/17/18 08:00 Dose: Not Given Rivaroxaban (Xarelto) 10 mg PO DAILY [facility] Last Admin: 06/17/18 14:36 Dose: 10 mg Tiotropium [place] (Spiriva) 18 mcg INH RQ24 [facility] Last Admin: 06/17/18 08:01 Dose: 18 mcg - Labs Labs: 06/16/18 11:25 06/16/18 11:25 PT 19.8 SECONDS (9.7-12.2) H 06/13/18 07:40 INR 1.8 06/13/18 07:40 APTT 34 SECONDS (21-34) 06/13/18 07:40 - Constitutional Appears: Well, Non-toxic, No Acute Distress - Head Exam Head Exam: ATRAUMATIC, NORMAL INSPECTION, NORMOCEPHALIC - Eye Exam Eye Exam: EOMI, PERRL - ENT Exam ENT Exam: Mucous Membranes Moist - Respiratory Exam Respiratory Exam: Clear to Ausculation Bilateral, NORMAL BREATHING PATTERN - Cardiovascular Exam Cardiovascular Exam: REGULAR RHYTHM, RRR, +S1, +S2 - GI/Abdominal Exam GI & Abdominal Exam: Soft, Normal Bowel Sounds. absent: Tenderness - Extremities Exam Extremities Exam: Full ROM - Neurological Exam Neurological Exam: Alert, Awake, CN II-XII Intact, Oriented x3 - Skin Skin Exam: Dry, Intact, Normal Color Assessment and Plan - Assessment and Plan (Free Text) Assessment: CHF NSTEMI Hyperlipidemia Hypertension Plan: CHF NSTEMI Hyperlipidemia Hypertension EKG: NSR with pacer spikes with HR: 88 Troponinx8: 0.26, 0.21, 0.20, 0.07, 0.07, 0.08 (as creatinine improved, troponin level improved as well) CXR: right and left pleural effusion with cardiomegaly TTE: LVEF 10-15%, small apical thrombus, thrombus in right atrium, moderate AR, MR, pulmonary hypertension BNP: [phone] from [id number] KIESHA: confirmed thrombus Patient can be discharged to rehabilitation with xarelto 10 mg daily for 3 months, dual antiplatelet therapy from the cardiac standpoint. Will consider lead manipulation in the future. Medications: aspirin plavix xarelto digoxin coreg lasix 40 mg IV BID Would consider discontinuing metolazone due to renal function
[2018-06-18] MEDS: Potassium Chloride 10 mEq ER Tab PO SCH (09:00)
[2018-06-18 09:03] VITALS: PULSE 77; TEMP 98; O2SAT 99
[2018-06-18 10:24] VITALS: BP 106/69
[2018-06-18] MEDS: cefTRIAXone 2 GM in Sodium Chloride 0.9% 100 ML IVPB SCH (13:41)
--- NOTE | 2018-06-18 14:23 | PCM.HF ---
Heart Failure Core Measure - Heart Failure Ejection Fraction: Less Than 40 % ESTHER Inhibitor Prescribed: Yes Beta-Armando Prescribed: Carvedilol Angiotensin II Receptor Armando Prescribed: Yes AnticoagulationTherapy for Atrial Fibrillation/Atrialflutter: Yes Aldosterone Antagonist Prescribed: No Contraindication/Reason for not providing: D/C SECONDARY TO arf Hydralazine Nitrate Prescribed: No Contraindication/Reason for not providing: on disgoxin / bp running low Implantable Cardioverter Defibrillator Therapy: No Contraindication/Reason for not providing: pt has ICD Cardiac Resynchronization Therapy Prescribed: No Contraindication/Reason for not providing: pt has ICD - Follow up Will be discharged to: Home Follow Up Date (must be within 7 days from discharge): 06/22/18 Follow Up Time: 14:00
--- NOTE | 2018-06-18 14:24 | CP.PCM.PN ---
Subjective - Date & Time of Evaluation Date of Evaluation: 06/18/18 Time of Evaluation: 11:45 - Subjective Subjective: patient seen today , denies any chest pain, sob, dizziness, abdominal pain oob ambulating without SOB spo2 after ambulation 98-99% labs and vss reviewed - stable s/p KIESHA- thrombus noted Objective - Vital Signs/Intake and Output Vital Signs (last 24 hours): Temp Pulse Resp BP Pulse Ox 98.0 F 77 20 106/69 99 06/18/18 09:00 06/18/18 09:41 06/18/18 09:00 06/18/18 10:18 06/18/18 09:00 Intake and Output: 06/18/18 06/18/18 06:59 18:59 Intake Total 320 Output Total 850 Balance -530 - Medications Medications: Current Medications Aspirin (Aspirin Chewable) 81 mg PO DAILY [facility] Last Admin: 06/18/18 10:19 Dose: 81 mg Carvedilol (Coreg) 12.5 mg PO BID [facility] Last Admin: 06/18/18 10:24 Dose: Not Given Clopidogrel Bisulfate (Plavix) 75 mg PO DAILY [facility] Last Admin: 06/18/18 10:19 Dose: 75 mg Digoxin (Digoxin) 0.125 mg PO DAILY@1800 [facility] Last Admin: 06/17/18 18:45 Dose: 0.125 mg Famotidine (Pepcid) 20 mg PO DAILY [facility] Last Admin: 06/18/18 10:19 Dose: 20 mg Furosemide (Lasix) 40 mg IVP BID [facility] Last Admin: 06/18/18 10:18 Dose: 40 mg Ceftriaxone Sodium 2 gm/ (Sodium Chloride) 100 mls @ 100 mls/hr IVPB Q24H [facility]; Protocol Last Admin: 06/18/18 13:41 Dose: Not Given Potassium Chloride (Klor-Con 10) 40 meq PO BRK [facility] Last Admin: 06/18/18 09:00 Dose: 40 meq Rivaroxaban (Xarelto) 10 mg PO DAILY [facility] Last Admin: 06/18/18 10:20 Dose: 10 mg Tiotropium [place] (Spiriva) 18 mcg INH RQ24 [facility] Last Admin: 06/18/18 07:35 Dose: 18 mcg - Labs Labs: 06/16/18 11:25 06/16/18 11:25 PT 19.8 SECONDS (9.7-12.2) H 06/13/18 07:40 INR 1.8 06/13/18 07:40 APTT 34 SECONDS (21-34) 06/13/18 07:40 Assessment and Plan - Assessment and Plan (Free Text) Assessment: A/P 63 year old male with PMHx of CHF, HTN , presents to ED with complaint of shortness of breath for 1 week. Pt admitted with [id number] CHF exacerbation. S/P KIESHA- + thrombus , no vegetation as per Dr. Winter seen by Dr. Winter yesterday , discussed , stable for discharge continue aspirin, plavix and 10 mg of xaralto and f/.u with office - need cardiac cath Dr. Ashok nunez consulted , seen patient and recommends to f/u with 6 months for battery change ( battery good for 6 months) Patient referred to [facility] and patient refused the idea and wants to go home ( pt states he lives with his sister and she will help him) seen by Dr. Dias today, cleared for discharge home and f/u with his office on Friday Discharge plan discussed with patient who understands and agrees with plan RX filled and given to the patient upon discharge Patient instructed to returns to ED if symptoms returns or any concerning symptoms
--- NOTE | 2018-06-22 12:33 | CARD ---
APPROVED REPORT Date of service: 06/15/2018 EXAM: Transesophageal echocardiogram with color flow Doppler. INDICATION Infection : Rule out subacute bacterial endocarditis Mitral Valve E/A ratio0.0 TDI E/Lateral E'0.0E/Medial E'0.0 Reason For Test : Rule out endocarditis. PROCEDURE After obtaining informed consent, patient underwent transesophageal echo in the [employer]. Type of Sedation : Conscious Sedation Sedation was administered by Dr Winter. Sedation was achieved with Versed, Fentanyl mg intravenously. Transesophageal probe was inserted and advanced into esophagus without difficulty. Echo enhancement indication: R/O Septal defect. Echo enhancement agent administered: Agitated Saline The KIESHA was performed without complications. Throughout the procedure, the blood pressure, pulse oximetry, cardiac rhythm, and rate were monitored. The patient tolerated the procedure without adverse effects. Recovery from conscious sedation was uneventful and vital signs were stable. LEFT VENTRICLE The Left Ventricle is moderately dilated. There is borderline concentric left ventricular hypertrophy. Left ventricle systolic function is severely impaired. The Ejection Fraction is 15-20%. There is global hypokinesis of the left ventricle. Transmitral Doppler flow pattern is Grade II-pseudonormal filling dynamics. No left ventricle thrombus noted on this study. There is no ventricular septal defect visualized. There is no left ventricular aneurysm. There is no mass noted in the left ventricle. RIGHT VENTRICLE The right ventricle is normal size. There is normal right ventricular wall thickness. The right ventricular systolic function is normal. ATRIA The left atrium is moderately dilated. The right atrium is moderately dilated. Atrial lead in the RA has a hyperechoic lucency attached to it concern for possilble thrombus vs. vegetation. The interatrial septum is intact with no evidence for an atrial septal defect. AORTIC VALVE The aortic valve is moderately thickened. There is mild aortic regurgitation. There is no aortic valvular stenosis. There is no aortic valvular vegetation. MITRAL VALVE Mitral annular calcification is borderline. The mitral valve leaflets are thickened. There is no evidence of mitral valve prolapse. There is no mitral valve stenosis. Mitral regurgitation is moderate. TRICUSPID VALVE The tricuspid valve is normal in structure. There is mild to moderate tricuspid regurgitation. There is no tricuspid valve prolapse or vegetation. There is no tricuspid valve stenosis. PULMONIC VALVE The pulmonary valve is normal in structure. There is mild to moderate pulmonic valvular regurgitation. There is no pulmonic valvular stenosis. GREAT VESSELS The aortic root is normal in size. The IVC is normal in size and collapses >50% with inspiration. PERICARDIAL EFFUSION There is no pericardial effusion. <Conclusion> Left ventricle systolic function is severely impaired. The Ejection Fraction is 15-20%. The Left Ventricle is moderately dilated. There is global hypokinesis of the left ventricle. Transmitral Doppler flow pattern is Grade II-pseudonormal filling dynamics. The right atrium is moderately dilated. Atrial lead in the RA has a hyperechoic lucency attached to it concern for possilble thrombus vs. vegetation. Mitral regurgitation is moderate.
== END 2018-06-18 15:45 | disposition home or self-care (01) | DRG 280 ==
LOC: C.ER 14:58 → C.9I 18:18 → C.6T 06-10 16:06
PROVIDERS: ADMIT Internal Medicine Nephrology; ATTEND Internal Medicine Nephrology
PROC: 5A09457 Assistance with Respiratory Ventilation, 24-96 Consecutive Hours, Continuous Positive Airway Pressure (ICD-10-PCS; 2018-06-08)
PROC: B246ZZ4 Ultrasonography of Right and Left Heart, Transesophageal (ICD-10-PCS; 2018-06-15)
PROC: 4B02XTZ Measurement of Cardiac Defibrillator, External Approach (ICD-10-PCS; principal; 2018-06-16)
DX: I13.0 Hypertensive heart and chronic kidney disease with heart failure and stage 1 through stage 4 chronic kidney disease, or unspecified chronic kidney disease (principal); I50.43 Acute on chronic combined systolic (congestive) and diastolic (congestive) heart failure; I21.4 Non-ST elevation (NSTEMI) myocardial infarction; J18.9 Pneumonia, unspecified organism; J44.0 Chronic obstructive pulmonary disease with (acute) lower respiratory infection; N17.9 Acute kidney failure, unspecified; D68.9 Coagulation defect, unspecified; I42.0 Dilated cardiomyopathy; I08.0 Rheumatic disorders of both mitral and aortic valves; E87.5 Hyperkalemia; I25.5 Ischemic cardiomyopathy; E11.22 Type 2 diabetes mellitus with diabetic chronic kidney disease; N18.9 Chronic kidney disease, unspecified; I27.20 Pulmonary hypertension, unspecified; E78.5 Hyperlipidemia, unspecified; E78.00 Pure hypercholesterolemia, unspecified; Z95.810 Presence of automatic (implantable) cardiac defibrillator; Z79.01 Long term (current) use of anticoagulants; Z79.02 Long term (current) use of antithrombotics/antiplatelets; Z79.82 Long term (current) use of aspirin; Z79.899 Other long term (current) drug therapy; Z87.891 Personal history of nicotine dependence; Z91.14 Patient's other noncompliance with medication regimen; Z79.4 Long term (current) use of insulin